=== PATIENT | male | born 1955 | race Caucasian/White ===

== ENCOUNTER 2024-01-16 05:50 | Day surgery (SDC) | payer MEDICARE ==
[2024-01-13 14:07] VITALS: BMI 25.0
[~2024-01-16 05:50] MED LIST: ALPRAZolam 0.25 MG TAB PO PRN; ALPRAZolam 0.5 MG TAB PO PRN; HEPARIN SODIUM,PORCINE (1 ML) 2,500 UNIT in SODIUM CHLORIDE 0.9% 250 ML IRRIGATION PRN; HEPARIN SODIUM,PORCINE 10,000 UNIT in SODIUM CHLORIDE 0.9% 1,000 ML IRRIGATION PRN; NITROGLYCERIN SL TABS 0.4 MG TAB SUBLINGUAL PRN
[2024-01-16] MEDS: SODIUM CHLORIDE 0.9% 1,000 ML in EMPTY BAG 1 BAG IV SCH (06:05)
[2024-01-16] MEDS: IV FLUID CONTINUATION 1,000 ML IV ONE (06:07)
[2024-01-16 06:21] VITALS: RESP 16; TEMP 97.2
[2024-01-16 06:39] LABS: Basophils # (A) 0.1 k/uL (0-0.2); Basophils % (A) 1 %; Eosinophils # (A) 0.2 k/uL (0-0.7); Eosinophils % (A) 2 %; HGB 13.7 gm/dL (13.0-17.5); Lymphocytes # (A) 3.5 k/uL (1.0-4.8); Lymphocytes % (A) 36 %; MCH 29.1 pg (25.0-35.0); MCHC 32.7 g/dL (31.0-37.0); Mean Platelet Volume 9.2; Monocytes # (A) 0.6 k/uL (0-1.0); Monocytes % (A) 6 %; Neutrophils # (A) 5.1 k/uL (1.3-7.7); Neutrophils % (A) 53 %; Platelet Count 190 k/uL (150-450); RBC 4.72 m/uL (4.30-5.90); WBC 9.5 k/uL (3.8-10.6)
[2024-01-16 06:54] LABS: African American GFR (CKD) >90 (>60 ml/min/1.73 sqM); Anion Gap 11 mmol/L; Blood Urea Nitrogen 20 mg/dL (9-20); Calcium 9.2 mg/dL (8.4-10.2); Carbon Dioxide 21 mmol/L (22-30); Chloride 106 mmol/L (98-107); Glucose 93 mg/dL (74-99); Non-African American GFR(CKD) >90 (>60 ml/min/1.73 sqM); Potassium 4.2 mmol/L (3.5-5.1); Sodium 138 mmol/L (137-145)
[2024-01-16] MEDS ORDERED: ASPIRIN 325 MG TAB PO ONE (07:00)
[2024-01-16] MEDS: fentaNYL (PF) 50 MCG/ML 2 ML AMP IVP ONE (07:22)
[2024-01-16] MEDS: LIDOCAINE 1% INJ 10MG/ML (20 ML MDV) SQ ONE (07:24)
[2024-01-16] MEDS: VERAPAMIL SYRINGE (5 MG/10 ML) INTRAARTER ONE (07:27)
[2024-01-16] MEDS: HEPARIN SODIUM 1,000 UN/ML (10ML VL) IVP ONE (07:33)
[2024-01-16] MEDS: IOPAMIDOL-370 100ML BTL INJ ONE (07:41)
[2024-01-16] MEDS ORDERED: RX INFO: IV CONTRAST WAS GIVEN 1 EACH MISC MISCELLANE PRN (07:55)
[2024-01-16] MEDS ORDERED: SODIUM CHLORIDE 0.9% 1,000 ML IV SCH (08:00)
--- NOTE | 2024-01-16 08:01 | P.CARDCATH ---
Date of Procedure: 01/16/24 Description of Procedure: Cardiac Catheterization: The patient is a 68-year-old male with no prior cardiac history who was noted to be in atrial fibrillation with controlled ventricular response. Anticoagulation was initiated and subsequently he had an abnormal MPI. Recommendations were made regarding cardiac catheterization, the risks and the complications were discussed with the patient who is in full understanding and agreement. Procedure Description: Patient was brought to laborer pole crew in fasting semi-sedated state after receiving Fentanyl and Benadryl achieiving moderate conscious sedated state. Using Xylocaine Anesthesia and modified Seldinger technique, a 6-Bulgarian sheath was introduced in the right radial artery . Subsequently, selective coronary angiography was performed using a 5-Bulgarian 5 bend right Ivan and 3.5 left Ivan catheter. Multiple views of the coronary artery including hemiaxial views were obtained. The right Ivan catheter was used to cross the aortic valve and LVEDP was calculated. Following that, catheter and sheath were removed. Hemostasis was obtained with deployment of vascular band . There was no immediate complication. Patient was returned to room in stable condition. Of note, the patient received a total of 5000 units of intravenous heparin as well as intra-arterial verapamil. Findings: Fluoroscopy: Calcifications of the LAD was noted Left main: This is a short size vessel, bifurcating into LAD and left circumflex, left main has no significant obstructive disease. LAD: This is a large size vessel, reaching to the apex, giving rise to 2 diagonal branch, the first 1 is large in caliber. The LAD after the takeoff of the first septal collateral specialist has a 20 to 30% plaque, the rest of the vessel has no high-grade stenosis. Left circumflex: This is a large nondominant vessel, giving rise to 2 obtuse marginal branch. The left circumflex has mild intimal disease in the obtuse marginal branch with no high-grade stenosis RCA: This is a dominant vessel, moderate in caliber, bifurcating distally to PDA and PLV, the RCA distally has mild intimal disease with no high-grade stenosis Left Ventriculogram: Not performed Hemodynamics: There was no gradient across the aortic valve, LVEDP was 8-12 mmHg Conclusion: 1. Calcified LAD 2. Mild triple-vessel disease 3. Right dominance 4. Normal LVEDP Recommendations: The patient will continue on present medical therapy with aggressive coronary risks modifications. He will be evaluated for rhythm control and amish of sinus mechanism. The findings and the recommendations were discussed with the patient and the family and they were in full understanding and agreement. Duration of sedation is 22 minutes.
[2024-01-16 09:33] VITALS: PULSE 70
[2024-01-16 10:52] VITALS: BP 168/70
[2024-01-16] MEDS ORDERED: PANTOPRAZOLE 40 MG TABLET PO SCH (21:00)
[2024-01-17] MEDS ORDERED: ALBUTEROL NEBULIZED 2.5 MG/3 ML INHALATION PRN (07:00)
[2024-01-17] MEDS ORDERED: FLUTICASONE 44 MCG INHALER INHALATION PRN (07:00)
== END 2024-01-16 10:54 | disposition home or self-care (01) ==
LOC: CATHCVL 05:50
PROVIDERS: ATTEND Internal Medicine Interventional Cardiology
DX: I25.10 Atherosclerotic heart disease of native coronary artery without angina pectoris (principal); I48.91 Unspecified atrial fibrillation
CPT/HCPCS: 93458; 80048; 85025; C1769; C1894; J2001; J3010; J1644; Q9967

== ENCOUNTER 2024-01-31 05:49 | Day surgery (SDC) | payer MEDICARE ==
[2024-01-30 08:44] VITALS: BMI 24.8
[~2024-01-31 05:49] MED LIST changes: -ALPRAZolam 0.25 MG TAB PO PRN; -ALPRAZolam 0.5 MG TAB PO PRN; -HEPARIN SODIUM,PORCINE (1 ML) 2,500 UNIT in SODIUM CHLORIDE 0.9% 250 ML IRRIGATION PRN; -HEPARIN SODIUM,PORCINE 10,000 UNIT in SODIUM CHLORIDE 0.9% 1,000 ML IRRIGATION PRN; -NITROGLYCERIN SL TABS 0.4 MG TAB SUBLINGUAL PRN; +SODIUM CHLORIDE 0.9% 500 ML 500 ML IV SCH
[2024-01-31] MEDS ORDERED: LIDOCAINE 1% (10MG/ML) FOR IV START INTRADERMA PRN (05:59)
[2024-01-31 06:39] VITALS: TEMP 97.7
[2024-01-31] MEDS: IV FLUID CONTINUATION 500 ML IV ONE (07:00)
[2024-01-31] MEDS: BENZOCAINE SPRAY 1 CAN TOPICAL ONE (07:17)
[2024-01-31] MEDS: LACTATED RINGERS 1,000 ML IV ONE (07:22)
[2024-01-31] MEDS ORDERED: LIDOCAINE 1% INJ 10MG/ML (20 ML MDV) ONE (07:23)
[2024-01-31] MEDS ORDERED: PROPOFOL 10 MG/ML 20 ML VIAL IV ONE (07:23)
--- NOTE | 2024-01-31 07:44 | P.PCN ---
Date of Procedure: 01/31/24 Description of Procedure: Indication: Atrial fibrillation Procedure Description: After explaining the procedure to the patient, it's risk and complications, blood pressure, heart rate and O2 saturation were monitored. The throat was sprayed with Cetacaine. Patient received sedation per anesthesia department. The probe was introduced into the esophagus without difficulty. Images were obtained. Following that, the probe was removed. There was no immediate complication. Findings: Severe biatrial enlargement was noted, left atrial appendage was normal. The left ventricle systolic function was globally impaired with an ejection fraction of 30 to 35%. The aortic valve revealed mild fibrocalcific changes of the aortic cusps. Mild thickening of the mitral valve leaflets was noted. The tricuspid valve is normal. No pericardial fusion was noted. Contrast bubble study revealed no shunting across the interatrial septum. Descending thoracic aorta appears to be normal. Doppler: Pulse wave and color Doppler were obtained, and revealed severe mitral regurgitation with moderate tricuspid and mild aortic regurgitation. There was no shunting across the interatrial septum. Conclusion: 1. Severe biatrial enlargement with normal appearance of the left atrial appendage 2. Severe global hypokinesis of the left ventricle 3. Severe mitral regurgitation 4. Moderate tricuspid regurgitation with mild aortic regurgitation 5. No shunting across the interatrial septum Cardioversion: After obtaining GABRIELA and obtaining sedated state per anesthesia department a synchronized biphasic cardioversion using 150, 200, 200 J were performed with the inability to restore sinus mechanism.
[2024-01-31 08:25] VITALS: RESP 18
[2024-01-31 08:49] VITALS: BP 151/79; PULSE 61
[2024-01-31] MEDS ORDERED: PANTOPRAZOLE 40 MG TABLET PO SCH (21:00)
[2024-01-31] MEDS ORDERED: ATORVASTATIN 20 MG TAB PO SCH (21:00)
[2024-01-31] MEDS ORDERED: RIVAROXABAN 20 MG TAB PO SCH (21:00)
== END 2024-01-31 09:12 | disposition home or self-care (01) ==
LOC: OR 05:49
PROVIDERS: ATTEND Internal Medicine Interventional Cardiology
DX: I08.3 Combined rheumatic disorders of mitral, aortic and tricuspid valves (principal); I48.11 Longstanding persistent atrial fibrillation; I25.10 Atherosclerotic heart disease of native coronary artery without angina pectoris; Z79.01 Long term (current) use of anticoagulants; Z79.899 Other long term (current) drug therapy
CPT/HCPCS: 93312; 93320; 93325; 92960; J2001; J2704

== ENCOUNTER → 2024-04-06 | Outpatient (CLI) | payer MEDICARE, BC ==
[2024-04-06 11:10] LABS: INR 1.3 (<1.2); Partial Thromboplastin Time 32.4 sec (22.0-30.0); Prothrombin Time 13.5 sec (10.0-12.5)
--- NOTE | 2024-04-06 11:17 | XR ---
EXAMINATION TYPE: XR chest 2V DATE OF EXAM: 04/06/2024 COMPARISON: 04/01/2024 TECHNIQUE: PA and lateral views submitted. HISTORY: Preop FINDINGS: No slight granuloma right upper lobe. Heart size mildly enlarged. No focal pneumonia or sizable pleur al effusion. No interstitial edema. Degenerative changes of the spine. IMPRESSION: 1. Cardiomegaly. [facility], , 04/06/2024 11:15 AM
[2024-04-06 15:28] LABS: HCT 43.9 % (39.6-50.0); HGB 14.3 g/dL (13.0-17.0); MCH 28.1 pg (27.0-32.0); MCHC 32.6 g/dL (32.0-37.0); MCV 86.2 FL (80.0-97.0); Mean Platelet Volume 10.1 FL (9.5-12.2); NRBC Per 100 WBC 0 X 10*3/uL (0.00-0.01); Platelet Count 235 X 10*3/uL (140-440); RBC 5.09 X 10*6/uL (4.40-5.60); RDW 15.9 % (11.5-14.5); WBC 8.82 X 10*3/uL (4.50-10.00)
[2024-04-06 15:56] LABS: Hepatitis A Antibody IgM Nonreactive (Nonreactive); Hepatitis B Core IgM Nonreactive (Nonreactive); Hepatitis B Surface Antigen Nonreactive (Nonreactive); Hepatitis C IgG Antibody Nonreactive (Nonreactive)
[2024-04-06 16:14] LABS: Chol/HDL Ratio 2.93 Ratio
[2024-04-06 16:15] LABS: ALT 12 U/L (10-49); AST 22 U/L (14-35); Albumin 4.5 g/dL (3.8-4.9); Albumin/Globulin Ratio 1.22 Ratio (1.60-3.17); Alkaline Phosphatase 99 U/L (41-126); BUN/Creat Ratio 22.22 Ratio (12.00-20.00); Calcium 9.4 mg/dL (8.7-10.3); Carbon Dioxide 24.2 mmol/L (21.6-31.8); Chloride 104 mmol/L (96-109); Globulin 3.7 g/dL (1.6-3.3); Glucose 116 mg/dL (70-110); LDL Cholesterol,Calculated 60.3 mg/dL (0.0-131.0); Potassium 4.3 mmol/L (3.5-5.5); Sodium 140 mmol/L (135-145); Total Bilirubin 0.8 mg/dL (0.3-1.2); Total Protein 8.2 g/dL (6.2-8.2); VLDL Calculation 18.74 mg/dL (5.00-40.00)
--- NOTE | 2024-04-08 11:38 | US ---
EXAMINATION TYPE: US arterial LE single level DATE OF EXAM: 04/06/2024 10:57 AM CLINICAL INDICATION: Male, 68 years old with history of I36.1 MITRAL VALVE TRISCUSPID INSUFFICIENCY; pre mitral milind replacement Doppler Waveforms: Right: Multiphasic Left: Multiphasic Right Brachial Pressure: 152 Left Brachial Pressure: 175 Ankle-Brachial Indices: Right: 1.1 Left: 1.1 (Vessel hardening > 1.4; Normal 0.9 - 1.4, Moderate 0.7 - 0.9, Severe 0.5-0.7) IMPRESSION: Values are within normal limits [facility], , 04/08/2024 11:36 AM
== END | disposition home or self-care (01) ==
LOC: LABWHC1 08:45
PROVIDERS: ATTEND Surgery
DX: I51.7 Cardiomegaly (principal); I45.81 Long QT syndrome; I48.91 Unspecified atrial fibrillation
CPT/HCPCS: 36415; 71046; 80053; 80061; 80074; 83036; 83735; 84443; 85027; 85610; 85730; 86850; 86900; 86901; 86920; 87070; 87086; 93922

== ENCOUNTER 2024-04-11 05:33 | Inpatient (IN) | payer MEDICARE, BC ==
[~2024-04-11 05:33] MED LIST changes: +ALBUMIN HUMAN 25% 50 ML IV ONE; +ALBUMIN HUMAN 5% 500 ML IVPB ONE; +ASPIRIN 325 MG TAB PO ONE; +CALCIUM CHLORIDE 100 MG/ML 10 ML SYRINGE IV ONE; +CHLORHEXIDINE GLUCONATE 15 ML CUP MUCOUS MEM ONE; +CLEVIDIPINE BUTYRATE 25 MG in EMPTY BAG 1 BAG IV ONE; +ELECTROLYTE-A SOLUTION 1,000 ML with POTASSIUM CHLORIDE 100 MEQ, MAGNESIUM SULFATE 16 M... IV ONE; +ELECTROLYTE-A SOLUTION 1,000 ML with POTASSIUM CHLORIDE 40 MEQ, MAGNESIUM SULFATE 16 ME... IV ONE; +HEPARIN SODIUM 1,000 UN/ML (10ML VL) IV ONE; +HEPARIN SODIUM,PORCINE (1 ML) 5,000 UNIT in SODIUM CHLORIDE 0.9% 500 ML 500 ML IV ONE; +MAGNESIUM SULFATE 16.24 MEQ in EMPTY SYRINGE 1 SYR IV ONE; +MANNITOL 25% 12.5 GM/50 ML VIAL IV ONE; +NITROGLYCERIN SL TABS 0.4 MG TAB SUBLINGUAL ONE; +NITROGLYCERIN-D5W PMX 25 MG/250 ML BTL IV ONE; +NITROGLYCERIN-D5W PMX 50 MG in DEXTROSE/WATER 1 250ML.BAG IV ONE; +NOREPINEPHRINE 4 MG in SODIUM CHLORIDE 0.9% 250 ML IV ONE; +PAPAVERINE 360 MG in SODIUM CHLORIDE 0.9% 90 ML IV ONE; +PHENYLEPHRINE 10 MG/ML VIAL IV ONE; +PHENYLEPHRINE 40 MG in SODIUM CHLORIDE 0.9% 250 ML IV ONE; +PROTAMINE SULFATE 10 MG/ML 25 ML VIAL IV ONE; +PROTAMINE SULFATE 250 MG in EMPTY BAG 1 BAG IV ONE; +SODIUM BICARB 8.4% 50 ML SYR (1 MEQ/ML) IV ONE; +SODIUM CHLORIDE 0.9% 1,000 ML IV ONE; -SODIUM CHLORIDE 0.9% 500 ML 500 ML IV SCH; +TRANEXAMIC ACID 2,000 MG in SODIUM CHLORIDE 0.9% 80 ML IV ONE; +ceFAZolin 1,000 MG in SODIUM CHLORIDE 0.9% IRRIGATIO 1,000 ML IRRIGATION ONE; +propofoL 1,000 MG/100 ML VIAL IV ONE
[2024-04-11] MEDS: ATORVASTATIN 10 MG TAB PO ONE (06:16)
[2024-04-11] MEDS: METOPROLOL TARTRATE 12.5 MG TAB PO ONE (06:16)
[2024-04-11] MEDS: MUPIROCIN 2% OINT 22 GM TUBE NASAL ONE (06:16)
[2024-04-11] MEDS: LACTATED RINGERS 1,000 ML IV ONE (06:25)
[2024-04-11] MEDS: IV FLUID CONTINUATION 1,000 ML IV ONE (06:33)
[2024-04-11] MEDS ORDERED: PROPOFOL 10 MG/ML 20 ML VIAL IV ONE (07:39)
[2024-04-11] MEDS ORDERED: TRANEXAMIC 1,000 MG/100ML-NACL PREMIX BAG ONE (07:39)
[2024-04-11] MEDS ORDERED: ePHEDrine 50 MG/ML 1 ML VIAL ONE (07:39)
[2024-04-11] MEDS ORDERED: VECURONIUM 10 MG VIAL IV ONE (07:39)
[2024-04-11] MEDS ORDERED: INSULIN REGULAR 100 UNIT/ML VIAL (IV) ONE (07:39)
[2024-04-11] MEDS ORDERED: fentaNYL (PF) 50 MCG/ML 50 ML VIAL ONE (07:39)
[2024-04-11] MEDS ORDERED: MIDAZOLAM HCL 10 MG/10 ML VIAL ONE (07:39)
[2024-04-11] MEDS ORDERED: GLYCOPYRROLATE 0.2 MG/ML 2 ML VIAL ONE (07:39)
[2024-04-11] MEDS ORDERED: CALCIUM CHLORIDE 100 MG/ML 10 ML SYRINGE ONE (07:39)
[2024-04-11] MEDS ORDERED: PHENYLEPHRINE 10 MG/ML VIAL ONE (07:39)
[2024-04-11] MEDS ORDERED: PROTAMINE SULFATE 10 MG/ML 25 ML VIAL IV ONE (07:39)
[2024-04-11] MEDS ORDERED: LIDOCAINE 2% SYG (PF) 100 MG/5 ML ONE (07:39)
[2024-04-11] MEDS ORDERED: METHYLENE BLUE IV ONE (08:15)
[2024-04-11] MEDS ORDERED: VASOPRESSIN 20 UNIT in SODIUM CHLORIDE 0.9% 50 ML IV SCH (08:15)
[2024-04-11] MEDS ORDERED: WATER IV ONE (08:15)
[2024-04-11] MEDS ORDERED: DEXTROSE 5% IV ONE (08:15)
[2024-04-11 08:19] LABS: ABG Base Excess -2.1 mmol/L; ABG Glucose Whole Blood 116 mg/dL (75-99); ABG HCO3 23 mmol/L (21-25); ABG Hematocrit 36 % (34.0-46.0); ABG Ionized Calcium 4.8 mg/dL (4.5-5.3); ABG Lactic Acid Whole Blood 1.3 mmol/L (0.5-1.6); ABG Oxygen Saturation >99.4 % (94-97); ABG PCO2 42 mmHg (35-45); ABG PH 7.36 (7.35-7.45); ABG PO2 385 mmHg (83-108); ABG Potassium Whole Blood 4.1 mmol/L (3.4-4.5); ABG Sodium Whole Blood 137 mmol/L (135-146); Allen Test Performed? Yes
[2024-04-11 09:06] LABS: ABG Base Excess -1.8 mmol/L; ABG Glucose Whole Blood 127 mg/dL (75-99); ABG HCO3 23 mmol/L (21-25); ABG Hematocrit 34 % (34.0-46.0); ABG Ionized Calcium 4.6 mg/dL (4.5-5.3); ABG Lactic Acid Whole Blood 1.2 mmol/L (0.5-1.6); ABG Oxygen Saturation 99.2 % (94-97); ABG PCO2 37 mmHg (35-45); ABG PO2 183 mmHg (83-108); ABG Potassium Whole Blood 4.2 mmol/L (3.4-4.5); ABG Sodium Whole Blood 137 mmol/L (135-146); ABG TCO2 21 mmol/L (19-24); Allen Test Performed? Yes
[2024-04-11] MEDS: SODIUM CHLORIDE 0.9% 500 ML 500 ML with HEPARIN SODIUM,PORCINE (1 ML) 5,000 UNIT IV ONE (09:37)
[2024-04-11] MEDS: ceFAZolin 1,000 MG in SODIUM CHLORIDE 0.9% 1,000 ML IRRIGATION ONE (09:38)
[2024-04-11 10:09] LABS: ABG Base Excess -0.3 mmol/L; ABG Glucose Whole Blood 120 mg/dL (75-99); ABG HCO3 25 mmol/L (21-25); ABG Hematocrit 28 % (34.0-46.0); ABG Ionized Calcium 4.1 mg/dL (4.5-5.3); ABG Lactic Acid Whole Blood 1.5 mmol/L (0.5-1.6); ABG Oxygen Saturation >99.4 % (94-97); ABG PCO2 42 mmHg (35-45); ABG PH 7.38 (7.35-7.45); ABG Sodium Whole Blood 139 mmol/L (135-146); Allen Test Performed? Yes
[2024-04-11 11:00] LABS: ABG Base Excess -0.3 mmol/L; ABG Glucose Whole Blood 153 mg/dL (75-99); ABG HCO3 25 mmol/L (21-25); ABG Hematocrit 28 % (34.0-46.0); ABG Ionized Calcium 4.3 mg/dL (4.5-5.3); ABG Lactic Acid Whole Blood 1.7 mmol/L (0.5-1.6); ABG Oxygen Saturation >99.4 % (94-97); ABG PCO2 41 mmHg (35-45); ABG PH 7.39 (7.35-7.45); ABG Potassium Whole Blood 4.7 mmol/L (3.4-4.5); ABG Sodium Whole Blood 137 mmol/L (135-146); Allen Test Performed? Yes
[2024-04-11 11:53] LABS: ABG Base Excess -1.1 mmol/L; ABG Glucose Whole Blood 155 mg/dL (75-99); ABG HCO3 25 mmol/L (21-25); ABG Hematocrit 27 % (34.0-46.0); ABG Ionized Calcium 4.4 mg/dL (4.5-5.3); ABG Lactic Acid Whole Blood 1.8 mmol/L (0.5-1.6); ABG Oxygen Saturation >99.4 % (94-97); ABG PCO2 45 mmHg (35-45); ABG PH 7.35 (7.35-7.45); ABG Potassium Whole Blood 4.5 mmol/L (3.4-4.5); ABG Sodium Whole Blood 137 mmol/L (135-146); Allen Test Performed? Yes
[2024-04-11 12:27] LABS: ABG Base Excess -2.5 mmol/L; ABG Glucose Whole Blood 141 mg/dL (75-99); ABG HCO3 24 mmol/L (21-25); ABG Hematocrit 26 % (34.0-46.0); ABG Ionized Calcium 4.4 mg/dL (4.5-5.3); ABG Oxygen Saturation 99.1 % (94-97); ABG PCO2 49 mmHg (35-45); ABG PO2 388 mmHg (83-108); ABG Potassium Whole Blood 4.5 mmol/L (3.4-4.5); ABG Sodium Whole Blood 138 mmol/L (135-146); ABG TCO2 23 mmol/L (19-24); Allen Test Performed? Yes
[2024-04-11 13:09] LABS: ABG Base Excess -1.5 mmol/L; ABG Glucose Whole Blood 129 mg/dL (75-99); ABG HCO3 24 mmol/L (21-25); ABG Ionized Calcium 4.3 mg/dL (4.5-5.3); ABG Oxygen Saturation >99.4 % (94-97); ABG PCO2 46 mmHg (35-45); ABG PH 7.33 (7.35-7.45); ABG Potassium Whole Blood 4.3 mmol/L (3.4-4.5); ABG Sodium Whole Blood 138 mmol/L (135-146); Allen Test Performed? Yes
[2024-04-11 13:40] LABS: ABG Base Excess -3.4 mmol/L; ABG Glucose Whole Blood 121 mg/dL (75-99); ABG HCO3 23 mmol/L (21-25); ABG Hematocrit 28 % (34.0-46.0); ABG Ionized Calcium 4.3 mg/dL (4.5-5.3); ABG Oxygen Saturation >99.4 % (94-97); ABG PCO2 46 mmHg (35-45); ABG Potassium Whole Blood 4.6 mmol/L (3.4-4.5); ABG Sodium Whole Blood 138 mmol/L (135-146); Allen Test Performed? Yes
[2024-04-11 14:16] LABS: ABG Base Excess 2.6 mmol/L; ABG Glucose Whole Blood 118 mg/dL (75-99); ABG HCO3 27 mmol/L (21-25); ABG Hematocrit 25 % (34.0-46.0); ABG Ionized Calcium 4.4 mg/dL (4.5-5.3); ABG Oxygen Saturation >99.4 % (94-97); ABG PCO2 37 mmHg (35-45); ABG PH 7.47 (7.35-7.45); ABG Potassium Whole Blood 4.3 mmol/L (3.4-4.5); ABG Sodium Whole Blood 142 mmol/L (135-146); Allen Test Performed? Yes
[2024-04-11 14:40] LABS: ABG PCO2 51 mmHg (35-45); ABG PH 7.33 (7.35-7.45); ABG PO2 89 mmHg (83-108); Allen Test Performed? Yes
[2024-04-11 14:41] LABS: ABG Base Excess 0.1 mmol/L; ABG Glucose Whole Blood 133 mg/dL (75-99); ABG HCO3 26 mmol/L (21-25); ABG Hematocrit 25 % (34.0-46.0); ABG Ionized Calcium 4.3 mg/dL (4.5-5.3); ABG Oxygen Saturation 97.3 % (94-97); ABG Sodium Whole Blood 141 mmol/L (135-146); ABG TCO2 26 mmol/L (19-24)
[2024-04-11 15:09] LABS: ABG PO2 >420 mmHg (83-108)
[2024-04-11 15:10] LABS: ABG PO2 >420 mmHg (83-108)
[2024-04-11 15:10] LABS: ABG PO2 >420 mmHg (83-108)
[2024-04-11 15:11] LABS: ABG Lactic Acid Whole Blood 2.2 mmol/L (0.5-1.6)
[2024-04-11 15:12] LABS: ABG Hematocrit 24 % (34.0-46.0); ABG Lactic Acid Whole Blood 2.2 mmol/L (0.5-1.6); ABG PO2 >420 mmHg (83-108)
[2024-04-11 15:13] LABS: ABG PO2 >420 mmHg (83-108)
[2024-04-11 15:13] LABS: ABG Lactic Acid Whole Blood 2.6 mmol/L (0.5-1.6); ABG PO2 >420 mmHg (83-108)
[2024-04-11 15:14] LABS: ABG Lactic Acid Whole Blood 2.6 mmol/L (0.5-1.6)
[2024-04-11 15:14] LABS: ABG Lactic Acid Whole Blood 2.7 mmol/L (0.5-1.6)
[2024-04-11 15:26] LABS: ABG Base Excess -0.5 mmol/L; ABG Glucose Whole Blood 109 mg/dL (75-99); ABG HCO3 24 mmol/L (21-25); ABG Hematocrit 32 % (34.0-46.0); ABG Ionized Calcium 4.5 mg/dL (4.5-5.3); ABG Oxygen Saturation 99.3 % (94-97); ABG PCO2 38 mmHg (35-45); ABG PH 7.41 (7.35-7.45); ABG PO2 327 mmHg (83-108); ABG Sodium Whole Blood 141 mmol/L (135-146); ABG TCO2 22 mmol/L (19-24); Allen Test Performed? Yes
[2024-04-11 15:29] LABS: ABG Lactic Acid Whole Blood 2.3 mmol/L (0.5-1.6)
[2024-04-11] MEDS ORDERED: hydrALAZINE HCL 20 MG/ML 1 ML VIAL IVP PRN (15:53)
[2024-04-11] MEDS ORDERED: AMIODARONE 360 MG in DEXTROSE 5% IN WATER 200 ML IV PRN (15:53)
[2024-04-11] MEDS ORDERED: DEXTROSE 50% SYRINGE 50 ML IVP PRN ×2 (15:53)
[2024-04-11] MEDS ORDERED: DEXMEDETOMIDINE/0.9% NACL(PMX) 400 MCG in EMPTY BAG 1 BAG IV SCH (15:53)
[2024-04-11] MEDS ORDERED: DEXTROSE 5% IN WATER 100 ML with AMIODARONE 150 MG IV PRN (15:53)
[2024-04-11] MEDS ORDERED: IPRATROPIUM-ALBUTEROL 3 ML NEB INHALATION PRN (15:53)
[2024-04-11] MEDS ORDERED: METOCLOPRAMIDE 5 MG/ML 2 ML VIAL IVP PRN (15:53)
[2024-04-11] MEDS ORDERED: AMIODARONE 450 MG in DEXTROSE 5% IN WATER 250 ML IV PRN (15:53)
[2024-04-11] MEDS ORDERED: Magnesium Replacement Protocol 1 EACH MISC MISCELLANE PRN (15:53)
[2024-04-11] MEDS ORDERED: MORPHINE SULFATE 2 MG/ML SYRINGE IVP PRN (15:53)
[2024-04-11] MEDS ORDERED: Potassium Replacement Protocol 1 EACH MISC MISCELLANE PRN (15:53)
[2024-04-11] MEDS ORDERED: CALCIUM GLUCONATE IN NACL 2 GM in SALINE 1 100ML.BAG IVPB PRN (15:53)
--- NOTE | 2024-04-11 15:56 | P.ANPRN ---
Procedure Note - Anesthesia - Invasive Line Right Central Line Time Out Performed: Yes (0722) Date of Procedure: 04/11/24 Time of Procedure: 07:23 Location of Patient: PreOp Preparation: Sterile Prep, Sterile Dressing Central Line Location: Internal Jugular (right ij) Ultrasound Used: Yes Purpose - Visualization and Identification of Vasculature: Yes Needle Guage: [id number] Image Stored and Saved: Yes Narrative: Invasive line placement per sterile protocol utilized. Anesthesia note Procedure: Internal jugular central venous catheter insertion: 8.5-Maldivian Cordis Sterile protocol followed. Right neck prepped. Ultrasound used. Lidocaine 1% used. Using ultrasound local anesthetic was instilled site over right Internal Jugular vein. Angiocath was used to gain access via ultrasound. Once free flow non-pulsatile blood flow was confirmed, 12 inch extension tubing was then placed on Angiocath. Once central venous pressure was confirmed, J-wire was then placed through Angiocath. Angiocath was then withdrawn. Local was instilled at J-wire site. Small skin karla was then made with provided sterile scalpel. 8.5- Maldivian Cordis was then inserted over the wire while maintaining control of wire at all times. Uneventful insertion with dilation. Free flow nonpulsatile blood flow through Cordis. Hooked up to IV tubing. Secured with suture. Dressings applied. Drapes Removed. Attempts x1.
--- NOTE | 2024-04-11 15:57 | P.ANPRN ---
Procedure Note - Anesthesia - Invasive Line Right Goodspring Krystal Time Out Performed: Yes (0722) Date of Procedure: 04/11/24 Time of Procedure: 07:33 Location of Patient: Phase I Preparation: Sterile Prep, Sterile Dressing Goodspring Krystal Line Location: Internal Jugular (Right) Ultrasound Used: No Purpose - Visualization and Identification of Vasculature: No Image Stored and Saved: No Narrative: Invasive line placement per sterile protocol utilized. Anesthesia note Procedure right Goodspring-Krystal catheter placed through right internal jugular central venous catheter Sterile protocol maintained from previous procedure. Goodspring-Krystal catheter sterilely placed in sheath and flushed prior to insertion. After advancing 15 cm Goodspring-Krystal catheter was then slowly inserted with balloon up. Advanced through CVP, RV to PA waveform. Goodspring-Krystal catheter wedged around 51 cm. Balloon down. Catheter withdrawn 5 cm. . No wedge. Proximal and distal sites locked on sheath. Attempts x1. Sterile drapes removed and dressings applied.
--- NOTE | 2024-04-11 15:58 | P.ANPRN ---
Procedure Note - Anesthesia - GABRIELA Intraop Pre Bypass GABRIELA Intraop - Anesthesia Indication: Mitral valve replacement, tricuspid valve ring Date of Procedure: 04/11/24 Pre-operative Diagnosis: Mitral valve regurgitation tricuspid valve regurgitation Post-operative Diagnosis: Same Surgeon: Sophia Scott Left Ventricle: Within normal limits Ejection Fraction: Other (40 to 45%) Regional Wall Motion Abnormalities: None Left Ventricle Hypertrophy: No R. Ventricle Function: Normal Anatomy: Trileaflet Aortic Stenosis: None Aortic Regurgitation: None Mitral Stenosis: None Mitral Regurgitation: Moderate Tricuspid Stenosis: None Tricuspid Regurgitation: Moderate Pulmonic Stenosis: None Pulmonic Regurgitation: None R. Atrial Dilation: Yes R. Atrial PFO: No L. Atrial Dilation: Yes Aortic Dissection: No Aortic Calcification: None Plural Effusion: None
--- NOTE | 2024-04-11 15:59 | P.ANPRN ---
Procedure Note - Anesthesia - GABRIELA Intraop Post Bypass GABRIELA Intraop Post Bypass Procedure Performed: Mitral valve replacement, tricuspid valve ring Left Ventricle: Within normal limits Ejection Fraction: Other (Unchanged, 40 to 45%) Regional Wall Motion Abnormalities: None R. Ventricle Function: Normal Aortic Valve: Unchanged Mitral Valve: Mitral valve prosthesis in place. No perivalvular leak or regurgitation. Residual gradient mean of 4 Tricuspid: No residual regurgitation. Pulmonic: Unchanged Aortic Dissection: No
[2024-04-11] MEDS: NOREPINEPHRINE 4 MG in SODIUM CHLORIDE 0.9% 250 ML IV SCH (16:05)
[2024-04-11] MEDS: VASOPRESSIN 20 UNIT in SODIUM CHLORIDE 0.9% 50 ML IV SCH (16:05)
[2024-04-11 16:16] LABS: Glucose,Whole Blood 119 mg/dL (70-110)
[2024-04-11] MEDS: IPRATROPIUM-ALBUTEROL 3 ML NEB INHALATION SCH (16:26)
[2024-04-11 16:32] LABS: Basophils % (A) 0 %; Eosinophils % (A) 0 %; HCT 33.1 % (39.0-53.0); HGB 11.1 gm/dL (13.0-17.5); Lymphocytes % (A) 14 %; MCH 29.1 pg (25.0-35.0); MCHC 33.5 g/dL (31.0-37.0); MCV 87.1 fL (80.0-100.0); Mean Platelet Volume 8.8; Monocytes # (A) 1.3 k/uL (0-1.0); Monocytes % (A) 9 %; Neutrophils % (A) 76 %; Platelet Count 125 k/uL (150-450); RDW 15.7 % (11.5-15.5); WBC 14.5 k/uL (3.8-10.6)
--- NOTE | 2024-04-11 16:40 | XR ---
EXAMINATION TYPE: XR chest 1V portable DATE OF EXAM: 04/11/2024 4:32 PM CLINICAL INDICATION: Male, 68 years old with history of Post Operative Cardiac Surgery; [facility] COMPARISON: Chest radiographs from 04/06/2024. TECHNIQUE: XR chest 1V portable Frontal view of the chest. FINDINGS: Lungs/Pleura: There is no evidence of pleural effusion, focal consolidation, or pneumothorax. Pulmonary vascularity: Unremarkable. Heart/mediastinum: Cardiomediastinal silhouette is enlarged. Aortic valve repair changes. Left at rial appendage occlusion device is present. Musculoskeletal: No acute osseous pathology. Midline sternotomy wires are noted. Other findings: None Lines/Tubes: Endotracheal tube with distal tip 4.4 cm above the juliano. Nasogastric tube with its distal tip and side-port projecting under the diaphragm. There is a [place]-Krystal catheter with tip projecting over the heart. Right internal jugular central venous catheter with distal tip at the cavoatrial junction. IMPRESSION: 1. [place]-Krystal catheter tip projects over the heart on the left heart correlate for malpositioning. 2. Endotracheal tube nasogastric tube in appropriate position. [facility], , 04/11/2024 4:37 PM
[2024-04-11 16:48] LABS: ABG Base Excess -1.6 mmol/L; ABG HCO3 24 mmol/L (21-25); ABG Oxygen Saturation 100.4 % (94-97); ABG PCO2 45 mmHg (35-45); ABG PH 7.34 (7.35-7.45); ABG PO2 322 mmHg (83-108); ABG TCO2 26 mmol/L (19-24)
[2024-04-11 16:49] LABS: INR 1.4 (<1.2); Partial Thromboplastin Time 63.1 sec (22.0-30.0); Prothrombin Time 14.7 sec (10.0-12.5)
[2024-04-11] MEDS: ALBUMIN HUMAN 5% 250 ML in EMPTY BAG 1 BAG IVPB PRN (16:59)
--- NOTE | 2024-04-11 17:17 | P.OP ---
Date of Procedure: 04/11/24 Preoperative Diagnosis: Moderate to severe mitral valve disorder, moderate to severe mitral annular calcification, moderate tricuspid valve regurgitation, moderate to severe pulmonary hypertension, moderate to severe left ventricular dysfunction, permanent atrial fibrillation ,hyperlipidemia, rheumatoid arthritis. Postoperative Diagnosis: Same Procedure(s) Performed: 1 Mitral valve replacement using a 31 mm Mosaic porcine bioprosthesis 2decalcification of the mitral annulus using the sono PET machine 3tricuspid valve repair using a 30 mm MC3 band 4full biatrial maze procedure using radiofrequency and cryoablation 5exclusion of the left atrial appendage using a 35mm AtriClip 6intraoperative transesophageal echocardiogram and epiaortic scanning Implants: 31 mm Mosaic porcine bioprosthesis in mitral position 30 mm MC3 band in tricuspid position 35mm AtriClip Anesthesia: SUYAPA Surgeon: Sophia Scott Teller Head #1: Kory Decker Teller Head #2: Reynaldo Johnston Pathology: other (Mitral valve leaflets) Condition: stable Disposition: ICU Indications for Procedure: Moderate to severe mitral valve regurgitation with moderate stenosis, moderate tricuspid valve regurgitation and moderate to severe left ventricular dysfunct ion, permanent atrial fibrillation Operative Findings: 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 PA pressure was 55/25 cardiac index of 2.3. Patient was brought to the operating room subsequently where general endotracheal anesthesia was induced uneventfully. León catheter was inserted. The chest abdomen and both lower extremities were prepped and draped using ChloraPrep. Ioban was used to cover the skin. Patient received 2 g of cefazolin intravenously. Transesophageal echocardiogram confirmed the preoperative finding of at least moderate left ventricular dysfunction, mild right ventricular dysfunction, moderate to severe mitral valve regurgitation with mild to moderate stenosis. No clots in the left atrial appendage. Midline sternotomy was performed and no bone wax was used. The left pleura remained intact. I made a small breach in the right pleura at the end of the case which was not drained. Mediastinal fat were transected between 2 ties and epiaortic scanning revealed no protruding atheroma in the ascending aorta. Pericardium was opened in an inverted T fashion and a pericardial cradle was created. Findings within normal soft aorta and enlarged heart. After systemic heparinization and after placement of prospective pledgeted pursestring, aortic cannulation in the distal ascending aorta with a 21 Ugandan slow flow cannula, direct SVC cannulation with a right angled 28 Ugandan cannula, IVC cannulation at the junction with the right atrium with a 32 Ugandan straight cannula was performed. Antegrade as well as retrograde cardioplegia catheter were placed. Coronary bypass was initiated and with a heart warm and beating we proceeded at performing the right side the pulmonary vein isolation by applying for radiofrequency bipolar ablation At the antrum of the veins. Subsequently the aorta was clamped and Myocard protection was achieved with an initial dose of 1 L of antegrade cold blood cardioplegia followed by 300 cc of retrograde cold blood cardioplegia. All subsequent doses were given retrograde at 15 minutes interval. At this point we completed the left-sided pulmonary vein isolation by applying a bipolar clamp 4 times after incising the ligament of Godwin with the Bovie. Subsequently an ablation line from the left atrial appendage into the left superior pulmonary vein was performed. Following that we excluded the left atrial appendage at its base with a 35mm AtriClip. The opening in the atrial appendage at the tip was closed with a separate 3-0 Prolene pledgeted. After developing the interatrial groove a standard transverse left atriotomy was performed. We used the Evaristo retractor to help exposing that very deep mitral valve. Expiration of the valve revealed commissural fusion and calcific posterior leaflet as well as moderate calcification of the posterior annulus. I started by excising the anterior leaflet which was pliable and passed several 2/0 pledgeted Tycron suture with the pledgets on the atrial side. When I got to the posterior leaflet I used the decalcifying machine by SONOPET to be able to achieve a pliable posterior annulus and some areas. I preserved a good part of the actual posterior leaflet which was fibrotic as I had plenty of room for the prosthesis without having to excise in totality the posterior leaflet. I preserved the button of the anterior leaflet which was hooked to the annular sutures and again part of the posterior leaflet and its subvalvular apparatus were preserved. A total of 20 3 sutures were placed. The opening was sized to a 31 mm Mosaic porcine bioprosthesis which was brought in into the field after it was prepped and all the suture passed in its very cushioning cuff and it seated nicely after cinching it into the ventricle. All the needles cut and the suture tied using the core knot device. Subsequent to that the center mechanism was released. We maDe sure that the strut of the prosthesis are not obstructing the LVOT. Thorough irrigation performed at this point. I completed the left atrial maze by applying a radiofrequency lesion in the roof and in the bottom of the left atrium to complete the box lesion. Subsequently in an avascular area I cryoablated the coronary sinus from outside and the ice ball was marked on the inside and another cryoablation from inside was performed. With that we completed the left atrial maze. Subsequently the left atrial team was closed in 1 layer using 4-0 Prolene pledgeted on each corner. CO2 was flowing over the field as long as the left atrium was open. At this point the snares around the vena cava were tightened. The right atrium was opened in a limited fashion an oblique orientation. I completed the right sided maze by applying radiofrequency ablation into the SVC and into the IVC and another line into the right atrial appendage. A cryoablation line at around 2 PM to the tricuspid annulus also was completed. Subsequently expiration revealed a dilated tricuspid annulus with pliable leaflet. I placed a's total of 9 sutures of Tycron 2 oh nonpledgeted from around 6 to around 10:00 sparing the area of the potential AV node. I downsized the annulus to a 30 mm MC3 band that seated nicely. All the needles were cut and the suture tied using the core knot device. Testing revealed excellent tricuspid seal. The Ettrick-Krystal was free. Rewarming was started as we closed the atriotomy using 4-0 Prolene pledgeted on each corner. Patient close the with Primacor. I had inserted the right femoral arterial line for potential use of intra-aortic balloon pump. De-airing maneuvers were p ursued. Subsequently with the patient and Trendelenburg position and after given lidocaine and magnesium we unclamped the aorta. Patient required around 4 defibrillation to regain junctional rhythm. To mention that his baseline rhythm was very bradycardic and in atrial fibrillation. It took a while to the air and I used a needle in the apex of the left ventricle to help. That wall was closed with a pledgeted 6-0 Prolene eventually. Again it took a while to achieve adequate de-airing. Subsequently we were able to wean off cardiac bypass on Primacor, Levophed and vasopressin. GABRIELA showed adequate de-airing, good functioning mitral prosthesis without paravalvular leak and no tricuspid regurgitation. The left ventricular and right ventricular function were mildly depressed. With that all pump suckers were stopped as we gave test dose followed by full dose protamine. Decannulation followed. 2 monopolar atrial pacing wires were affixed to the right atrial wall and 1 bipolar ventricular pacing wire was driven via the posterolateral aspect of the left ventricle. 219 Ugandan Eleno drain was left substernally. Pericardium was closed over the aorta and the heart. After ensuring adequate hemostasis hemodynamic and after correct sponge instrument and needle count the sternum was closed using 5 [id number] [place] cable after interposing fibrillar between the sternal edges. Thorough irrigation with cefazolin followed. The rest of the closure proceeded in layers. Patient did not receive any blood bank product but received 600 cc of Cell Saver blood. She transferred to the ICU in relatively stable condition AV paced at 80, PA pressure 40/20 cardiac index of 2.3 and mean arterial pressure of 74 on low-dose Primacor Levophed and vasopressin.
[2024-04-11 17:25] LABS: Ionized Calcium 4.6 mg/dL (4.5-5.3)
[2024-04-11 17:26] LABS: Glucose,Whole Blood 138 mg/dL (70-110)
[2024-04-11 17:45] LABS: ALT 12 U/L (4-49); AST 83 U/L (17-59); African American GFR (CKD) >90 (>60 ml/min/1.73 sqM); Albumin 2.9 g/dL (3.5-5.0); Alkaline Phosphatase 52 U/L (38-126); Anion Gap 5 mmol/L; Blood Urea Nitrogen 22 mg/dL (9-20); Calcium 8.4 mg/dL (8.4-10.2); Carbon Dioxide 23 mmol/L (22-30); Chloride 109 mmol/L (98-107); Glucose 117 mg/dL (74-99); Magnesium 2.2 mg/dL (1.6-2.3); Non-African American GFR(CKD) 90 (>60 ml/min/1.73 sqM); Potassium 3.9 mmol/L (3.5-5.1); Sodium 137 mmol/L (137-145); Total Bilirubin 2.3 mg/dL (0.2-1.3); Total Protein 5.1 g/dL (6.3-8.2)
[2024-04-11] MEDS: SODIUM CHLORIDE 0.9% 1,000 ML IV SCH (18:00)
[2024-04-11] MEDS: INSULIN REGULAR 100 UNIT in SODIUM CHLORIDE 0.9% 100 ML IV SCH (18:00)
[2024-04-11] MEDS: MILRINONE-D5W PMX 20 MG in DEXTROSE/WATER 1 100ML.BAG IV SCH (18:01)
[2024-04-11 18:28] LABS: Glucose,Whole Blood 141 mg/dL (70-110)
[2024-04-11 18:30] LABS: ABG Base Excess -1.3 mmol/L; ABG HCO3 24 mmol/L (21-25); ABG Oxygen Saturation 99.7 % (94-97); ABG PCO2 42 mmHg (35-45); ABG PH 7.37 (7.35-7.45); ABG PO2 139 mmHg (83-108); ABG TCO2 25 mmol/L (19-24)
[2024-04-11 18:51] LABS: Glucose,Whole Blood 145 mg/dL (70-110)
[2024-04-11] MEDS: HEPARIN SODIUM,PORCINE 5,000 UNIT/ML 1 ML VIAL SQ SCH (18:57)
[2024-04-11] MEDS: ACETAMINOPHEN IV (For NPO) 1,000 MG in EMPTY BAG 1 BAG IVPB SCH (19:06)
[2024-04-11] MEDS: INSULIN REGULAR 100 UNIT in SODIUM CHLORIDE 0.9% 100 ML IV ONE (19:30)
[2024-04-11 19:54] LABS: Glucose,Whole Blood 148 mg/dL (70-110)
[2024-04-11 20:10] LABS: Basophils % (A) 0 %; Eosinophils % (A) 0 %; HCT 29.9 % (39.0-53.0); HGB 9.9 gm/dL (13.0-17.5); Lymphocytes # (A) 1.8 k/uL (1.0-4.8); Lymphocytes % (A) 14 %; MCH 28.8 pg (25.0-35.0); MCHC 33.1 g/dL (31.0-37.0); MCV 86.9 fL (80.0-100.0); Mean Platelet Volume 8.4; Monocytes # (A) 1.1 k/uL (0-1.0); Monocytes % (A) 8 %; Neutrophils # (A) 10.2 k/uL (1.3-7.7); Neutrophils % (A) 76 %; Platelet Count 116 k/uL (150-450); RBC 3.44 m/uL (4.30-5.90); WBC 13.4 k/uL (3.8-10.6)
--- NOTE | 2024-04-11 20:12 | P.CONS ---
History of Present Illness - Reason for Consult Consult date: 04/11/24 Medical management Requesting physician: Sophia Scott - Chief Complaint Cardiothoracic surgery - History of Present Illness 68-year-old patient, follows with Dr. Paulina Fuller. Medical history includes atrial fibrillation, decreased hearing, rheumatoid arthritis, history of bleeding ulcers in the past. Diagnosed with atrial fibrillation in November 2023. Has been had back surgery x 2. Currently in the ICU. Extubated. Patient had known moderate to severe mitral valve disorder, moderate to severe mitral annular calcification, tricuspid valve regurgitation moderate, moderate to severe secondary pulmonary hypertension, and LV dysfunction. Permanent atrial fibrillation. Patient is undergone mitral valve replacement with Mosaic porcine bioprosthesis, decalcification of mitral valve Combs, tricuspid valve repair with a band, biatrial maze procedure, exclusion left atrial appendage. Postprocedure. Extubated. Reclining in bed. Drips include IV vasopressin, IV norepinephrine, IV milrinone, insulin. Telemetry shows dual-chamber paced rhythm. Patient has to mediastinal chest tubes. León catheter. Review of systems: Patient rather lethargic Social history: Patient smoked from the age of 22 to 32 packs a day. Alcohol rarely. . Physical examination: VITAL SIGNS: 98.8, 78, 12, 111 x 52, 95% on 3 L GENERAL: BMI 26, reclining bed awake a bit lethargic. EYES: Pupils equal. Conjunctiva carlos l. HEENT: External appearance of nose and ears normal, oral cavity grossly normal. NECK: JVD unable to assess; masses not palpable. HEART: First and second heart sounds are normal; no edema. LUNGS: Respiratory rate normal; decreased breath sounds. ABDOMEN: Soft, nontender, liver spleen not palpable, no masses palpable. León catheter PSYCH: Patient lethargic l. MUSCULOSKELETAL:No Clubbing/cyanosis;muscles-grossly intact. Mj wrap to lower extremity with Venodyne boots NEUROLOGICAL: Cranial nerves grossly intact; no facial asymmetry, power and sensation grossly intact. LYMPHATICS: No lymph nodes palpable in the axilla and neck INVESTIGATIONS, reviewed in the clinical context: April 11, 2024: White count 14.5 hemoglobin 11.1 platelets 125 sodium 137 potassium 3.9 BUN 22 creatinine 0.87 April 06: White count 8.2 hemoglobin 14.3 potassium 4.3 BUN 20 creatinine 0.9 LDL 60.3 Chest x-ray film personally reviewed by me-reports [place] catheter projects over the heart on the left heart. Endotracheal tube NG tube in appropriate position. 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 Permanent atrial fibrillation. Patient is undergone mitral valve replacement with Mosaic porcine bioprosthesis, decalcification of mitral valve Combs, tricuspid valve repair with a band, biatrial maze procedure, exclusion left atrial appendage. -Acute postprocedure blood loss anemia expected from surgery Follow H&H -Acute hypoxic respiratory failure, status post ventilator support, for cardiothoracic procedure Currently on nasal cannula -COPD no prior smoker Bronchodilators -Hyperglycemia, not a diabetic Currently on insulin drip -Permanent atrial fibrillation Outpatient was on Xarelto -Few pulmonary micronodules measuring less than 4 mm. This could be followed up with pulmonary outpatient. -Hard of hearing -Chronic rheumatoid arthritis -Full code Will follow along. Thank you Dr. Jane Past Medical History Past Medical History: Atrial Fibrillation, GI Bleed, Hearing Disorder / Deafness, Pneumonia, Rheumatoid Arthritis (RA) Additional Past Medical History / Comment(s): Recently dx with Afib in the last month Nov, 2023. 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 Hx bleeding ulcer in the past. Tinnitis. History of Any Multi-Drug Resistant Organisms: None Reported Past Surgical History: Heart Catheterization, Orthopedic Surgery, Tonsillectomy Additional Past Surgical History / Comment(s): back operation x2. Cardiac cath January 2024. Past Anesthesia/Blood Transfusion Reactions: No Reported Reaction, Postoperative Nausea & Vomiting (PONV) Additional Past Anesthesia/Blood Transfusion Reaction / Comm: No hx of blood transfusion. Smoking Status: Former smoker - Past Family History Father Family Medical History: Coronary Artery Disease (CAD) Additional Family Medical History / Comment(s): quad bypass Mother Additional Family Medical History / Comment(s): had a valve replacement Medications and Allergies Home Medications Medication Instructions Recorded Confirmed Type Acetaminophen [Tylenol Extra 500 mg PO Q6H PRN 01/13/24 04/11/24 History Strength] Albuterol Sulfate/Budesonide 2 puff INHALATION QAM PRN 01/13/24 04/11/24 History [Airsupra 90-80 Mcg Inhaler] Pantoprazole [Protonix] 40 mg PO HS 01/13/24 04/11/24 History Rivaroxaban [Xarelto] 20 mg PO HS 01/13/24 04/11/24 History Atorvastatin [Lipitor] 20 mg PO HS 01/30/24 04/11/24 History Empagliflozin [Jardiance] 10 mg PO DAILY 04/06/24 04/11/24 History Sacubitril/Valsartan [Entresto 49 1 each PO BID 04/06/24 04/11/24 History mg-51 mg Tablet] Allergies Allergy/AdvReac Type Severity Reaction Status Date / Time No Known Allergies Allergy Verified 04/11/24 06:03 Physical Exam Vitals: Vital Signs Temp Pulse Pulse Resp BP BP Pulse Ox 04/11/24 19:40 80 13 95 04/11/24 19:30 79 13 94 L 04/11/24 19:20 80 13 94 L 04/11/24 19:10 80 17 94 L 04/11/24 19:00 80 17 94 L 04/11/24 18:50 80 25 H 95 04/11/24 18:42 94 L 04/11/24 18:40 79 19 99 04/11/24 18:30 79 19 99 04/11/24 18:20 80 21 98 04/11/24 18:10 80 25 H 100 04/11/24 18:00 80 20 100 04/11/24 17:50 80 13 100 04/11/24 17:40 80 17 99 04/11/24 17:30 80 16 99 04/11/24 17:20 80 28 H 96 04/11/24 17:10 80 15 99 04/11/24 17:00 79 15 99 04/11/24 16:52 04/11/24 16:50 80 12 04/11/24 16:40 80 12 04/11/24 16:35 80 04/11/24 16:30 80 12 04/11/24 16:26 80 12 04/11/24 16:20 98.8 F 80 21 100 04/11/24 16:11 80 17 04/11/24 16:00 95 04/11/24 06:30 98.0 F 58 L 16 207/93 192/86 100 FiO2 04/11/24 19:40 04/11/24 19:30 04/11/24 19:20 04/11/24 19:10 04/11/24 19:00 50 04/11/24 18:50 04/11/24 18:42 04/11/24 18:40 04/11/24 18:30 04/11/24 18:20 04/11/24 18:10 04/11/24 18:00 04/11/24 17:50 04/11/24 17:40 04/11/24 17:30 04/11/24 17:20 04/11/24 17:10 04/11/24 17:00 04/11/24 16:52 50 04/11/24 16:50 04/11/24 16:40 04/11/24 16:35 04/11/24 16:30 04/11/24 16:26 04/11/24 16:20 50 04/11/24 16:11 04/11/24 16:00 50 04/11/24 06:30 Intake and Output 04/11/24 04/11/24 04/11/24 06:59 14:59 22:59 Intake Total 2 1276 Output Total 1085 655 Balance -1083 621 Intake: IV 2 1276 Albumin 750 Injectate 90 Kefzol 100 Pressure Bags 36 Sodium Chloride 0.9% 1, 200 000 ml @ 50 mls/hr IV . Q20H [facility] Rx#:[id number] Tylenol 100 Output: Chest Tube Drainage 300 Mediastinal x2 300 Urine 435 355 Estimated Blood Loss 650 Other: Weight 102.1 kg ABP, PAP, CO, CI - Last 8 Hours Arterial Blood Pressure 117/53 Arterial Blood Pressure 112/53 Arterial Blood Pressure 114/51 Arterial Blood Pressure 108/49 Arterial Blood Pressure 100/48 Arterial Blood Pressure 98/45 Arterial Blood Pressure 102/49 Arterial Blood Pressure 96/45 Arterial Blood Pressure 99/47 Arterial Blood Pressure 108/49 Arterial Blood Pressure 83/40 Arterial Blood Pressure 110/50 Arterial Blood Pressure 114/52 Arterial Blood Pressure 110/51 Arterial Blood Pressure 112/52 Arterial Blood Pressure 113/54 Arterial Blood Pressure 86/42 Arterial Blood Pressure 103/51 Arterial Blood Pressure 144/67 Arterial Blood Pressure 155/77 Pulmonary Artery Pressure 50/16 Pulmonary Artery Pressure 49/17 Pulmonary Artery Pressure 49/15 Pulmonary Artery Pressure 46/16 Pulmonary Artery Pressure 43/16 Pulmonary Artery Pressure 36/12 Pulmonary Artery Pressure 37/15 Pulmonary Artery Pressure 37/15 Pulmonary Artery Pressure 41/17 Pulmonary Artery Pressure 38/13 Pulmonary Artery Pressure 34/13 Pulmonary Artery Pressure 37/16 Pulmonary Artery Pressure 41/18 Pulmonary Artery Pressure 41/19 Pulmonary Artery Pressure 44/18 Pulmonary Artery Pressure 40/17 Pulmonary Artery Pressure 40/18 Pulmonary Artery Pressure 39/16 Pulmonary Artery Pressure 40/19 Pulmonary Artery Pressure 49/21 Pulmonary Artery Pressure 60/29 Cardiac Output 5.6 Cardiac Output 5.6 Cardiac Output 5.6 Cardiac Output 5.6 Cardiac Output 5.6 Cardiac Output 5.8 Cardiac Output 5.8 Cardiac Output 5.8 Cardiac Output 5.8 Cardiac Output 5.8 Cardiac Output 5.8 Cardiac Output 5.8 Cardiac Output 5.8 Cardiac Output 5.8 Cardiac Output 5.8 Cardiac Output 5.2 Cardiac Output 5.2 Cardiac Output 5.2 Cardiac Output 5.2 Cardiac Output 5.2 Cardiac Output 5.2 Cardiac Index 2.4 Cardiac Index 2.4 Cardiac Index 2.4 Cardiac Index 2.4 Cardiac Index 2.4 Cardiac Index 2.4 Cardiac Index 2.4 Cardiac Index 2.4 Cardiac Index 2.4 Cardiac Index 2.4 Cardiac Index 2.4 Cardiac Index 2.4 Cardiac Index 2.4 Cardiac Index 2.4 Cardiac Index 2.4 Cardiac Index 2.2 Cardiac Index 2.2 Cardiac Index 2.2 Cardiac Index 2.2 Cardiac Index 2.2 Cardiac Index 2.2 Results CBC & Chem 7: 04/11/24 16:16 04/11/24 16:16 Labs: Abnormal Lab Results - Last 24 Hours (Table) 04/06/24 04/11/24 04/11/24 Range/Units 10:16 08:24 09:11 WBC (3.8-10.6) k/uL RBC (4.30-5.90) m/uL Hgb (13.0-17.5) gm/dL Hct (39.0-53.0) % RDW (11.5-15.5) % Plt Count (150-450) k/uL Neutrophils # (1.3-7.7) k/uL Monocytes # (0-1.0) k/uL PT (10.0-12.5) sec INR (<1.2) APTT (22.0-30.0) sec ABG pH (7.35-7.45) ABG pCO2 (35-45) mmHg ABG pO2 385 H 183 H (83-108) mmHg ABG HCO3 (21-25) mmol/L ABG Total CO2 (19-24) mmol/L ABG O2 Saturation >99.4 H 99.2 H (94-97) % ABG Hematocrit (34.0-46.0) % ABG Potassium (3.4-4.5) mmol/L ABG Ionized Calcium (4.5-5.3) mg/dL ABG Glucose 116 H 127 H (75-99) mg/dL ABG Lactic Acid (0.5-1.6) mmol/L Hemoglobin 11.8 L 11.1 L (13.0-17.5) gm/dL Chloride (98-107) mmol/L BUN (9-20) mg/dL Glucose (74-99) mg/dL POC Glucose (mg/dL) (70-110) mg/dL Total Bilirubin (0.2-1.3) mg/dL AST (17-59) U/L Total Protein (6.3-8.2) g/dL Albumin (3.5-5.0) g/dL Arterial Blood Potassium (3.4-4.5) mmol/L Arterial Blood Glucose 116 H 127 H (75-99) mg/dL Crossmatch See Detail 04/11/24 04/11/24 04/11/24 Range/Units 10:14 11:05 11:58 WBC (3.8-10.6) k/uL RBC (4.30-5.90) m/uL Hgb (13.0-17.5) gm/dL Hct (39.0-53.0) % RDW (11.5-15.5) % Plt Count (150-450) k/uL Neutrophils # (1.3-7.7) k/uL Monocytes # (0-1.0) k/uL PT (10.0-12.5) sec INR (<1.2) APTT (22.0-30.0) sec ABG pH (7.35-7.45) ABG pCO2 (35-45) mmHg ABG pO2 >420 H >420 H >420 H (83-108) mmHg ABG HCO3 (21-25) mmol/L ABG Total CO2 (19-24) mmol/L ABG O2 Saturation >99.4 H >99.4 H >99.4 H (94-97) % ABG Hematocrit 28 L 28 L 27 L (34.0-46.0) % ABG Potassium 4.7 H (3.4-4.5) mmol/L ABG Ionized Calcium 4.1 L 4.3 L 4.4 L (4.5-5.3) mg/dL ABG Glucose 120 H 153 H 155 H (75-99) mg/dL ABG Lactic Acid 1.7 H 1.8 H (0.5-1.6) mmol/L Hemoglobin 9.2 L 9.0 L 8.9 L (13.0-17.5) gm/dL Chloride (98-107) mmol/L BUN (9-20) mg/dL Glucose (74-99) mg/dL POC Glucose (mg/dL) (70-110) mg/dL Total Bilirubin (0.2-1.3) mg/dL AST (17-59) U/L Total Protein (6.3-8.2) g/dL Albumin (3.5-5.0) g/dL Arterial Blood Potassium 4.7 H (3.4-4.5) mmol/L Arterial Blood Glucose 120 H 153 H 155 H (75-99) mg/dL Crossmatch 04/11/24 04/11/24 04/11/24 Range/Units 12:32 13:14 14:21 WBC (3.8-10.6) k/uL RBC (4.30-5.90) m/uL Hgb (13.0-17.5) gm/dL Hct (39.0-53.0) % RDW (11.5-15.5) % Plt Count (150-450) k/uL Neutrophils # (1.3-7.7) k/uL Monocytes # (0-1.0) k/uL PT (10.0-12.5) sec INR (<1.2) APTT (22.0-30.0) sec ABG pH 7.30 L 7.33 L 7.30 L (7.35-7.45) ABG pCO2 49 H 46 H 46 H (35-45) mmHg ABG pO2 388 H >420 H >420 H (83-108) mmHg ABG HCO3 (21-25) mmol/L ABG Total CO2 (19-24) mmol/L ABG O2 Saturation 99.1 H >99.4 H >99.4 H (94-97) % ABG Hematocrit 26 L 24 L 28 L (34.0-46.0) % ABG Potassium 4.6 H (3.4-4.5) mmol/L ABG Ionized Calcium 4.4 L 4.3 L 4.3 L (4.5-5.3) mg/dL ABG Glucose 141 H 129 H 121 H (75-99) mg/dL ABG Lactic Acid 2.2 H* 2.2 H* 2.6 H* (0.5-1.6) mmol/L Hemoglobin 8.4 L 7.9 L 9.0 L (13.0-17.5) gm/dL Chloride (98-107) mmol/L BUN (9-20) mg/dL Glucose (74-99) mg/dL POC Glucose (mg/dL) (70-110) mg/dL Total Bilirubin (0.2-1.3) mg/dL AST (17-59) U/L Total Protein (6.3-8.2) g/dL Albumin (3.5-5.0) g/dL Arterial Blood Potassium 4.6 H (3.4-4.5) mmol/L Arterial Blood Glucose 141 H 129 H 121 H (75-99) mg/dL Crossmatch 04/11/24 04/11/24 04/11/24 Range/Units 14:45 15:00 15:20 WBC (3.8-10.6) k/uL RBC (4.30-5.90) m/uL Hgb (13.0-17.5) gm/dL Hct (39.0-53.0) % RDW (11.5-15.5) % Plt Count (150-450) k/uL Neutrophils # (1.3-7.7) k/uL Monocytes # (0-1.0) k/uL PT (10.0-12.5) sec INR (<1.2) APTT (22.0-30.0) sec ABG pH 7.47 H 7.33 L (7.35-7.45) ABG pCO2 51 H (35-45) mmHg ABG pO2 >420 H 327 H (83-108) mmHg ABG HCO3 27 H 26 H (21-25) mmol/L ABG Total CO2 26 H (19-24) mmol/L ABG O2 Saturation >99.4 H 97.3 H 99.3 H (94-97) % ABG Hematocrit 25 L 25 L 32 L (34.0-46.0) % ABG Potassium (3.4-4.5) mmol/L ABG Ionized Calcium 4.4 L 4.3 L (4.5-5.3) mg/dL ABG Glucose 118 H 133 H 109 H (75-99) mg/dL ABG Lactic Acid 2.6 H* 2.7 H* 2.3 H* (0.5-1.6) mmol/L Hemoglobin 8.0 L 8.2 L 10.4 L (13.0-17.5) gm/dL Chloride (98-107) mmol/L BUN (9-20) mg/dL Glucose (74-99) mg/dL POC Glucose (mg/dL) (70-110) mg/dL Total Bilirubin (0.2-1.3) mg/dL AST (17-59) U/L Total Protein (6.3-8.2) g/dL Albumin (3.5-5.0) g/dL Arterial Blood Potassium (3.4-4.5) mmol/L Arterial Blood Glucose 118 H 133 H 109 H (75-99) mg/dL Crossmatch 04/11/24 04/11/24 04/11/24 Range/Units 16:15 16:16 16:16 WBC 14.5 H (3.8-10.6) k/uL RBC 3.80 L (4.30-5.90) m/uL Hgb 11.1 L (13.0-17.5) gm/dL Hct 33.1 L (39.0-53.0) % RDW 15.7 H (11.5-15.5) % Plt Count 125 L (150-450) k/uL Neutrophils # 11.0 H (1.3-7.7) k/uL Monocytes # 1.3 H (0-1.0) k/uL PT 14.7 H (10.0-12.5) sec INR 1.4 H (<1.2) APTT 63.1 H (22.0-30.0) sec ABG pH (7.35-7.45) ABG pCO2 (35-45) mmHg ABG pO2 (83-108) mmHg ABG HCO3 (21-25) mmol/L ABG Total CO2 (19-24) mmol/L ABG O2 Saturation (94-97) % ABG Hematocrit (34.0-46.0) % ABG Potassium (3.4-4.5) mmol/L ABG Ionized Calcium (4.5-5.3) mg/dL ABG Glucose (75-99) mg/dL ABG Lactic Acid (0.5-1.6) mmol/L Hemoglobin (13.0-17.5) gm/dL Chloride (98-107) mmol/L BUN (9-20) mg/dL Glucose (74-99) mg/dL POC Glucose (mg/dL) 119 H (70-110) mg/dL Total Bilirubin (0.2-1.3) mg/dL AST (17-59) U/L Total Protein (6.3-8.2) g/dL Albumin (3.5-5.0) g/dL Arterial Blood Potassium (3.4-4.5) mmol/L Arterial Blood Glucose (75-99) mg/dL Crossmatch 04/11/24 04/11/24 04/11/24 Range/Units 16:16 16:40 17:25 WBC (3.8-10.6) k/uL RBC (4.30-5.90) m/uL Hgb (13.0-17.5) gm/dL Hct (39.0-53.0) % RDW (11.5-15.5) % Plt Count (150-450) k/uL Neutrophils # (1.3-7.7) k/uL Monocytes # (0-1.0) k/uL PT (10.0-12.5) sec INR (<1.2) APTT (22.0-30.0) sec ABG pH 7.34 L (7.35-7.45) ABG pCO2 (35-45) mmHg ABG pO2 322 H (83-108) mmHg ABG HCO3 (21-25) mmol/L ABG Total CO2 26 H (19-24) mmol/L ABG O2 Saturation 100.4 H (94-97) % ABG Hematocrit (34.0-46.0) % ABG Potassium (3.4-4.5) mmol/L ABG Ionized Calcium (4.5-5.3) mg/dL ABG Glucose (75-99) mg/dL ABG Lactic Acid (0.5-1.6) mmol/L Hemoglobin (13.0-17.5) gm/dL Chloride 109 H (98-107) mmol/L BUN 22 H (9-20) mg/dL Glucose 117 H (74-99) mg/dL POC Glucose (mg/dL) 138 H (70-110) mg/dL Total Bilirubin 2.3 H (0.2-1.3) mg/dL AST 83 H (17-59) U/L Total Protein 5.1 L (6.3-8.2) g/dL Albumin 2.9 L (3.5-5.0) g/dL Arterial Blood Potassium (3.4-4.5) mmol/L Arterial Blood Glucose (75-99) mg/dL Crossmatch 04/11/24 04/11/24 04/11/24 Range/Units 18:25 18:26 18:49 WBC (3.8-10.6) k/uL RBC (4.30-5.90) m/uL Hgb (13.0-17.5) gm/dL Hct (39.0-53.0) % RDW (11.5-15.5) % Plt Count (150-450) k/uL Neutrophils # (1.3-7.7) k/uL Monocytes # (0-1.0) k/uL PT (10.0-12.5) sec INR (<1.2) APTT (22.0-30.0) sec ABG pH (7.35-7.45) ABG pCO2 (35-45) mmHg ABG pO2 139 H (83-108) mmHg ABG HCO3 (21-25) mmol/L ABG Total CO2 25 H (19-24) mmol/L ABG O2 Saturation 99.7 H (94-97) % ABG Hematocrit (34.0-46.0) % ABG Potassium (3.4-4.5) mmol/L ABG Ionized Calcium (4.5-5.3) mg/dL ABG Glucose (75-99) mg/dL ABG Lactic Acid (0.5-1.6) mmol/L Hemoglobin (13.0-17.5) gm/dL Chloride (98-107) mmol/L BUN (9-20) mg/dL Glucose (74-99) mg/dL POC Glucose (mg/dL) 141 H 145 H (70-110) mg/dL Total Bilirubin (0.2-1.3) mg/dL AST (17-59) U/L Total Protein (6.3-8.2) g/dL Albumin (3.5-5.0) g/dL Arterial Blood Potassium (3.4-4.5) mmol/L Arterial Blood Glucose (75-99) mg/dL Crossmatch 04/11/24 Range/Units 19:51 WBC (3.8-10.6) k/uL RBC (4.30-5.90) m/uL Hgb (13.0-17.5) gm/dL Hct (39.0-53.0) % RDW (11.5-15.5) % Plt Count (150-450) k/uL Neutrophils # (1.3-7.7) k/uL Monocytes # (0-1.0) k/uL PT (10.0-12.5) sec INR (<1.2) APTT (22.0-30.0) sec ABG pH (7.35-7.45) ABG pCO2 (35-45) mmHg ABG pO2 (83-108) mmHg ABG HCO3 (21-25) mmol/L ABG Total CO2 (19-24) mmol/L ABG O2 Saturation (94-97) % ABG Hematocrit (34.0-46.0) % ABG Potassium (3.4-4.5) mmol/L ABG Ionized Calcium (4.5-5.3) mg/dL ABG Glucose (75-99) mg/dL ABG Lactic Acid (0.5-1.6) mmol/L Hemoglobin (13.0-17.5) gm/dL Chloride (98-107) mmol/L BUN (9-20) mg/dL Glucose (74-99) mg/dL POC Glucose (mg/dL) 148 H (70-110) mg/dL Total Bilirubin (0.2-1.3) mg/dL AST (17-59) U/L Total Protein (6.3-8.2) g/dL Albumin (3.5-5.0) g/dL Arterial Blood Potassium (3.4-4.5) mmol/L Arterial Blood Glucose (75-99) mg/dL Crossmatch
[2024-04-11] MEDS: ONDANSETRON 4 MG/2 ML VIAL IVP PRN (20:39)
[2024-04-11] MEDS: SENNOSIDES-DOCUSATE SODIUM 1 EACH TAB PO SCH (21:35)
[2024-04-11] MEDS: ATORVASTATIN 20 MG TAB PO SCH (21:35)
[2024-04-11 22:27] LABS: Glucose,Whole Blood 156 mg/dL (70-110)
[2024-04-11 23:25] LABS: Glucose,Whole Blood 156 mg/dL (70-110)
[2024-04-11 23:43] LABS: Basophils % (A) 0 %; Eosinophils % (A) 0 %; HCT 28.4 % (39.0-53.0); HGB 9.5 gm/dL (13.0-17.5); Lymphocytes # (A) 1.6 k/uL (1.0-4.8); Lymphocytes % (A) 14 %; MCH 29.2 pg (25.0-35.0); MCHC 33.5 g/dL (31.0-37.0); Mean Platelet Volume 8.9; Monocytes # (A) 0.9 k/uL (0-1.0); Monocytes % (A) 8 %; Neutrophils # (A) 8.5 k/uL (1.3-7.7); Neutrophils % (A) 76 %; Platelet Count 113 k/uL (150-450); RBC 3.27 m/uL (4.30-5.90); RDW 15.9 % (11.5-15.5); WBC 11.2 k/uL (3.8-10.6)
[2024-04-12 00:25] LABS: Glucose,Whole Blood 146 mg/dL (70-110)
[2024-04-12 01:21] LABS: Glucose,Whole Blood 137 mg/dL (70-110)
[2024-04-12 03:04] LABS: Glucose,Whole Blood 118 mg/dL (70-110)
[2024-04-12 04:03] LABS: Glucose,Whole Blood 114 mg/dL (70-110)
[2024-04-12 04:56] LABS: Glucose,Whole Blood 137 mg/dL (70-110)
[2024-04-12 05:15] LABS: Anisocytosis Slight; Basophils % (A) 0 %; Eosinophils % (A) 0 %; HCT 27.2 % (39.0-53.0); HGB 9.1 gm/dL (13.0-17.5); Lymphocytes # (A) 2.6 k/uL (1.0-4.8); Lymphocytes % (A) 22 %; MCHC 33.4 g/dL (31.0-37.0); MCV 86.9 fL (80.0-100.0); Mean Platelet Volume 9.6; Monocytes # (A) 0.8 k/uL (0-1.0); Monocytes % (A) 7 %; Neutrophils % (A) 68 %; Platelet Count 108 k/uL (150-450); RBC 3.13 m/uL (4.30-5.90); RDW 16.1 % (11.5-15.5); WBC 11.7 k/uL (3.8-10.6)
[2024-04-12 05:33] LABS: Ionized Calcium 4.4 mg/dL (4.5-5.3)
[2024-04-12 05:46] LABS: ALT 11 U/L (4-49); AST 89 U/L (17-59); African American GFR (CKD) >90 (>60 ml/min/1.73 sqM); Albumin 3.3 g/dL (3.5-5.0); Alkaline Phosphatase 47 U/L (38-126); Anion Gap 4 mmol/L; Blood Urea Nitrogen 22 mg/dL (9-20); Calcium 8.1 mg/dL (8.4-10.2); Carbon Dioxide 24 mmol/L (22-30); Chloride 107 mmol/L (98-107); Glucose 127 mg/dL (74-99); Non-African American GFR(CKD) >90 (>60 ml/min/1.73 sqM); Potassium 4.6 mmol/L (3.5-5.1); Sodium 135 mmol/L (137-145); Total Bilirubin 1.8 mg/dL (0.2-1.3); Total Protein 5.3 g/dL (6.3-8.2)
[2024-04-12 07:00] LABS: Glucose,Whole Blood 132 mg/dL (70-110)
--- NOTE | 2024-04-12 07:13 | P.CNPUL ---
History of Present Illness Consult date: 04/12/24 Requesting physician: Karina Schofield Reason for consult: other (ICU management; post open heart surgery) Chief complaint: Elective mitral valve replacement and tricuspid valve repair History of present illness: Patient is a 68-year-old white male with past medical history significant for atrial fibrillation and valvular heart disease. Outpatient, patient was noted to have atrial fibrillation. In January, a cardioversion was attempted, but ultimately failed. Patient was found to have severe mitral valve regurgitation, as well as, moderate tricuspid regurgitation. Patient was brought in yesterday for mitral valve replacement with bioprosthetic valve, tricuspid valve repair, full biatrial maze procedure, exclusion of left atrial appendage. Intraoperatively, patient was hypotensive, started on multiple vasopressors including norepinephrine, vasopressin, and also Primacor. Patient did receive 1.5 L 5% albumin, 3.9 L crystalloid fluid since surgery. Patient's OR exit time was to 1532. Postoperatively, he was sent to the intensive care unit for recovery. Initially, on the mechanical ventilator. Initial ABG: PaO2 of 139, pCO2 of 42, pH of 7.37. Postoperative, chest x-ray showing postsurgical changes. Endotracheal tube 4.4 cm from the juliano. Cardiomegaly and mild PVC. No pneumothoraces or effusions. Patient was extubated successfully using the rapid extubation protocol at 1842. Patient is currently being evaluated in the intensive care unit. He is on 3 L/min nasal cannula. He is in no acute respiratory distress. He is awake and alert. Blood pressure remains h ypotensive. He is currently on norepinephrine which is infusing at 0.04 mcg/kg/min. Vasopressin also infusing at 0.03 units/min. Primacor at 0.3 mcg/kg/h. Normal saline infusing at 50 mL/h. Insulin also infusing at 4 units/h. Heart rhythm is dual paced at 80 bpm. Current blood pressure 105/47 mmHg. PA pressures 41/18 mmHg. Most recent CO/CI are 5.7/2.4 respectively. SVR 827. Urine output is in the order of 50 to 70 mL/h. He does have 2 mediastinal chest tubes that are wide together with a total of 500 of sanguinous output. Atrium is to suction at -20 cm H2O. No airleak. Most recent CBC: WBC count 11.2, hemoglobin 9.5, hematocrit 28.4, platelets 113. Most recent postoperative CMP: Sodium 137, potassium 3.9, chloride 109, serum bicarb 23, BUN 22, creatinine 0.87, glucose 127. LFTs unremarkable. Patient continues to be monitored in the intensive care unit. Review of Systems Constitutional: Reports fatigue, Denies chills, Denies fever, Denies weight gain, Denies weight loss Ears, nose, mouth and throat: Reports sore throat, Denies nasal congestion, Denies nasal discharge, Denies post-nasal drip Cardiovascular: Denies orthopnea, Denies palpitations, Denies paroxysmal nocturnal dyspnea Respiratory: Reports pain on inspiration, Denies cough, Denies dyspnea Gastrointestinal: Denies abdominal pain, Denies constipation, Denies diarrhea, Denies nausea, Denies vomiting Genitourinary: Denies dysuria Musculoskeletal: Denies arm numbness/tingling, Denies leg numbness/tingling, Denies limitation of motion Integumentary: Denies rash Neurological: Denies change in mentation, Denies confusion, Denies numbness, Denies paralysis, Denies seizures, Denies syncope, Denies visual changes Psychiatric: Denies anxiety, Denies depression Past Medical History Past Medical History: Atrial Fibrillation, GI Bleed, Hearing Disorder / Deafness, Pneumonia, Rheumatoid Arthritis (RA) Additional Past Medical History / Comment(s): Recently dx with Afib in the last month Nov, 2023. Recent shortness of breath and started seeing spinning frame tender in July 2023 and was put on inhalker, as needed. Hx bleeding ulcer in the past. Tinnitis. History of Any Multi-Drug Resistant Organisms: None Reported Past Surgical History: Heart Catheterization, Orthopedic Surgery, Tonsillectomy Additional Past Surgical History / Comment(s): back operation x2. Cardiac cath January 2024. Past Anesthesia/Blood Transfusion Reactions: No Reported Reaction, Postoperative Nausea & Vomiting (PONV) Additional Past Anesthesia/Blood Transfusion Reaction / Comment(s): No hx of blood transfusion. Smoking Status: Former smoker - Past Family History Father Family Medical History: Coronary Artery Disease (CAD) Additional Family Medical History / Comment(s): quad bypass Mother Additional Family Medical History / Comment(s): had a valve replacement Medications and Allergies Home Medications Medication Instructions Recorded Confirmed Type Acetaminophen [Tylenol Extra 500 mg PO Q6H PRN 01/13/24 04/11/24 History Strength] Albuterol Sulfate/Budesonide 2 puff INHALATION QAM PRN 01/13/24 04/11/24 History [Airsupra 90-80 Mcg Inhaler] Pantoprazole [Protonix] 40 mg PO HS 01/13/24 04/11/24 History Rivaroxaban [Xarelto] 20 mg PO HS 01/13/24 04/11/24 History Atorvastatin [Lipitor] 20 mg PO HS 01/30/24 04/11/24 History Empagliflozin [Jardiance] 10 mg PO DAILY 04/06/24 04/11/24 History Sacubitril/Valsartan [Entresto 49 1 each PO BID 04/06/24 04/11/24 History mg-51 mg Tablet] Allergies Allergy/AdvReac Type Severity Reaction Status Date / Time No Known Allergies Allergy Verified 04/11/24 06:03 Physical Exam Vitals: Vital Signs Temp Pulse Pulse Resp BP BP BP 04/11/24 22:15 82 21 123/70 04/11/24 22:00 81 11 L 132/69 04/11/24 21:45 79 15 04/11/24 21:30 83 12 04/11/24 21:15 81 20 04/11/24 21:05 80 04/11/24 21:00 80 13 04/11/24 20:54 80 04/11/24 20:45 79 16 04/11/24 20:30 80 8 L 04/11/24 20:15 80 16 04/11/24 20:00 98.8 F 78 7 L 04/11/24 19:50 80 04/11/24 19:40 80 13 04/11/24 19:30 79 13 04/11/24 19:20 80 13 04/11/24 19:10 80 17 04/11/24 19:00 80 17 04/11/24 18:50 80 25 H 04/11/24 18:42 04/11/24 18:40 79 19 04/11/24 18:30 79 19 04/11/24 18:20 80 21 04/11/24 18:10 80 25 H 04/11/24 18:00 80 20 04/11/24 17:50 80 13 04/11/24 17:40 80 17 04/11/24 17:30 80 16 04/11/24 17:20 80 28 H 04/11/24 17:10 80 15 04/11/24 17:00 79 15 04/11/24 16:52 04/11/24 16:50 80 12 04/11/24 16:40 80 12 04/11/24 16:35 80 04/11/24 16:30 80 12 04/11/24 16:26 80 12 04/11/24 16:20 98.8 F 80 21 04/11/24 16:11 80 17 04/11/24 16:00 80 04/11/24 06:30 98.0 F 58 L 16 207/93 192/86 Pulse Ox FiO2 04/11/24 22:15 97 04/11/24 22:00 95 04/11/24 21:45 97 04/11/24 21:30 95 04/11/24 21:15 95 04/11/24 21:05 04/11/24 21:00 98 04/11/24 20:54 04/11/24 20:45 94 L 04/11/24 20:30 94 L 04/11/24 20:15 95 04/11/24 20:00 95 04/11/24 19:50 95 04/11/24 19:40 95 04/11/24 19:30 94 L 04/11/24 19:20 94 L 04/11/24 19:10 94 L 04/11/24 19:00 94 L 50 04/11/24 18:50 95 04/11/24 18:42 94 L 04/11/24 18:40 99 04/11/24 18:30 99 04/11/24 18:20 98 04/11/24 18:10 100 04/11/24 18:00 100 04/11/24 17:50 100 04/11/24 17:40 99 04/11/24 17:30 99 04/11/24 17:20 96 04/11/24 17:10 99 04/11/24 17:00 99 04/11/24 16:52 50 04/11/24 16:50 04/11/24 16:40 04/11/24 16:35 04/11/24 16:30 04/11/24 16:26 04/11/24 16:20 100 50 04/11/24 16:11 04/11/24 16:00 95 50 04/11/24 06:30 100 Intake and Output 04/11/24 04/11/24 04/12/24 14:59 22:59 06:59 Intake Total 2 1958.595 30.519 Output Total 1085 930 Balance -1083 1028.595 30.519 Intake: IV 2 1753 Albumin 1000 Injectate 140 Kefzol 100 Pressure Bags 63 Sodium Chloride 0.9% 1, 350 000 ml @ 50 mls/hr IV . Q20H RAUL Rx#:[id number] Tylenol 100 Intake, IV Titration 205.595 30.519 Amount Insulin Regular 100 unit 8.232 3.03 In Sodium Chloride 0.9% 100 ml @ Per Protocol IV .Q0M RAUL Rx#:[id number] Norepinephrine 4 mg In 165.131 27.489 Sodium Chloride 0.9% 250 ml @ 0.02 MCG/KG/MIN 7.78 mls/hr IV .Q24H RAUL Rx#: [id number] Vasopressin 20 unit In 32.232 Sodium Chloride 0.9% 50 ml @ 0.04 UNITS/MIN 6.12 mls/hr IV .Q8H20M RAUL Rx# :[id number] Output: Chest Tube Drainage 430 Mediastinal x2 430 Urine 435 500 Estimated Blood Loss 650 Other: Voiding Method Indwelling Catheter ABP, PAP, CO, CI - Last 8 Hours Arterial Blood Pressure 121/53 Arterial Blood Pressure 123/53 Arterial Blood Pressure 112/51 Arterial Blood Pressure 126/54 Arterial Blood Pressure 129/57 Arterial Blood Pressure 121/54 Arterial Blood Pressure 119/55 Arterial Blood Pressure 111/52 Arterial Blood Pressure 111/52 Arterial Blood Pressure 105/50 Arterial Blood Pressure 117/53 Arterial Blood Pressure 112/53 Arterial Blood Pressure 114/51 Arterial Blood Pressure 108/49 Arterial Blood Pressure 100/48 Arterial Blood Pressure 98/45 Arterial Blood Pressure 102/49 Arterial Blood Pressure 96/45 Arterial Blood Pressure 99/47 Arterial Blood Pressure 108/49 Arterial Blood Pressure 83/40 Arterial Blood Pressure 110/50 Arterial Blood Pressure 114/52 Arterial Blood Pressure 110/51 Arterial Blood Pressure 112/52 Arterial Blood Pressure 113/54 Arterial Blood Pressure 86/42 Arterial Blood Pressure 103/51 Arterial Blood Pressure 144/67 Arterial Blood Pressure 155/77 Pulmonary Artery Pressure 47/20 Pulmonary Artery Pressure 52/20 Pulmonary Artery Pressure 50/18 Pulmonary Artery Pressure 46/18 Pulmonary Artery Pressure 45/15 Pulmonary Artery Pressure 52/21 Pulmonary Artery Pressure 48/16 Pulmonary Artery Pressure 46/16 Pulmonary Artery Pressure 47/16 Pulmonary Artery Pressure 43/12 Pulmonary Artery Pressure 50/16 Pulmonary Artery Pressure 49/17 Pulmonary Artery Pressure 49/15 Pulmonary Artery Pressure 46/16 Pulmonary Artery Pressure 43/16 Pulmonary Artery Pressure 36/12 Pulmonary Artery Pressure 37/15 Pulmonary Artery Pressure 37/15 Pulmonary Artery Pressure 41/17 Pulmonary Artery Pressure 38/13 Pulmonary Artery Pressure 34/13 Pulmonary Artery Pressure 37/16 Pulmonary Artery Pressure 41/18 Pulmonary Artery Pressure 41/19 Pulmonary Artery Pressure 44/18 Pulmonary Artery Pressure 40/17 Pulmonary Artery Pressure 40/18 Pulmonary Artery Pressure 39/16 Pulmonary Artery Pressure 40/19 Pulmonary Artery Pressure 49/21 Pulmonary Artery Pressure 60/29 Cardiac Output 5.5 Cardiac Output 5.7 Cardiac Output 5.6 Cardiac Output 5.6 Cardiac Output 5.6 Cardiac Output 5.6 Cardiac Output 5.6 Cardiac Output 5.8 Cardiac Output 5.8 Cardiac Output 5.8 Cardiac Output 5.8 Cardiac Output 5.8 Cardiac Output 5.8 Cardiac Output 5.8 Cardiac Output 5.8 Cardiac Output 5.8 Cardiac Output 5.8 Cardiac Output 5.2 Cardiac Output 5.2 Cardiac Output 5.2 Cardiac Output 5.2 Cardiac Output 5.2 Cardiac Output 5.2 Cardiac Index 2.3 Cardiac Index 2.4 Cardiac Index 2.4 Cardiac Index 2.4 Cardiac Index 2.4 Cardiac Index 2.4 Cardiac Index 2.4 Cardiac Index 2.4 Cardiac Index 2.4 Cardiac Index 2.4 Cardiac Index 2.4 Cardiac Index 2.4 Cardiac Index 2.4 Cardiac Index 2.4 Cardiac Index 2.4 Cardiac Index 2.4 Cardiac Index 2.4 Cardiac Index 2.2 Cardiac Index 2.2 Cardiac Index 2.2 Cardiac Index 2.2 Cardiac Index 2.2 Cardiac Index 2.2 GENERAL EXAM: Alert, 68-year-old white male, resting comfortably in bed in no apparent distress HEAD: Normocephalic and atraumatic EYES: Normal reaction of pupils, equal size. NOSE: Clear with pink turbinates. THROAT: No erythema or exudates. NECK: No masses, no JVD. Right IJ introducer sheath with Hankinson-Krystal catheter locked. CHEST: Midsternal postoperative incision approximated with surgical glue. Postsurgical dressing is clean, dry, intact. Two mediastinal chest tubes y-d together, to atrium at -20 cm H2O. No air leak. LUNGS: Equal air entry with no crackles, wheeze, rhonchi or dullness. On 3 L/mi n nasal cannula. No conversational dyspnea or accessory muscle use.. CVS: S1 and S2 normal with no audible murmur, regular rhythm. Cardiac rub noted. Epicardial pacemaker set to DDD setting at 80 bpm. Underlying rhythm accelerated junctional at 70 bpm. ABDOMEN: No hepatosplenomegaly, active bowel sounds, no guarding or rigidity. SPINE: No scoliosis or deformity SKIN: No rashes CENTRAL NERVOUS SYSTEM: No focal deficits, tone is normal in all 4 extremities. EXTREMITIES: There is no peripheral edema, clubbing, or cyanosis. Peripheral pulses are intact. Legs are wrapped with Mj bandages bilaterally. SCDS on. Results - Laboratory Findings CBC and BMP: 04/12/24 04:52 04/12/24 04:52 ABG ABG pH 7.37 (7.35-7.45) 04/11/24 18:25 ABG pCO2 42 mmHg (35-45) 04/11/24 18:25 ABG pO2 139 mmHg (83-108) H 04/11/24 18:25 ABG O2 Saturation 99.7 % (94-97) H 04/11/24 18:25 PT/INR, D-dimer PT 14.7 sec (10.0-12.5) H 04/11/24 16:16 INR 1.4 (<1.2) H 04/11/24 16:16 Abnormal lab findings: Abnormal Labs 04/06/24 04/11/24 04/11/24 10:16 08:24 09:11 WBC RBC Hgb Hct RDW Plt Count Neutrophils # Monocytes # PT INR APTT ABG pH ABG pCO2 ABG pO2 385 H 183 H ABG HCO3 ABG Total CO2 ABG O2 Saturation >99.4 H 99.2 H ABG Hematocrit ABG Potassium ABG Ionized Calcium ABG Glucose 116 H 127 H ABG Lactic Acid Hemoglobin 11.8 L 11.1 L Chloride BUN Glucose POC Glucose (mg/dL) Total Bilirubin AST Total Protein Albumin Arterial Blood Potassium Arterial Blood Glucose 116 H 127 H Crossmatch See Detail 04/11/24 04/11/24 04/11/24 10:14 11:05 11:58 WBC RBC Hgb Hct RDW Plt Count Neutrophils # Monocytes # PT INR APTT ABG pH ABG pCO2 ABG pO2 >420 H >420 H >420 H ABG HCO3 ABG Total CO2 ABG O2 Saturation >99.4 H >99.4 H >99.4 H ABG Hematocrit 28 L 28 L 27 L ABG Potassium 4.7 H ABG Ionized Calcium 4.1 L 4.3 L 4.4 L ABG Glucose 120 H 153 H 155 H ABG Lactic Acid 1.7 H 1.8 H Hemoglobin 9.2 L 9.0 L 8.9 L Chloride BUN Glucose POC Glucose (mg/dL) Total Bilirubin AST Total Protein Albumin Arterial Blood Potassium 4.7 H Arterial Blood Glucose 120 H 153 H 155 H Crossmatch 04/11/24 04/11/24 04/11/24 12:32 13:14 14:21 WBC RBC Hgb Hct RDW Plt Count Neutrophils # Monocytes # PT INR APTT ABG pH 7.30 L 7.33 L 7.30 L ABG pCO2 49 H 46 H 46 H ABG pO2 388 H >420 H >420 H ABG HCO3 ABG Total CO2 ABG O2 Saturation 99.1 H >99.4 H >99.4 H ABG Hematocrit 26 L 24 L 28 L ABG Potassium 4.6 H ABG Ionized Calcium 4.4 L 4.3 L 4.3 L ABG Glucose 141 H 129 H 121 H ABG Lactic Acid 2.2 H* 2.2 H* 2.6 H* Hemoglobin 8.4 L 7.9 L 9.0 L Chloride BUN Glucose POC Glucose (mg/dL) Total Bilirubin AST Total Protein Albumin Arterial Blood Potassium 4.6 H Arterial Blood Glucose 141 H 129 H 121 H Crossmatch 04/11/24 04/11/24 04/11/24 14:45 15:00 15:20 WBC RBC Hgb Hct RDW Plt Count Neutrophils # Monocytes # PT INR APTT ABG pH 7.47 H 7.33 L ABG pCO2 51 H ABG pO2 >420 H 327 H ABG HCO3 27 H 26 H ABG Total CO2 26 H ABG O2 Saturation >99.4 H 97.3 H 99.3 H ABG Hematocrit 25 L 25 L 32 L ABG Potassium ABG Ionized Calcium 4.4 L 4.3 L ABG Glucose 118 H 133 H 109 H ABG Lactic Acid 2.6 H* 2.7 H* 2.3 H* Hemoglobin 8.0 L 8.2 L 10.4 L Chloride BUN Glucose POC Glucose (mg/dL) Total Bilirubin AST Total Protein Albumin Arterial Blood Potassium Arterial Blood Glucose 118 H 133 H 109 H Crossmatch 04/11/24 04/11/24 04/11/24 16:15 16:16 16:16 WBC 14.5 H RBC 3.80 L Hgb 11.1 L Hct 33.1 L RDW 15.7 H Plt Count 125 L Neutrophils # 11.0 H Monocytes # 1.3 H PT 14.7 H INR 1.4 H APTT 63.1 H ABG pH ABG pCO2 ABG pO2 ABG HCO3 ABG Total CO2 ABG O2 Saturation ABG Hematocrit ABG Potassium ABG Ionized Calcium ABG Glucose ABG Lactic Acid Hemoglobin Chloride BUN Glucose POC Glucose (mg/dL) 119 H Total Bilirubin AST Total Protein Albumin Arterial Blood Potassium Arterial Blood Glucose Crossmatch 04/11/24 04/11/24 04/11/24 16:16 16:40 17:25 WBC RBC Hgb Hct RDW Plt Count Neutrophils # Monocytes # PT INR APTT ABG pH 7.34 L ABG pCO2 ABG pO2 322 H ABG HCO3 ABG Total CO2 26 H ABG O2 Saturation 100.4 H ABG Hematocrit ABG Potassium ABG Ionized Calcium ABG Glucose ABG Lactic Acid Hemoglobin Chloride 109 H BUN 22 H Glucose 117 H POC Glucose (mg/dL) 138 H Total Bilirubin 2.3 H AST 83 H Total Protein 5.1 L Albumin 2.9 L Arterial Blood Potassium Arterial Blood Glucose Crossmatch 04/11/24 04/11/24 04/11/24 18:25 18:26 18:49 WBC RBC Hgb Hct RDW Plt Count Neutrophils # Monocytes # PT INR APTT ABG pH ABG pCO2 ABG pO2 139 H ABG HCO3 ABG Total CO2 25 H ABG O2 Saturation 99.7 H ABG Hematocrit ABG Potassium ABG Ionized Calcium ABG Glucose ABG Lactic Acid Hemoglobin Chloride BUN Glucose POC Glucose (mg/dL) 141 H 145 H Total Bilirubin AST Total Protein Albumin Arterial Blood Potassium Arterial Blood Glucose Crossmatch 04/11/24 04/11/24 04/11/24 19:51 19:53 22:25 WBC 13.4 H RBC 3.44 L Hgb 9.9 L Hct 29.9 L RDW 16.0 H Plt Count 116 L Neutrophils # 10.2 H Monocytes # 1.1 H PT INR APTT ABG pH ABG pCO2 ABG pO2 ABG HCO3 ABG Total CO2 ABG O2 Saturation ABG Hematocrit ABG Potassium ABG Ionized Calcium ABG Glucose ABG Lactic Acid Hemoglobin Chloride BUN Glucose POC Glucose (mg/dL) 148 H 156 H Total Bilirubin AST Total Protein Albumin Arterial Blood Potassium Arterial Blood Glucose Crossmatch 04/11/24 04/11/24 23:23 23:23 WBC 11.2 H RBC 3.27 L Hgb 9.5 L Hct 28.4 L RDW 15.9 H Plt Count 113 L Neutrophils # 8.5 H Monocytes # PT INR APTT ABG pH ABG pCO2 ABG pO2 ABG HCO3 ABG Total CO2 ABG O2 Saturation ABG Hematocrit ABG Potassium ABG Ionized Calcium ABG Glucose ABG Lactic Acid Hemoglobin Chloride BUN Glucose POC Glucose (mg/dL) 156 H Total Bilirubin AST Total Protein Albumin Arterial Blood Potassium Arterial Blood Glucose Crossmatch - Diagnostic Findings Chest x-ray: image reviewed Assessment and Plan Assessment: Status postoperative day #1 following mitral valve replacement with bioprosthetic valve, tricuspid valve repair, complete biatrial maze procedure, and left atrial appendage ligation. Postoperative hypotension and shock, currently on multiple vasopressors including norepinephrine, vasopressin, and also on Primacor Routine mechanical ventilator management, patient was extubated successfully using the rapid extubation protocol at 1842. Acute hypoxemic respiratory failure, currently on 3 L/min nasal cannula Acute blood loss anemia, expected outcome of surgery History of atrial fibrillation, failed cardioversion, status/post Maze procedure History of valvular heart disease including severe mitral valve regurgitation and moderate tricuspid regurgitation with moderate to severe LV dysfunction History of nonocclusive coronary artery disease Remote history of tobacco use, over 30 years ago Plan: Following surgery, patient was transferred to the intensive care unit for r ecovery Liberated from mechanical ventilator at 1842 without a complication Currently on 3 L/min nasal cannula Encourage incentive spirometer 10 times an hour while awake Continues on multiple vasopressors including norepinephrine, vasopressin, Primacor Monitor chest tube output DVT prophylaxis: Subcu heparin; SCDs in place GI prophylaxis: Protonix We will continue to follow, additional recommendations forthcoming. I have personally seen and examined the patient, performed the documentation a nd the assessment and plan as written. Number of minutes spent on the visit:20 Time with Patient: Greater than 30
--- NOTE | 2024-04-12 07:46 | P.PN ---
Subjective Progress Note Date: 04/12/24 Principal diagnosis: Moderate to severe mitral valve regurgitation, moderate to severe mitral annular calcification, moderate tricuspid valve regurgitation, moderate to severe pulm onary hypertension, moderate to severe left ventricular dysfunction. History of permanent atrial fibrillation status post unsuccessful cardioversion in January 2024, hyperlipidemia, previous tobacco dependence, mild COPD, remote history of pneumonia, rheumatoid arthritis previously on methotrexate, hyperglycemia not previously diagnosed as a diabetic, family history of premature coronary artery disease in both parents POD #1 mitral valve replacement using a 31 mm Mosaic porcine bioprosthesis, deca lcification of the mitral annulus using the [employer] PET machine, tricuspid valve repair using a 30 mm MC3 band, full biatrial maze procedure using radiofrequency and cryoablation, exclusion of the left atrial appendage using a 35mm AtriClip, intraoperative transesophageal echocardiogram and epiaortic scanning Postoperative acute blood loss anemia and thrombocytopenia, expected given hemodilution and cardiopulmonary bypass pump Hypotension requiring vasopressors, expected The patient was seen and examined this morning sitting up in recliner in the intensive care unit in no acute distress. He was successfully extubated last night at 18:42. Remains AV paced on telemetry with underlying rhythm junctional in the low 60s. Hemodynamically stable on Primacor, levo, vaso. Patient complains of expected postoperative pain along with arthritic pain in his shoulders, states mostly controlled on current medication regimen, denies shortness of breath. Currently on 3 L nasal cannula with oxygen saturation in the mid 90s, able to achieve 1500 mL on his incentive spirometry. Chest x-ray, labs reviewed. Right internal jugular [place]/Cordis, right radial arterial line, mediastinal chest tubes all remain. No other new concerns. Objective - Vital Signs Vital signs: Vital Signs Temp 98.6 F 04/12/24 04:00 Pulse 80 04/12/24 06:15 Resp 18 04/12/24 06:15 BP 103/62 04/12/24 04:15 Pulse Ox 94 L 04/12/24 06:15 FiO2 50 04/11/24 19:00 Intake & Output 04/11/24 04/12/24 04/12/24 18:59 06:59 18:59 Intake Total 849 3057.832 Output Total 1645 1215 Balance -796 1842.832 Weight 106.5 kg Intake: IV 849 2388 Albumin 500 1250 Injectate 70 180 Kefzol 100 50 Pressure Bags 27 108 Sodium Chloride 0.9% 1, 150 600 000 ml @ 50 mls/hr IV . Q20H RAUL Rx#:[id number] Tylenol 200 Intake, IV Titration 429.832 Amount Insulin Regular 100 unit 28.887 In Sodium Chloride 0.9% 100 ml @ Per Protocol IV .Q0M RAUL Rx#:[id number] Milrinone-D5w Pmx 20 mg 100 In Dextrose/Water 1 100ml .bag @ 0.3 MCG/KG/MIN 9. 189 mls/hr IV .[id number] RAUL Rx#:[id number] Norepinephrine 4 mg In 254.000 Sodium Chloride 0.9% 250 ml @ 0.02 MCG/KG/MIN 7.78 mls/hr IV .Q24H RAUL Rx#: [id number] Vasopressin 20 unit In 46.945 Sodium Chloride 0.9% 50 ml @ 0.04 UNITS/MIN 6.12 mls/hr IV .Q8H20M RAUL Rx# :[id number] Oral 240 Output: Chest Tube Drainage 300 450 Mediastinal x2 300 450 Urine 695 760 Emesis 5 Estimated Blood Loss 650 Other: Voiding Method Indwelling Catheter Indwelling Catheter ABP, PAP, CO, CI - Last Documented Arterial Blood Pressure 116/43 Pulmonary Artery Pressure 53/14 Cardiac Output 6.1 Cardiac Index 2.6 - Exam CONSTITUTIONAL: Appears comfortable, cooperative, no acute distress RESPIRATORY: Lungs sounds diminished bilaterally. Respirations even, nonlabored. Currently on 3 L nasal cannula with oxygen saturation 95%. Able to achieve 1500 mL on incentive spirometry. Strong nonproductive cough. CARDIOVASCULAR: S1, S2 present. Regular rate and rhythm, AV paced on telemetry with underlying rhythm junctional in the low 60s. Sternum stable. Palpable peripheral pulses bilaterally. No edema present. No calf pain or tenderness noted. Heart hugger in place with patient demonstrating appropriate use. Antiembolism stockings, SCDs present. GASTROINTESTINAL: Abdomen soft, nontender, nondistended. Hypoactive bowel sounds present 4 quadrants. Tolerating clear liquids. Denies flatus GENITOURINARY: Le[place] present draining clear, yellow urine. Output overnight 50-75 mL per hour INTEGUMENTARY: Skin is warm and dry with evidence of good perfusion. Anterior chest incision well approximated and covered with dry intact dressing NEUROLOGIC: Cranial nerves II through XII intact MUSKULOSKELETAL: Able to move all extremities, strength equal bilaterally PSYCHIATRIC: Alert and oriented to person place and time, appropriate affect, intact judgment and insight INVASIVE LINES AND TUBES: Mediastinal chest tube present and connected to wall suction, no air leaks present, 330 mL serosanguineous drainage overnight, 750 mL since surgery. A/V epicardial pacemaker wires present, connected to generator, DDD mode with rate 80 bpm. Right internal jugular [place]/Cordis, right radial arterial line present. Last CO/CI 6.1/2.6, PA 41/12, CVP 7. - Allied health notes Allied health notes reviewed: nursing - Labs CBC & Chem 7: 04/12/24 04:52 04/12/24 04:52 Labs: Abnormal Lab Results - Last 24 Hours (Table) 04/06/24 04/11/24 04/11/24 Range/Units 10:16 08:24 09:11 WBC (3.8-10.6) k/uL RBC (4.30-5.90) m/uL Hgb (13.0-17.5) gm/dL Hct (39.0-53.0) % RDW (11.5-15.5) % Plt Count (150-450) k/uL Neutrophils # (1.3-7.7) k/uL Monocytes # (0-1.0) k/uL PT (10.0-12.5) sec INR (<1.2) APTT (22.0-30.0) sec ABG pH (7.35-7.45) ABG pCO2 (35-45) mmHg ABG pO2 385 H 183 H (83-108) mmHg ABG HCO3 (21-25) mmol/L ABG Total CO2 (19-24) mmol/L ABG O2 Saturation >99.4 H 99.2 H (94-97) % ABG Hematocrit (34.0-46.0) % ABG Potassium (3.4-4.5) mmol/L ABG Ionized Calcium (4.5-5.3) mg/dL ABG Glucose 116 H 127 H (75-99) mg/dL ABG Lactic Acid (0.5-1.6) mmol/L Hemoglobin 11.8 L 11.1 L (13.0-17.5) gm/dL Sodium (137-145) mmol/L Chloride (98-107) mmol/L BUN (9-20) mg/dL Glucose (74-99) mg/dL POC Glucose (mg/dL) (70-110) mg/dL Calcium (8.4-10.2) mg/dL Ionized Calcium Pamela (4.5-5.3) mg/dL Total Bilirubin (0.2-1.3) mg/dL AST (17-59) U/L Total Protein (6.3-8.2) g/dL Albumin (3.5-5.0) g/dL Arterial Blood Potassium (3.4-4.5) mmol/L Arterial Blood Glucose 116 H 127 H (75-99) mg/dL Crossmatch See Detail 04/11/24 04/11/24 04/11/24 Range/Units 10:14 11:05 11:58 WBC (3.8-10.6) k/uL RBC (4.30-5.90) m/uL Hgb (13.0-17.5) gm/dL Hct (39.0-53.0) % RDW (11.5-15.5) % Plt Count (150-450) k/uL Neutrophils # (1.3-7.7) k/uL Monocytes # (0-1.0) k/uL PT (10.0-12.5) sec INR (<1.2) APTT (22.0-30.0) sec ABG pH (7.35-7.45) ABG pCO2 (35-45) mmHg ABG pO2 >420 H >420 H >420 H (83-108) mmHg ABG HCO3 (21-25) mmol/L ABG Total CO2 (19-24) mmol/L ABG O2 Saturation >99.4 H >99.4 H >99.4 H (94-97) % ABG Hematocrit 28 L 28 L 27 L (34.0-46.0) % ABG Potassium 4.7 H (3.4-4.5) mmol/L ABG Ionized Calcium 4.1 L 4.3 L 4.4 L (4.5-5.3) mg/dL ABG Glucose 120 H 153 H 155 H (75-99) mg/dL ABG Lactic Acid 1.7 H 1.8 H (0.5-1.6) mmol/L Hemoglobin 9.2 L 9.0 L 8.9 L (13.0-17.5) gm/dL Sodium (137-145) mmol/L Chloride (98-107) mmol/L BUN (9-20) mg/dL Glucose (74-99) mg/dL POC Glucose (mg/dL) (70-110) mg/dL Calcium (8.4-10.2) mg/dL Ionized Calcium Pamela (4.5-5.3) mg/dL Total Bilirubin (0.2-1.3) mg/dL AST (17-59) U/L Total Protein (6.3-8.2) g/dL Albumin (3.5-5.0) g/dL Arterial Blood Potassium 4.7 H (3.4-4.5) mmol/L Arterial Blood Glucose 120 H 153 H 155 H (75-99) mg/dL Crossmatch 04/11/24 04/11/24 04/11/24 Range/Units 12:32 13:14 14:21 WBC (3.8-10.6) k/uL RBC (4.30-5.90) m/uL Hgb (13.0-17.5) gm/dL Hct (39.0-53.0) % RDW (11.5-15.5) % Plt Count (150-450) k/uL Neutrophils # (1.3-7.7) k/uL Monocytes # (0-1.0) k/uL PT (10.0-12.5) sec INR (<1.2) APTT (22.0-30.0) sec ABG pH 7.30 L 7.33 L 7.30 L (7.35-7.45) ABG pCO2 49 H 46 H 46 H (35-45) mmHg ABG pO2 388 H >420 H >420 H (83-108) mmHg ABG HCO3 (21-25) mmol/L ABG Total CO2 (19-24) mmol/L ABG O2 Saturation 99.1 H >99.4 H >99.4 H (94-97) % ABG Hematocrit 26 L 24 L 28 L (34.0-46.0) % ABG Potassium 4.6 H (3.4-4.5) mmol/L ABG Ionized Calcium 4.4 L 4.3 L 4.3 L (4.5-5.3) mg/dL ABG Glucose 141 H 129 H 121 H (75-99) mg/dL ABG Lactic Acid 2.2 H* 2.2 H* 2.6 H* (0.5-1.6) mmol/L Hemoglobin 8.4 L 7.9 L 9.0 L (13.0-17.5) gm/dL Sodium (137-145) mmol/L Chloride (98-107) mmol/L BUN (9-20) mg/dL Glucose (74-99) mg/dL POC Glucose (mg/dL) (70-110) mg/dL Calcium (8.4-10.2) mg/dL Ionized Calcium Pamela (4.5-5.3) mg/dL Total Bilirubin (0.2-1.3) mg/dL AST (17-59) U/L Total Protein (6.3-8.2) g/dL Albumin (3.5-5.0) g/dL Arterial Blood Potassium 4.6 H (3.4-4.5) mmol/L Arterial Blood Glucose 141 H 129 H 121 H (75-99) mg/dL Crossmatch 04/11/24 04/11/24 04/11/24 Range/Units 14:45 15:00 15:20 WBC (3.8-10.6) k/uL RBC (4.30-5.90) m/uL Hgb (13.0-17.5) gm/dL Hct (39.0-53.0) % RDW (11.5-15.5) % Plt Count (150-450) k/uL Neutrophils # (1.3-7.7) k/uL Monocytes # (0-1.0) k/uL PT (10.0-12.5) sec INR (<1.2) APTT (22.0-30.0) sec ABG pH 7.47 H 7.33 L (7.35-7.45) ABG pCO2 51 H (35-45) mmHg ABG pO2 >420 H 327 H (83-108) mmHg ABG HCO3 27 H 26 H (21-25) mmol/L ABG Total CO2 26 H (19-24) mmol/L ABG O2 Saturation >99.4 H 97.3 H 99.3 H (94-97) % ABG Hematocrit 25 L 25 L 32 L (34.0-46.0) % ABG Potassium (3.4-4.5) mmol/L ABG Ionized Calcium 4.4 L 4.3 L (4.5-5.3) mg/dL ABG Glucose 118 H 133 H 109 H (75-99) mg/dL ABG Lactic Acid 2.6 H* 2.7 H* 2.3 H* (0.5-1.6) mmol/L Hemoglobin 8.0 L 8.2 L 10.4 L (13.0-17.5) gm/dL Sodium (137-145) mmol/L Chloride (98-107) mmol/L BUN (9-20) mg/dL Glucose (74-99) mg/dL POC Glucose (mg/dL) (70-110) mg/dL Calcium (8.4-10.2) mg/dL Ionized Calcium Pamela (4.5-5.3) mg/dL Total Bilirubin (0.2-1.3) mg/dL AST (17-59) U/L Total Protein (6.3-8.2) g/dL Albumin (3.5-5.0) g/dL Arterial Blood Potassium (3.4-4.5) mmol/L Arterial Blood Glucose 118 H 133 H 109 H (75-99) mg/dL Crossmatch 04/11/24 04/11/24 04/11/24 Range/Units 16:15 16:16 16:16 WBC 14.5 H (3.8-10.6) k/uL RBC 3.80 L (4.30-5.90) m/uL Hgb 11.1 L (13.0-17.5) gm/dL Hct 33.1 L (39.0-53.0) % RDW 15.7 H (11.5-15.5) % Plt Count 125 L (150-450) k/uL Neutrophils # 11.0 H (1.3-7.7) k/uL Monocytes # 1.3 H (0-1.0) k/uL PT 14.7 H (10.0-12.5) sec INR 1.4 H (<1.2) APTT 63.1 H (22.0-30.0) sec ABG pH (7.35-7.45) ABG pCO2 (35-45) mmHg ABG pO2 (83-108) mmHg ABG HCO3 (21-25) mmol/L ABG Total CO2 (19-24) mmol/L ABG O2 Saturation (94-97) % ABG Hematocrit (34.0-46.0) % ABG Potassium (3.4-4.5) mmol/L ABG Ionized Calcium (4.5-5.3) mg/dL ABG Glucose (75-99) mg/dL ABG Lactic Acid (0.5-1.6) mmol/L Hemoglobin (13.0-17.5) gm/dL Sodium (137-145) mmol/L Chloride (98-107) mmol/L BUN (9-20) mg/dL Glucose (74-99) mg/dL POC Glucose (mg/dL) 119 H (70-110) mg/dL Calcium (8.4-10.2) mg/dL Ionized Calcium Pamela (4.5-5.3) mg/dL Total Bilirubin (0.2-1.3) mg/dL AST (17-59) U/L Total Protein (6.3-8.2) g/dL Albumin (3.5-5.0) g/dL Arterial Blood Potassium (3.4-4.5) mmol/L Arterial Blood Glucose (75-99) mg/dL Crossmatch 04/11/24 04/11/24 04/11/24 Range/Units 16:16 16:40 17:25 WBC (3.8-10.6) k/uL RBC (4.30-5.90) m/uL Hgb (13.0-17.5) gm/dL Hct (39.0-53.0) % RDW (11.5-15.5) % Plt Count (150-450) k/uL Neutrophils # (1.3-7.7) k/uL Monocytes # (0-1.0) k/uL PT (10.0-12.5) sec INR (<1.2) APTT (22.0-30.0) sec ABG pH 7.34 L (7.35-7.45) ABG pCO2 (35-45) mmHg ABG pO2 322 H (83-108) mmHg ABG HCO3 (21-25) mmol/L ABG Total CO2 26 H (19-24) mmol/L ABG O2 Saturation 100.4 H (94-97) % ABG Hematocrit (34.0-46.0) % ABG Potassium (3.4-4.5) mmol/L ABG Ionized Calcium (4.5-5.3) mg/dL ABG Glucose (75-99) mg/dL ABG Lactic Acid (0.5-1.6) mmol/L Hemoglobin (13.0-17.5) gm/dL Sodium (137-145) mmol/L Chloride 109 H (98-107) mmol/L BUN 22 H (9-20) mg/dL Glucose 117 H (74-99) mg/dL POC Glucose (mg/dL) 138 H (70-110) mg/dL Calcium (8.4-10.2) mg/dL Ionized Calcium Pamela (4.5-5.3) mg/dL Total Bilirubin 2.3 H (0.2-1.3) mg/dL AST 83 H (17-59) U/L Total Protein 5.1 L (6.3-8.2) g/dL Albumin 2.9 L (3.5-5.0) g/dL Arterial Blood Potassium (3.4-4.5) mmol/L Arterial Blood Glucose (75-99) mg/dL Crossmatch 04/11/24 04/11/24 04/11/24 Range/Units 18:25 18:26 18:49 WBC (3.8-10.6) k/uL RBC (4.30-5.90) m/uL Hgb (13.0-17.5) gm/dL Hct (39.0-53.0) % RDW (11.5-15.5) % Plt Count (150-450) k/uL Neutrophils # (1.3-7.7) k/uL Monocytes # (0-1.0) k/uL PT (10.0-12.5) sec INR (<1.2) APTT (22.0-30.0) sec ABG pH (7.35-7.45) ABG pCO2 (35-45) mmHg ABG pO2 139 H (83-108) mmHg ABG HCO3 (21-25) mmol/L ABG Total CO2 25 H (19-24) mmol/L ABG O2 Saturation 99.7 H (94-97) % ABG Hematocrit (34.0-46.0) % ABG Potassium (3.4-4.5) mmol/L ABG Ionized Calcium (4.5-5.3) mg/dL ABG Glucose (75-99) mg/dL ABG Lactic Acid (0.5-1.6) mmol/L Hemoglobin (13.0-17.5) gm/dL Sodium (137-145) mmol/L Chloride (98-107) mmol/L BUN (9-20) mg/dL Glucose (74-99) mg/dL POC Glucose (mg/dL) 141 H 145 H (70-110) mg/dL Calcium (8.4-10.2) mg/dL Ionized Calcium Pamela (4.5-5.3) mg/dL Total Bilirubin (0.2-1.3) mg/dL AST (17-59) U/L Total Protein (6.3-8.2) g/dL Albumin (3.5-5.0) g/dL Arterial Blood Potassium (3.4-4.5) mmol/L Arterial Blood Glucose (75-99) mg/dL Crossmatch 04/11/24 04/11/24 04/11/24 Range/Units 19:51 19:53 22:25 WBC 13.4 H (3.8-10.6) k/uL RBC 3.44 L (4.30-5.90) m/uL Hgb 9.9 L (13.0-17.5) gm/dL Hct 29.9 L (39.0-53.0) % RDW 16.0 H (11.5-15.5) % Plt Count 116 L (150-450) k/uL Neutrophils # 10.2 H (1.3-7.7) k/uL Monocytes # 1.1 H (0-1.0) k/uL PT (10.0-12.5) sec INR (<1.2) APTT (22.0-30.0) sec ABG pH (7.35-7.45) ABG pCO2 (35-45) mmHg ABG pO2 (83-108) mmHg ABG HCO3 (21-25) mmol/L ABG Total CO2 (19-24) mmol/L ABG O2 Saturation (94-97) % ABG Hematocrit (34.0-46.0) % ABG Potassium (3.4-4.5) mmol/L ABG Ionized Calcium (4.5-5.3) mg/dL ABG Glucose (75-99) mg/dL ABG Lactic Acid (0.5-1.6) mmol/L Hemoglobin (13.0-17.5) gm/dL Sodium (137-145) mmol/L Chloride (98-107) mmol/L BUN (9-20) mg/dL Glucose (74-99) mg/dL POC Glucose (mg/dL) 148 H 156 H (70-110) mg/dL Calcium (8.4-10.2) mg/dL Ionized Calcium Pamela (4.5-5.3) mg/dL Total Bilirubin (0.2-1.3) mg/dL AST (17-59) U/L Total Protein (6.3-8.2) g/dL Albumin (3.5-5.0) g/dL Arterial Blood Potassium (3.4-4.5) mmol/L Arterial Blood Glucose (75-99) mg/dL Crossmatch 04/11/24 04/11/24 04/12/24 Range/Units 23:23 23:23 00:23 WBC 11.2 H (3.8-10.6) k/uL RBC 3.27 L (4.30-5.90) m/uL Hgb 9.5 L (13.0-17.5) gm/dL Hct 28.4 L (39.0-53.0) % RDW 15.9 H (11.5-15.5) % Plt Count 113 L (150-450) k/uL Neutrophils # 8.5 H (1.3-7.7) k/uL Monocytes # (0-1.0) k/uL PT (10.0-12.5) sec INR (<1.2) APTT (22.0-30.0) sec ABG pH (7.35-7.45) ABG pCO2 (35-45) mmHg ABG pO2 (83-108) mmHg ABG HCO3 (21-25) mmol/L ABG Total CO2 (19-24) mmol/L ABG O2 Saturation (94-97) % ABG Hematocrit (34.0-46.0) % ABG Potassium (3.4-4.5) mmol/L ABG Ionized Calcium (4.5-5.3) mg/dL ABG Glucose (75-99) mg/dL ABG Lactic Acid (0.5-1.6) mmol/L Hemoglobin (13.0-17.5) gm/dL Sodium (137-145) mmol/L Chloride (98-107) mmol/L BUN (9-20) mg/dL Glucose (74-99) mg/dL POC Glucose (mg/dL) 156 H 146 H (70-110) mg/dL Calcium (8.4-10.2) mg/dL Ionized Calcium Pamela (4.5-5.3) mg/dL Total Bilirubin (0.2-1.3) mg/dL AST (17-59) U/L Total Protein (6.3-8.2) g/dL Albumin (3.5-5.0) g/dL Arterial Blood Potassium (3.4-4.5) mmol/L Arterial Blood Glucose (75-99) mg/dL Crossmatch 04/12/24 04/12/24 04/12/24 Range/Units 01:19 03:02 04:01 WBC (3.8-10.6) k/uL RBC (4.30-5.90) m/uL Hgb (13.0-17.5) gm/dL Hct (39.0-53.0) % RDW (11.5-15.5) % Plt Count (150-450) k/uL Neutrophils # (1.3-7.7) k/uL Monocytes # (0-1.0) k/uL PT (10.0-12.5) sec INR (<1.2) APTT (22.0-30.0) sec ABG pH (7.35-7.45) ABG pCO2 (35-45) mmHg ABG pO2 (83-108) mmHg ABG HCO3 (21-25) mmol/L ABG Total CO2 (19-24) mmol/L ABG O2 Saturation (94-97) % ABG Hematocrit (34.0-46.0) % ABG Potassium (3.4-4.5) mmol/L ABG Ionized Calcium (4.5-5.3) mg/dL ABG Glucose (75-99) mg/dL ABG Lactic Acid (0.5-1.6) mmol/L Hemoglobin (13.0-17.5) gm/dL Sodium (137-145) mmol/L Chloride (98-107) mmol/L BUN (9-20) mg/dL Glucose (74-99) mg/dL POC Glucose (mg/dL) 137 H 118 H 114 H (70-110) mg/dL Calcium (8.4-10.2) mg/dL Ionized Calcium Pamela (4.5-5.3) mg/dL Total Bilirubin (0.2-1.3) mg/dL AST (17-59) U/L Total Protein (6.3-8.2) g/dL Albumin (3.5-5.0) g/dL Arterial Blood Potassium (3.4-4.5) mmol/L Arterial Blood Glucose (75-99) mg/dL Crossmatch 04/12/24 04/12/24 04/12/24 Range/Units 04:52 04:52 04:54 WBC 11.7 H (3.8-10.6) k/uL RBC 3.13 L (4.30-5.90) m/uL Hgb 9.1 L (13.0-17.5) gm/dL Hct 27.2 L (39.0-53.0) % RDW 16.1 H (11.5-15.5) % Plt Count 108 L (150-450) k/uL Neutrophils # 8.0 H (1.3-7.7) k/uL Monocytes # (0-1.0) k/uL PT (10.0-12.5) sec INR (<1.2) APTT (22.0-30.0) sec ABG pH (7.35-7.45) ABG pCO2 (35-45) mmHg ABG pO2 (83-108) mmHg ABG HCO3 (21-25) mmol/L ABG Total CO2 (19-24) mmol/L ABG O2 Saturation (94-97) % ABG Hematocrit (34.0-46.0) % ABG Potassium (3.4-4.5) mmol/L ABG Ionized Calcium (4.5-5.3) mg/dL ABG Glucose (75-99) mg/dL ABG Lactic Acid (0.5-1.6) mmol/L Hemoglobin (13.0-17.5) gm/dL Sodium 135 L (137-145) mmol/L Chloride (98-107) mmol/L BUN 22 H (9-20) mg/dL Glucose 127 H (74-99) mg/dL POC Glucose (mg/dL) 137 H (70-110) mg/dL Calcium 8.1 L (8.4-10.2) mg/dL Ionized Calcium Pamela 4.4 L (4.5-5.3) mg/dL Total Bilirubin 1.8 H (0.2-1.3) mg/dL AST 89 H (17-59) U/L Total Protein 5.3 L (6.3-8.2) g/dL Albumin 3.3 L (3.5-5.0) g/dL Arterial Blood Potassium (3.4-4.5) mmol/L Arterial Blood Glucose (75-99) mg/dL Crossmatch 04/12/24 Range/Units 06:59 WBC (3.8-10.6) k/uL RBC (4.30-5.90) m/uL Hgb (13.0-17.5) gm/dL Hct (39.0-53.0) % RDW (11.5-15.5) % Plt Count (150-450) k/uL Neutrophils # (1.3-7.7) k/uL Monocytes # (0-1.0) k/uL PT (10.0-12.5) sec INR (<1.2) APTT (22.0-30.0) sec ABG pH (7.35-7.45) ABG pCO2 (35-45) mmHg ABG pO2 (83-108) mmHg ABG HCO3 (21-25) mmol/L ABG Total CO2 (19-24) mmol/L ABG O2 Saturation (94-97) % ABG Hematocrit (34.0-46.0) % ABG Potassium (3.4-4.5) mmol/L ABG Ionized Calcium (4.5-5.3) mg/dL ABG Glucose (75-99) mg/dL ABG Lactic Acid (0.5-1.6) mmol/L Hemoglobin (13.0-17.5) gm/dL Sodium (137-145) mmol/L Chloride (98-107) mmol/L BUN (9-20) mg/dL Glucose (74-99) mg/dL POC Glucose (mg/dL) 132 H (70-110) mg/dL Calcium (8.4-10.2) mg/dL Ionized Calcium Pamela (4.5-5.3) mg/dL Total Bilirubin (0.2-1.3) mg/dL AST (17-59) U/L Total Protein (6.3-8.2) g/dL Albumin (3.5-5.0) g/dL Arterial Blood Potassium (3.4-4.5) mmol/L Arterial Blood Glucose (75-99) mg/dL Crossmatch - Imaging and Cardiology Chest x-ray: image reviewed Assessment and Plan Assessment: Moderate to severe mitral valve regurgitation, status post mitral valve replacement using a 31 mm Mosaic porcine bioprosthesis 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, status post decalcification of the mitral annulus using the sono PET machine Moderate tricuspid valve regurgitation, status post tricuspid valve repair using a 30 mm MC3 band Moderate to severe pulmonary hypertension Moderate to severe left ventricular dysfunction, EF 30-35% Postoperative acute blood loss anemia and thrombocytopenia, expected given hemodilution and cardiopulmonary bypass pump Hypotension requiring vasopressors, expected History of permanent atrial fibrillation status post unsuccessful cardioversion in January 2024, on Xarelto outpatient for anticoagulation, status post full biatrial maze procedure using radiofrequency and cryoablation, exclusion of the left atrial appendage using a 35mm AtriClip Hyperlipidemia, treated, cholesterol 120, LDL 60, triglycerides 94 Previous tobacco dependence, quit smoking 30 years ago Mild COPD, preoperative FEV1 70% of predicted Remote history of pneumonia Rheumatoid arthritis previously on methotrexate, last dose in July 2023 Hyperglycemia not previously diagnosed as a diabetic, preoperative hemoglobin A1c 6.6% Family history of premature coronary artery disease in both parents Plan: Continue aspirin, statin, Plavix. Will hold off on beta-edelmira due to underlying bradycardia. Continue to AV pace at 80 bpm Decreased Primacor to 0.2 mcg/kg/min. Wean pressors as tolerated Wean oxygen as tolerated. Encourage incentive spirometry use 10 times every hour while awake. Bronchodilators per pulmonology Increase activity as tolerated, PT/OT/cardiac rehab consulted Will monitor daily labs and x-rays. Electrolyte replacement per protocol. Will give 20 mg IV push Lasix today GI/DVT prophylaxis Pain control per current medication regimen. Will add Toradol Insulin management per internal medicine. Patient is not previously diagnosed as diabetic, however his preoperative hemoglobin A1c was 6.6%, needs tight blood sugar control. Should remain on continuous IV insulin for 48 hours, then may transition to subcutaneous per protocol Continue [place]/Cordis for another 24 hours Continue chest tubes for another 24 hours, monitor output Continue León catheter for another 24 hours, continue to monitor and record strict accurate intake and output More recommendations to follow
[2024-04-12] MEDS: IPRATROPIUM-ALBUTEROL 3 ML NEB INHALATION SCH (07:47)
[2024-04-12] MEDS: BUDESONIDE 1 MG/2 ML NEBU INHALATION SCH (07:47)
[2024-04-12 07:57] LABS: Glucose,Whole Blood 137 mg/dL (70-110)
--- NOTE | 2024-04-12 08:29 | XR ---
EXAMINATION TYPE: XR chest 1V portable DATE OF EXAM: 04/12/2024 5:36 AM CLINICAL INDICATION: Male, 68 years old with history of Post Operative Cardiac Surgery; [facility] COMPARISON: Chest radiographs from 04/11/2024 TECHNIQUE: XR chest 1V portable Frontal view of the chest. FINDINGS: Lungs/Pleura: Trace bilateral pleural effusions There is no evidence of focal consolidation, or pneum othorax. Pulmonary vascularity: Unremarkable. Heart/mediastinum: Cardiomediastinal silhouette is enlarged. Left atrial appendage occlusion device i s present. Musculoskeletal: No acute osseous pathology. Midline sternotomy wires are noted. Other findings: None Lines/Tubes: There is a [place] catheter with tip projecting over the spine. IMPRESSION: Postsurgical changes with mild pulmonary edema. There may be trace pleural effusions. [facility], , 04/12/2024 8:27 AM
[2024-04-12] MEDS: ASPIRIN 325 MG TAB PO SCH (08:38)
[2024-04-12] MEDS: FUROSEMIDE 10 MG/ML 2 ML VIAL IV ONE (08:38)
[2024-04-12] MEDS: CLOPIDOGREL 75 MG TAB PO SCH (08:38)
[2024-04-12] MEDS: PANTOPRAZOLE 40 MG/10 ML VIAL IVP SCH (08:38)
[2024-04-12] MEDS: KETOROLAC 15 MG/ML 1 ML VIAL IVP SCH (08:43)
[2024-04-12] MEDS ORDERED: bisacodyL 10 MG SUPP RECTAL PRN (09:00)
[2024-04-12] MEDS ORDERED: MAGNESIUM HYDROXIDE 2,400 MG/30 ML CUP PO PRN (09:00)
[2024-04-12 09:16] LABS: Glucose,Whole Blood 166 mg/dL (70-110)
[2024-04-12 10:24] LABS: Glucose,Whole Blood 155 mg/dL (70-110)
[2024-04-12 11:19] LABS: Glucose,Whole Blood 132 mg/dL (70-110)
[2024-04-12 11:23] VITALS: BMI 27.1
[2024-04-12 12:24] LABS: Glucose,Whole Blood 115 mg/dL (70-110)
[2024-04-12] MEDS ORDERED: ACETAMINOPHEN TAB 325 MG TAB PO PRN (13:00)
--- NOTE | 2024-04-12 16:25 | P.CRDCN ---
History of Present Illness History of present illness: HISTORY OF PRESENTING ILLNESS This is a pleasant 68-year-old with past medical history significant for rheumatoid arthritis, atrial fibrillation, mitral regurgitation, hyperlipidemia, mild coronary artery calcifications, coronary artery disease, ex-smoker and nonischemic cardiomyopathy. He follows in the office with Dr. Pinto. He was noted to have atrial fibrillation and does have bradycardia with A. fib with bradycardic response in the past and PE, cardioversion had been attempted ho wever showed left ventricular dysfunction and severe mitral regurgitation with mitral calcification. Patient therefore was recommended to undergo mitral valve replacement. Patient underwent successful mitral valve replacement with 31 mm Mosaic porcine bioprosthetic valve, tricuspid repair with a 30mm MC 3 band, maze procedure and IMMANUEL atriclip. He has been doing well since surgery. He was place d on low-dose norepinephrine however this has continue to wean. He is AV paced. Still does have chest tubes in place with approximately 900 mL output over last 24 hours. He denies any chest pain or pressure. No significant shortness breath however does feel like he cannot quite catch his breath. He does have some diaphragmatic pacing from his atrial and ventricular pacer and we turned this down and he is in normal sinus rhythm with heart rate 85 bpm. REVIEW OF SYSTEMS At the time of my exam: CONSTITUTIONAL: Denies fever or chills. CARDIOVASCULAR: Denies chest pain, shortness of breath, orthopnea, PND or palpitations. RESPIRATORY: Denies cough. GASTROINTESTINAL: Denies abdominal pain, diarrhea, constipation, nausea or vomiting. MUSCULOSKELETAL: Denies myalgias. NEUROLOGIC: Denies numbness, tingling or weakness. ENDOCRINE: Denies fatigue, weight change, polydipsia or polyurina. GENITOURINARY: Denies burning, hematuria or urgency with micturation. HEMATOLOGIC: Denies history of anemia or bleeding. PHYSICAL EXAMINATION Vital signs reviewed. CONSTITUTIONAL: No apparent distress. HEENT: Head is normocephalic. Pupils are equal, round. Sclerae anicteric. Mucous membranes of the mouth are moist. No JVD. No carotid bruit. CHEST EXAMINATION: Lungs are clear to auscultation. No chest wall tenderness is noted on palpation or with deep breathing. HEART EXAMINATION: Regular rate and rhythm. S1, S2 heard. No murmurs, gallops or rub. ABDOMEN: Soft, nontender. Positive bowel sounds. EXTREMITIES: 2+ peripheral pulses, no lower extremity edema and no calf tenderness. NEUROLOGIC EXAMINATION: Patient is awake, alert and oriented x3. ASSESSMENT Severe mitral regurgitation status post 31 mm Mosaic porcine bioprosthetic valve replacement, tricuspid valve repair, maze procedure and left atrial appendage clip in Mild coronary artery disease Nonischemic cardiomyopathy Chronic systolic heart failure Hypotension improving Persistent atrial fibrillation status post maze procedure currently sinus rhythm Anemia Rheumatoid arthritis PLAN Patient is recovering well. He does appear to have some diaphragmatic pacing and this improved with stopping his pacemaker with his heart rates in the operating disease in normal sinus rhythm. Continue to monitor off of the pacemaker. Continue with remainder of current regimen. Past Medical History Past Medical History: Atrial Fibrillation, GI Bleed, Hearing Disorder / Deafness, Pneumonia, Rheumatoid Arthritis (RA) Additional Past Medical History / Comment(s): Recently dx with Afib in the last month Nov, 2023. Recent shortness of breath and started seeing assistant unit forester in July 2023 and was put on inhalker, as needed. Hx bleeding ulcer in the past. Tinnitis. History of Any Multi-Drug Resistant Organisms: None Reported Past Surgical History: Heart Catheterization, Orthopedic Surgery, Tonsillectomy Additional Past Surgical History / Comment(s): back operation x2. Cardiac cath January 2024. Past Anesthesia/Blood Transfusion Reactions: No Reported Reaction, Postoperative Nausea & Vomiting (PONV) Additional Past Anesthesia/Blood Transfusion Reaction / Comment(s): No hx of blood transfusion. Smoking Status: Former smoker - Past Family History Father Family Medical History: Coronary Artery Disease (CAD) Additional Family Medical History / Comment(s): quad bypass Mother Additional Family Medical History / Comment(s): had a valve replacement Medications and Allergies Home Medications Medication Instructions Recorded Confirmed Type Acetaminophen [Tylenol Extra 500 mg PO Q6H PRN 01/13/24 04/11/24 History Strength] Albuterol Sulfate/Budesonide 2 puff INHALATION QAM PRN 01/13/24 04/11/24 History [Airsupra 90-80 Mcg Inhaler] Pantoprazole [Protonix] 40 mg PO HS 01/13/24 04/11/24 History Rivaroxaban [Xarelto] 20 mg PO HS 01/13/24 04/11/24 History Atorvastatin [Lipitor] 20 mg PO HS 01/30/24 04/11/24 History Empagliflozin [Jardiance] 10 mg PO DAILY 04/06/24 04/11/24 History Sacubitril/Valsartan [Entresto 49 1 each PO BID 04/06/24 04/11/24 History mg-51 mg Tablet] Allergies Allergy/AdvReac Type Severity Reaction Status Date / Time No Known Allergies Allergy Verified 04/11/24 06:03 Physical Exam Vitals: Vital Signs Temp Pulse Resp BP Pulse Ox FiO2 04/12/24 15:22 87 04/12/24 15:11 78 04/12/24 15:00 84 16 118/60 95 04/12/24 14:00 80 14 118/60 92 L 04/12/24 13:00 85 14 118/60 93 L 04/12/24 12:00 98.1 F 80 23 118/60 91 L 04/12/24 11:36 80 04/12/24 11:22 78 04/12/24 11:05 80 30 H 118/60 04/12/24 10:30 78 21 97/67 04/12/24 10:00 80 15 95 04/12/24 09:30 79 20 118/60 95 04/12/24 09:00 80 11 L 94 L 04/12/24 08:30 79 11 L 118/60 95 04/12/24 08:00 98.1 F 80 21 118/60 98 04/12/24 07:59 80 04/12/24 07:47 80 91 L 04/12/24 07:30 80 36 H 118/60 96 04/12/24 07:15 80 33 H 118/60 91 L 04/12/24 07:00 80 17 119/67 94 L 04/12/24 06:45 80 14 121/59 97 04/12/24 06:30 80 16 124/83 94 L 04/12/24 06:15 80 18 94 L 04/12/24 06:00 79 24 95 04/12/24 05:45 80 6 L 98 04/12/24 05:30 80 8 L 99 04/12/24 05:15 80 35 H 95 04/12/24 05:00 80 15 96 04/12/24 04:45 77 16 95 04/12/24 04:30 80 18 96 04/12/24 04:15 80 19 103/62 96 04/12/24 04:00 98.6 F 80 12 97 04/12/24 03:45 80 9 L 114/67 95 04/12/24 03:30 80 20 98 04/12/24 03:16 77 22 100 04/12/24 03:00 80 15 114/67 98 04/12/24 02:45 77 17 97 04/12/24 02:30 80 16 99 04/12/24 02:15 80 17 97 04/12/24 02:00 80 18 97 04/12/24 01:45 80 18 97 04/12/24 01:30 80 19 118/64 97 04/12/24 01:15 80 13 91 L 04/12/24 01:00 79 20 113/72 94 L 04/12/24 00:45 80 17 94 L 04/12/24 00:30 80 20 95 04/12/24 00:16 79 16 94 L 04/12/24 00:15 79 19 106/64 94 L 04/12/24 00:00 98.8 F 79 12 106/64 94 L 04/11/24 23:45 79 12 106/64 95 04/11/24 23:30 79 21 116/65 96 04/11/24 23:15 79 15 125/69 96 04/11/24 23:00 80 28 H 125/69 97 04/11/24 22:45 81 18 123/70 97 04/11/24 22:30 83 15 123/70 96 04/11/24 22:15 82 21 123/70 97 04/11/24 22:00 81 11 L 132/69 95 04/11/24 21:45 79 15 97 04/11/24 21:30 83 12 95 04/11/24 21:15 81 20 95 04/11/24 21:05 80 04/11/24 21:00 80 13 98 04/11/24 20:54 80 04/11/24 20:45 79 16 94 L 04/11/24 20:30 80 8 L 94 L 04/11/24 20:15 80 16 95 04/11/24 20:00 98.8 F 78 7 L 95 04/11/24 19:50 80 95 04/11/24 19:40 80 13 95 04/11/24 19:30 79 13 94 L 04/11/24 19:20 80 13 94 L 04/11/24 19:10 80 17 94 L 04/11/24 19:00 80 17 94 L 50 04/11/24 18:50 80 25 H 95 04/11/24 18:42 94 L 04/11/24 18:40 79 19 99 04/11/24 18:30 79 19 99 04/11/24 18:20 80 21 98 04/11/24 18:10 80 25 H 100 04/11/24 18:00 80 20 100 04/11/24 17:50 80 13 100 04/11/24 17:40 80 17 99 04/11/24 17:30 80 16 99 04/11/24 17:20 80 28 H 96 04/11/24 17:10 80 15 99 04/11/24 17:00 79 15 99 04/11/24 16:52 50 04/11/24 16:50 80 12 04/11/24 16:40 80 12 04/11/24 16:35 80 04/11/24 16:30 80 12 04/11/24 16:26 80 12 Intake and Output 04/12/24 04/12/24 04/12/24 06:59 14:59 22:59 Intake Total 1696.237 770.304 89 Output Total 845 490 Balance 851.237 280.304 89 Intake: IV 1232 722 89 Albumin 500 Injectate 110 150 30 Kefzol 50 Pressure Bags 72 72 9 Sodium Chloride 0.9% 1, 400 400 50 000 ml @ 30 mls/hr IV . Q24H RAUL Rx#:[id number] Tylenol 100 100 Intake, IV Titration 224.237 48.304 Amount Insulin Regular 100 unit 20.655 21.631 In Sodium Chloride 0.9% 100 ml @ Per Protocol IV .Q0M [facility]UL Rx#:[id number] Milrinone-D5w Pmx 20 mg 100 In Dextrose/Water 1 100ml .bag @ 0.2 MCG/KG/MIN 6. 126 mls/hr IV .[id number] RAUL Rx#:[id number] Norepinephrine 4 mg In 88.869 Sodium Chloride 0.9% 250 ml @ 0.02 MCG/KG/MIN 7.78 mls/hr IV .Q24H [facility] Rx#: [id number] Vasopressin 20 unit In 14.713 26.673 Sodium Chloride 0.9% 50 ml @ 0.04 UNITS/MIN 6.12 mls/hr IV .Q8H20M [facility] Rx# :[id number] Oral 240 Output: Chest Tube Drainage 320 110 Mediastinal x2 320 110 Urine 520 380 Emesis 5 Other: Voiding Method Indwelling Catheter Indwelling Catheter Weight 106.5 kg 106.5 kg ABP, PAP, CO, CI - Last 8 Hours Arterial Blood Pressure 112/46 Arterial Blood Pressure 108/43 Arterial Blood Pressure 109/37 Arterial Blood Pressure 90/33 Arterial Blood Pressure 115/28 Arterial Blood Pressure 107/42 Arterial Blood Pressure 109/42 Arterial Blood Pressure 93/40 Arterial Blood Pressure 111/50 Arterial Blood Pressure 132/52 Pulmonary Artery Pressure 56/22 Pulmonary Artery Pressure 49/19 Pulmonary Artery Pressure 57/16 Pulmonary Artery Pressure 41/11 Pulmonary Artery Pressure 43/18 Pulmonary Artery Pressure 46/14 Pulmonary Artery Pressure 39/10 Pulmonary Artery Pressure 39/11 Pulmonary Artery Pressure 40/13 Pulmonary Artery Pressure 44/15 Cardiac Output 6.1 Cardiac Output 6.1 Cardiac Output 6.1 Cardiac Output 6.1 Cardiac Output 6.1 Cardiac Output 6.4 Cardiac Output 5.8 Cardiac Output 5.8 Cardiac Output 6.1 Cardiac Index 2.6 Cardiac Index 2.6 Cardiac Index 2.6 Cardiac Index 2.6 Cardiac Index 2.6 Cardiac Index 2.7 Cardiac Index 2.4 Cardiac Index 2.4 Cardiac Index 2.6 Results 04/12/24 04:52 04/12/24 04:52 Cardiac Enzymes 04/11/24 04/12/24 Range/Units 16:16 04:52 AST 83 H 89 H (17-59) U/L Coagulation 04/11/24 Range/Units 16:16 PT 14.7 H (10.0-12.5) sec APTT 63.1 H (22.0-30.0) sec CBC 04/11/24 04/11/24 04/11/24 Range/Units 16:16 19:53 23:23 WBC 14.5 H 13.4 H 11.2 H (3.8-10.6) k/uL RBC 3.80 L 3.44 L 3.27 L (4.30-5.90) m/uL Hgb 11.1 L 9.9 L 9.5 L (13.0-17.5) gm/dL Hct 33.1 L 29.9 L 28.4 L (39.0-53.0) % Plt Count 125 L 116 L 113 L (150-450) k/uL 04/12/24 Range/Units 04:52 WBC 11.7 H (3.8-10.6) k/uL RBC 3.13 L (4.30-5.90) m/uL Hgb 9.1 L (13.0-17.5) gm/dL Hct 27.2 L (39.0-53.0) % Plt Count 108 L (150-450) k/uL Comprehensive Metabolic Panel 04/11/24 04/12/24 Range/Units 16:16 04:52 Sodium 137 135 L (137-145) mmol/L Potassium 3.9 4.6 (3.5-5.1) mmol/L Chloride 109 H 107 (98-107) mmol/L Carbon Dioxide 23 24 (22-30) mmol/L BUN 22 H 22 H (9-20) mg/dL Creatinine 0.87 0.84 (0.66-1.25) mg/dL Glucose 117 H 127 H (74-99) mg/dL Calcium 8.4 8.1 L (8.4-10.2) mg/dL AST 83 H 89 H (17-59) U/L ALT 12 11 (4-49) U/L Alkaline Phosphatase 52 47 (38-126) U/L Total Protein 5.1 L 5.3 L (6.3-8.2) g/dL Albumin 2.9 L 3.3 L (3.5-5.0) g/dL Current Medications Generic Name Dose Route Start Last Admin Trade Name Freq PRN Reason Stop Dose Admin Acetaminophen 650 mg 04/12/24 13:00 Acetaminophen Tab 325 Mg Tab PO Q4HR PRN Fever And/ Or Mild Pain (1-3) Albuterol/Ipratropium 3 ml 04/11/24 15:53 Ipratropium-Albuterol 3 Ml Neb INHALATION RT-Q2H PRN Shortness Of Breath Or Wheezing Albuterol/Ipratropium 3 ml 04/12/24 08:00 04/12/24 15:11 Ipratropium-Albuterol 3 Ml Neb INHALATION 3 ml RT-QID RAUL Administration Alprazolam 0.25 mg 04/12/24 10:32 Alprazolam 0.25 Mg Tab PO QID PRN Anxiety Aspirin 325 mg 04/12/24 09:00 04/12/24 08:38 Aspirin 325 Mg Tab PO 325 mg DAILY RAUL Administration Atorvastatin Calcium 20 mg 04/11/24 21:00 04/11/24 21:35 Atorvastatin 20 Mg Tab PO 20 mg HS RAUL Administration Benzocaine/Menthol 1 each 04/11/24 15:53 Benzocaine/Menthol Lozeng 1 Each Lozenge MUCOUS MEM Q2H PRN Sore Throat Bisacodyl 10 mg 04/12/24 09:00 Bisacodyl 10 Mg Supp RECTAL DAILY PRN Constipation Budesonide 1 mg 04/12/24 08:00 04/12/24 07:47 Budesonide 1 Mg/2 Ml Nebu INHALATION 1 mg RT-BID RAUL Administration Clopidogrel Bisulfate 75 mg 04/12/24 09:00 04/12/24 08:38 Clopidogrel 75 Mg Tab PO 75 mg DAILY RAUL Administration Dextrose/Water 25 ml 04/11/24 15:53 Dextrose 50% Syringe 50 Ml IVP PER PROTOCOL PRN Hypoglycemia Protocol Dextrose/Water 50 ml 04/11/24 15:53 Dextrose 50% Syringe 50 Ml IVP PER PROTOCOL PRN Hypoglycemia Protocol Heparin Sodium (Porcine) 5,000 unit 04/11/24 16:00 04/12/24 08:38 Heparin Sodium,Porcine 5,000 Unit/Ml 1 Ml Vial SQ 5,000 unit Q8HR RAUL Administration Hydralazine HCl 10 mg 04/11/24 15:53 Hydralazine Hcl 20 Mg/Ml 1 Ml Vial IVP Q1H PRN Blood Pressure - High Norepinephrine Bitartrate 4 mg 254 mls @ 7.78 mls/hr 04/11/24 15:53 04/12/24 06:35 / Sodium Chloride IV Infused .Q24H RAUL Titration Protocol 0.02 MCG/KG/MIN Amiodarone HCl 150 mg/ 103 mls @ 618 mls/hr 04/11/24 15:53 Dextrose/Water IV .Q10M PRN A.FIB/FLUTTER Protocol Amiodarone HCl 360 mg/ 207.2 mls @ 34.533 mls/hr 04/11/24 15:53 Dextrose/Water IV .Q6H PRN A.FIB/FLUTTER Protocol 1 MG/MIN Amiodarone HCl 450 mg/ 250 mls @ 16.667 mls/hr 04/11/24 15:53 Dextrose/Water IV .Q15H PRN A.FIB/FLUTTER Protocol 0.5 MG/MIN Calcium Gluconate/Sodium 100 mls @ 100 mls/hr 04/11/24 15:53 Chloride 2 gm/ IV Solution IVPB 04/18/24 15:52 ONCE PRN Ionized Calcium less than 4.4 Insulin Human Regular 100 unit 101 mls @ 0 mls/hr 04/11/24 15:53 04/12/24 11:19 / Sodium Chloride IV 3.5 unit/hr .Q0M RAUL 3.535 mls/hr Titration Protocol Per Protocol Milrinone Lactate/Dextrose 20 100 mls @ 6.126 mls/hr 04/11/24 16:00 04/12/24 06:26 mg/ IV Solution IV 0.3 mcg/kg/min .[id number] RAUL 9.189 mls/hr Administration 0.2 MCG/KG/MIN Sodium Chloride 1,000 mls @ 30 mls/hr 04/11/24 15:53 04/11/24 18:00 Saline 0.9% IV 50 mls/hr .Q24H RAUL Administration Vasopressin 20 unit/ Sodium 51 mls @ 6.12 mls/hr 04/11/24 16:00 04/12/24 09:17 Chloride IV 0 units/min .Q8H20M RAUL 0 mls/hr Titration Protocol 0.04 UNITS/MIN Ketorolac Tromethamine 15 mg 04/12/24 07:30 04/12/24 14:36 Ketorolac 15 Mg/Ml 1 Ml Vial IVP 04/17/24 07:24 15 mg Q6HR RAUL Administration Magnesium Hydroxide 2,400 mg 04/12/24 09:00 Magnesium Hydroxide 2,400 Mg/30 Ml Cup PO BID PRN Constipation Metoclopramide HCl 10 mg 04/11/24 15:53 Metoclopramide 5 Mg/Ml 2 Ml Vial IVP Q4H PRN Nausea And Vomiting Miscellaneous Information 1 each 04/11/24 15:53 Magnesium Replacement Protocol 1 Each Misc MISCELLANE DAILY PRN Per Protocol Protocol Miscellaneous Information 1 each 04/11/24 15:53 Potassium Replacement Protocol 1 Each Misc MISCELLANE DAILY PRN Per Protocol Protocol Ondansetron HCl 4 mg 04/11/24 15:53 04/12/24 06:10 Ondansetron 4 Mg/2 Ml Vial IVP 4 mg Q6HR PRN Administration Nausea And Vomiting Oxycodone HCl 5 mg 04/11/24 15:53 04/12/24 03:12 Oxycodone Hcl 5 Mg Tab PO 5 mg Q4HR PRN Administration Moderate Pain (Scale 4 to 6) Oxycodone HCl 10 mg 04/11/24 15:53 Oxycodone Hcl 5 Mg Tab PO Q4HR PRN Severe Pain (Scale 7 to 10) Pantoprazole Sodium 40 mg 04/13/24 07:30 Pantoprazole 40 Mg Tablet PO [id number] RAUL Senna/Docusate Sodium 2 each 04/11/24 21:00 04/11/24 21:35 Sennosides-Docusate Sodium 1 Each Tab PO 2 each HS RAUL Administration Sodium Chloride 10 ml 04/11/24 21:00 04/12/24 08:39 Sodium Chloride 0.9% Flush 10 Ml Syringe IV 10 ml BID RAUL Administration Intake and Output 04/12/24 04/12/24 04/12/24 06:59 14:59 22:59 Intake Total 1696.237 770.304 89 Output Total 845 490 Balance 851.237 280.304 89 Intake: IV 1232 722 89 Albumin 500 Injectate 110 150 30 Kefzol 50 Pressure Bags 72 72 9 Sodium Chloride 0.9% 1, 400 400 50 000 ml @ 30 mls/hr IV . Q24H [facility] Rx#:[id number] Tylenol 100 100 Intake, IV Titration 224.237 48.304 Amount Insulin Regular 100 unit 20.655 21.631 In Sodium Chloride 0.9% 100 ml @ Per Protocol IV .Q0M [facility] Rx#:[id number] Milrinone-D5w Pmx 20 mg 100 In Dextrose/Water 1 100ml .bag @ 0.2 MCG/KG/MIN 6. 126 mls/hr IV .[id number] [facility] Rx#:[id number] Norepinephrine 4 mg In 88.869 Sodium Chloride 0.9% 250 ml @ 0.02 MCG/KG/MIN 7.78 mls/hr IV .Q24H [facility] Rx#: [id number] Vasopressin 20 unit In 14.713 26.673 Sodium Chloride 0.9% 50 ml @ 0.04 UNITS/MIN 6.12 mls/hr IV .Q8H20M [facility] Rx# :[id number] Oral 240 Output: Chest Tube Drainage 320 110 Mediastinal x2 320 110 Urine 520 380 Emesis 5 Other: Voiding Method Indwelling Catheter Indwelling Catheter Weight 106.5 kg 106.5 kg Patient Weight 04/13/24 06:59 Weight 106.5 kg 04/12/24 04:52 04/12/24 04:52
--- NOTE | 2024-04-12 16:43 | P.PN ---
Progress Note - Text Progress Note Date: 04/12/24 - Chief Complaint Cardiothoracic surgery - History of Present Illness 68-year-old patient, follows with Dr. Paulina Fuller. Medical history includes atrial fibrillation, decreased hearing, rheumatoid arthritis, history of bleeding ulcers in the past. Diagnosed with atrial fibrillation in November 2023. Has been had back surgery x 2. Currently in the ICU. Extubated. Patient had known moderate to severe mitral valve disorder, moderate to severe mitral annular calcification, tricuspid valve regurgitation moderate, moderate to severe secondary pulmonary hypertension, and LV dysfunction. Permanent atrial fibrillation. Patient is undergone mitral valve replacement with Mosaic porcine bioprosthesis, decalcification of mitral valve Combs, tricuspid valve repair with a band, biatrial maze procedure, exclusion left atrial appendage. Postprocedure. Extubated. Reclining in bed. Drips include IV vasopressin, IV norepinephrine, IV milrinone, insulin. Telemetry shows dual-chamber paced rhythm. Patient has to mediastinal chest tubes. León catheter. April 12: Patient up in a chair. Clear liquids. Chest tubes in place. Did walk in the hallway. Patient is on IV milrinone, IV norepinephrine, IV insulin. at the bedside. The Active Medications Acetaminophen (Acetaminophen Tab 325 Mg Tab) 650 mg PO Q4HR PRN PRN Reason: Fever And/ Or Mild Pain (1-3) Albuterol/Ipratropium (Ipratropium-Albuterol 3 Ml Neb) 3 ml INHALATION RT-Q2H PRN PRN Reason: Shortness Of Breath Or Wheezing Albuterol/Ipratropium (Ipratropium-Albuterol 3 Ml Neb) 3 ml INHALATION RT-QID [facility] Last Admin: 04/12/24 15:11 Dose: 3 ml Alprazolam (Alprazolam 0.25 Mg Tab) 0.25 mg PO QID PRN PRN Reason: Anxiety Aspirin (Aspirin 325 Mg Tab) 325 mg PO DAILY [facility] Last Admin: 04/12/24 08:38 Dose: 325 mg Atorvastatin Calcium (Atorvastatin 20 Mg Tab) 20 mg PO HS [facility] Last Admin: 04/11/24 21:35 Dose: 20 mg Benzocaine/Menthol (Benzocaine/Menthol Lozeng 1 Each Lozenge) 1 each MUCOUS MEM Q2H PRN PRN Reason: Sore Throat Bisacodyl (Bisacodyl 10 Mg Supp) 10 mg RECTAL DAILY PRN PRN Reason: Constipation Budesonide (Budesonide 1 Mg/2 Ml Nebu) 1 mg INHALATION RT-BID [facility] Last Admin: 04/12/24 07:47 Dose: 1 mg Clopidogrel Bisulfate (Clopidogrel 75 Mg Tab) 75 mg PO DAILY [facility] Last Admin: 04/12/24 08:38 Dose: 75 mg Dextrose/Water (Dextrose 50% Syringe 50 Ml) 25 ml IVP PER PROTOCOL PRN; Protocol PRN Reason: Hypoglycemia Dextrose/Water (Dextrose 50% Syringe 50 Ml) 50 ml IVP PER PROTOCOL PRN; Protocol PRN Reason: Hypoglycemia Heparin Sodium (Porcine) (Heparin Sodium,Porcine 5,000 Unit/Ml 1 Ml Vial) 5,000 unit SQ Q8HR [facility] Last Admin: 04/12/24 08:38 Dose: 5,000 unit Hydralazine HCl (Hydralazine Hcl 20 Mg/Ml 1 Ml Vial) 10 mg IVP Q1H PRN PRN Reason: Blood Pressure - High Norepinephrine Bitartrate 4 mg (/ Sodium Chloride) 254 mls @ 7.78 mls/hr IV .Q24H [facility]; Protocol Last Titration: 04/12/24 06:35 Dose: Infused Amiodarone HCl 150 mg/ (Dextrose/Water) 103 mls @ 618 mls/hr IV .Q10M PRN; Pr otocol PRN Reason: A.FIB/FLUTTER Amiodarone HCl 360 mg/ (Dextrose/Water) 207.2 mls @ 34.533 mls/hr IV .Q6H PRN; Protocol PRN Reason: A.FIB/FLUTTER Amiodarone HCl 450 mg/ (Dextrose/Water) 250 mls @ 16.667 mls/hr IV .Q15H PRN; Protocol PRN Reason: A.FIB/FLUTTER Calcium Gluconate/Sodium (Chloride 2 gm/ IV Solution) 100 mls @ 100 mls/hr IVPB ONCE PRN PRN Reason: Ionized Calcium less than 4.4 Stop: 04/18/24 15:52 Insulin Human Regular 100 unit (/ Sodium Chloride) 101 mls @ 0 mls/hr IV .Q0M [facility]; Protocol Last Titration: 04/12/24 11:19 Dose: 3.5 unit/hr, 3.535 mls/hr Milrinone Lactate/Dextrose 20 (mg/ IV Solution) 100 mls @ 6.126 mls/hr IV .[id number] [facility] Last Admin: 04/12/24 06:26 Dose: 0.3 mcg/kg/min, 9.189 mls/hr Sodium Chloride (Saline 0.9%) 1,000 mls @ 30 mls/hr IV .Q24H [facility] Last Admin: 04/11/24 18:00 Dose: 50 mls/hr Vasopressin 20 unit/ Sodium (Chloride) 51 mls @ 6.12 mls/hr IV .Q8H20M [facility]; Protocol Last Titration: 04/12/24 09:17 Dose: 0 units/min, 0 mls/hr Ketorolac Tromethamine (Ketorolac 15 Mg/Ml 1 Ml Vial) 15 mg IVP Q6HR [facility] Stop: 04/17/24 07:24 Last Admin: 04/12/24 14:36 Dose: 15 mg Magnesium Hydroxide (Magnesium Hydroxide 2,400 Mg/30 Ml Cup) 2,400 mg PO BID PRN PRN Reason: Constipation Metoclopramide HCl (Metoclopramide 5 Mg/Ml 2 Ml Vial) 10 mg IVP Q4H PRN PRN Reason: Nausea And Vomiting Miscellaneous Information (Magnesium Replacement Protocol 1 Each Misc) 1 each MISCELLANE DAILY PRN; Protocol PRN Reason: Per Protocol Miscellaneous Information (Potassium Replacement Protocol 1 Each Misc) 1 each MISCELLANE DAILY PRN; Protocol PRN Reason: Per Protocol Ondansetron HCl (Ondansetron 4 Mg/2 Ml Vial) 4 mg IVP Q6HR PRN PRN Reason: Nausea And Vomiting Last Admin: 04/12/24 06:10 Dose: 4 mg Oxycodone HCl (Oxycodone Hcl 5 Mg Tab) 5 mg PO Q4HR PRN PRN Reason: Moderate Pain (Scale 4 to 6) Last Admin: 04/12/24 03:12 Dose: 5 mg Oxycodone HCl (Oxycodone Hcl 5 Mg Tab) 10 mg PO Q4HR PRN PRN Reason: Severe Pain (Scale 7 to 10) Pantoprazole Sodium (Pantoprazole 40 Mg Tablet) 40 mg PO -BRKFST [facility] Senna/Docusate Sodium (Sennosides-Docusate Sodium 1 Each Tab) 2 each PO HS [facility] Last Admin: 04/11/24 21:35 Dose: 2 each Sodium Chloride (Sodium Chloride 0.9% Flush 10 Ml Syringe) 10 ml IV BID [facility] Last Admin: 04/12/24 08:39 Dose: 10 ml Social history: Patient smoked from the age of 22 to 32 packs a day. Alcohol rarely. . Physical examination: VITAL SIGNS: 98.4, 93, 27, 119 x 50, 95% room air GENERAL: Up in a chair.. Chest tubes in place EYES: Pupils equal. Conjunctiva carlos l. HEENT: External appearance of nose and ears normal, oral cavity grossly normal. NECK: JVD unable to assess; masses not palpable. HEART: First and second heart sounds are normal; no edema. LUNGS: Respiratory rate increased; decreased breath sounds. ABDOMEN: Soft, nontender, liver spleen not palpable, no masses palpable. León catheter PSYCH: AOx3, mood affect normal. MUSCULOSKELETAL:No Clubbing/cyanosis;muscles-grossly intact. Mj wrap to lower extremity with Venodyne boots INVESTIGATIONS, reviewed in the clinical context: April 12: White count 11.7 hemoglobin 9.1 platelets 108 potassium 4.6 cr eatinine 0.84 April 11, 2024: White count 14.5 hemoglobin 11.1 platelets 125 sodium 137 potassium 3.9 BUN 22 creatinine 0.87 April 06: White count 8.2 hemoglobin 14.3 potassium 4.3 BUN 20 creatinine 0.9 LDL 60.3 Chest x-ray film personally reviewed by me-reports [place]-Krystal catheter projects over the heart on the left heart. Endotracheal tube NG tube in appropriate position. 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 Permanent atrial fibrillation. Patient is undergone mitral valve replacement with Mosaic porcine bioprosthesis, decalcification of mitral valve Combs, tricuspid valve repair with a band, biatrial maze procedure, exclusion left atrial appendage. -Acute postprocedure blood loss anemia expected from surgery Follow H&H -Acute hypoxic respiratory failure, status post ventilator support, for cardiothoracic procedure: Improved Currently on nasal cannula -Dilutional thrombocytopenia -COPD no prior smoker Bronchodilators -Hyperglycemia, not a diabetic Currently on insulin drip -Permanent atrial fibrillation Outpatient was on Xarelto -Few pulmonary micronodules measuring less than 4 mm. This could be followed up with pulmonary outpatient. -Hard of hearing -Chronic rheumatoid arthritis -Full code Discussed with patient and . Thank you Dr. Scott Past Medical History Past Medical History: Atrial Fibrillation, GI Bleed, Hearing Disorder / Deafness, Pneumonia, Rheumatoid Arthritis (RA) Additional Past Medical History / Comment(s): Recently dx with Afib in the last month Nov, 2023. Recent shortness of breath and started seeing [facility] in July 2023 and was put on inhalker, as needed. Hx bleeding ulcer in the past. Tinnitis. History of Any Multi-Drug Resistant Organisms: None Reported Past Surgical History: Heart Catheterization, Orthopedic Surgery, Tonsillectomy Additional Past Surgical History / Comment(s): back operation x2. Cardiac cath January 2024. Past Anesthesia/Blood Transfusion Reactions: No Reported Reaction, Postoperative Nausea & Vomiting (PONV) Additional Past Anesthesia/Blood Transfusion Reaction / Comm: No hx of blood transfusion. Smoking Status: Former smoker
[2024-04-12 17:58] LABS: Glucose,Whole Blood 158 mg/dL (70-110)
[2024-04-12 19:19] LABS: Glucose,Whole Blood 129 mg/dL (70-110)
[2024-04-12 20:15] LABS: Glucose,Whole Blood 119 mg/dL (70-110)
[2024-04-12 22:01] LABS: Glucose,Whole Blood 107 mg/dL (70-110)
[2024-04-12] MEDS: ALPRAZolam 0.25 MG TAB PO PRN (22:09)
[2024-04-12 23:03] LABS: Glucose,Whole Blood 120 mg/dL (70-110)
[2024-04-12 23:48] LABS: Glucose,Whole Blood 124 mg/dL (70-110)
[2024-04-13 00:56] LABS: Glucose,Whole Blood 122 mg/dL (70-110)
[2024-04-13 03:01] LABS: Glucose,Whole Blood 104 mg/dL (70-110)
[2024-04-13 03:55] LABS: Glucose,Whole Blood 123 mg/dL (70-110)
[2024-04-13 04:07] LABS: Basophils % (A) 0 %; Eosinophils # (A) 0.1 k/uL (0-0.7); Eosinophils % (A) 1 %; HCT 24.7 % (39.0-53.0); HGB 8.2 gm/dL (13.0-17.5); Lymphocytes # (A) 2.2 k/uL (1.0-4.8); Lymphocytes % (A) 22 %; MCH 28.5 pg (25.0-35.0); MCV 86.2 fL (80.0-100.0); Mean Platelet Volume 10.1; Monocytes # (A) 0.7 k/uL (0-1.0); Monocytes % (A) 7 %; Neutrophils # (A) 6.8 k/uL (1.3-7.7); Neutrophils % (A) 68 %; RBC 2.87 m/uL (4.30-5.90); RDW 15.9 % (11.5-15.5)
[2024-04-13 04:12] LABS: Ionized Calcium 4.6 mg/dL (4.5-5.3)
[2024-04-13 04:16] LABS: Platelet Count 78 k/uL (150-450)
[2024-04-13 04:26] LABS: ALT 11 U/L (4-49); AST 71 U/L (17-59); African American GFR (CKD) 80 (>60 ml/min/1.73 sqM); Albumin 3.4 g/dL (3.5-5.0); Alkaline Phosphatase 52 U/L (38-126); Anion Gap 6 mmol/L; Blood Urea Nitrogen 26 mg/dL (9-20); Calcium 8.5 mg/dL (8.4-10.2); Carbon Dioxide 21 mmol/L (22-30); Chloride 102 mmol/L (98-107); Glucose 111 mg/dL (74-99); Non-African American GFR(CKD) 69 (>60 ml/min/1.73 sqM); Potassium 3.9 mmol/L (3.5-5.1); Sodium 129 mmol/L (137-145); Total Protein 5.7 g/dL (6.3-8.2)
[2024-04-13] MEDS: PANTOPRAZOLE 40 MG TABLET PO SCH (05:03)
[2024-04-13] MEDS: POTASSIUM CHLORIDE ER 20 MEQ TAB.ER PO SCH (05:03)
--- NOTE | 2024-04-13 05:55 | P.PN ---
Subjective HISTORY OF PRESENTING ILLNESS This is a pleasant 68-year-old with past medical history significant for rheumatoid arthritis, atrial fibrillation, mitral regurgitation, hyperlipidemia, mild coronary artery calcifications, coronary artery disease, ex-smoker and nonischemic cardiomyopathy. He follows in the office with Dr. Pinto. He was noted to have atrial fibrillation and does have bradycardia with A. fib with bradycardic response in the past and PE, cardioversion had been attempted however showed left ventricular dysfunction and severe mitral regurgitation with mitral calcification. Patient therefore was recommended to undergo mitral valve replacement. Patient underwent successful mitral valve replacement with 31 mm Mosaic porcine bioprosthetic valve, tricuspid repair with a 30mm MC 3 band, maze procedure and IMMANUEL atriclip. He has been doing well since surgery. He was placed on low-dose norepinephrine however this has continue to wean. He is AV paced. Still does have chest tubes in place with approximately 900 mL output over last 24 hours. He denies any chest pain or pressure. No significant shortness breath however does feel like he cannot quite catch his breath. He does have some diaphragmatic pacing from his atrial and ventricular pacer and we turned this down and he is in normal sinus rhythm with heart rate 85 bpm. 04/13 Patient seen and examined. Patient denies any chest pain or pressure. He is however having significant pain all over mainly in his joints in his ankles, knees, hands which feels very similar to his prior rheumatoid arthritis flares and he cannot get to sleep. He has been tried on Toradol, OxyContin, Xanax and has only been able sleep approximately 30 minutes. Denies any significant sh ortness breath. Remains on milrinone 0.2 with cardiac output cardiac index in the 7/3 range respectively. PA pressures relatively stable 30s over 15-20 and CVP 7-10. Creatinine stable however sodium decreasing down to 129. His pacemaker was turned off with no further diaphragmatic pacing and remains sinus rhythm with heart rates in the 70s to 80s. PHYSICAL EXAMINATION Vital signs reviewed. CONSTITUTIONAL: No apparent distress. HEENT: Head is normocephalic. Pupils are equal, round. Sclerae anicteric. Mucous membranes of the mouth are moist. No JVD. No carotid bruit. CHEST EXAMINATION: Lungs are clear to auscultation. No chest wall tenderness is noted on palpation or with deep breathing. HEART EXAMINATION: Regular rate and rhythm. S1, S2 heard. No murmurs, gallops or rub. ABDOMEN: Soft, nontender. Positive bowel sounds. EXTREMITIES: 2+ peripheral pulses, no lower extremity edema and no calf tenderness. NEUROLOGIC EXAMINATION: Patient is awake, alert and oriented x3. ASSESSMENT Severe mitral regurgitation status post 31 mm Mosaic porcine bioprosthetic valve replacement, tricuspid valve repair, maze procedure and left atrial appendage clip in Mild coronary artery disease Nonischemic cardiomyopathy Chronic systolic heart failure EF 40-45% intraop Hypotension improving Persistent atrial fibrillation status post maze procedure currently sinus rhythm Anemia Rheumatoid arthritis Insomnia Joint pain likely RA flare PLAN Cardiac output and cardiac index appear excellent and recommend discontinue milrinone. Patient appears to be recovering well however does have significant insomnia and joint pain. Continue with NSAIDs, pain meds. Check TSH for completeness sake with some possibility of alterations from the amiodarone however was previously normal 1 week ago. Likely restart some degree of heart failure regimen in the near future pending patient's progress. Continue with metoprolol at this time. Objective - Vital Signs Vital signs: Vital Signs Temp 98.4 F 04/12/24 16:00 Pulse 73 04/13/24 04:00 Resp 15 04/13/24 04:00 BP 101/52 04/13/24 04:00 Pulse Ox 95 04/13/24 04:00 FiO2 50 04/11/24 19:00 Intake & Output 04/12/24 04/12/24 04/13/24 06:59 18:59 06:59 Intake Total 2807.832 1106.304 694.435 Output Total 1215 895 535 Balance 1592.832 211.304 159.435 Weight 106.5 kg 106.5 kg Intake: IV 2138 958 650 Albumin 1000 Injectate 180 150 60 Kefzol 50 Pressure Bags 108 108 90 Sodium Chloride 0.9% 1, 600 600 500 000 ml @ 30 mls/hr IV . Q24H [facility] Rx#:[id number] Tylenol 200 100 Intake, IV Titration 429.832 148.304 44.435 Amount Insulin Regular 100 unit 28.887 21.631 44.129 In Sodium Chloride 0.9% 100 ml @ Per Protocol IV .Q0M [facility] Rx#:[id number] Milrinone-D5w Pmx 20 mg 100 100 0.306 In Dextrose/Water 1 100ml .bag @ 0.2 MCG/KG/MIN 6. 126 mls/hr IV .[id number] [facility] Rx#:[id number] Norepinephrine 4 mg In 254.000 Sodium Chloride 0.9% 250 ml @ 0.02 MCG/KG/MIN 7.78 mls/hr IV .Q24H [facility] Rx#: [id number] Vasopressin 20 unit In 46.945 26.673 Sodium Chloride 0.9% 50 ml @ 0.04 UNITS/MIN 6.12 mls/hr IV .Q8H20M [facility] Rx# :[id number] Oral 240 Output: Chest Tube Drainage 450 110 240 Mediastinal x2 450 110 240 Urine [phone] Emesis 5 Other: Voiding Method Indwelling Catheter Indwelling Catheter Indwelling Catheter ABP, PAP, CO, CI - Last Documented Arterial Blood Pressure 123/49 Pulmonary Artery Pressure 46/32 Cardiac Output 6.8 Cardiac Index 2.9 - Labs CBC & Chem 7: 04/13/24 03:55 04/13/24 03:55 Labs: Abnormal Lab Results - Last 24 Hours (Table) 04/12/24 04/12/24 04/12/24 Range/Units 06:59 07:56 09:14 RBC (4.30-5.90) m/uL Hgb (13.0-17.5) gm/dL Hct (39.0-53.0) % RDW (11.5-15.5) % Plt Count (150-450) k/uL Sodium (137-145) mmol/L Carbon Dioxide (22-30) mmol/L BUN (9-20) mg/dL Glucose (74-99) mg/dL POC Glucose (mg/dL) 132 H 137 H 166 H (70-110) mg/dL Total Bilirubin (0.2-1.3) mg/dL AST (17-59) U/L Total Protein (6.3-8.2) g/dL Albumin (3.5-5.0) g/dL 04/12/24 04/12/24 04/12/24 Range/Units 10:23 11:18 12:24 RBC (4.30-5.90) m/uL Hgb (13.0-17.5) gm/dL Hct (39.0-53.0) % RDW (11.5-15.5) % Plt Count (150-450) k/uL Sodium (137-145) mmol/L Carbon Dioxide (22-30) mmol/L BUN (9-20) mg/dL Glucose (74-99) mg/dL POC Glucose (mg/dL) 155 H 132 H 115 H (70-110) mg/dL Total Bilirubin (0.2-1.3) mg/dL AST (17-59) U/L Total Protein (6.3-8.2) g/dL Albumin (3.5-5.0) g/dL 04/12/24 04/12/24 04/12/24 Range/Units 17:56 19:18 20:13 RBC (4.30-5.90) m/uL Hgb (13.0-17.5) gm/dL Hct (39.0-53.0) % RDW (11.5-15.5) % Plt Count (150-450) k/uL Sodium (137-145) mmol/L Carbon Dioxide (22-30) mmol/L BUN (9-20) mg/dL Glucose (74-99) mg/dL POC Glucose (mg/dL) 158 H 129 H 119 H (70-110) mg/dL Total Bilirubin (0.2-1.3) mg/dL AST (17-59) U/L Total Protein (6.3-8.2) g/dL Albumin (3.5-5.0) g/dL 04/12/24 04/12/24 04/13/24 Range/Units 23:00 23:47 00:55 RBC (4.30-5.90) m/uL Hgb (13.0-17.5) gm/dL Hct (39.0-53.0) % RDW (11.5-15.5) % Plt Count (150-450) k/uL Sodium (137-145) mmol/L Carbon Dioxide (22-30) mmol/L BUN (9-20) mg/dL Glucose (74-99) mg/dL POC Glucose (mg/dL) 120 H 124 H 122 H (70-110) mg/dL Total Bilirubin (0.2-1.3) mg/dL AST (17-59) U/L Total Protein (6.3-8.2) g/dL Albumin (3.5-5.0) g/dL 04/13/24 04/13/24 04/13/24 Range/Units 03:54 03:55 03:55 RBC 2.87 L (4.30-5.90) m/uL Hgb 8.2 L (13.0-17.5) gm/dL Hct 24.7 L (39.0-53.0) % RDW 15.9 H (11.5-15.5) % Plt Count 78 L (150-450) k/uL Sodium 129 L (137-145) mmol/L Carbon Dioxide 21 L (22-30) mmol/L BUN 26 H (9-20) mg/dL Glucose 111 H (74-99) mg/dL POC Glucose (mg/dL) 123 H (70-110) mg/dL Total Bilirubin 2.0 H (0.2-1.3) mg/dL AST 71 H (17-59) U/L Total Protein 5.7 L (6.3-8.2) g/dL Albumin 3.4 L (3.5-5.0) g/dL
[2024-04-13 06:04] LABS: Glucose,Whole Blood 100 mg/dL (70-110)
[2024-04-13] MEDS ORDERED: ZINC OXIDE PASTE (Z-GUARD) 1 APPLIC TOPICAL PRN (06:52)
[2024-04-13 06:57] LABS: Glucose,Whole Blood 85 mg/dL (70-110)
[2024-04-13 07:00] LABS: Glucose,Whole Blood 145 mg/dL (70-110)
--- NOTE | 2024-04-13 07:46 | P.PN ---
Subjective Progress Note Date: 04/13/24 Principal diagnosis: Moderate to severe mitral valve regurgitation, moderate to severe mitral annular calcification, moderate tricuspid valve regurgitation, moderate to severe pulm onary hypertension, moderate to severe left ventricular dysfunction. History of permanent atrial fibrillation status post unsuccessful cardioversion in January 2024, hyperlipidemia, previous tobacco dependence, mild COPD, remote history of pneumonia, rheumatoid arthritis previously on methotrexate, hyperglycemia not previously diagnosed as a diabetic, family history of premature coronary artery disease in both parents POD #2 mitral valve replacement using a 31 mm Mosaic porcine bioprosthesis, deca lcification of the mitral annulus using the [place] PET machine, tricuspid valve repair using a 30 mm MC3 band, full biatrial maze procedure using radiofrequency and cryoablation, exclusion of the left atrial appendage using a 35mm AtriClip, intraoperative transesophageal echocardiogram and epiaortic scanning Postoperative acute blood loss anemia and thrombocytopenia, expected given hemodilution and cardiopulmonary bypass pump Hypotension requiring vasopressors, expected, currently stable off all pressors The patient was seen and examined this morning sitting up in recliner in the intensive care unit in no acute distress. Currently sinus on telemetry, pacer discontinued yesterday evening due to diaphragmatic pacing. Hemodynamically stable on low-dose Primacor, off levo/vaso since yesterday. Patient complains of arthritic pain in his shoulders and almost no sleep for the last 48 hours, denies significant postsurgical pain. Denies shortness of breath. Currently on room air with oxygen saturation in the high 90s, able to achieve 2000 mL on his incentive spirometry. Chest x-ray, labs reviewed. Patient did ambulate in the hallway yesterday without difficulty. This morning with movement he got tangled in his lines and his [place] became dislodged. Right internal jugular [place]/Cordis, right radial arterial line, mediastinal chest tubes all remain. No other new concerns. Objective - Vital Signs Vital signs: Vital Signs Temp 98.4 F 04/12/24 16:00 Pulse 70 04/13/24 07:00 Resp 14 04/13/24 07:00 BP 109/60 04/13/24 06:00 Pulse Ox 93 L 04/13/24 07:00 FiO2 50 04/11/24 19:00 Intake & Output 04/12/24 04/13/24 04/13/24 18:59 06:59 18:59 Intake Total 8424.623 7040.591 61.77 Output Total 895 650 Balance 113.212 5693.591 61.77 Weight 106.5 kg 111.5 kg Intake: IV 958 827 Injectate 150 60 Pressure Bags 108 117 Sodium Chloride 0.9% 1, 600 650 000 ml @ 30 mls/hr IV . Q24H RAUL Rx#:[id number] Tylenol 100 Intake, IV Titration 148.304 47.591 61.77 Amount Insulin Regular 100 unit 21.631 47.285 In Sodium Chloride 0.9% 100 ml @ Per Protocol IV .Q0M RAUL Rx#:[id number] Milrinone-D5w Pmx 20 mg 100 0.306 61.77 In Dextrose/Water 1 100ml .bag @ 0.2 MCG/KG/MIN 6. 126 mls/hr IV .[id number] RAUL Rx#:[id number] Vasopressin 20 unit In 26.673 Sodium Chloride 0.9% 50 ml @ 0.04 UNITS/MIN 6.12 mls/hr IV .Q8H20M RAUL Rx# :[id number] Oral 800 Output: Chest Tube Drainage 110 260 Mediastinal x2 110 260 Urine 785 390 Other: Voiding Method Indwelling Catheter Indwelling Catheter ABP, PAP, CO, CI - Last Documented Arterial Blood Pressure 112/44 Pulmonary Artery Pressure 17/11 Cardiac Output 6.8 Cardiac Index 2.9 - Exam CONSTITUTIONAL: Appears comfortable, cooperative, no acute distress although very sleepy RESPIRATORY: Lungs sounds diminished bilaterally. Respirations even, nonlabored. Currently on room air with oxygen saturation 97%. Able to achieve 2000 mL on incentive spirometry. Strong nonproductive cough. CARDIOVASCULAR: S1, S2 present. Regular rate and rhythm, sinus rhythm on telemetry. Sternum stable. Palpable peripheral pulses bilaterally. No edema present. No calf pain or tenderness noted. Heart hugger in place with patient demonstrating appropriate use. Antiembolism stockings, SCDs present. GASTROINTESTINAL: Abdomen soft, nontender, nondistended. Active bowel sounds present 4 quadrants. Tolerating diet. Positive flatus GENITOURINARY: León present draining clear, yellow urine. Output overnight 20-40 mL per hour, 1155 mL in the last 24 hours INTEGUMENTARY: Skin is warm and dry with evidence of good perfusion. Anterior chest incision well approximated and covered with dry intact dressing NEUROLOGIC: Cranial nerves II through XII intact MUSKULOSKELETAL: Able to move all extremities, strength equal bilaterally PSYCHIATRIC: Alert and oriented to person place and time, appropriate affect, intact judgment and insight INVASIVE LINES AND TUBES: Mediastinal chest tube present and connected to wall suction, no air leaks present, 80 mL serosanguineous drainage overnight, 400 mL since surgery. A/V epicardial pacemaker wires present, connected to generator, generator turned off. Right internal jugular [place]/Cordis, right radial arterial line present. Last CO/CI 6.8/2.9, PA 33/22, CVP 8 (before [place] pulled). - Allied health notes Allied health notes reviewed: nursing - Labs CBC & Chem 7: 04/13/24 03:55 04/13/24 03:55 Labs: Abnormal Lab Results - Last 24 Hours (Table) 04/11/24 04/12/24 04/12/24 Range/Units 21:15 07:56 09:14 RBC (4.30-5.90) m/uL Hgb (13.0-17.5) gm/dL Hct (39.0-53.0) % RDW (11.5-15.5) % Plt Count (150-450) k/uL Sodium (137-145) mmol/L Carbon Dioxide (22-30) mmol/L BUN (9-20) mg/dL Glucose (74-99) mg/dL POC Glucose (mg/dL) 145 H 137 H 166 H (70-110) mg/dL Total Bilirubin (0.2-1.3) mg/dL AST (17-59) U/L Total Protein (6.3-8.2) g/dL Albumin (3.5-5.0) g/dL 04/12/24 04/12/24 04/12/24 Range/Units 10:23 11:18 12:24 RBC (4.30-5.90) m/uL Hgb (13.0-17.5) gm/dL Hct (39.0-53.0) % RDW (11.5-15.5) % Plt Count (150-450) k/uL Sodium (137-145) mmol/L Carbon Dioxide (22-30) mmol/L BUN (9-20) mg/dL Glucose (74-99) mg/dL POC Glucose (mg/dL) 155 H 132 H 115 H (70-110) mg/dL Total Bilirubin (0.2-1.3) mg/dL AST (17-59) U/L Total Protein (6.3-8.2) g/dL Albumin (3.5-5.0) g/dL 04/12/24 04/12/24 04/12/24 Range/Units 17:56 19:18 20:13 RBC (4.30-5.90) m/uL Hgb (13.0-17.5) gm/dL Hct (39.0-53.0) % RDW (11.5-15.5) % Plt Count (150-450) k/uL Sodium (137-145) mmol/L Carbon Dioxide (22-30) mmol/L BUN (9-20) mg/dL Glucose (74-99) mg/dL POC Glucose (mg/dL) 158 H 129 H 119 H (70-110) mg/dL Total Bilirubin (0.2-1.3) mg/dL AST (17-59) U/L Total Protein (6.3-8.2) g/dL Albumin (3.5-5.0) g/dL 04/12/24 04/12/24 04/13/24 Range/Units 23:00 23:47 00:55 RBC (4.30-5.90) m/uL Hgb (13.0-17.5) gm/dL Hct (39.0-53.0) % RDW (11.5-15.5) % Plt Count (150-450) k/uL Sodium (137-145) mmol/L Carbon Dioxide (22-30) mmol/L BUN (9-20) mg/dL Glucose (74-99) mg/dL POC Glucose (mg/dL) 120 H 124 H 122 H (70-110) mg/dL Total Bilirubin (0.2-1.3) mg/dL AST (17-59) U/L Total Protein (6.3-8.2) g/dL Albumin (3.5-5.0) g/dL 04/13/24 04/13/24 04/13/24 Range/Units 03:54 03:55 03:55 RBC 2.87 L (4.30-5.90) m/uL Hgb 8.2 L (13.0-17.5) gm/dL Hct 24.7 L (39.0-53.0) % RDW 15.9 H (11.5-15.5) % Plt Count 78 L (150-450) k/uL Sodium 129 L (137-145) mmol/L Carbon Dioxide 21 L (22-30) mmol/L BUN 26 H (9-20) mg/dL Glucose 111 H (74-99) mg/dL POC Glucose (mg/dL) 123 H (70-110) mg/dL Total Bilirubin 2.0 H (0.2-1.3) mg/dL AST 71 H (17-59) U/L Total Protein 5.7 L (6.3-8.2) g/dL Albumin 3.4 L (3.5-5.0) g/dL - Imaging and Cardiology Chest x-ray: image reviewed Assessment and Plan Assessment: Moderate to severe mitral valve regurgitation, status post mitral valve repla cement using a 31 mm Mosaic porcine bioprosthesis 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, status post decalcification of the mitral annulus using the sono PET machine Moderate tricuspid valve regurgitation, status post tricuspid valve repair using a 30 mm MC3 band Moderate to severe pulmonary hypertension Moderate to severe left ventricular dysfunction, EF 30-35% Postoperative acute blood loss anemia and thrombocytopenia, expected given hemodilution and cardiopulmonary bypass pump Hypotension requiring vasopressors, expected History of permanent atrial fibrillation status post unsuccessful cardioversion in January 2024, on Xarelto outpatient for anticoagulation, status post full biat rial maze procedure using radiofrequency and cryoablation, exclusion of the left atrial appendage using a 35mm AtriClip Hyperlipidemia, treated, cholesterol 120, LDL 60, triglycerides 94 Previous tobacco dependence, quit smoking 30 years ago Mild COPD, preoperative FEV1 70% of predicted Remote history of pneumonia Rheumatoid arthritis previously on methotrexate, last dose in July 2023 Hyperglycemia not previously diagnosed as a diabetic, preoperative hemoglobin A1c 6.6% Family history of premature coronary artery disease in both parents Plan: Continue aspirin, statin, Plavix. Will hold off on beta-edelmira for now. Will start low-dose oral amiodarone for A-fib prophylaxis Decreased Primacor to 0.1 mcg/kg/min Encourage incentive spirometry use 10 times every hour while awake. Bronchodilators per pulmonology Increase activity as tolerated, PT/OT/cardiac rehab consulted Will monitor daily labs and x-rays. Electrolyte replacement per protocol. Will give 40 mg IV push Lasix today GI/DVT prophylaxis Pain control per current medication regimen. Toradol discontinued due to rising creatinine and decreasing platelet count, will add Robaxin Insulin management per internal medicine. Patient is not previously diagnosed as diabetic, however his preoperative hemoglobin A1c was 6.6%, needs tight blood sugar control. Should remain on continuous IV insulin for 48 hours, then may transition to subcutaneous per protocol Discontinue [place], connect Cordis to continuous CVP monitoring Continue chest tubes for another 24 hours, monitor output Continue León catheter for another 24 hours, continue to monitor and record strict accurate intake and output Will lead melatonin for sleep More recommendations to follow
[2024-04-13] MEDS: FUROSEMIDE 10 MG/ML 4 ML VIAL IV STA (08:13)
[2024-04-13] MEDS: POTASSIUM BICARBONATE/CIT AC 20 MEQ TABLET.EFF PO ONE (08:13)
--- NOTE | 2024-04-13 08:37 | XR ---
EXAMINATION TYPE: XR chest 1V portable DATE OF EXAM: 04/13/2024 5:31 AM CLINICAL INDICATION: Male, 68 years old with history of Post Operative Cardiac Surgery; H COMPARISON: Chest radiograph from one day prior. TECHNIQUE: XR chest 1V portable Frontal view of the chest. FINDINGS: Lungs/Pleura: There is no evidence of pleural effusion, focal consolidation, or pneumothorax. Pulmonary vascularity: Pulmonary vascular congestion worsening diffuse airspace opacities.. Heart/mediastinum: Cardiomediastinal silhouette is enlarged. Left atrial appendage occlusion device i s present. Musculoskeletal: No acute osseous pathology. Midline sternotomy wires are noted. Other findings: None Lines/Tubes: Right internal jugular central venous catheter with distal tip at the cavoatrial junction. There is a [place] catheter with tip projecting over the spine. IMPRESSION: Low lung volumes with worsening pulmonary edema. [facility], , 04/13/2024 8:35 AM
[2024-04-13] MEDS: methocarbamoL 500 MG TAB PO PRN (09:23)
[2024-04-13 09:37] LABS: Glucose,Whole Blood 130 mg/dL (70-110)
[2024-04-13 10:07] LABS: Glucose,Whole Blood 149 mg/dL (70-110)
[2024-04-13 11:58] LABS: Glucose,Whole Blood 102 mg/dL (70-110)
[2024-04-13] MEDS: INSULIN ASPART (NovoLOG) 100 UNIT/ML VIAL SQ SCH (12:40)
--- NOTE | 2024-04-13 13:53 | P.PN ---
Subjective Progress Note Date: 04/13/24 Principal diagnosis: POD #2 mitral valve replacement using a 31 mm Mosaic porcine bioprosthesis, decalcification of the mitral annulus using the sono PET machine, tricuspid valve repair using a 30 mm MC3 band, full biatrial maze procedure Patient is a 68-year-old white male with past medical history significant for atrial fibrillation and valvular heart disease. Outpatient, patient was noted to have atrial fibrillation. In January, a cardioversion was attempted, but u ltimately failed. Patient was found to have severe mitral valve regurgitation, as well as, moderate tricuspid regurgitation. Patient was brought in yesterday for mitral valve replacement with bioprosthetic valve, tricuspid valve repair, full biatrial maze procedure, exclusion of left atrial appendage. Intraoperatively, patient was hypotensive, started on multiple vasopressors including norepinephrine, vasopressin, and also Primacor. Patient did receive 1.5 L 5% albumin, 3.9 L crystalloid fluid since surgery. Patient's OR exit time was to 1532. Postoperatively, he was sent to the intensive care unit for recovery. Initially, on the mechanical ventilator. Initial ABG: PaO2 of 139, pCO2 of 42, pH of 7.37. Postoperative, chest x-ray showing postsurgical changes. Endotracheal tube 4.4 cm from the juliano. Cardiomegaly and mild PVC. No pneumothoraces or effusions. Patient was extubated successfully using the rapid extubation protocol at 1842. Patient is currently being evaluated in the intensive care unit. He is on 3 L/min nasal cannula. He is in no acute respiratory distress. He is awake and alert. Blood pressure remains hypotensive. He is currently on norepinephrine which is infusing at 0.04 mcg/kg/min. Vasopressin also infusing at 0.03 units/min. Primacor at 0.3 mcg /kg/h. Normal saline infusing at 50 mL/h. Insulin also infusing at 4 units/h. Heart rhythm is dual paced at 80 bpm. Current blood pressure 105/47 mmHg. PA pressures 41/18 mmHg. Most recent CO/CI are 5.7/2.4 respectively. SVR 827. Urine output is in the order of 50 to 70 mL/h. He does have 2 mediastinal chest tubes that are wide together with a total of 500 of sanguinous output. Atrium is to suction at -20 cm H2O. No airleak. Most recent CBC: WBC count 11.2, hemoglobin 9.5, hematocrit 28.4, platelets 113. Most recent postoperative CMP: Sodium 137, potassium 3.9, chloride 109, serum bicarb 23, BUN 22, creatinine 0.87, glucose 127. LFTs unremarkable. Patient continues to be monitored in the intensive care unit. Patient was evaluated today on 04/13/2024, patient is now postoperative day #2, mitral valve replacement and the calcification of mitral annulus as well as tricuspid valve repair. Patient is doing fairly well, does not seem to be in any distress, he is on room air, no cough no wheezing no shortness of breath, he is in sinus rhythm, chest x-ray is showing some evidence of interstitial edema, received Lasix earlier today, and he is responding well to Lasix. Remains on low-dose Primacor, off vasopressin off norepinephrine. Patient is achieving over 2000 cc on incentive spirometry. Patient did ambulate in the hallway yesterday without difficulty. And he would likely ambulate today again. WBC count is 10 hemoglobin 8.2, basic metabolic profile is unremarkable except for low sodium of 129. This is likely hypervolemic hyponatremia Objective - Vital Signs Vital signs: Vital Signs Temp 98.2 F 04/13/24 08:00 Pulse 88 04/13/24 11:46 Resp 22 04/13/24 11:00 BP 109/60 04/13/24 08:00 Pulse Ox 100 04/13/24 11:00 FiO2 50 04/11/24 19:00 Intake & Output 04/12/24 04/13/24 04/13/24 18:59 06:59 18:59 Intake Total 9246.832 0907.591 402.324 Output Total 895 650 820 Balance 051.496 7326.591 -417.676 Weight 106.5 kg 111.5 kg Intake: IV 958 827 240 Injectate 150 60 0 Pressure Bags 108 117 30 Sodium Chloride 0.9% 1, 600 650 210 000 ml @ 30 mls/hr IV . Q24H RAUL Rx#:[id number] Tylenol 100 Intake, IV Titration 148.304 47.591 162.324 Amount Insulin Regular 100 unit 21.631 47.285 3.197 In Sodium Chloride 0.9% 100 ml @ Per Protocol IV .Q0M RAUL Rx#:[id number] Milrinone-D5w Pmx 20 mg 100 0.306 79.127 In Dextrose/Water 1 100ml .bag @ 0.1 MCG/KG/MIN 3. 063 mls/hr IV .Q24H RAUL Rx#:[id number] Sodium Chloride 0.9% 1, 80 000 ml @ 30 mls/hr IV . Q24H RAUL Rx#:[id number] Vasopressin 20 unit In 26.673 Sodium Chloride 0.9% 50 ml @ 0.04 UNITS/MIN 6.12 mls/hr IV .Q8H20M RAUL Rx# :[id number] Oral 800 Output: Chest Tube Drainage 110 260 40 Mediastinal x2 110 260 40 Urine 785 390 780 Other: Voiding Method Indwelling Catheter Indwelling Catheter Indwelling Catheter ABP, PAP, CO, CI - Last Documented Arterial Blood Pressure 107/45 Pulmonary Artery Pressure 13/8 Cardiac Output 6.8 Cardiac Index 2.9 - Exam General: Reveals 68-year-old white male in no distress, on room air. RESPIRATORY: Symmetrical chest expansion, minimal crackles at the bases no rhonchi no wheezes roductive cough. CARDIOVASCULAR: Normal S1-S2, no S3 gallop, 2/6 systolic murmur throughout the precordium GASTROINTESTINAL: Soft nontender no megaly no rebound no guarding ve flatus INTEGUMENTARY: No rashes, anterior chest incision is well-approximated and dry NEUROLOGIC: Alert oriented x 3 no gross focal deficit MUSKULOSKELETAL: No deformities and no limitation range of motion PSYCHIATRIC: Normal mood affect and no mental status examination INVASIVE LINES AND TUBES: Mediastinal chest tube present and connected to wall suction, no air leaks present, 80 mL serosanguineous drainage overnight, 400 mL since surgery. A/V epicardial pacemaker wires present, connected to generator, generator turned off. Right internal jugular [place]/Cordis, right radial arterial line present. Last CO/CI 6.8/2.9, PA 33/22, CVP 8 (before [place] pulled). - Labs CBC & Chem 7: 04/13/24 03:55 04/13/24 03:55 Labs: Abnormal Lab Results - Last 24 Hours (Table) 04/11/24 04/12/24 04/12/24 Range/Units 21:15 17:56 19:18 RBC (4.30-5.90) m/uL Hgb (13.0-17.5) gm/dL Hct (39.0-53.0) % RDW (11.5-15.5) % Plt Count (150-450) k/uL Sodium (137-145) mmol/L Carbon Dioxide (22-30) mmol/L BUN (9-20) mg/dL Glucose (74-99) mg/dL POC Glucose (mg/dL) 145 H 158 H 129 H (70-110) mg/dL Total Bilirubin (0.2-1.3) mg/dL AST (17-59) U/L Total Protein (6.3-8.2) g/dL Albumin (3.5-5.0) g/dL 04/12/24 04/12/24 04/12/24 Range/Units 20:13 23:00 23:47 RBC (4.30-5.90) m/uL Hgb (13.0-17.5) gm/dL Hct (39.0-53.0) % RDW (11.5-15.5) % Plt Count (150-450) k/uL Sodium (137-145) mmol/L Carbon Dioxide (22-30) mmol/L BUN (9-20) mg/dL Glucose (74-99) mg/dL POC Glucose (mg/dL) 119 H 120 H 124 H (70-110) mg/dL Total Bilirubin (0.2-1.3) mg/dL AST (17-59) U/L Total Protein (6.3-8.2) g/dL Albumin (3.5-5.0) g/dL 04/13/24 04/13/24 04/13/24 Range/Units 00:55 03:54 03:55 RBC 2.87 L (4.30-5.90) m/uL Hgb 8.2 L (13.0-17.5) gm/dL Hct 24.7 L (39.0-53.0) % RDW 15.9 H (11.5-15.5) % Plt Count 78 L (150-450) k/uL Sodium (137-145) mmol/L Carbon Dioxide (22-30) mmol/L BUN (9-20) mg/dL Glucose (74-99) mg/dL POC Glucose (mg/dL) 122 H 123 H (70-110) mg/dL Total Bilirubin (0.2-1.3) mg/dL AST (17-59) U/L Total Protein (6.3-8.2) g/dL Albumin (3.5-5.0) g/dL 04/13/24 04/13/24 04/13/24 Range/Units 03:55 09:35 10:02 RBC (4.30-5.90) m/uL Hgb (13.0-17.5) gm/dL Hct (39.0-53.0) % RDW (11.5-15.5) % Plt Count (150-450) k/uL Sodium 129 L (137-145) mmol/L Carbon Dioxide 21 L (22-30) mmol/L BUN 26 H (9-20) mg/dL Glucose 111 H (74-99) mg/dL POC Glucose (mg/dL) 130 H 149 H (70-110) mg/dL Total Bilirubin 2.0 H (0.2-1.3) mg/dL AST 71 H (17-59) U/L Total Protein 5.7 L (6.3-8.2) g/dL Albumin 3.4 L (3.5-5.0) g/dL Assessment and Plan Assessment: Impression: Moderate to severe mitral valve regurgitation, status post mitral valve replacement using a 31 mm Mosaic porcine bioprosthesis 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, status post decalcification of the mitral annulus Moderate tricuspid valve regurgitation, status post tricuspid valve repair using a 30 mm MC3 band Severe LV dysfunction with ejection fraction of 30 to 35% Moderate severe pulmonary hypertension Postoperative acute blood loss anemia, expected Recommendation: Continue medical therapy including Plavix statin and aspirin Continue low-dose amiodarone Continue incentive spirometry Titrate Primacor Continue ambulation Continue to monitor chest tube output and daily labs and daily x-rays of the chest Agree with gentle diuresis today as the chest x-ray is showing evidence of interstitial edema Will continue to follow Time with Patient: Less than 30
--- NOTE | 2024-04-13 17:04 | P.PN ---
Progress Note - Text Progress Note Date: 04/13/24 - Chief Complaint Cardiothoracic surgery - History of Present Illness 68-year-old patient, follows with Dr. Paulina Fuller. Medical history includes atrial fibrillation, decreased hearing, rheumatoid arthritis, history of bleeding ulcers in the past. Diagnosed with atrial fibrillation in November 2023. Has been had back surgery x 2. Currently in the ICU. Extubated. Patient had known moderate to severe mitral valve disorder, moderate to severe mitral annular calcification, tricuspid valve regurgitation moderate, moderate to severe secondary pulmonary hypertension, and LV dysfunction. Permanent atrial fibrillation. Patient is undergone mitral valve replacement with Mosaic porcine bioprosthesis, decalcification of mitral valve Combs, tricuspid valve repair with a band, biatrial maze procedure, exclusion left atrial appendage. Postprocedure. Extubated. Reclining in bed. Drips include IV vasopressin, IV norepinephrine, IV milrinone, insulin. Telemetry shows dual-chamber paced rhythm. Patient has to mediastinal chest tubes. León catheter. April 12: Patient up in a chair. Clear liquids. Chest tubes in place. Did walk in the hallway. Patient is on IV milrinone, IV norepinephrine, IV insulin. at the bedside. April 13: Up in the chair. Family at the bedside. Chest tubes in place. Was given Lasix. Pleural effusion. Some shortness of breath. Remains on IV insulin. Did pass some flatus. Eating fair. Pacemaker disconnected. Insulin drip will be stopped. Put on Accu-Cheks to ACHS with sliding scale. Patient did ambulate in the hallway. Active Medications Acetaminophen (Acetaminophen Tab 325 Mg Tab) 650 mg PO Q4HR PRN PRN Reason: Fever And/ Or Mild Pain (1-3) Albuterol/Ipratropium (Ipratropium-Albuterol 3 Ml Neb) 3 ml INHALATION RT-Q2H PRN PRN Reason: Shortness Of Breath Or Wheezing Albuterol/Ipratropium (Ipratropium-Albuterol 3 Ml Neb) 3 ml INHALATION RT-QID RAUL Last Admin: 04/13/24 16:11 Dose: Not Given Alprazolam (Alprazolam 0.25 Mg Tab) 0.25 mg PO QID PRN PRN Reason: Anxiety Last Admin: 04/12/24 22:09 Dose: 0.25 mg Amiodarone HCl (Amiodarone 200 Mg Tab) 200 mg PO BID [facility] Aspirin (Aspirin 325 Mg Tab) 325 mg PO DAILY [facility] Last Admin: 04/13/24 08:12 Dose: 325 mg Atorvastatin Calcium (Atorvastatin 20 Mg Tab) 20 mg PO HS [facility] Last Admin: 04/12/24 20:17 Dose: 20 mg Benzocaine/Menthol (Benzocaine/Menthol Lozeng 1 Each Lozenge) 1 each MUCOUS MEM Q2H PRN PRN Reason: Sore Throat Bisacodyl (Bisacodyl 10 Mg Supp) 10 mg RECTAL DAILY PRN PRN Reason: Constipation Budesonide (Budesonide 1 Mg/2 Ml Nebu) 1 mg INHALATION RT-BID [facility] Last Admin: 04/13/24 08:16 Dose: 1 mg Clopidogrel Bisulfate (Clopidogrel 75 Mg Tab) 75 mg PO DAILY [facility] Last Admin: 04/13/24 08:13 Dose: 75 mg Dextrose/Water (Dextrose 50% Syringe 50 Ml) 25 ml IVP PER PROTOCOL PRN; Protocol PRN Reason: Hypoglycemia Dextrose/Water (Dextrose 50% Syringe 50 Ml) 50 ml IVP PER PROTOCOL PRN; Protocol PRN Reason: Hypoglycemia Heparin Sodium (Porcine) (Heparin Sodium,Porcine 5,000 Unit/Ml 1 Ml Vial) 5,000 unit SQ Q8HR [facility] Last Admin: 04/13/24 16:38 Dose: Not Given Hydralazine HCl (Hydralazine Hcl 20 Mg/Ml 1 Ml Vial) 10 mg IVP Q1H PRN PRN Reason: Blood Pressure - High Amiodarone HCl 150 mg/ (Dextrose/Water) 103 mls @ 618 mls/hr IV .Q10M PRN; Protocol PRN Reason: A.FIB/FLUTTER Amiodarone HCl 360 mg/ (Dextrose/Water) 207.2 mls @ 34.533 mls/hr IV .Q6H PRN; Protocol PRN Reason: A.FIB/FLUTTER Amiodarone HCl 450 mg/ (Dextrose/Water) 250 mls @ 16.667 mls/hr IV .Q15H PRN; Protocol PRN Reason: A.FIB/FLUTTER Calcium Gluconate/Sodium (Chloride 2 gm/ IV Solution) 100 mls @ 100 mls/hr IVPB ONCE PRN PRN Reason: Ionized Calcium less than 4.4 Stop: 04/18/24 15:52 Milrinone Lactate/Dextrose 20 (mg/ IV Solution) 100 mls @ 3.063 mls/hr IV .Q24H [facility] Last Admin: 04/13/24 12:45 Dose: 0.1 mcg/kg/min, 3.063 mls/hr Sodium Chloride (Saline 0.9%) 1,000 mls @ 30 mls/hr IV .Q24H [facility] Last Admin: 04/13/24 16:37 Dose: Not Given Insulin Aspart (Insulin Aspart (Novolog) 100 Unit/Ml Vial) 0 unit SQ [facility]; Protocol Last Admin: 04/13/24 12:40 Dose: Not Given Magnesium Hydroxide (Magnesium Hydroxide 2,400 Mg/30 Ml Cup) 2,400 mg PO BID PRN PRN Reason: Constipation Melatonin (Melatonin 3 Mg Tablet) 6 mg PO [facility] Methocarbamol (Methocarbamol 500 Mg Tab) 1,000 mg PO QID PRN PRN Reason: Muscle Spasm Last Admin: 04/13/24 09:23 Dose: 1,000 mg Metoclopramide HCl (Metoclopramide 5 Mg/Ml 2 Ml Vial) 10 mg IVP Q4H PRN PRN Reason: Nausea And Vomiting Miscellaneous Information (Magnesium Replacement Protocol 1 Each Misc) 1 each MISCELLANE DAILY PRN; Protocol PRN Reason: Per Protocol Miscellaneous Information (Potassium Replacement Protocol 1 Each Misc) 1 each MISCELLANE DAILY PRN; Protocol PRN Reason: Per Protocol Ondansetron HCl (Ondansetron 4 Mg/2 Ml Vial) 4 mg IVP Q6HR PRN PRN Reason: Nausea And Vomiting Last Admin: 04/12/24 06:10 Dose: 4 mg Oxycodone HCl (Oxycodone Hcl 5 Mg Tab) 5 mg PO Q4HR PRN PRN Reason: Moderate Pain (Scale 4 to 6) Last Admin: 04/12/24 20:57 Dose: 5 mg Oxycodone HCl (Oxycodone Hcl 5 Mg Tab) 10 mg PO Q4HR PRN PRN Reason: Severe Pain (Scale 7 to 10) Last Admin: 04/13/24 00:50 Dose: 10 mg Pantoprazole Sodium (Pantoprazole 40 Mg Tablet) 40 mg PO -BRKFST [facility] Last Admin: 04/13/24 05:03 Dose: 40 mg Petrolatum (Zinc Oxide Paste (Z-Guard) 1 Applic) 1 applic TOPICAL BID PRN; Protocol PRN Reason: Wound Healing Senna/Docusate Sodium (Sennosides-Docusate Sodium 1 Each Tab) 2 each PO HS [facility] Last Admin: 04/12/24 20:17 Dose: 2 each Sodium Chloride (Sodium Chloride 0.9% Flush 10 Ml Syringe) 10 ml IV BID [facility] Last Admin: 04/13/24 08:13 Dose: 10 ml Social history: Patient smoked from the age of 22 to 32 packs a day. Alcohol rarely. . Physical examination: VITAL SIGNS: 98.2, 84, 16, 102/64, 100% room air GENERAL: Up in a chair.. Chest tubes in place EYES: Pupils equal. Conjunctiva carlos l. HEENT: External appearance of nose and ears normal, oral cavity grossly normal. NECK: JVD unable to assess; masses not palpable. HEART: First and second heart sounds are normal; no edema. LUNGS: Respiratory rate increased; decreased breath sounds. ABDOMEN: Soft, nontender, liver spleen not palpable, no masses palpable. León catheter PSYCH: AOx3, mood affect normal. MUSCULOSKELETAL:No Clubbing/cyanosis;muscles-grossly intact. Mj wrap to lower extremity with Venodyne boots INVESTIGATIONS, reviewed in the clinical context: April 13: White count 10 hemoglobin 8.2 platelets 78 sodium 129 potassium 3.9 BUN 26 creatinine 1.1 TSH 2.7 April 12: White count 11.7 hemoglobin 9.1 platelets 108 potassium 4.6 creatinine 0.84 April 11, 2024: White count 14.5 hemoglobin 11.1 platelets 125 sodium 137 potassium 3.9 BUN 22 creatinine 0.87 April 06: White count 8.2 hemoglobin 14.3 potassium 4.3 BUN 20 creatinine 0.9 LDL 60.3 Chest x-ray film personally reviewed by me-reports [place]-Krystal catheter projects over the heart on the left heart. Endotracheal tube NG tube in appropriate position. 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 Permanent atrial fibrillation. Patient is undergone mitral valve replacement with Mosaic porcine bioprosthesis, decalcification of mitral valve Combs, tricuspid valve repair with a band, biatrial maze procedure, exclusion left atrial appendage. -Acute postprocedure blood loss anemia expected from surgery Follow H&H -Acute hypoxic respiratory failure, status post ventilator support, for cardiothoracic procedure: Improved Currently on nasal cannula -Dilutional thrombocytopenia -Mild hyponatremia with hypervolemia Patient received Lasix. Encourage oral intake. -COPD no prior smoker Bronchodilators -Hyperglycemia, not a diabetic DC insulin drip. Accu-Cheks with sliding scale insulin. -Permanent atrial fibrillation Outpatient was on Xarelto -Few pulmonary micronodules measuring less than 4 mm. This could be followed up with pulmonary outpatient. -Hard of hearing -Chronic rheumatoid arthritis -Full code DC insulin drip. Accu-Cheks with sliding scale insulin. Thank you Dr. Scott Past Medical History Past Medical History: Atrial Fibrillation, GI Bleed, Hearing Disorder / Deafness, Pneumonia, Rheumatoid Arthritis (RA) Additional Past Medical History / Comment(s): Recently dx with Afib in the last month Nov, 2023. Recent shortness of breath and started seeing x ray technician in July 2023 and was put on inhalker, as needed. Hx bleeding ulcer in the past. Tinnitis. History of Any Multi-Drug Resistant Organisms: None Reported Past Surgical History: Heart Catheterization, Orthopedic Surgery, Tonsillectomy Additional Past Surgical History / Comment(s): back operation x2. Cardiac cath January 2024. Past Anesthesia/Blood Transfusion Reactions: No Reported Reaction, Postoperative Nausea & Vomiting (PONV) Additional Past Anesthesia/Blood Transfusion Reaction / Comm: No hx of blood transfusion. Smoking Status: Former smoker
[2024-04-13 19:00] LABS: Glucose,Whole Blood 121 mg/dL (70-110)
[2024-04-13 20:07] LABS: Glucose,Whole Blood 110 mg/dL (70-110)
[2024-04-13] MEDS: MELATONIN 3 MG TABLET PO SCH (21:14)
[2024-04-13] MEDS: AMIODARONE 200 MG TAB PO SCH (21:15)
[2024-04-14 06:19] LABS: Anisocytosis Slight; Basophils % (A) 0 %; Eosinophils % (A) 0 %; HCT 24.9 % (39.0-53.0); HGB 8.4 gm/dL (13.0-17.5); Lymphocytes # (A) 1.8 k/uL (1.0-4.8); Lymphocytes % (A) 19 %; MCH 29.6 pg (25.0-35.0); MCHC 33.8 g/dL (31.0-37.0); MCV 87.4 fL (80.0-100.0); Mean Platelet Volume 8.8; Monocytes # (A) 0.5 k/uL (0-1.0); Monocytes % (A) 5 %; Neutrophils # (A) 7.2 k/uL (1.3-7.7); Neutrophils % (A) 74 %; Platelet Count 103 k/uL (150-450); RBC 2.85 m/uL (4.30-5.90); RDW 16.1 % (11.5-15.5); WBC 9.8 k/uL (3.8-10.6)
[2024-04-14 06:26] LABS: ALT 11 U/L (4-49); AST 48 U/L (17-59); African American GFR (CKD) 79 (>60 ml/min/1.73 sqM); Albumin 3.4 g/dL (3.5-5.0); Alkaline Phosphatase 68 U/L (38-126); Anion Gap 5 mmol/L; Blood Urea Nitrogen 35 mg/dL (9-20); Calcium 8.4 mg/dL (8.4-10.2); Carbon Dioxide 23 mmol/L (22-30); Chloride 100 mmol/L (98-107); Glucose 122 mg/dL (74-99); Magnesium 2.3 mg/dL (1.6-2.3); Non-African American GFR(CKD) 69 (>60 ml/min/1.73 sqM); Potassium 4.5 mmol/L (3.5-5.1); Sodium 128 mmol/L (137-145); Total Bilirubin 2.3 mg/dL (0.2-1.3); Total Protein 5.9 g/dL (6.3-8.2)
[2024-04-14 06:27] LABS: Glucose,Whole Blood 114 mg/dL (70-110)
--- NOTE | 2024-04-14 07:55 | XR ---
EXAMINATION TYPE: XR chest 1V portable DATE OF EXAM: 04/14/2024 COMPARISON: 04/13/2024 INDICATION: Post cardiac surgery TECHNIQUE: Single frontal view of the chest is obtained. FINDINGS: The heart size is enlarged. The pulmonary vasculature is prominent. Diffuse increased lung markings are present. Correlate for volume overload. [place]-Krystal catheter is been removed. IMPRESSION: 1. Correlate volume overload. Findings appear similar to comparison [facility], Workstation: [facility], 04/14/2024 7:53 AM
--- NOTE | 2024-04-14 08:26 | P.PN ---
Subjective Progress Note Date: 04/14/24 Principal diagnosis: Moderate to severe mitral valve regurgitation, moderate to severe mitral annular calcification, moderate tricuspid valve regurgitation, moderate to severe pulm onary hypertension, moderate to severe left ventricular dysfunction. History of permanent atrial fibrillation status post unsuccessful cardioversion in January 2024, hyperlipidemia, previous tobacco dependence, mild COPD, remote history of pneumonia, rheumatoid arthritis previously on methotrexate, hyperglycemia not previously diagnosed as a diabetic, family history of premature coronary artery disease in both parents POD #3 mitral valve replacement using a 31 mm Mosaic porcine bioprosthesis, deca lcification of the mitral annulus using the [employer] PET machine, tricuspid valve repair using a 30 mm MC3 band, full biatrial maze procedure using radiofrequency and cryoablation, exclusion of the left atrial appendage using a 35mm AtriClip, intraoperative transesophageal echocardiogram and epiaortic scanning Postoperative acute blood loss anemia and thrombocytopenia, expected given hemodilution and cardiopulmonary bypass pump Hypotension requiring vasopressors, expected, currently stable off all pressors Hypervolemic hyponatremia, unexpected The patient was seen and examined this morning sitting up in recliner in the intensive care unit in no acute distress. Currently junctional on telemetry, hemodynamically stable on low-dose Primacor. Patient states arthritic pain has gotten better with addition of Robaxin, has been able to get short naps but really has not been able to get good sleep since admission. Does complain of periodic episodes of shortness of breath. Currently on room air with oxygen saturation in the high 90s, able to achieve 2000 mL on his incentive spirometry. Chest x-ray, labs reviewed. Patient did ambulate in the hallway yesterday without difficulty. Right internal jugular cordis, mediastinal chest tube remains. No other new concerns. Objective - Vital Signs Vital signs: Vital Signs Temp 98.4 F 04/14/24 04:00 Pulse 55 L 04/14/24 07:00 Resp 25 H 04/14/24 07:00 BP 146/66 04/14/24 07:00 Pulse Ox 94 L 04/14/24 07:00 FiO2 50 04/11/24 19:00 Intake & Output 04/13/24 04/14/24 04/14/24 18:59 06:59 18:59 Intake Total 678.324 442 Output Total 1055 685 Balance -376.676 -243 Weight 111.5 kg 111.3 kg Intake: IV 516 442 Injectate 0 Pressure Bags 66 42 Sodium Chloride 0.9% 1, 450 400 000 ml @ 30 mls/hr IV . Q24H RAUL Rx#:[id number] Intake, IV Titration 162.324 Amount Insulin Regular 100 unit 3.197 In Sodium Chloride 0.9% 100 ml @ Per Protocol IV .Q0M RAUL Rx#:[id number] Milrinone-D5w Pmx 20 mg 79.127 In Dextrose/Water 1 100ml .bag @ 0.1 MCG/KG/MIN 3. 063 mls/hr IV .Q24H [facility]UL Rx#:[id number] Sodium Chloride 0.9% 1, 80 000 ml @ 30 mls/hr IV . Q24H RAUL Rx#:[id number] Output: Chest Tube Drainage 50 70 Mediastinal x2 50 70 Urine 1005 615 Other: Voiding Method Indwelling Catheter Indwelling Catheter ABP, PAP, CO, CI - Last Documented Arterial Blood Pressure 116/50 Pulmonary Artery Pressure 13/8 Cardiac Output 6.8 Cardiac Index 2.9 - Exam CONSTITUTIONAL: Appears comfortable, cooperative, no acute distress although very sleepy RESPIRATORY: Lungs sounds diminished bilaterally. Respirations even, n onlabored. Currently on room air with oxygen saturation 96%. Able to achieve 2000 mL on incentive spirometry. Strong nonproductive cough. CARDIOVASCULAR: S1, S2 present. Regular rate although irregular at times, junctional rhythm on telemetry. Sternum stable. Palpable peripheral pulses bilaterally. Trace bilateral lower extremity edema present. No calf pain or tenderness noted. Heart hugger in place with patient demonstrating appropriate use. Antiembolism stockings, SCDs present. GASTROINTESTINAL: Abdomen soft, nontender, nondistended. Active bowel sounds present 4 quadrants. Tolerating diet. Positive flatus GENITOURINARY: León present draining clear, yellow urine. Output overnight 40-60 mL per hour, 1620 mL in the last 24 hours INTEGUMENTARY: Skin is warm and dry with evidence of good perfusion. Anterior chest incision well approximated and covered with dry intact dressing NEUROLOGIC: Cranial nerves II through XII intact MUSKULOSKELETAL: Able to move all extremities, strength equal bilaterally PSYCHIATRIC: Alert and oriented to person place and time, appropriate affect, intact judgment and insight INVASIVE LINES AND TUBES: Mediastinal chest tube present and connected to wall suction, no air leaks present, 50 mL serosanguineous drainage in the last 24 hours. A/V epicardial pacemaker wires present, grounded. Right internal jugular cordis present. - Allied health notes Allied health notes reviewed: nursing - Labs CBC & Chem 7: 04/14/24 05:40 04/14/24 05:40 Labs: Abnormal Lab Results - Last 24 Hours (Table) 04/13/24 04/13/24 04/13/24 Range/Units 09:35 10:02 18:58 RBC (4.30-5.90) m/uL Hgb (13.0-17.5) gm/dL Hct (39.0-53.0) % RDW (11.5-15.5) % Plt Count (150-450) k/uL Sodium (137-145) mmol/L BUN (9-20) mg/dL Glucose (74-99) mg/dL POC Glucose (mg/dL) 130 H 149 H 121 H (70-110) mg/dL Total Bilirubin (0.2-1.3) mg/dL Total Protein (6.3-8.2) g/dL Albumin (3.5-5.0) g/dL 04/14/24 04/14/24 04/14/24 Range/Units 05:40 05:40 06:26 RBC 2.85 L (4.30-5.90) m/uL Hgb 8.4 L (13.0-17.5) gm/dL Hct 24.9 L (39.0-53.0) % RDW 16.1 H (11.5-15.5) % Plt Count 103 L (150-450) k/uL Sodium 128 L (137-145) mmol/L BUN 35 H (9-20) mg/dL Glucose 122 H (74-99) mg/dL POC Glucose (mg/dL) 114 H (70-110) mg/dL Total Bilirubin 2.3 H (0.2-1.3) mg/dL Total Protein 5.9 L (6.3-8.2) g/dL Albumin 3.4 L (3.5-5.0) g/dL - Imaging and Cardiology Chest x-ray: report reviewed, image reviewed Assessment and Plan Assessment: Moderate to severe mitral valve regurgitation, status post mitral valve replac ement using a 31 mm Mosaic porcine bioprosthesis 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, status post decalcification of the mitral annulus using the sono PET machine Moderate tricuspid valve regurgitation, status post tricuspid valve repair using a 30 mm MC3 band Moderate to severe pulmonary hypertension Moderate to severe left ventricular dysfunction, EF 30-35% Postoperative acute blood loss anemia and thrombocytopenia, expected given hemodilution and cardiopulmonary bypass pump Hypotension requiring vasopressors, expected Hypervolemic hyponatremia, unexpected History of permanent atrial fibrillation status post unsuccessful cardioversion in January 2024, on Xarelto outpatient for anticoagulation, status post full biatrial maze procedure using radiofrequency and cryoablation, exclusion of the left atrial appendage using a 35mm AtriClip Hyperlipidemia, treated, cholesterol 120, LDL 60, triglycerides 94 Previous tobacco dependence, quit smoking 30 years ago Mild COPD, preoperative FEV1 70% of predicted Remote history of pneumonia Rheumatoid arthritis previously on methotrexate, last dose in July 2023 Hyperglycemia not previously diagnosed as a diabetic, preoperative hemoglobin A1c 6.6% Family history of premature coronary artery disease in both parents Plan: Continue aspirin, statin, Plavix. Will hold off on beta-edelmira for now, amiodarone discontinued Will start oral hydralazine for afterload reduction, discontinue Primacor 1 hour after oral dose Encourage incentive spirometry use 10 times every hour while awake. Bronchodilators per pulmonology Increase activity as tolerated, PT/OT/cardiac rehab consulted Will monitor daily labs and x-rays. Electrolyte replacement per protocol. Will start Lasix 40 mg IV push twice daily today GI/DVT prophylaxis Pain control per current medication regimen Insulin management per internal medicine. Patient is not previously diagnosed as diabetic, however his preoperative hemoglobin A1c was 6.6%, needs tight blood sugar control Continue Cordis to continuous CVP monitoring Will discontinue mediastinal chest tube Continue León catheter for another 24 hours, continue to monitor and record strict accurate intake and output More recommendations to follow
[2024-04-14] MEDS: FUROSEMIDE 10 MG/ML 4 ML VIAL IV SCH (10:08)
[2024-04-14] MEDS: hydrALAZINE HCL 25 MG TAB PO SCH ×2 (10:08→17:11)
[2024-04-14 11:07] LABS: Glucose,Whole Blood 129 mg/dL (70-110)
--- NOTE | 2024-04-14 11:18 | P.PN ---
Subjective Progress Note Date: 04/14/24 HISTORY OF PRESENTING ILLNESS This is a pleasant 68-year-old with past medical history significant for rhe umatoid arthritis, atrial fibrillation, mitral regurgitation, hyperlipidemia, mild coronary artery calcifications, coronary artery disease, ex-smoker and nonischemic cardiomyopathy. He follows in the office with Dr. Pinto. He was noted to have atrial fibrillation and does have bradycardia with A. fib with bradycardic response in the past and PE, cardioversion had been attempted however showed left ventricular dysfunction and severe mitral regurgitation with mitral calcification. Patient therefore was recommended to undergo mitral valve replacement. Patient underwent successful mitral valve replacement with 31 mm Mosaic porcine bioprosthetic valve, tricuspid repair with a 30mm MC 3 band, maze procedure and IMMANUEL atriclip. He has been doing well since surgery. He was placed on low-dose norepinephrine however this has continue to wean. He is AV paced. Still does have chest tubes in place with approximately 900 mL output over last 24 hours. He denies any chest pain or pressure. No significant shortness breath however does feel like he cannot quite catch his breath. He does have some diaphragmatic pacing from his atrial and ventricular pacer and we turned this down and he is in normal sinus rhythm with heart rate 85 bpm. 04/13 Patient seen and examined. Patient denies any chest pain or pressure. He is however having significant pain all over mainly in his joints in his ankles, knees, hands which feels very similar to his prior rheumatoid arthritis flares and he cannot get to sleep. He has been tried on Toradol, OxyContin, Xanax and has only been able sleep approximately 30 minutes. Denies any significant shortness breath. Remains on milrinone 0.2 with cardiac output cardiac index in the 7/3 range respectively. PA pressures relatively stable 30s over 15-20 and CVP 7-10. Creatinine stable however sodium decreasing down to 129. His pacemaker was turned off with no further diaphragmatic pacing and remains sinus rhythm with heart rates in the 70s to 80s. 04/14 Patient seen and examined in the ICU. He states he has been up and walked this morning in the hallway. He is having difficulty breathing on and off. He denies having any chest pain or chest pressure. No fever and no cough. He continues to have fatigue and feel tired as he is not sleeping and only obtain half hour increments. Patient continues to have achiness all over and states the bed is not comfortable for him as he is too tall for the bed frame. Blood pressure 146/66, heart rate 55, pulse ox 94% on room air. Patient is currently on IV Lasix 40 mg every 12 hours. Milrinone and amiodarone were discontinued yesterday. TSH is 2.77. Sodium 128, potassium 4.5, BUN 35 creatinine 1.11 PHYSICAL EXAMINATION Vital signs reviewed. CONSTITUTIONAL: No apparent distress. HEENT: Head is normocephalic. Pupils are equal, round. Sclerae anicteric. Mucous membranes of the mouth are moist. No JVD. No carotid bruit. CHEST EXAMINATION: Lungs are clear to auscultation. No chest wall tenderness is noted on palpation or with deep breathing. HEART EXAMINATION: Regular rate and rhythm. S1, S2 heard. No murmurs, gallops or rub. ABDOMEN: Soft, nontender. Positive bowel sounds. EXTREMITIES: 2+ peripheral pulses, no lower extremity edema and no calf tenderness. NEUROLOGIC EXAMINATION: Patient is awake, alert and oriented x3. ASSESSMENT Severe mitral regurgitation status post 31 mm Mosaic porcine bioprosthetic valve replacement, tricuspid valve repair, maze procedure and left atrial appendage clip in Mild coronary artery disease Nonischemic cardiomyopathy Chronic systolic heart failure EF 40-45% intraop Hypotension improving Persistent atrial fibrillation status post maze procedure currently sinus rhythm Anemia Rheumatoid arthritis Insomnia Joint pain likely RA flare Hyponatremia PLAN Continue current cardiac medications Continue diuresing with IV Lasix Continue with NSAIDs, pain meds. Continue with metoprolol at this time. Further recommendations as patient progresses Nurse practitioner note has been reviewed, I agree with documented findings and plan of care. Patient was seen and examined. Objective - Vital Signs Vital signs: Vital Signs Temp 98.4 F 04/14/24 04:00 Pulse 55 L 04/14/24 07:00 Resp 25 H 04/14/24 07:00 BP 146/66 04/14/24 07:00 Pulse Ox 94 L 04/14/24 07:00 FiO2 50 04/11/24 19:00 Intake & Output 04/13/24 04/14/24 04/14/24 18:59 06:59 18:59 Intake Total 678.324 442 Output Total 1055 685 Balance -376.676 -243 Weight 111.5 kg 111.3 kg Intake: IV 516 442 Injectate 0 Pressure Bags 66 42 Sodium Chloride 0.9% 1, 450 400 000 ml @ 30 mls/hr IV . Q24H RAUL Rx#:[id number] Intake, IV Titration 162.324 Amount Insulin Regular 100 unit 3.197 In Sodium Chloride 0.9% 100 ml @ Per Protocol IV .Q0M RAUL Rx#:[id number] Milrinone-D5w Pmx 20 mg 79.127 In Dextrose/Water 1 100ml .bag @ 0.1 MCG/KG/MIN 3. 063 mls/hr IV .Q24H RAUL Rx#:[id number] Sodium Chloride 0.9% 1, 80 000 ml @ 30 mls/hr IV . Q24H RAUL Rx#:[id number] Output: Chest Tube Drainage 50 70 Mediastinal x2 50 70 Urine 1005 615 Other: Voiding Method Indwelling Catheter Indwelling Catheter ABP, PAP, CO, CI - Last Documented Arterial Blood Pressure 116/50 Pulmonary Artery Pressure 13/8 Cardiac Output 6.8 Cardiac Index 2.9 - Labs CBC & Chem 7: 04/14/24 05:40 04/14/24 05:40 Labs: Abnormal Lab Results - Last 24 Hours (Table) 04/13/24 04/13/24 04/13/24 Range/Units 09:35 10:02 18:58 RBC (4.30-5.90) m/uL Hgb (13.0-17.5) gm/dL Hct (39.0-53.0) % RDW (11.5-15.5) % Plt Count (150-450) k/uL Sodium (137-145) mmol/L BUN (9-20) mg/dL Glucose (74-99) mg/dL POC Glucose (mg/dL) 130 H 149 H 121 H (70-110) mg/dL Total Bilirubin (0.2-1.3) mg/dL Total Protein (6.3-8.2) g/dL Albumin (3.5-5.0) g/dL 04/14/24 04/14/24 04/14/24 Range/Units 05:40 05:40 06:26 RBC 2.85 L (4.30-5.90) m/uL Hgb 8.4 L (13.0-17.5) gm/dL Hct 24.9 L (39.0-53.0) % RDW 16.1 H (11.5-15.5) % Plt Count 103 L (150-450) k/uL Sodium 128 L (137-145) mmol/L BUN 35 H (9-20) mg/dL Glucose 122 H (74-99) mg/dL POC Glucose (mg/dL) 114 H (70-110) mg/dL Total Bilirubin 2.3 H (0.2-1.3) mg/dL Total Protein 5.9 L (6.3-8.2) g/dL Albumin 3.4 L (3.5-5.0) g/dL
--- NOTE | 2024-04-14 12:59 | P.PN ---
Subjective Progress Note Date: 04/14/24 Principal diagnosis: POD #3 mitral valve replacement using a 31 mm Mosaic porcine bioprosthesis, decalcification of the mitral annulus using the sono PET machine, tricuspid valve repair using a 30 mm MC3 band, full biatrial maze procedure Patient is a 68-year-old white male with past medical history significant for atrial fibrillation and valvular heart disease. Outpatient, patient was noted to have atrial fibrillation. In January, a cardioversion was attempted, but u ltimately failed. Patient was found to have severe mitral valve regurgitation, as well as, moderate tricuspid regurgitation. Patient was brought in yesterday for mitral valve replacement with bioprosthetic valve, tricuspid valve repair, full biatrial maze procedure, exclusion of left atrial appendage. Intraoperatively, patient was hypotensive, started on multiple vasopressors including norepinephrine, vasopressin, and also Primacor. Patient did receive 1.5 L 5% albumin, 3.9 L crystalloid fluid since surgery. Patient's OR exit time was to 1532. Postoperatively, he was sent to the intensive care unit for recovery. Initially, on the mechanical ventilator. Initial ABG: PaO2 of 139, pCO2 of 42, pH of 7.37. Postoperative, chest x-ray showing postsurgical changes. Endotracheal tube 4.4 cm from the juliano. Cardiomegaly and mild PVC. No pneumothoraces or effusions. Patient was extubated successfully using the rapid extubation protocol at 1842. Patient is currently being evaluated in the intensive care unit. He is on 3 L/min nasal cannula. He is in no acute respiratory distress. He is awake and alert. Blood pressure remains hypotensive. He is currently on norepinephrine which is infusing at 0.04 mcg/kg/min. Vasopressin also infusing at 0.03 units/min. Primacor at 0.3 mcg /kg/h. Normal saline infusing at 50 mL/h. Insulin also infusing at 4 units/h. Heart rhythm is dual paced at 80 bpm. Current blood pressure 105/47 mmHg. PA pressures 41/18 mmHg. Most recent CO/CI are 5.7/2.4 respectively. SVR 827. Urine output is in the order of 50 to 70 mL/h. He does have 2 mediastinal chest tubes that are wide together with a total of 500 of sanguinous output. Atrium is to suction at -20 cm H2O. No airleak. Most recent CBC: WBC count 11.2, hemoglobin 9.5, hematocrit 28.4, platelets 113. Most recent postoperative CMP: Sodium 137, potassium 3.9, chloride 109, serum bicarb 23, BUN 22, creatinine 0.87, glucose 127. LFTs unremarkable. Patient continues to be monitored in the intensive care unit. Patient was evaluated today on 04/13/2024, patient is now postoperative day #2, mitral valve replacement and the calcification of mitral annulus as well as tricuspid valve repair. Patient is doing fairly well, does not seem to be in any distress, he is on room air, no cough no wheezing no shortness of breath, he is in sinus rhythm, chest x-ray is showing some evidence of interstitial edema, received Lasix earlier today, and he is responding well to Lasix. Remains on low-dose Primacor, off vasopressin off norepinephrine. Patient is achieving over 2000 cc on incentive spirometry. Patient did ambulate in the hallway yesterday without difficulty. And he would likely ambulate today again. WBC count is 10 hemoglobin 8.2, basic metabolic profile is unremarkable except for low sodium of 129. This is likely hypervolemic hyponatremia Patient was evaluated today on 04/14/2024, patient is on room air, not in any distress, remains on milrinone, continues to do well with incentive spirometry, achieving over 2000 mL on his incentive spirometry. Patient has already been ambulating with assistance without difficulty. No hemodynamic or arrhythmia issues overnight. This x-ray continues to show evidence of interstitial edema that is being addressed by cardiothoracic surgery clinically does not seem to be in any distress, and the findings clinically do not match with her chest x-ray finding Objective - Vital Signs Vital signs: Vital Signs Temp 98.1 F 04/14/24 12:00 Pulse 60 04/14/24 12:00 Resp 18 04/14/24 12:00 BP 113/70 04/14/24 12:00 Pulse Ox 94 L 04/14/24 12:00 FiO2 50 04/11/24 19:00 Intake & Output 04/13/24 04/14/24 04/14/24 18:59 06:59 18:59 Intake Total 678.324 442 135 Output Total 4973 608 9875 Balance -376.676 -243 -1015 Weight 111.5 kg 111.3 kg Intake: IV 516 442 135 Injectate 0 Pressure Bags 66 42 15 Sodium Chloride 0.9% 1, 450 400 120 000 ml @ 30 mls/hr IV . Q24H RAUL Rx#:[id number] Intake, IV Titration 162.324 Amount Insulin Regular 100 unit 3.197 In Sodium Chloride 0.9% 100 ml @ Per Protocol IV .Q0M RAUL Rx#:[id number] Milrinone-D5w Pmx 20 mg 79.127 In Dextrose/Water 1 100ml .bag @ 0.1 MCG/KG/MIN 3. 063 mls/hr IV .Q24H RAUL Rx#:[id number] Sodium Chloride 0.9% 1, 80 000 ml @ 30 mls/hr IV . Q24H RAUL Rx#:[id number] Output: Chest Tube Drainage 50 70 Mediastinal x2 50 70 Urine 9087 906 4660 Other: Voiding Method Indwelling Catheter Indwelling Catheter Indwelling Catheter ABP, PAP, CO, CI - Last Documented Arterial Blood Pressure 116/50 Pulmonary Artery Pressure 13/8 Cardiac Output 6.8 Cardiac Index 2.9 - Exam General: Reveals 68-year-old white male in no distress, on room air. RESPIRATORY: Symmetrical chest expansion, minimal crackles at the bases no rhonchi no wheezes CARDIOVASCULAR: Normal S1-S2, no S3 gallop, 2/6 systolic murmur throughout the precordium GASTROINTESTINAL: Soft nontender no megaly no rebound no guarding ve flatus INTEGUMENTARY: No rashes, anterior chest incision is well-approximated and dry NEUROLOGIC: Alert oriented x 3 no gross focal deficit MUSKULOSKELETAL: No deformities and no limitation range of motion PSYCHIATRIC: Normal mood affect and no mental status examination - Labs CBC & Chem 7: 04/14/24 05:40 04/14/24 05:40 Labs: Abnormal Lab Results - Last 24 Hours (Table) 04/13/24 04/14/24 04/14/24 Range/Units 18:58 05:40 05:40 RBC 2.85 L (4.30-5.90) m/uL Hgb 8.4 L (13.0-17.5) gm/dL Hct 24.9 L (39.0-53.0) % RDW 16.1 H (11.5-15.5) % Plt Count 103 L (150-450) k/uL Sodium 128 L (137-145) mmol/L BUN 35 H (9-20) mg/dL Glucose 122 H (74-99) mg/dL POC Glucose (mg/dL) 121 H (70-110) mg/dL Total Bilirubin 2.3 H (0.2-1.3) mg/dL Total Protein 5.9 L (6.3-8.2) g/dL Albumin 3.4 L (3.5-5.0) g/dL 04/14/24 04/14/24 Range/Units 06:26 11:05 RBC (4.30-5.90) m/uL Hgb (13.0-17.5) gm/dL Hct (39.0-53.0) % RDW (11.5-15.5) % Plt Count (150-450) k/uL Sodium (137-145) mmol/L BUN (9-20) mg/dL Glucose (74-99) mg/dL POC Glucose (mg/dL) 114 H 129 H (70-110) mg/dL Total Bilirubin (0.2-1.3) mg/dL Total Protein (6.3-8.2) g/dL Albumin (3.5-5.0) g/dL Assessment and Plan Assessment: Impression: POD #3 mitral valve replacement using a 31 mm Mosaic porcine bioprosthesis, d ecalcification of the mitral annulus using the sono PET machine, tricuspid valve repair using a 30 mm MC3 band, full biatrial maze procedure using radiofrequency and cryoablation, exclusion of the left atrial appendage using a 35mm AtriClip, intraoperative transesophageal echocardiogram and epiaortic scanning Moderate to severe mitral valve regurgitation, status post mitral valve replacement using a 31 mm Mosaic porcine bioprosthesis 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, status post decalcification of the mitral annulus Moderate tricuspid valve regurgitation, status post tricuspid valve repair using a 30 mm MC3 band Severe LV dysfunction with ejection fraction of 30 to 35% Moderate severe pulmonary hypertension Postoperative acute blood loss anemia, expected Recommendation: Continue Lasix 40 mg IV push twice daily as chest x-ray continues to show evidence of interstitial edema Continue to monitor in ICU Continue medical therapy including Plavix statin and aspirin Intermittent gentle diuresis Continue incentive spirometry Titrate Primacor Continue ambulation Will continue to follow Time with Patient: Less than 30
--- NOTE | 2024-04-14 16:03 | P.PN ---
Progress Note - Text Progress Note Date: 04/14/24 - Chief Complaint Cardiothoracic surgery - History of Present Illness 68-year-old patient, follows with Dr. Paulina Fuller. Medical history includes atrial fibrillation, decreased hearing, rheumatoid arthritis, history of bleeding ulcers in the past. Diagnosed with atrial fibrillation in November 2023. Has been had back surgery x 2. Currently in the ICU. Extubated. Patient had known moderate to severe mitral valve disorder, moderate to severe mitral annular calcification, tricuspid valve regurgitation moderate, moderate to severe secondary pulmonary hypertension, and LV dysfunction. Permanent atrial fibrillation. Patient is undergone mitral valve replacement with Mosaic porcine bioprosthesis, decalcification of mitral valve Combs, tricuspid valve repair with a band, biatrial maze procedure, exclusion left atrial appendage. Postprocedure. Extubated. Reclining in bed. Drips include IV vasopressin, IV norepinephrine, IV milrinone, insulin. Telemetry shows dual-chamber paced rhythm. Patient has to mediastinal chest tubes. León catheter. April 12: Patient up in a chair. Clear liquids. Chest tubes in place. Did walk in the hallway. Patient is on IV milrinone, IV norepinephrine, IV insulin. at the bedside. April 13: Up in the chair. Family at the bedside. Chest tubes in place. Was given Lasix. Pleural effusion. Some shortness of breath. Remains on IV insulin. Did pass some flatus. Eating fair. Pacemaker disconnected. Insulin drip will be stopped. Put on Accu-Cheks to ACHS with sliding scale. Patient did ambulate in the hallway. April 14: Up in a chair. Did ambulate. Junctional rhythm. Some shortness of breath. IV Lasix 40 mg every 12. Chest tubes were removed earlier today. Has had flatus. Eating fair. Active Medications Acetaminophen (Acetaminophen Tab 325 Mg Tab) 650 mg PO Q4HR PRN PRN Reason: Fever And/ Or Mild Pain (1-3) Albuterol/Ipratropium (Ipratropium-Albuterol 3 Ml Neb) 3 ml INHALATION RT-Q2H PRN PRN Reason: Shortness Of Breath Or Wheezing Albuterol/Ipratropium (Ipratropium-Albuterol 3 Ml Neb) 3 ml INHALATION RT-QID RAUL Last Admin: 04/14/24 15:34 Dose: 3 ml Alprazolam (Alprazolam 0.25 Mg Tab) 0.25 mg PO QID PRN PRN Reason: Anxiety Last Admin: 04/13/24 21:14 Dose: 0.25 mg Aspirin (Aspirin 325 Mg Tab) 325 mg PO DAILY [facility] Last Admin: 04/14/24 10:08 Dose: 325 mg Atorvastatin Calcium (Atorvastatin 20 Mg Tab) 20 mg PO HS [facility] Last Admin: 04/13/24 21:15 Dose: 20 mg Benzocaine/Menthol (Benzocaine/Menthol Lozeng 1 Each Lozenge) 1 each MUCOUS MEM Q2H PRN PRN Reason: Sore Throat Bisacodyl (Bisacodyl 10 Mg Supp) 10 mg RECTAL DAILY PRN PRN Reason: Constipation Budesonide (Budesonide 1 Mg/2 Ml Nebu) 1 mg INHALATION RT-BID [facility] Last Admin: 04/14/24 08:22 Dose: Not Given Clopidogrel Bisulfate (Clopidogrel 75 Mg Tab) 75 mg PO DAILY [facility] Last Admin: 04/14/24 10:08 Dose: 75 mg Dextrose/Water (Dextrose 50% Syringe 50 Ml) 25 ml IVP PER PROTOCOL PRN; Protocol PRN Reason: Hypoglycemia Dextrose/Water (Dextrose 50% Syringe 50 Ml) 50 ml IVP PER PROTOCOL PRN; Protocol PRN Reason: Hypoglycemia Furosemide (Furosemide 10 Mg/Ml 4 Ml Vial) 40 mg IV Q12HR [facility] Last Admin: 04/14/24 10:08 Dose: 40 mg Heparin Sodium (Porcine) (Heparin Sodium,Porcine 5,000 Unit/Ml 1 Ml Vial) 5,000 unit SQ Q8HR [facility] Last Admin: 04/14/24 10:07 Dose: 5,000 unit Hydralazine HCl (Hydralazine Hcl 25 Mg Tab) 25 mg PO Q8HR [facility] Amiodarone HCl 150 mg/ (Dextrose/Water) 103 mls @ 618 mls/hr IV .Q10M PRN; Protocol PRN Reason: A.FIB/FLUTTER Amiodarone HCl 360 mg/ (Dextrose/Water) 207.2 mls @ 34.533 mls/hr IV .Q6H PRN; Protocol PRN Reason: A.FIB/FLUTTER Amiodarone HCl 450 mg/ (Dextrose/Water) 250 mls @ 16.667 mls/hr IV .Q15H PRN; Protocol PRN Reason: A.FIB/FLUTTER Calcium Gluconate/Sodium (Chloride 2 gm/ IV Solution) 100 mls @ 100 mls/hr IVPB ONCE PRN PRN Reason: Ionized Calcium less than 4.4 Stop: 04/18/24 15:52 Sodium Chloride (Saline 0.9%) 1,000 mls @ 30 mls/hr IV .Q24H [facility] Last Admin: 04/13/24 16:37 Dose: Not Given Insulin Aspart (Insulin Aspart (Novolog) 100 Unit/Ml Vial) 0 unit SQ ACHS [facility]; Protocol Last Admin: 04/14/24 11:41 Dose: Not Given Magnesium Hydroxide (Magnesium Hydroxide 2,400 Mg/30 Ml Cup) 2,400 mg PO BID PRN PRN Reason: Constipation Melatonin (Melatonin 3 Mg Tablet) 6 mg PO HS [facility] Last Admin: 04/13/24 21:14 Dose: 6 mg Methocarbamol (Methocarbamol 500 Mg Tab) 1,000 mg PO QID PRN PRN Reason: Muscle Spasm Last Admin: 04/14/24 12:46 Dose: 1,000 mg Metoclopramide HCl (Metoclopramide 5 Mg/Ml 2 Ml Vial) 10 mg IVP Q4H PRN PRN Reason: Nausea And Vomiting Miscellaneous Information (Magnesium Replacement Protocol 1 Each Misc) 1 each MISCELLANE DAILY PRN; Protocol PRN Reason: Per Protocol Miscellaneous Information (Potassium Replacement Protocol 1 Each Misc) 1 each MISCELLANE DAILY PRN; Protocol PRN Reason: Per Protocol Ondansetron HCl (Ondansetron 4 Mg/2 Ml Vial) 4 mg IVP Q6HR PRN PRN Reason: Nausea And Vomiting Last Admin: 04/12/24 06:10 Dose: 4 mg Oxycodone HCl (Oxycodone Hcl 5 Mg Tab) 5 mg PO Q4HR PRN PRN Reason: Breakthrough Pain Last Admin: 04/12/24 20:57 Dose: 5 mg Pantoprazole Sodium (Pantoprazole 40 Mg Tablet) 40 mg PO AC-[id number] [facility] Last Admin: 04/14/24 06:44 Dose: 40 mg Petrolatum (Zinc Oxide Paste (Z-Guard) 1 Applic) 1 applic TOPICAL BID PRN; Protocol PRN Reason: Wound Healing Senna/Docusate Sodium (Sennosides-Docusate Sodium 1 Each Tab) 2 each PO HS [facility] Last Admin: 04/13/24 21:14 Dose: 2 each Sodium Chloride (Sodium Chloride 0.9% Flush 10 Ml Syringe) 10 ml IV BID [facility] Last Admin: 04/14/24 11:41 Dose: Not Given Social history: Patient smoked from the age of 22 to 32 packs a day. Alcohol rarely. . Physical examination: VITAL SIGNS: 98.1, 60, 18, 113 x 70, 94% room air GENERAL: Up in a chair.. Tubes are off EYES: Pupils equal. Conjunctiva carlos l. HEENT: External appearance of nose and ears normal, oral cavity grossly normal. NECK: JVD unable to assess; masses not palpable. HEART: First and second heart sounds are normal; no edema. LUNGS: Respiratory rate increased; decreased breath sounds. ABDOMEN: Soft, nontender, liver spleen not palpable, no masses palpable. León catheter PSYCH: AOx3, mood affect a bit anxious MUSCULOSKELETAL:No Clubbing/cyanosis;muscles-grossly intact. INVESTIGATIONS, reviewed in the clinical context: April 14: White count 9.8 hemoglobin 8.4 platelets 103 potassium 4.5 sodium 128 creatinine 1.11 April 13: White count 10 hemoglobin 8.2 platelets 78 sodium 129 potassium 3.9 BUN 26 creatinine 1.1 TSH 2.7 April 12: White count 11.7 hemoglobin 9.1 platelets 108 potassium 4.6 creatinine 0.84 April 11, 2024: White count 14.5 hemoglobin 11.1 platelets 125 sodium 137 potassium 3.9 BUN 22 creatinine 0.87 April 06: White count 8.2 hemoglobin 14.3 potassium 4.3 BUN 20 creatinine 0.9 LDL 60.3 Chest x-ray film personally reviewed by id-reports Anderson-Krystal catheter projects over the heart on the left heart. Endotracheal tube NG tube in appropriate position. 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 Permanent atrial fibrillation. Patient is undergone mitral valve replacement with Mosaic porcine bioprosthesis, decalcification of mitral valve Combs, tricuspid valve repair with a band, biatrial maze procedure, exclusion left atrial appendage. -Acute postprocedure blood loss anemia expected from surgery Follow H&H -Acute hypoxic respiratory failure, status post ventilator support, for cardiothoracic procedure: Improved Currently on nasal cannula -Moderate to severe pulmonary hypertension -Fluid overload, with pulmonary edema IV Lasix 40 mg every 12 -Dilutional thrombocytopenia -Mild hyponatremia with hypervolemia Patient received Lasix. Encourage oral intake. Fluid restriction -COPD no prior smoker Bronchodilators -Hyperglycemia, not a diabetic DC insulin drip. Accu-Cheks with sliding scale insulin. -Permanent atrial fibrillation Outpatient was on Xarelto -Few pulmonary micronodules measuring less than 4 mm. This could be followed up with pulmonary outpatient. -Hard of hearing -Chronic rheumatoid arthritis -Full code IV Lasix. Fluid restriction. Other medications to continue. Thank you Dr. Scott Past Medical History Past Medical History: Atrial Fibrillation, GI Bleed, Hearing Disorder / Deafness, Pneumonia, Rheumatoid Arthritis (RA) Additional Past Medical History / Comment(s): Recently dx with Afib in the last month Nov, 2023. Recent shortness of breath and started seeing staff combat information center officer in July 2023 and was put on inhalker, as needed. Hx bleeding ulcer in the past. Tinnitis. History of Any Multi-Drug Resistant Organisms: None Reported Past Surgical History: Heart Catheterization, Orthopedic Surgery, Tonsillectomy Additional Past Surgical History / Comment(s): back operation x2. Cardiac cath January 2024. Past Anesthesia/Blood Transfusion Reactions: No Reported Reaction, Postoperative Nausea & Vomiting (PONV) Additional Past Anesthesia/Blood Transfusion Reaction / Comm: No hx of blood transfusion. Smoking Status: Former smoker
[2024-04-14 16:35] LABS: Glucose,Whole Blood 124 mg/dL (70-110)
[2024-04-14] MEDS: BENZOCAINE/MENTHOL LOZENG 1 EACH LOZENGE MUCOUS MEM PRN (17:16)
[2024-04-14 20:48] LABS: Glucose,Whole Blood 122 mg/dL (70-110)
[2024-04-15 05:55] LABS: Anisocytosis Slight; HCT 25.1 % (39.0-53.0); HGB 8.8 gm/dL (13.0-17.5); MCH 30.3 pg (25.0-35.0); MCV 86.4 fL (80.0-100.0); Mean Platelet Volume 9.4; Platelet Count 112 k/uL (150-450); RBC 2.91 m/uL (4.30-5.90); RDW 16.5 % (11.5-15.5); WBC 9.4 k/uL (3.8-10.6)
[2024-04-15 06:11] LABS: African American GFR (CKD) 89 (>60 ml/min/1.73 sqM); Anion Gap 8 mmol/L; Blood Urea Nitrogen 36 mg/dL (9-20); Calcium 8.3 mg/dL (8.4-10.2); Carbon Dioxide 25 mmol/L (22-30); Chloride 98 mmol/L (98-107); Glucose 106 mg/dL (74-99); Magnesium 2.3 mg/dL (1.6-2.3); Non-African American GFR(CKD) 77 (>60 ml/min/1.73 sqM); Potassium 4.4 mmol/L (3.5-5.1); Sodium 131 mmol/L (137-145)
[2024-04-15 06:36] LABS: Glucose,Whole Blood 112 mg/dL (70-110)
--- NOTE | 2024-04-15 07:29 | P.PN ---
Subjective Progress Note Date: 04/15/24 Principal diagnosis: Moderate to severe mitral valve regurgitation, moderate to severe mitral annular calcification, moderate tricuspid valve regurgitation, moderate to severe pulm onary hypertension, moderate to severe left ventricular dysfunction. History of permanent atrial fibrillation status post unsuccessful cardioversion in January 2024, hyperlipidemia, previous tobacco dependence, mild COPD, remote history of pneumonia, rheumatoid arthritis previously on methotrexate, hyperglycemia not previously diagnosed as a diabetic, family history of premature coronary artery disease in both parents POD #4 mitral valve replacement using a 31 mm Mosaic porcine bioprosthesis, deca lcification of the mitral annulus using the [employer] PET machine, tricuspid valve repair using a 30 mm MC3 band, full biatrial maze procedure using radiofrequency and cryoablation, exclusion of the left atrial appendage using a 35mm AtriClip, intraoperative transesophageal echocardiogram and epiaortic scanning Postoperative acute blood loss anemia and thrombocytopenia, expected given hemodilution and cardiopulmonary bypass pump Hypotension requiring vasopressors, expected, currently stable off all pressors Hypervolemic hyponatremia, unexpected The patient was seen and examined this morning sitting up in recliner in the intensive care unit in no acute distress. Currently junctional on telemetry, hemodynamically stable off all pressors and inotropes. Patient denies significant post operative pain, states arthritic pain better with addition of Robaxin, does still get intermittent periods of shortness of breath. Started on BID dosing IV lasix yesterday, has put out almost 4L in urine. Was able to get more sleep last night. Currently on room air with oxygen saturation in the high 90s, able to achieve 2000 mL on his incentive spirometry. Chest x-ray, labs reviewed. Patient did ambulate around the hallway this morning already without difficulty. Right internal jugular cordis remains. No other new concerns. Objective - Vital Signs Vital signs: Vital Signs Temp 98 F 04/15/24 04:00 Pulse 59 L 04/15/24 07:00 Resp 15 04/15/24 07:00 BP 131/71 04/15/24 07:00 Pulse Ox 96 04/15/24 07:00 FiO2 50 04/11/24 19:00 Intake & Output 04/14/24 04/15/24 04/15/24 18:59 06:59 18:59 Intake Total 773 699 Output Total 0349 2300 Balance -902 -1601 Weight 109.1 kg Intake: IV 273 299 Pressure Bags 33 39 Sodium Chloride 0.9% 1, 240 260 000 ml @ 30 mls/hr IV . Q24H [facility] Rx#:[id number] Oral 500 400 Output: Urine 1675 2300 Other: Voiding Method Indwelling Catheter Indwelling Catheter ABP, PAP, CO, CI - Last Documented Arterial Blood Pressure 116/50 Pulmonary Artery Pressure 13/8 Cardiac Output 6.8 Cardiac Index 2.9 - Exam CONSTITUTIONAL: Appears comfortable, cooperative, no acute distress RESPIRATORY: Lungs sounds diminished in the bases bilaterally. Respirations even, nonlabored. Currently on room air with oxygen saturation 98%. Able to achieve 2000 mL on incentive spirometry. Strong nonproductive cough. CARDIOVASCULAR: S1, S2 present. Regular rate although irregular at times, junctional rhythm on telemetry. Sternum stable. Palpable peripheral pulses bilaterally. No edema present. No calf pain or tenderness noted. Heart hugger in place with patient demonstrating appropriate use. Antiembolism stockings, SCDs present. GASTROINTESTINAL: Abdomen soft, nontender, nondistended. Active bowel sounds present 4 quadrants. Tolerating diet. Positive flatus GENITOURINARY: León present draining clear, yellow urine. Output overnight 30-300 mL per hour, 3975 mL in the last 24 hours INTEGUMENTARY: Skin is warm and dry with evidence of good perfusion. Anterior chest incision well approximated and covered with dry intact dressing NEUROLOGIC: Cranial nerves II through XII intact MUSKULOSKELETAL: Able to move all extremities, strength equal bilaterally, gait normal PSYCHIATRIC: Alert and oriented to person place and time, appropriate affect, intact judgment and insight INVASIVE LINES AND TUBES: A/V epicardial pacemaker wires present, grounded. Right internal jugular cordis present. - Allied health notes Allied health notes reviewed: nursing - Labs CBC & Chem 7: 04/15/24 05:25 04/15/24 05:25 Labs: Abnormal Lab Results - Last 24 Hours (Table) 04/14/24 04/14/24 04/14/24 Range/Units 11:05 16:33 20:46 RBC (4.30-5.90) m/uL Hgb (13.0-17.5) gm/dL Hct (39.0-53.0) % RDW (11.5-15.5) % Plt Count (150-450) k/uL Sodium (137-145) mmol/L BUN (9-20) mg/dL Glucose (74-99) mg/dL POC Glucose (mg/dL) 129 H 124 H 122 H (70-110) mg/dL Calcium (8.4-10.2) mg/dL 04/15/24 04/15/24 04/15/24 Range/Units 05:25 05:25 06:35 RBC 2.91 L (4.30-5.90) m/uL Hgb 8.8 L (13.0-17.5) gm/dL Hct 25.1 L (39.0-53.0) % RDW 16.5 H (11.5-15.5) % Plt Count 112 L (150-450) k/uL Sodium 131 L (137-145) mmol/L BUN 36 H (9-20) mg/dL Glucose 106 H (74-99) mg/dL POC Glucose (mg/dL) 112 H (70-110) mg/dL Calcium 8.3 L (8.4-10.2) mg/dL - Imaging and Cardiology Chest x-ray: image reviewed Assessment and Plan Assessment: Moderate to severe mitral valve regurgitation, status post mitral valve replacement using a 31 mm Mosaic porcine bioprosthesis 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, status post decalcification of the mitral annulus using the sono PET machine Moderate tricuspid valve regurgitation, status post tricuspid valve repair using a 30 mm MC3 band Moderate to severe pulmonary hypertension Moderate to severe left ventricular dysfunction, EF 30-35% Postoperative acute blood loss anemia and thrombocytopenia, expected given hemodilution and cardiopulmonary bypass pump Hypotension requiring vasopressors, expected Hypervolemic hyponatremia, unexpected History of permanent atrial fibrillation status post unsuccessful cardioversion in January 2024, on Xarelto outpatient for anticoagulation, status post full biatrial maze procedure using radiofrequency and cryoablation, exclusion of the left atrial appendage using a 35mm AtriClip Hyperlipidemia, treated, cholesterol 120, LDL 60, triglycerides 94 Previous tobacco dependence, quit smoking 30 years ago Mild COPD, preoperative FEV1 70% of predicted Remote history of pneumonia Rheumatoid arthritis previously on methotrexate, last dose in July 2023 Hyperglycemia not previously diagnosed as a diabetic, preoperative hemoglobin A 1c 6.6% Family history of premature coronary artery disease in both parents Plan: Continue aspirin, statin, Plavix. Will hold off on beta-edelmira for now Continue oral hydralazine for afterload reduction, increased to 50 mg BID Encourage incentive spirometry use 10 times every hour while awake. Bronchodilators per pulmonology Increase activity as tolerated, PT/OT/cardiac rehab consulted Will monitor daily labs and x-rays. Electrolyte replacement per protocol. Cont inue Lasix 40 mg IV push twice daily GI/DVT prophylaxis Pain control per current medication regimen Insulin management per internal medicine. Patient is not previously diagnosed as diabetic, however his preoperative hemoglobin A1c was 6.6%, needs tight blood sugar control Discontinue Cordis Discontinue León catheter, may bladder scan and straight cath for >300 ml residual Continue to monitor and record strict accurate intake and output Ground epicardial pacer wires Shower daily starting tomorrow Will repeat echo tomorrow to eval LV function Keep in ICU More recommendations to follow
[2024-04-15] MEDS: hydrALAZINE HCL 50 MG TAB PO SCH (09:08)
--- NOTE | 2024-04-15 09:45 | XR ---
EXAMINATION TYPE: XR chest 1V portable DATE OF EXAM: 04/15/2024 COMPARISON: 04/14/2024 INDICATION: Post cardiac surgery TECHNIQUE: Single frontal view of the chest is obtained. FINDINGS: The heart size is borderline prominent. The pulmonary vasculature is normal. Mild bibasilar infiltrates are present. Findings are improved from comparison. IMPRESSION: 1. Improving infiltrates with residual infiltrates at the lung bases. Continued follow-up is recommen ded. [facility], Workstation: [facility], 04/15/2024 9:43 AM
--- NOTE | 2024-04-15 11:21 | P.PN ---
Subjective Progress Note Date: 04/15/24 HISTORY OF PRESENTING ILLNESS This is a pleasant 68-year-old with past medical history significant for rhe umatoid arthritis, atrial fibrillation, mitral regurgitation, hyperlipidemia, mild coronary artery calcifications, coronary artery disease, ex-smoker and nonischemic cardiomyopathy. He follows in the office with Dr. Pinto. He was noted to have atrial fibrillation and does have bradycardia with A. fib with bradycardic response in the past and PE, cardioversion had been attempted however showed left ventricular dysfunction and severe mitral regurgitation with mitral calcification. Patient therefore was recommended to undergo mitral valve replacement. Patient underwent successful mitral valve replacement with 31 mm Mosaic porcine bioprosthetic valve, tricuspid repair with a 30mm MC 3 band, maze procedure and IMMANUEL atriclip. He has been doing well since surgery. He was placed on low-dose norepinephrine however this has continue to wean. He is AV paced. Still does have chest tubes in place with approximately 900 mL output over last 24 hours. He denies any chest pain or pressure. No significant shortness breath however does feel like he cannot quite catch his breath. He does have some diaphragmatic pacing from his atrial and ventricular pacer and we turned this down and he is in normal sinus rhythm with heart rate 85 bpm. 04/13 Patient seen and examined. Patient denies any chest pain or pressure. He is however having significant pain all over mainly in his joints in his ankles, knees, hands which feels very similar to his prior rheumatoid arthritis flares and he cannot get to sleep. He has been tried on Toradol, OxyContin, Xanax and has only been able sleep approximately 30 minutes. Denies any significant shortness breath. Remains on milrinone 0.2 with cardiac output cardiac index in the 7/3 range respectively. PA pressures relatively stable 30s over 15-20 and CVP 7-10. Creatinine stable however sodium decreasing down to 129. His pacemaker was turned off with no further diaphragmatic pacing and remains sinus rhythm with heart rates in the 70s to 80s. 04/14 Patient seen and examined in the ICU. He states he has been up and walked this morning in the hallway. He is having difficulty breathing on and off. He denies having any chest pain or chest pressure. No fever and no cough. He continues to have fatigue and feel tired as he is not sleeping and only obtain half hour increments. Patient continues to have achiness all over and states the bed is not comfortable for him as he is too tall for the bed frame. Blood pressure 146/66, heart rate 55, pulse ox 94% on room air. Patient is currently on IV Lasix 40 mg every 12 hours. Milrinone and amiodarone were discontinued yesterday. TSH is 2.77. Sodium 128, potassium 4.5, BUN 35 creatinine 1.11 04/15 Patient is seen and examined in the intensive care unit. He states that he has slept better with sleep sessions lasting 2 to 3 hours. He is complaining of intermittent shortness of breath. Blood pressure 137/71, heart rate 50s. He is on IV Lasix 40 mg every 12 hours. He in general appears to be more comfortable today but still having dyspnea. Repeat blood work reveals hemoglobin 8.8, creatinine 1.01, potassium 4.4. Repeat chest x-ray reveals improving infiltrates with residual infiltrates at the lung bases. PHYSICAL EXAMINATION Vital signs reviewed. CONSTITUTIONAL: No apparent distress. HEENT: Head is normocephalic. Pupils are equal, round. Sclerae anicteric. Mucous membranes of the mouth are moist. No JVD. No carotid bruit. CHEST EXAMINATION: Lungs are clear to auscultation. No chest wall tenderness is noted on palpation or with deep breathing. Mild accessory muscle usage. HEART EXAMINATION: Regular rate and rhythm. S1, S2 heard. No murmurs, gallops or rub. ABDOMEN: Soft, nontender. Positive bowel sounds. EXTREMITIES: 2+ peripheral pulses, no lower extremity edema and no calf tenderness. NEUROLOGIC EXAMINATION: Patient is awake, alert and oriented x3. ASSESSMENT Severe mitral regurgitation status post 31 mm Mosaic porcine bioprosthetic valve replacement, tricuspid valve repair, maze procedure and left atrial appendage clip in Mild coronary artery disease Nonischemic cardiomyopathy Chronic systolic heart failure EF 40-45% intraop Hypotension improving Persistent atrial fibrillation status post maze procedure currently sinus rhythm Anemia Rheumatoid arthritis Insomnia Joint pain likely RA flare Hyponatremia PLAN Continue current cardiac medications Continue diuresing with IV Lasix Continue with NSAIDs, pain meds. Continue with metoprolol at this time. Further recommendations as patient progresses Nurse practitioner note has been reviewed, I agree with documented findings and plan of care. Patient was seen and examined. Objective - Vital Signs Vital signs: Vital Signs Temp 98 F 04/15/24 04:00 Pulse 58 L 10/06/24 08:16 Resp 15 04/15/24 07:00 BP 131/71 04/15/24 07:00 Pulse Ox 96 04/15/24 07:00 FiO2 50 04/11/24 19:00 Intake & Output 04/14/24 04/15/24 04/15/24 18:59 06:59 18:59 Intake Total 773 699 Output Total 1675 2300 Balance -902 -1601 Weight 109.1 kg Intake: IV 273 299 Pressure Bags 33 39 Sodium Chloride 0.9% 1, 240 260 000 ml @ 30 mls/hr IV . Q24H [facility] Rx#:[id number] Oral 500 400 Output: Urine 1675 2300 Other: Voiding Method Indwelling Catheter Indwelling Catheter Indwelling Catheter ABP, PAP, CO, CI - Last Documented Arterial Blood Pressure 116/50 Pulmonary Artery Pressure 13/8 Cardiac Output 6.8 Cardiac Index 2.9 - Labs CBC & Chem 7: 04/15/24 05:25 04/15/24 05:25 Labs: Abnormal Lab Results - Last 24 Hours (Table) 04/14/24 04/14/24 04/14/24 Range/Units 11:05 16:33 20:46 RBC (4.30-5.90) m/uL Hgb (13.0-17.5) gm/dL Hct (39.0-53.0) % RDW (11.5-15.5) % Plt Count (150-450) k/uL Sodium (137-145) mmol/L BUN (9-20) mg/dL Glucose (74-99) mg/dL POC Glucose (mg/dL) 129 H 124 H 122 H (70-110) mg/dL Calcium (8.4-10.2) mg/dL 04/15/24 04/15/24 04/15/24 Range/Units 05:25 05:25 06:35 RBC 2.91 L (4.30-5.90) m/uL Hgb 8.8 L (13.0-17.5) gm/dL Hct 25.1 L (39.0-53.0) % RDW 16.5 H (11.5-15.5) % Plt Count 112 L (150-450) k/uL Sodium 131 L (137-145) mmol/L BUN 36 H (9-20) mg/dL Glucose 106 H (74-99) mg/dL POC Glucose (mg/dL) 112 H (70-110) mg/dL Calcium 8.3 L (8.4-10.2) mg/dL
[2024-04-15 11:27] LABS: Glucose,Whole Blood 113 mg/dL (70-110)
--- NOTE | 2024-04-15 14:01 | P.PN ---
Subjective Progress Note Date: 04/15/24 Principal diagnosis: POD #4 mitral valve replacement using a 31 mm Mosaic porcine bioprosthesis, decalcification of the mitral annulus using the sono PET machine, tricuspid valve repair using a 30 mm MC3 band, full biatrial maze procedure Patient is a 68-year-old white male with past medical history significant for atrial fibrillation and valvular heart disease. Outpatient, patient was noted to have atrial fibrillation. In January, a cardioversion was attempted, but u ltimately failed. Patient was found to have severe mitral valve regurgitation, as well as, moderate tricuspid regurgitation. Patient was brought in yesterday for mitral valve replacement with bioprosthetic valve, tricuspid valve repair, full biatrial maze procedure, exclusion of left atrial appendage. Intraoperatively, patient was hypotensive, started on multiple vasopressors including norepinephrine, vasopressin, and also Primacor. Patient did receive 1.5 L 5% albumin, 3.9 L crystalloid fluid since surgery. Patient's OR exit time was to 1532. Postoperatively, he was sent to the intensive care unit for recovery. Initially, on the mechanical ventilator. Initial ABG: PaO2 of 139, pCO2 of 42, pH of 7.37. Postoperative, chest x-ray showing postsurgical changes. Endotracheal tube 4.4 cm from the juliano. Cardiomegaly and mild PVC. No pneumothoraces or effusions. Patient was extubated successfully using the rapid extubation protocol at 1842. Patient is currently being evaluated in the intensive care unit. He is on 3 L/min nasal cannula. He is in no acute respiratory distress. He is awake and alert. Blood pressure remains hypotensive. He is currently on norepinephrine which is infusing at 0.04 mcg/kg/min. Vasopressin also infusing at 0.03 units/min. Primacor at 0.3 mcg /kg/h. Normal saline infusing at 50 mL/h. Insulin also infusing at 4 units/h. Heart rhythm is dual paced at 80 bpm. Current blood pressure 105/47 mmHg. PA pressures 41/18 mmHg. Most recent CO/CI are 5.7/2.4 respectively. SVR 827. Urine output is in the order of 50 to 70 mL/h. He does have 2 mediastinal chest tubes that are wide together with a total of 500 of sanguinous output. Atrium is to suction at -20 cm H2O. No airleak. Most recent CBC: WBC count 11.2, hemoglobin 9.5, hematocrit 28.4, platelets 113. Most recent postoperative CMP: Sodium 137, potassium 3.9, chloride 109, serum bicarb 23, BUN 22, creatinine 0.87, glucose 127. LFTs unremarkable. Patient continues to be monitored in the intensive care unit. Patient was evaluated today on 04/13/2024, patient is now postoperative day #2, mitral valve replacement and the calcification of mitral annulus as well as tricuspid valve repair. Patient is doing fairly well, does not seem to be in any distress, he is on room air, no cough no wheezing no shortness of breath, he is in sinus rhythm, chest x-ray is showing some evidence of interstitial edema, received Lasix earlier today, and he is responding well to Lasix. Remains on low-dose Primacor, off vasopressin off norepinephrine. Patient is achieving over 2000 cc on incentive spirometry. Patient did ambulate in the hallway yesterday without difficulty. And he would likely ambulate today again. WBC count is 10 hemoglobin 8.2, basic metabolic profile is unremarkable except for low sodium of 129. This is likely hypervolemic hyponatremia Patient was evaluated today on 04/14/2024, patient is on room air, not in any distress, remains on milrinone, continues to do well with incentive spirometry, achieving over 2000 mL on his incentive spirometry. Patient has already been ambulating with assistance without difficulty. No hemodynamic or arrhythmia issues overnight. This x-ray continues to show evidence of interstitial edema that is being addressed by cardiothoracic surgery clinically does not seem to be in any distress, and the findings clinically do not match with her chest x-ray finding Patient was seen today on 04/15/2024, patient is still in ICU, hemodynamically stable, off all pressors and inotropes, on room air, not in any distress, chest x-ray is showing significant improvement in his interstitial edema. Patient is achieving over 2000 cc on incentive spirometry, patient is ambulating with assistance in the hallway, his tubes and lines as well as right IJ Cordis been removed, Labs were reviewed relatively normal CBC and normal basic metabolic profile transfer tech Objective - Vital Signs Vital signs: Vital Signs Temp 98.0 F 04/15/24 12:00 Pulse 64 04/15/24 12:00 Resp 21 04/15/24 12:00 BP 131/69 04/15/24 13:00 Pulse Ox 97 04/15/24 12:00 FiO2 50 04/11/24 19:00 Intake & Output 04/14/24 04/15/24 04/15/24 18:59 06:59 18:59 Intake Total 773 699 500 Output Total 1675 2300 1600 Balance -902 -1601 -1100 Weight 109.1 kg Intake: IV 273 299 Pressure Bags 33 39 Sodium Chloride 0.9% 1, 240 260 000 ml @ 30 mls/hr IV . Q24H [facility] Rx#:[id number] Oral 500 400 500 Output: Urine 1675 2300 1600 Other: Voiding Method Indwelling Catheter Indwelling Catheter Indwelling Catheter ABP, PAP, CO, CI - Last Documented Arterial Blood Pressure 116/50 Pulmonary Artery Pressure 13/8 Cardiac Output 6.8 Cardiac Index 2.9 - Exam General: Reveals 68-year-old white male in no distress, on room air. RESPIRATORY: Symmetrical chest expansion, minimal crackles at the bases no rhonchi no wheezes CARDIOVASCULAR: Normal S1-S2, no S3 gallop, 2/6 systolic murmur throughout the precordium GASTROINTESTINAL: Soft nontender no megaly no rebound no guarding INTEGUMENTARY: No rashes, anterior chest incision is well-approximated and dry NEUROLOGIC: Alert oriented x 3 no gross focal deficit MUSKULOSKELETAL: No deformities and no limitation range of motion PSYCHIATRIC: Normal mood affect and no mental status examination - Labs CBC & Chem 7: 04/15/24 05:25 04/15/24 05:25 Labs: Abnormal Lab Results - Last 24 Hours (Table) 04/14/24 04/14/24 04/15/24 Range/Units 16:33 20:46 05:25 RBC 2.91 L (4.30-5.90) m/uL Hgb 8.8 L (13.0-17.5) gm/dL Hct 25.1 L (39.0-53.0) % RDW 16.5 H (11.5-15.5) % Plt Count 112 L (150-450) k/uL Sodium (137-145) mmol/L BUN (9-20) mg/dL Glucose (74-99) mg/dL POC Glucose (mg/dL) 124 H 122 H (70-110) mg/dL Calcium (8.4-10.2) mg/dL 04/15/24 04/15/24 04/15/24 Range/Units 05:25 06:35 11:25 RBC (4.30-5.90) m/uL Hgb (13.0-17.5) gm/dL Hct (39.0-53.0) % RDW (11.5-15.5) % Plt Count (150-450) k/uL Sodium 131 L (137-145) mmol/L BUN 36 H (9-20) mg/dL Glucose 106 H (74-99) mg/dL POC Glucose (mg/dL) 112 H 113 H (70-110) mg/dL Calcium 8.3 L (8.4-10.2) mg/dL Assessment and Plan Assessment: Impression: POD 4 mitral valve replacement using a 31 mm Mosaic porcine bioprosthesis, decalcification of the mitral annulus using the sono PET machine, tricuspid valve repair using a 30 mm MC3 band, full biatrial maze procedure using radiofrequency and cryoablation, exclusion of the left atrial appendage using a 35mm AtriClip, intraoperative transesophageal echocardiogram and epiaortic scanning Moderate to severe mitral valve regurgitation, status post mitral valve replacement using a 31 mm Mosaic porcine bioprosthesis 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, status post decalcification of the mitral annulus Moderate tricuspid valve regurgitation, status post tricuspid valve repair using a 30 mm MC3 band Severe LV dysfunction with ejection fraction of 30 to 35% Moderate severe pulmonary hypertension Postoperative acute blood loss anemia, expected Recommendation: Continue diuretics Continue to monitor in ICU Continue Plavix statin and aspirin Continue incentive spirometry Titrate Primacor Continue ambulation Will continue to follow Time with Patient: Less than 30
[2024-04-15 16:47] LABS: Magnesium 2.3 mg/dL (1.6-2.3); Potassium 4.3 mmol/L (3.5-5.1)
[2024-04-15 17:09] LABS: Glucose,Whole Blood 114 mg/dL (70-110)
--- NOTE | 2024-04-15 19:58 | P.PN ---
Progress Note - Text Progress Note Date: 04/15/24 - Chief Complaint Cardiothoracic surgery - History of Present Illness 68-year-old patient, follows with Dr. Paulina Fuller. Medical history includes atrial fibrillation, decreased hearing, rheumatoid arthritis, history of bleeding ulcers in the past. Diagnosed with atrial fibrillation in November 2023. Has been had back surgery x 2. Currently in the ICU. Extubated. Patient had known moderate to severe mitral valve disorder, moderate to severe mitral annular calcification, tricuspid valve regurgitation moderate, moderate to severe secondary pulmonary hypertension, and LV dysfunction. Permanent atrial fibrillation. Patient is undergone mitral valve replacement with Mosaic porcine bioprosthesis, decalcification of mitral valve Combs, tricuspid valve repair with a band, biatrial maze procedure, exclusion left atrial appendage. Postprocedure. Extubated. Reclining in bed. Drips include IV vasopressin, IV norepinephrine, IV milrinone, insulin. Telemetry shows dual-chamber paced rhythm. Patient has to mediastinal chest tubes. León catheter. April 12: Patient up in a chair. Clear liquids. Chest tubes in place. Did walk in the hallway. Patient is on IV milrinone, IV norepinephrine, IV insulin. at the bedside. April 13: Up in the chair. Family at the bedside. Chest tubes in place. Was given Lasix. Pleural effusion. Some shortness of breath. Remains on IV insulin. Did pass some flatus. Eating fair. Pacemaker disconnected. Insulin drip will be stopped. Put on Accu-Cheks to ACHS with sliding scale. Patient did ambulate in the hallway. April 14: Up in a chair. Did ambulate. Junctional rhythm. Some shortness of breath. IV Lasix 40 mg every 12. Chest tubes were removed earlier today. Has had flatus. Eating fair. April 15: Sitting in the chair. Did walk in the hallway. Eating fair. Had a bowel movement. Some shortness of breath. Remains on IV Lasix. Sinus rhythm. Checks x-ray today showing some pleural effusion Active Medications Acetaminophen (Acetaminophen Tab 325 Mg Tab) 650 mg PO Q4HR PRN PRN Reason: Fever And/ Or Mild Pain (1-3) Albuterol/Ipratropium (Ipratropium-Albuterol 3 Ml Neb) 3 ml INHALATION RT-Q2H PRN PRN Reason: Shortness Of Breath Or Wheezing Albuterol/Ipratropium (Ipratropium-Albuterol 3 Ml Neb) 3 ml INHALATION RT-QID [facility] Last Admin: 04/15/24 15:42 Dose: 3 ml Alprazolam (Alprazolam 0.25 Mg Tab) 0.25 mg PO QID PRN PRN Reason: Anxiety Last Admin: 04/14/24 20:51 Dose: 0.25 mg Aspirin (Aspirin 325 Mg Tab) 325 mg PO DAILY [facility] Last Admin: 04/15/24 09:08 Dose: 325 mg Atorvastatin Calcium (Atorvastatin 20 Mg Tab) 20 mg PO HS [facility] Last Admin: 04/14/24 20:51 Dose: 20 mg Benzocaine/Menthol (Benzocaine/Menthol Lozeng 1 Each Lozenge) 1 each MUCOUS MEM Q2H PRN PRN Reason: Sore Throat Last Admin: 04/14/24 17:16 Dose: 1 each Bisacodyl (Bisacodyl 10 Mg Supp) 10 mg RECTAL DAILY PRN PRN Reason: Constipation Budesonide (Budesonide 1 Mg/2 Ml Nebu) 1 mg INHALATION RT-BID [facility] Last Admin: 04/15/24 08:00 Dose: 1 mg Clopidogrel Bisulfate (Clopidogrel 75 Mg Tab) 75 mg PO DAILY [facility] Last Admin: 04/15/24 09:08 Dose: 75 mg Dextrose/Water (Dextrose 50% Syringe 50 Ml) 25 ml IVP PER PROTOCOL PRN; Protocol PRN Reason: Hypoglycemia Dextrose/Water (Dextrose 50% Syringe 50 Ml) 50 ml IVP PER PROTOCOL PRN; Protocol PRN Reason: Hypoglycemia Furosemide (Furosemide 10 Mg/Ml 4 Ml Vial) 40 mg IV Q12HR [facility] Last Admin: 04/15/24 09:08 Dose: 40 mg Heparin Sodium (Porcine) (Heparin Sodium,Porcine 5,000 Unit/Ml 1 Ml Vial) 5,000 unit SQ Q8HR [facility] Last Admin: 04/15/24 18:48 Dose: Not Given Hydralazine HCl (Hydralazine Hcl 50 Mg Tab) 50 mg PO BID [facility] Last Admin: 04/15/24 09:08 Dose: 50 mg Amiodarone HCl 150 mg/ (Dextrose/Water) 103 mls @ 618 mls/hr IV .Q10M PRN; Protocol PRN Reason: A.FIB/FLUTTER Amiodarone HCl 360 mg/ (Dextrose/Water) 207.2 mls @ 34.533 mls/hr IV .Q6H PRN; Protocol PRN Reason: A.FIB/FLUTTER Amiodarone HCl 450 mg/ (Dextrose/Water) 250 mls @ 16.667 mls/hr IV .Q15H PRN; Protocol PRN Reason: A.FIB/FLUTTER Calcium Gluconate/Sodium (Chloride 2 gm/ IV Solution) 100 mls @ 100 mls/hr IVPB ONCE PRN PRN Reason: Ionized Calcium less than 4.4 Stop: 04/18/24 15:52 Insulin Aspart (Insulin Aspart (Novolog) 100 Unit/Ml Vial) 0 unit SQ [facility]; Protocol Last Admin: 04/15/24 17:23 Dose: Not Given Magnesium Hydroxide (Magnesium Hydroxide 2,400 Mg/30 Ml Cup) 2,400 mg PO BID PRN PRN Reason: Constipation Melatonin (Melatonin 3 Mg Tablet) 6 mg PO [facility] Last Admin: 04/14/24 20:51 Dose: 6 mg Methocarbamol (Methocarbamol 500 Mg Tab) 1,000 mg PO QID PRN PRN Reason: Muscle Spasm Last Admin: 04/14/24 20:50 Dose: 1,000 mg Metoclopramide HCl (Metoclopramide 5 Mg/Ml 2 Ml Vial) 10 mg IVP Q4H PRN PRN Reason: Nausea And Vomiting Miscellaneous Information (Magnesium Replacement Protocol 1 Each Misc) 1 each MISCELLANE DAILY PRN; Protocol PRN Reason: Per Protocol Miscellaneous Information (Potassium Replacement Protocol 1 Each Misc) 1 each MISCELLANE DAILY PRN; Protocol PRN Reason: Per Protocol Ondansetron HCl (Ondansetron 4 Mg/2 Ml Vial) 4 mg IVP Q6HR PRN PRN Reason: Nausea And Vomiting Last Admin: 04/12/24 06:10 Dose: 4 mg Oxycodone HCl (Oxycodone Hcl 5 Mg Tab) 5 mg PO Q4HR PRN PRN Reason: Breakthrough Pain Last Admin: 04/12/24 20:57 Dose: 5 mg Pantoprazole Sodium (Pantoprazole 40 Mg Tablet) 40 mg PO -BRKFST [facility] Last Admin: 04/15/24 06:32 Dose: 40 mg Petrolatum (Zinc Oxide Paste (Z-Guard) 1 Applic) 1 applic TOPICAL BID PRN; Protocol PRN Reason: Wound Healing Senna/Docusate Sodium (Sennosides-Docusate Sodium 1 Each Tab) 2 each PO HS [facility] Last Admin: 04/14/24 20:51 Dose: 2 each Sodium Chloride (Sodium Chloride 0.9% Flush 10 Ml Syringe) 10 ml IV BID [facility] Last Admin: 04/15/24 09:08 Dose: 10 ml Social history: Patient smoked from the age of 22 to 32 packs a day. Alcohol rarely. . Physical examination: VITAL SIGNS: 98, 70, 13, 128/47, 98% room air GENERAL: Up in a chair.. EYES: Pupils equal. Conjunctiva carlos l. HEENT: External appearance of nose and ears normal, oral cavity grossly normal. NECK: JVD unable to assess; masses not palpable. HEART: First and second heart sounds are normal; no edema. LUNGS: Respiratory rate increased; decreased breath sounds. ABDOMEN: Soft, nontender, liver spleen not palpable, no masses palpable. León catheter PSYCH: AOx3, mood affect a bit anxious MUSCULOSKELETAL:No Clubbing/cyanosis;muscles-grossly intact. INVESTIGATIONS, reviewed in the clinical context: April 15: White count 9.4 hemoglobin 8.8 platelets 112 potassium 4.4 creatinine 1.01 April 14: White count 9.8 hemoglobin 8.4 platelets 103 potassium 4.5 sodium 128 creatinine 1.11 April 13: White count 10 hemoglobin 8.2 platelets 78 sodium 129 potassium 3.9 B UN 26 creatinine 1.1 TSH 2.7 April 12: White count 11.7 hemoglobin 9.1 platelets 108 potassium 4.6 creatinine 0.84 April 11, 2024: White count 14.5 hemoglobin 11.1 platelets 125 sodium 137 potassium 3.9 BUN 22 creatinine 0.87 April 06: White count 8.2 hemoglobin 14.3 potassium 4.3 BUN 20 creatinine 0.9 LDL 60.3 Chest x-ray film personally reviewed by me-reports [place] catheter projects over the heart on the left heart. Endotracheal tube NG tube in appropriate position. 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 Permanent atrial fibrillation. Patient is undergone mitral valve replacement with Mosaic porcine bioprosthesis, decalcification of mitral valve Combs, tricuspid valve repair with a band, biatrial maze procedure, exclusion left atrial appendage. -Acute postprocedure blood loss anemia expected from surgery Follow H&H -Acute hypoxic respiratory failure, status post ventilator support, for cardiothoracic procedure: Improved Currently on nasal cannula -Moderate to severe pulmonary hypertension -Fluid overload, with pulmonary edema IV Lasix 40 mg every 12 -Dilutional thrombocytopenia -Mild hyponatremia with hypervolemia Patient received Lasix. Encourage oral intake. Fluid restriction -COPD no prior smoker Bronchodilators -Hyperglycemia, not a diabetic DC insulin drip. Accu-Cheks with sliding scale insulin. -Permanent atrial fibrillation Outpatient was on Xarelto -Few pulmonary micronodules measuring less than 4 mm. This could be followed up with pulmonary outpatient. -Hard of hearing -Chronic rheumatoid arthritis -Full code IV Lasix. Fluid restriction. Discussed. Doing better. Thank you Dr. Scott Past Medical History Past Medical History: Atrial Fibrillation, GI Bleed, Hearing Disorder / Deafness, Pneumonia, Rheumatoid Arthritis (RA) Additional Past Medical History / Comment(s): Recently dx with Afib in the last month Nov, 2023. Recent shortness of breath and started seeing speeder tender in July 2023 and was put on inhalker, as needed. Hx bleeding ulcer in the past. Tinnitis. History of Any Multi-Drug Resistant Organisms: None Reported Past Surgical History: Heart Catheterization, Orthopedic Surgery, Tonsillectomy Additional Past Surgical History / Comment(s): back operation x2. Cardiac cath January 2024. Past Anesthesia/Blood Transfusion Reactions: No Reported Reaction, Postoperative Nausea & Vomiting (PONV) Additional Past Anesthesia/Blood Transfusion Reaction / Comm: No hx of blood transfusion. Smoking Status: Former smoker
[2024-04-15 21:41] LABS: Glucose,Whole Blood 105 mg/dL (70-110)
[2024-04-16 06:36] LABS: Anisocytosis Slight; HCT 27.1 % (39.0-53.0); HGB 8.9 gm/dL (13.0-17.5); MCH 29.4 pg (25.0-35.0); MCHC 32.7 g/dL (31.0-37.0); MCV 89.9 fL (80.0-100.0); Mean Platelet Volume 8.7; Platelet Count 140 k/uL (150-450); RBC 3.02 m/uL (4.30-5.90); RDW 16.6 % (11.5-15.5); WBC 8.6 k/uL (3.8-10.6)
[2024-04-16 06:38] LABS: Glucose,Whole Blood 99 mg/dL (70-110)
[2024-04-16 06:55] LABS: African American GFR (CKD) >90 (>60 ml/min/1.73 sqM); Anion Gap 8 mmol/L; Blood Urea Nitrogen 34 mg/dL (9-20); Calcium 8.4 mg/dL (8.4-10.2); Carbon Dioxide 27 mmol/L (22-30); Chloride 97 mmol/L (98-107); Glucose 100 mg/dL (74-99); Magnesium 2.3 mg/dL (1.6-2.3); Non-African American GFR(CKD) 80 (>60 ml/min/1.73 sqM); Potassium 4.1 mmol/L (3.5-5.1); Sodium 132 mmol/L (137-145)
[2024-04-16] MEDS ORDERED: SENNOSIDES-DOCUSATE SODIUM 1 EACH TAB PO PRN (06:55)
--- NOTE | 2024-04-16 07:20 | P.PN ---
Subjective Progress Note Date: 04/16/24 Principal diagnosis: Moderate to severe mitral valve regurgitation, moderate to severe mitral annular calcification, moderate tricuspid valve regurgitation, moderate to severe pulm onary hypertension, moderate to severe left ventricular dysfunction. History of permanent atrial fibrillation status post unsuccessful cardioversion in January 2024, hyperlipidemia, previous tobacco dependence, mild COPD, remote history of pneumonia, rheumatoid arthritis previously on methotrexate, hyperglycemia not previously diagnosed as a diabetic, family history of premature coronary artery disease in both parents POD #5 mitral valve replacement using a 31 mm Mosaic porcine bioprosthesis, deca lcification of the mitral annulus using the [employer] PET machine, tricuspid valve repair using a 30 mm MC3 band, full biatrial maze procedure using radiofrequency and cryoablation, exclusion of the left atrial appendage using a 35mm AtriClip, intraoperative transesophageal echocardiogram and epiaortic scanning Postoperative acute blood loss anemia and thrombocytopenia, expected given hemodilution and cardiopulmonary bypass pump Hypotension requiring vasopressors, expected, currently stable off all pressors Hypervolemic hyponatremia, unexpected The patient was seen and examined this morning sitting up in recliner in the intensive care unit eating breakfast in no acute distress. Currently junctional vs slow afib on telemetry, hemodynamically stable. Patient denies significant post operative pain, states arthritic pain better with addition of Robaxin, does still get intermittent periods of shortness of breath. Continues on BID dosing IV lasix yesterday, has put out over 4L in urine in the last 24 hours. Currently on room air with oxygen saturation in the high 90s, able to achieve 2000 mL on his incentive spirometry. Chest x-ray, labs reviewed. Patient continues to ambulate all the way around the ICU hallway several times daily without difficulty, had first postoperative shower yesterday. No other new concerns. Objective - Vital Signs Vital signs: Vital Signs Temp 97.5 F L 04/16/24 06:00 Pulse 59 L 04/16/24 06:37 Resp 22 04/16/24 06:37 BP 129/69 04/16/24 06:37 Pulse Ox 100 04/16/24 06:37 FiO2 50 04/11/24 19:00 Intake & Output 04/15/24 04/16/24 04/16/24 18:59 06:59 18:59 Intake Total 500 240 Output Total 1600 2850 Balance -1100 -2610 Weight 105.1 kg Intake: Oral 500 240 Output: Urine 1600 2600 Straight 450 Post Void Residual 250 Other: Voiding Method Indwelling Catheter Urinal # Voids 1 # Bowel Movements 2 ABP, PAP, CO, CI - Last Documented Arterial Blood Pressure 116/50 Pulmonary Artery Pressure 13/8 Cardiac Output 6.8 Cardiac Index 2.9 - Exam CONSTITUTIONAL: Appears comfortable, cooperative, no acute distress RESPIRATORY: Lungs sounds diminished in the bases bilaterally. Respirations even, nonlabored. Currently on room air with oxygen saturation 100%. Able to achieve 2000 mL on incentive spirometry. Strong nonproductive cough. CARDIOVASCULAR: S1, S2 present. Regular rate although irregular at times, junctional rhythm vs slow afib on telemetry. Sternum stable. Palpable peripheral pulses bilaterally. No edema present. No calf pain or tenderness noted. Heart hugger in place with patient demonstrating appropriate use. Antiembolism stockings, SCDs present. GASTROINTESTINAL: Abdomen soft, nontender, nondistended. Active bowel sounds present 4 quadrants. Tolerating diet. Positive bowel movement x 2 04/15 GENITOURINARY: León discontinued yesterday, did need straight cath x 1 last night but has been voiding ever since. Output 4200 mL in the last 24 hours INTEGUMENTARY: Skin is warm and dry with evidence of good perfusion. Anterior chest incision well approximated NEUROLOGIC: Cranial nerves II through XII intact MUSKULOSKELETAL: Able to move all extremities, strength equal bilaterally, gait normal PSYCHIATRIC: Alert and oriented to person place and time, appropriate affect, intact judgment and insight INVASIVE LINES AND TUBES: A/V epicardial pacemaker wires present, grounded - Allied health notes Allied health notes reviewed: nursing - Labs CBC & Chem 7: 04/16/24 06:12 04/16/24 06:12 Labs: Abnormal Lab Results - Last 24 Hours (Table) 04/15/24 04/15/24 04/16/24 Range/Units 11:25 17:07 06:12 RBC 3.02 L (4.30-5.90) m/uL Hgb 8.9 L (13.0-17.5) gm/dL Hct 27.1 L (39.0-53.0) % RDW 16.6 H (11.5-15.5) % Plt Count 140 L (150-450) k/uL Sodium (137-145) mmol/L Chloride (98-107) mmol/L BUN (9-20) mg/dL Glucose (74-99) mg/dL POC Glucose (mg/dL) 113 H 114 H (70-110) mg/dL 04/16/24 Range/Units 06:12 RBC (4.30-5.90) m/uL Hgb (13.0-17.5) gm/dL Hct (39.0-53.0) % RDW (11.5-15.5) % Plt Count (150-450) k/uL Sodium 132 L (137-145) mmol/L Chloride 97 L (98-107) mmol/L BUN 34 H (9-20) mg/dL Glucose 100 H (74-99) mg/dL POC Glucose (mg/dL) (70-110) mg/dL - Imaging and Cardiology Chest x-ray: image reviewed Assessment and Plan Assessment: Moderate to severe mitral valve regurgitation, status post mitral valve replacement using a 31 mm Mosaic porcine bioprosthesis 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, status post decalcification of the mitral annulus using the sono PET machine Moderate tricuspid valve regurgitation, status post tricuspid valve repair using a 30 mm MC3 band Moderate to severe pulmonary hypertension Moderate to severe left ventricular dysfunction, EF 30-35% Postoperative acute blood loss anemia and thrombocytopenia, expected given hemodilution and cardiopulmonary bypass pump Hypotension requiring vasopressors, expected, resolved Hypervolemic hyponatremia, unexpected, resolving History of permanent atrial fibrillation status post unsuccessful cardioversion in January 2024, on Xarelto outpatient for anticoagulation, status post full biatrial maze procedure using radiofrequency and cryoablation, exclusion of the left atrial appendage using a 35mm AtriClip Hyperlipidemia, treated, cholesterol 120, LDL 60, triglycerides 94 Previous tobacco dependence, quit smoking 30 years ago Mild COPD, preoperative FEV1 70% of predicted Remote history of pneumonia Rheumatoid arthritis previously on methotrexate, last dose in July 2023 Hyperglycemia not previously diagnosed as a diabetic, preoperative hemoglobin A1c 6.6% Family history of premature coronary artery disease in both parents Plan: Continue aspirin, statin, Plavix. Continue to hold beta-edelmira for now Continue oral hydralazine for afterload reduction, add cozaar Encourage incentive spirometry use 10 times every hour while awake. Bron chodilators per pulmonology Increase activity as tolerated, PT/OT/cardiac rehab consulted Will monitor daily labs and x-rays. Electrolyte replacement per protocol. Continue Lasix 40 mg IV push twice daily, change time of administration to 0900- 1600 GI/DVT prophylaxis Pain control per current medication regimen Insulin management per internal medicine. Patient is not previously diagnosed as diabetic, however his preoperative hemoglobin A1c was 6.6%, needs tight blood sugar control Continue to monitor and record strict accurate intake and output Ground epicardial pacer wires Shower daily Will repeat echo today to eval LV function Keep in ICU More recommendations to follow
[2024-04-16 07:42] LABS: Glucose,Whole Blood 107 mg/dL (70-110)
--- NOTE | 2024-04-16 08:38 | XR ---
EXAMINATION TYPE: XR chest 2V DATE OF EXAM: 04/16/2024 COMPARISON: 04/15/2024 HISTORY: 68 year-old male post cardiac surgery TECHNIQUE: PA and lateral views FINDINGS: Median sternotomy wires and post-CABG clips. Heart borderline enlarged. Diffuse interstitial density similar. Hyperinflation. Trace bilateral pleural effusions remain but are improving. Adjacent patchy basilar opacities. IMPRESSION: COPD with superimposed pulmonary vascular congestion relatively similar. Trace bilateral pleural effu sions with adjacent atelectasis and/or consolidation are improving. [facility], , 04/16/2024 8:35 AM
[2024-04-16] MEDS ORDERED: MD COMMUNICATION TO PHARMACY 1 EACH MISC PO PRN (09:18)
[2024-04-16] MEDS: BISMUTH SUBSALICYLATE 4,192 MG/240 ML BOTTLE PO ONE (09:23)
[2024-04-16 11:27] LABS: Glucose,Whole Blood 100 mg/dL (70-110)
[2024-04-16] MEDS: LOSARTAN 50 MG TAB PO SCH (12:02)
--- NOTE | 2024-04-16 12:02 | P.PN ---
Subjective Progress Note Date: 04/16/24 Patient is a 68-year-old white male with past medical history significant for atrial fibrillation and valvular heart disease. Outpatient, patient was noted to have atrial fibrillation. In January, a cardioversion was attempted, but ultimately failed. Patient was found to have severe mitral valve regurgitation, as well as, moderate tricuspid regurgitation. Patient was brought in yesterday for mitral valve replacement with bioprosthetic valve, tricuspid valve repair, full biatrial maze procedure, exclusion of left atrial appendage. Intraoperatively, patient was hypotensive, started on multiple vasopressors including norepinephrine, vasopressin, and also Primacor. Patient did receive 1.5 L 5% albumin, 3.9 L crystalloid fluid since surgery. Patient's OR exit time was to 1532. Postoperatively, he was sent to the intensive care unit for recovery. Initially, on the mechanical ventilator. Initial ABG: PaO2 of 139, pCO2 of 42, pH of 7.37. Postoperative, chest x-ray showing postsurgical adiel nges. Endotracheal tube 4.4 cm from the juliano. Cardiomegaly and mild PVC. No pneumothoraces or effusions. Patient was extubated successfully using the rapid extubation protocol at 1842. Patient is currently being evaluated in the intensive care unit. He is on 3 L/min nasal cannula. He is in no acute respiratory distress. He is awake and alert. Blood pressure remains hypotensive. He is currently on norepinephrine which is infusing at 0.04 mcg/kg/min. Vasopressin also infusing at 0.03 units/min. Primacor at 0.3 mcg/kg/h. Normal saline infusing at 50 mL/h. Insulin also infusing at 4 units/h. Heart rhythm is dual paced at 80 bpm. Current blood pressure 105/47 mmHg. PA pressures 41/18 mmHg. Most recent CO/CI are 5.7/2.4 respectively. SVR 827. Urine output is in the order of 50 to 70 mL/h. He does have 2 mediastinal chest tubes that are wide together with a total of 500 of sanguinous output. Atrium is to suction at -20 cm H2O. No airleak. Most recent CBC: WBC count 11.2, hemoglobin 9.5, hematocrit 28.4, platelets 113. Most recent postoperative CMP: Sodium 137, potassium 3.9, chloride 109, serum bicarb 23, BUN 22, creatinine 0.87, glucose 127. LFTs unremarkable. Patient continues to be monitored in the intensive care unit. Patient was evaluated today on 04/13/2024, patient is now postoperative day #2, mitral valve replacement and the calcification of mitral annulus as well as tricuspid valve repair. Patient is doing fairly well, does not seem to be in an y distress, he is on room air, no cough no wheezing no shortness of breath, he is in sinus rhythm, chest x-ray is showing some evidence of interstitial edema, received Lasix earlier today, and he is responding well to Lasix. Remains on low-dose Primacor, off vasopressin off norepinephrine. Patient is achieving over 2000 cc on incentive spirometry. Patient did ambulate in the hallway yesterday without difficulty. And he would likely ambulate today again. WBC count is 10 hemoglobin 8.2, basic metabolic profile is unremarkable except for low sodium of 129. This is likely hypervolemic hyponatremia Patient was evaluated today on 04/14/2024, patient is on room air, not in any distress, remains on milrinone, continues to do well with incentive spirometry, achieving over 2000 mL on his incentive spirometry. Patient has already been ambulating with assistance without difficulty. No hemodynamic or arrhythmia issues overnight. This x-ray continues to show evidence of interstitial edema t hat is being addressed by cardiothoracic surgery clinically does not seem to be in any distress, and the findings clinically do not match with her chest x-ray finding Patient was seen today on 04/15/2024, patient is still in ICU, hemodynamically stable, off all pressors and inotropes, on room air, not in any distress, chest x-ray is showing significant improvement in his interstitial edema. Patient is achieving over 2000 cc on incentive spirometry, patient is ambulating with assistance in the hallway, his tubes and lines as well as right IJ Cordis been removed, Labs were reviewed relatively normal CBC and normal basic metabolic profile transfer tech The patient is seen today April 16, 2024 in follow-up in the intensive care unit. He is currently sitting up in a chair at the bedside. Awake and alert in no acute distress. Maintaining O2 saturations in the 90s on room air. No IV fluids. Postoperative day #5 of his mitral valve replacement and tricuspid valve repair. White count 8.6. Hemoglobin 8.9. Platelets 140. Sodium 132. Potassium 4.1. Bicarb 27. BUN 34. Creatinine 0.98. Glucose 100. He is continued on bronchodilators. Heparin for DVT prophylaxis. Continued on IV diuretics. Currently in a -3.7 L balance. Chest x-ray reveals evidence of COPD with superimposed pulmonary vascular congestion. Trace effusions. Atelectasis improving. Continues to work well with the incentive spirometer. Objective - Vital Signs Vital signs: Vital Signs Temp 98 F 04/16/24 08:00 Pulse 61 04/16/24 11:23 Resp 17 04/16/24 11:00 BP 112/81 04/16/24 11:00 Pulse Ox 100 04/16/24 11:00 FiO2 50 04/11/24 19:00 Intake & Output 04/15/24 04/16/24 04/16/24 18:59 06:59 18:59 Intake Total 500 240 550 Output Total 1600 2850 500 Balance -1100 -2610 50 Weight 105.1 kg Intake: Oral 500 240 550 Output: Urine 1600 2600 500 Straight 450 Post Void Residual 250 Other: Voiding Method Indwelling Catheter Urinal Urinal # Voids 1 1 # Bowel Movements 2 1 ABP, PAP, CO, CI - Last Documented Arterial Blood Pressure 116/50 Pulmonary Artery Pressure 13/8 Cardiac Output 6.8 Cardiac Index 2.9 - Exam GENERAL EXAM: Alert, pleasant 68-year-old gentleman, on room air, up in a chair, comfortable in no apparent distress. HEAD: Normocephalic. EYES: Normal reaction of pupils, equal size. NOSE: Clear with pink turbinates. THROAT: No erythema or exudates. NECK: No masses, no JVD. CHEST: No chest wall deformity. Sternum stable. Heart hugger in place. LUNGS: Equal air entry with crackles in the bilateral posterior bases. CVS: S1 and S2 normal with no audible murmur, regular rhythm. ABDOMEN: No hepatosplenomegaly, normal bowel sounds, no guarding or rigidity. SPINE: No scoliosis or deformity SKIN: No rashes CENTRAL NERVOUS SYSTEM: No focal deficits, tone is normal in all 4 extremities. EXTREMITIES: There is no peripheral edema. No clubbing, no cyanosis. Peripheral pulses are intact. - Labs CBC & Chem 7: 04/16/24 06:12 04/16/24 06:12 Labs: Abnormal Lab Results - Last 24 Hours (Table) 04/15/24 04/16/24 04/16/24 Range/Units 17:07 06:12 06:12 RBC 3.02 L (4.30-5.90) m/uL Hgb 8.9 L (13.0-17.5) gm/dL Hct 27.1 L (39.0-53.0) % RDW 16.6 H (11.5-15.5) % Plt Count 140 L (150-450) k/uL Sodium 132 L (137-145) mmol/L Chloride 97 L (98-107) mmol/L BUN 34 H (9-20) mg/dL Glucose 100 H (74-99) mg/dL POC Glucose (mg/dL) 114 H (70-110) mg/dL Assessment and Plan Assessment: POD #5: mitral valve replacement using a 31 mm Mosaic porcine bioprosthesis, decalcification of the mitral annulus using the sono PET machine, tricuspid valve repair using a 30 mm MC3 band, full biatrial maze procedure using radiofrequency and cryoablation, exclusion of the left atrial appendage using a 35mm AtriClip, intraoperative transesophageal echocardiogram and epiaortic scanning Moderate to severe mitral valve regurgitation, status post mitral valve replacement using a 31 mm Mosaic porcine bioprosthesis 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, status post decalcification of the mitral annulus Moderate tricuspid valve regurgitation, status post tricuspid valve repair using a 30 mm MC3 band Severe LV dysfunction with ejection fraction of 30 to 35% Moderate severe pulmonary hypertension Postoperative acute blood loss anemia, expected Plan: The patient was seen and evaluated Chest x-ray, labs and medications reviewed Working well with the incentive spirometer Currently stable and on room air Continued on IV diuretics Increase his activity as tolerated We will continue to follow I have personally seen and examined the patient, performed the documentation and the assessment and plan as written. Number of minutes spent on the visit: 10.
--- NOTE | 2024-04-16 12:07 | CA ---
Transthoracic Echo Report Name: Jamir Zaman Age: 68 Gender: M : 1955 Exam Date: 04/16/2024 09:07 Exam Location: [facility] Ht (in): 78 Wt (lb): 240 Ordering Physician: Karina Schofield Attending/Referring Phys: [id number], Kanwal Real Estate Clerk Sugar Frias RDCS Procedure CPT: Indications: eval LV function, mitral and tricuspid valves Cardiac Hx: MV replaced, TV repair Technical Quality: Fair Contrast 1: Total Dose (mL): Contrast 2: Total Dose (mL): MEASUREMENTS (Male / Female) Normal Values 2D ECHO LV Diastolic Diameter PLAX 6.0 cm 4.2 - 5.9 / 3.9 - 5.3 cm LV Systolic Diameter PLAX 4.3 cm IVS Diastolic Thickness 1.3 cm 0.6 - 1.0 / 0.6 - 0.9 cm LVPW Diastolic Thickness 1.3 cm 0.6 - 1.0 / 0.6 - 0.9 cm LV Relative Wall Thickness 0.4 RV Internal Dim ED PLAX 3.8 cm LA Systolic Diameter LX 5.6 cm 3.0 - 4.0 / 2.7 - 3.8 cm LV Diastolic Volume MOD 4C 156.5 cm??? LV Systolic Volume MOD 4C 78.5 cm??? LV Ejection Fraction MOD 4C 49.9 % LV Cardiac Index MOD 4C 1839.8 cm???/min???m??? LV Diastolic Length 4C 8.1 cm LV Systolic Length 4C 6.7 cm LV Diastolic Volume MOD 2C 167.7 cm??? LV Systolic Volume MOD 2C 92.3 cm??? LV Ejection Fraction MOD 2C 44.9 % LV Cardiac Index MOD 2C 1777.0 cm???/min???m??? LV Diastolic Length 2C 8.6 cm LV Systolic Length 2C 7.6 cm LA Volume 203.4 cm??? 18 - 58 / 22 - 52 cm??? LA Volume Index 82.7 cm???/m??? 16 - 28 cm???/m??? M-MODE Aortic Root Diameter MM 4.1 cm AV Cusp Separation MM 1.9 cm DOPPLER AV Peak Velocity 280.8 cm/s AV Peak Gradient 31.5 mmHg AV Mean Velocity 193.5 cm/s AV Mean Gradient 17.0 mmHg AV Velocity Time Integral 50.9 cm AI Peak Velocity 327.8 cm/s AI Peak Gradient 43.0 mmHg AI Pressure Half Time 868.4 ms MV Peak Velocity 267.4 cm/s MV Peak Gradient 28.6 mmHg MV Mean Velocity 91.2 cm/s MV Mean Gradient 5.6 mmHg MV Velocity Time Integral 68.1 cm TV Peak Velocity 219.9 cm/s TR Peak Velocity 278.9 cm/s TR Peak Gradient 31.1 mmHg Right Ventricular Systolic Press 36.1 mmHg FINDINGS Left Ventricle Left ventricular ejection fraction is estimated at 50-55 %. Mildly increased septal wall thickness. Mildly increased left ventricular diastolic diameter. Mild concentric left ventricular hypertrophy. Right Ventricle Mild right ventricular dilatation. Mild pulmonary hypertension. Right Atrium Mild right atrial dilatation. No right atrial thrombus or mass seen. Left Atrium Severely increased left atrial diameter. Severely increased left atrial volume. Severely increased left atrial area. Mitral Valve Normal functioning bioprosthetic MV with mean gradient of 6 mmHg, Aortic Valve Trileaflet aortic valve. Mild aortic stenosis with a peak gradient of 32 mmHg and a mean gradient of 17 mmHg. Mild aortic regurgitation. Tricuspid Valve TV repair. Mild tricuspid regurgitation. Pulmonic Valve Structurally normal pulmonic valve. No pulmonic regurgitation. Pericardium No pericardial or pleural effusion. Aorta Moderate aortic dilatation at the level of the sinuses of valsalva 41 mmHg CONCLUSIONS 1. Left ventricle systolic function borderline normal 2. Bioprosthetic aortic valve with normal function 3. Tricuspid valve repair with mild tricuspid regurgitation and mild pulmonary hypertension 4. Mildly dilated right ventricle Previewed by: Dr. Jude Pinto MD (Electronically Signed) Final Date: 16 April 2024 12:06
--- NOTE | 2024-04-16 15:30 | P.PN ---
Progress Note - Text Progress Note Date: 04/16/24 - Chief Complaint Cardiothoracic surgery - History of Present Illness 68-year-old patient, follows with Dr. Paulina Fuller. Medical history includes atrial fibrillation, decreased hearing, rheumatoid arthritis, history of bleeding ulcers in the past. Diagnosed with atrial fibrillation in November 2023. Has been had back surgery x 2. Currently in the ICU. Extubated. Patient had known moderate to severe mitral valve disorder, moderate to severe mitral annular calcification, tricuspid valve regurgitation moderate, moderate to severe secondary pulmonary hypertension, and LV dysfunction. Permanent atrial fibrillation. Patient is undergone mitral valve replacement with Mosaic porcine bioprosthesis, decalcification of mitral valve Combs, tricuspid valve repair with a band, biatrial maze procedure, exclusion left atrial appendage. Postprocedure. Extubated. Reclining in bed. Drips include IV vasopressin, IV norepinephrine, IV milrinone, insulin. Telemetry shows dual-chamber paced rhythm. Patient has to mediastinal chest tubes. León catheter. April 12: Patient up in a chair. Clear liquids. Chest tubes in place. Did walk in the hallway. Patient is on IV milrinone, IV norepinephrine, IV insulin. at the bedside. April 13: Up in the chair. Family at the bedside. Chest tubes in place. Was given Lasix. Pleural effusion. Some shortness of breath. Remains on IV insulin. Did pass some flatus. Eating fair. Pacemaker disconnected. Insulin drip will be stopped. Put on Accu-Cheks to ACHS with sliding scale. Patient did ambulate in the hallway. April 14: Up in a chair. Did ambulate. Junctional rhythm. Some shortness of breath. IV Lasix 40 mg every 12. Chest tubes were removed earlier today. Has had flatus. Eating fair. April 15: Sitting in the chair. Did walk in the hallway. Eating fair. Had a bowel movement. Some shortness of breath. Remains on IV Lasix. Sinus rhythm. Checks x-ray today showing some pleural effusion April 16: Did walk in the hallway. Eating fair. Sinus rhythm. Has not slept well. Told the patient to take shorter duration naps as opposed to sleep at 1 time at night. Remains on IV Lasix. Spoke to the patient and at the bedside. Delete that Active Medications Acetaminophen (Acetaminophen Tab 325 Mg Tab) 650 mg PO Q4HR PRN PRN Reason: Fever And/ Or Mild Pain (1-3) Albuterol/Ipratropium (Ipratropium-Albuterol 3 Ml Neb) 3 ml INHALATION RT-Q2H PRN PRN Reason: Shortness Of Breath Or Wheezing Albuterol/Ipratropium (Ipratropium-Albuterol 3 Ml Neb) 3 ml INHALATION RT-QID [facility] Last Admin: 04/16/24 15:14 Dose: 3 ml Alprazolam (Alprazolam 0.25 Mg Tab) 0.25 mg PO QID PRN PRN Reason: Anxiety Last Admin: 04/15/24 21:38 Dose: 0.25 mg Aspirin (Aspirin 325 Mg Tab) 325 mg PO DAILY [facility] Last Admin: 04/16/24 08:52 Dose: 325 mg Atorvastatin Calcium (Atorvastatin 20 Mg Tab) 20 mg PO HS [facility] Last Admin: 04/15/24 21:38 Dose: 20 mg Benzocaine/Menthol (Benzocaine/Menthol Lozeng 1 Each Lozenge) 1 each MUCOUS MEM Q2H PRN PRN Reason: Sore Throat Last Admin: 04/14/24 17:16 Dose: 1 each Bisacodyl (Bisacodyl 10 Mg Supp) 10 mg RECTAL DAILY PRN PRN Reason: Constipation Budesonide (Budesonide 1 Mg/2 Ml Nebu) 1 mg INHALATION RT-BID [facility] Last Admin: 04/16/24 07:45 Dose: 1 mg Clopidogrel Bisulfate (Clopidogrel 75 Mg Tab) 75 mg PO DAILY [facility] Last Admin: 04/16/24 08:52 Dose: 75 mg Dextrose/Water (Dextrose 50% Syringe 50 Ml) 25 ml IVP PER PROTOCOL PRN; Protocol PRN Reason: Hypoglycemia Dextrose/Water (Dextrose 50% Syringe 50 Ml) 50 ml IVP PER PROTOCOL PRN; Protocol PRN Reason: Hypoglycemia Furosemide (Furosemide 10 Mg/Ml 4 Ml Vial) 40 mg IV BID@0900,1600 [facility] Heparin Sodium (Porcine) (Heparin Sodium,Porcine 5,000 Unit/Ml 1 Ml Vial) 5,000 unit SQ Q8HR [facility] Last Admin: 04/16/24 08:52 Dose: 5,000 unit Hydralazine HCl (Hydralazine Hcl 50 Mg Tab) 50 mg PO BID [facility] Last Admin: 04/16/24 08:52 Dose: 50 mg Amiodarone HCl 150 mg/ (Dextrose/Water) 103 mls @ 618 mls/hr IV .Q10M PRN; Protocol PRN Reason: A.FIB/FLUTTER Amiodarone HCl 360 mg/ (Dextrose/Water) 207.2 mls @ 34.533 mls/hr IV .Q6H PRN; Protocol PRN Reason: A.FIB/FLUTTER Amiodarone HCl 450 mg/ (Dextrose/Water) 250 mls @ 16.667 mls/hr IV .Q15H PRN; Protocol PRN Reason: A.FIB/FLUTTER Calcium Gluconate/Sodium (Chloride 2 gm/ IV Solution) 100 mls @ 100 mls/hr IVPB ONCE PRN PRN Reason: Ionized Calcium less than 4.4 Stop: 04/18/24 15:52 Insulin Aspart (Insulin Aspart (Novolog) 100 Unit/Ml Vial) 0 unit SQ ACHS RAUL; Protocol Last Admin: 04/16/24 11:58 Dose: Not Given Losartan Potassium (Losartan 50 Mg Tab) 50 mg PO DAILY@1200 [facility] Last Admin: 04/16/24 12:02 Dose: 50 mg Magnesium Hydroxide (Magnesium Hydroxide 2,400 Mg/30 Ml Cup) 2,400 mg PO BID PRN PRN Reason: Constipation Melatonin (Melatonin 3 Mg Tablet) 6 mg PO HS [facility] Last Admin: 04/15/24 21:38 Dose: 6 mg Methocarbamol (Methocarbamol 500 Mg Tab) 1,000 mg PO QID PRN PRN Reason: Muscle Spasm Last Admin: 04/16/24 08:52 Dose: 1,000 mg Metoclopramide HCl (Metoclopramide 5 Mg/Ml 2 Ml Vial) 10 mg IVP Q4H PRN PRN Reason: Nausea And Vomiting Miscellaneous Information (Magnesium Replacement Protocol 1 Each Misc) 1 each MISCELLANE DAILY PRN; Protocol PRN Reason: Per Protocol Miscellaneous Information (Potassium Replacement Protocol 1 Each Misc) 1 each MISCELLANE DAILY PRN; Protocol PRN Reason: Per Protocol Ondansetron HCl (Ondansetron 4 Mg/2 Ml Vial) 4 mg IVP Q6HR PRN PRN Reason: Nausea And Vomiting Last Admin: 04/12/24 06:10 Dose: 4 mg Pantoprazole Sodium (Pantoprazole 40 Mg Tablet) 40 mg PO AC-BRKFST [facility] Last Admin: 04/16/24 06:37 Dose: 40 mg Petrolatum (Zinc Oxide Paste (Z-Guard) 1 Applic) 1 applic TOPICAL BID PRN; Protocol PRN Reason: Wound Healing Senna/Docusate Sodium (Sennosides-Docusate Sodium 1 Each Tab) 2 each PO HS PRN PRN Reason: Constipation Sodium Chloride (Sodium Chloride 0.9% Flush 10 Ml Syringe) 10 ml IV BID [facility] Last Admin: 04/16/24 08:52 Dose: 10 ml Social history: Patient smoked from the age of 22 to 32 packs a day. Alcohol rarely. . Physical examination: VITAL SIGNS: Afebrile, 56, 22, 105 x 57, 99% GENERAL: Up in a chair.. A bit tired EYES: Pupils equal. Conjunctiva carlos l. HEENT: External appearance of nose and ears normal, oral cavity grossly normal. NECK: JVD unable to assess; masses not palpable. HEART: First and second heart sounds are normal; no edema. LUNGS: Respiratory rate increased; decreased breath sounds. ABDOMEN: Soft, nontender, liver spleen not palpable, no masses palpable. León catheter PSYCH: AOx3, mood affect a bit anxious MUSCULOSKELETAL:No Clubbing/cyanosis;muscles-grossly intact. INVESTIGATIONS, reviewed in the clinical context: April 16: White count 8 hemoglobin 8.9 platelets 140 potassium 4.1 creatinine 0.88 April 11, 2024: White count 14.5 hemoglobin 11.1 platelets 125 sodium 137 potassium 3.9 BUN 22 creatinine 0.87 April 06: White count 8.2 hemoglobin 14.3 potassium 4.3 BUN 20 creatinine 0.9 LDL 60.3 Chest x-ray film personally reviewed by me-reports [place]-Krystal catheter projects over the heart on the left heart. Endotracheal tube NG tube in appropriate position. Hyperinflation Assessment and plan: -moderate to severe mitral valve disorder, moderate to severe mitral annular calcification, tricuspid valve regurgitation moderate, moderate to severe secon richy pulmonary hypertension, and LV dysfunction. Permanent atrial fibrillation. Patient is undergone mitral valve replacement with Mosaic porcine bioprosthesis, decalcification of mitral valve Combs, tricuspid valve repair with a band, biatrial maze procedure, exclusion left atrial appendage. -Acute postprocedure blood loss anemia expected from surgery Follow H&H -Acute hypoxic respiratory failure, status post ventilator support, for cardiothoracic procedure: Improved Currently on nasal cannula -Moderate to severe pulmonary hypertension -Fluid overload, with pulmonary edema IV Lasix 40 mg every 12 -Dilutional thrombocytopenia -Mild hyponatremia with hypervolemia Patient received Lasix. Encourage oral intake. Fluid restriction -COPD no prior smoker Bronchodilators -Hyperglycemia, not a diabetic DC insulin drip. Accu-Cheks with sliding scale insulin. -Permanent atrial fibrillation Outpatient was on Xarelto -Few pulmonary micronodules measuring less than 4 mm. This could be followed up with pulmonary outpatient. -Hard of hearing -Chronic rheumatoid arthritis -Full code IV Lasix.. Doing better. Ambulating in hallway better. Thank you Dr. Scott Past Medical History Past Medical History: Atrial Fibrillation, GI Bleed, Hearing Disorder / Deafness, Pneumonia, Rheumatoid Arthritis (RA) Additional Past Medical History / Comment(s): Recently dx with Afib in the last month Nov, 2023. Recent shortness of breath and started seeing senior data mining analyst in July 2023 and was put on inhalker, as needed. Hx bleeding ulcer in the past. Tinnitis. History of Any Multi-Drug Resistant Organisms: None Reported Past Surgical History: Heart Catheterization, Orthopedic Surgery, Tonsillectomy Additional Past Surgical History / Comment(s): back operation x2. Cardiac cath January 2024. Past Anesthesia/Blood Transfusion Reactions: No Reported Reaction, Postoperative Nausea & Vomiting (PONV) Additional Past Anesthesia/Blood Transfusion Reaction / Comm: No hx of blood transfusion. Smoking Status: Former smoker
--- NOTE | 2024-04-16 16:07 | P.PN ---
Subjective Progress Note Date: 04/16/24 HISTORY OF PRESENTING ILLNESS This is a pleasant 68-year-old with past medical history significant for rhe umatoid arthritis, atrial fibrillation, mitral regurgitation, hyperlipidemia, mild coronary artery calcifications, coronary artery disease, ex-smoker and nonischemic cardiomyopathy. He follows in the office with Dr. Pinto. He was noted to have atrial fibrillation and does have bradycardia with A. fib with bradycardic response in the past and PE, cardioversion had been attempted however showed left ventricular dysfunction and severe mitral regurgitation with mitral calcification. Patient therefore was recommended to undergo mitral valve replacement. Patient underwent successful mitral valve replacement with 31 mm Mosaic porcine bioprosthetic valve, tricuspid repair with a 30mm MC 3 band, maze procedure and IMMANUEL atriclip. He has been doing well since surgery. He was placed on low-dose norepinephrine however this has continue to wean. He is AV paced. Still does have chest tubes in place with approximately 900 mL output over last 24 hours. He denies any chest pain or pressure. No significant shortness breath however does feel like he cannot quite catch his breath. He does have some diaphragmatic pacing from his atrial and ventricular pacer and we turned this down and he is in normal sinus rhythm with heart rate 85 bpm. 04/13 Patient seen and examined. Patient denies any chest pain or pressure. He is however having significant pain all over mainly in his joints in his ankles, knees, hands which feels very similar to his prior rheumatoid arthritis flares and he cannot get to sleep. He has been tried on Toradol, OxyContin, Xanax and has only been able sleep approximately 30 minutes. Denies any significant shortness breath. Remains on milrinone 0.2 with cardiac output cardiac index in the 7/3 range respectively. PA pressures relatively stable 30s over 15-20 and CVP 7-10. Creatinine stable however sodium decreasing down to 129. His pacemaker was turned off with no further diaphragmatic pacing and remains sinus rhythm with heart rates in the 70s to 80s. 04/14 Patient seen and examined in the ICU. He states he has been up and walked this morning in the hallway. He is having difficulty breathing on and off. He denies having any chest pain or chest pressure. No fever and no cough. He continues to have fatigue and feel tired as he is not sleeping and only obtain half hour increments. Patient continues to have achiness all over and states the bed is not comfortable for him as he is too tall for the bed frame. Blood pressure 146/66, heart rate 55, pulse ox 94% on room air. Patient is currently on IV Lasix 40 mg every 12 hours. Milrinone and amiodarone were discontinued yesterday. TSH is 2.77. Sodium 128, potassium 4.5, BUN 35 creatinine 1.11 04/15 Patient is seen and examined in the intensive care unit. He states that he has slept better with sleep sessions lasting 2 to 3 hours. He is complaining of intermittent shortness of breath. Blood pressure 137/71, heart rate 50s. He is on IV Lasix 40 mg every 12 hours. He in general appears to be more comfortable today but still having dyspnea. Repeat blood work reveals hemoglobin 8.8, creatinine 1.01, potassium 4.4. Repeat chest x-ray reveals improving infiltrates with residual infiltrates at the lung bases. April 16, 2024 Patient is hemodynamically stable. Telemetry shows sinus rhythm with no arrhythmias reported. BP 107/58, heart rate 56 bpm, Hemoglobin 8.9, creatinine 0.9 Mediastinal tube in left pleural chest tube in place. Still on IV insulin drip. PHYSICAL EXAMINATION Vital signs reviewed. CONSTITUTIONAL: No apparent distress. HEENT: Head is normocephalic. Pupils are equal, round. Sclerae anicteric. Mucous membranes of the mouth are moist. No JVD. No carotid bruit. CHEST EXAMINATION: Lungs are clear to auscultation. HEART EXAMINATION: Regular rate and rhythm. S1, S2 heard. ABDOMEN: Soft, nontender. Positive bowel sounds. EXTREMITIES: 2+ peripheral pulses, no lower extremity edema and no calf tenderness. NEUROLOGIC EXAMINATION: Patient is awake, alert and oriented x3. ASSESSMENT Severe mitral regurgitation status post 31 mm Mosaic porcine bioprosthetic valve replacement, tricuspid valve repair, maze procedure and left atrial appendage clip in Mild coronary artery disease Nonischemic cardiomyopathy Chronic systolic heart failure EF 40-45% intraop Hypotension improving Persistent atrial fibrillation status post maze procedure currently sinus rhythm Anemia Rheumatoid arthritis Insomnia Joint pain likely RA flare Hyponatremia PLAN Continue aspirin, atorvastatin Continue amiodarone protocol Continue Lasix 40 mg IV twice daily Losartan 50 mg daily, Currently on hydralazine 50 mg twice daily. Holding beta-edelmira due to low resting heart rate Objective - Vital Signs Vital signs: Vital Signs Temp 97.7 F 04/16/24 12:00 Pulse 56 L 04/16/24 15:26 Resp 29 H 04/16/24 15:00 BP 107/53 04/16/24 15:00 Pulse Ox 100 04/16/24 15:00 FiO2 50 04/11/24 19:00 Intake & Output 04/15/24 04/16/24 04/16/24 18:59 06:59 18:59 Intake Total 500 240 550 Output Total 1600 2850 900 Balance -1100 -2610 -350 Weight 105.1 kg Intake: Oral 500 240 550 Output: Urine 1600 2600 900 Straight 450 Post Void Residual 250 Other: Voiding Method Indwelling Catheter Urinal Urinal # Voids 1 0 # Bowel Movements 2 1 ABP, PAP, CO, CI - Last Documented Arterial Blood Pressure 116/50 Pulmonary Artery Pressure 13/8 Cardiac Output 6.8 Cardiac Index 2.9 - Labs CBC & Chem 7: 04/16/24 06:12 04/16/24 06:12 Labs: Abnormal Lab Results - Last 24 Hours (Table) 04/15/24 04/16/24 04/16/24 Range/Units 17:07 06:12 06:12 RBC 3.02 L (4.30-5.90) m/uL Hgb 8.9 L (13.0-17.5) gm/dL Hct 27.1 L (39.0-53.0) % RDW 16.6 H (11.5-15.5) % Plt Count 140 L (150-450) k/uL Sodium 132 L (137-145) mmol/L Chloride 97 L (98-107) mmol/L BUN 34 H (9-20) mg/dL Glucose 100 H (74-99) mg/dL POC Glucose (mg/dL) 114 H (70-110) mg/dL
[2024-04-16 17:05] LABS: Glucose,Whole Blood 117 mg/dL (70-110)
[2024-04-16] MEDS: FUROSEMIDE 10 MG/ML 4 ML VIAL IV SCH (17:08)
[2024-04-16 20:01] LABS: Glucose,Whole Blood 164 mg/dL (70-110)
[2024-04-17 06:27] LABS: Anisocytosis Slight; HCT 29.3 % (39.0-53.0); HGB 9.5 gm/dL (13.0-17.5); Hypochromasia Slight; MCH 29.5 pg (25.0-35.0); MCHC 32.6 g/dL (31.0-37.0); MCV 90.7 fL (80.0-100.0); Mean Platelet Volume 8.1; Platelet Count 175 k/uL (150-450); RBC 3.23 m/uL (4.30-5.90); RDW 16.6 % (11.5-15.5); WBC 9.7 k/uL (3.8-10.6)
[2024-04-17 06:29] LABS: Glucose,Whole Blood 101 mg/dL (70-110)
[2024-04-17 06:46] LABS: African American GFR (CKD) >90 (>60 ml/min/1.73 sqM); Anion Gap 9 mmol/L; Blood Urea Nitrogen 32 mg/dL (9-20); Calcium 8.7 mg/dL (8.4-10.2); Carbon Dioxide 27 mmol/L (22-30); Chloride 98 mmol/L (98-107); Glucose 102 mg/dL (74-99); Magnesium 2.4 mg/dL (1.6-2.3); Non-African American GFR(CKD) >90 (>60 ml/min/1.73 sqM); Potassium 4.1 mmol/L (3.5-5.1); Sodium 134 mmol/L (137-145)
[2024-04-17] MEDS ORDERED: POTASSIUM BICARBONATE/CIT AC 20 MEQ TABLET.EFF PO ONE (07:45)
[2024-04-17] MEDS: LOSARTAN 50 MG TAB PO SCH (08:46)
[2024-04-17] MEDS: POTASSIUM CHLORIDE ER 20 MEQ TAB.ER PO SCH (09:40)
--- NOTE | 2024-04-17 10:10 | P.PN ---
Subjective Progress Note Date: 04/17/24 Principal diagnosis: Moderate to severe mitral valve regurgitation, moderate to severe mitral annular calcification, moderate tricuspid valve regurgitation, moderate to severe pulm onary hypertension, moderate to severe left ventricular dysfunction. History of permanent atrial fibrillation status post unsuccessful cardioversion in January 2024, hyperlipidemia, previous tobacco dependence, mild COPD, remote history of pneumonia, rheumatoid arthritis previously on methotrexate, hyperglycemia not previously diagnosed as a diabetic, family history of premature coronary artery disease in both parents POD #6 mitral valve replacement using a 31 mm Mosaic porcine bioprosthesis, deca lcification of the mitral annulus using the STEGOSYSTEMS PET machine, tricuspid valve repair using a 30 mm MC3 band, full biatrial maze procedure using radiofrequency and cryoablation, exclusion of the left atrial appendage using a 35mm AtriClip, intraoperative transesophageal echocardiogram and epiaortic scanning Postoperative acute blood loss anemia and thrombocytopenia, expected given hemodilution and cardiopulmonary bypass pump Hypotension requiring vasopressors, expected, currently stable off all pressors Hypervolemic hyponatremia, unexpected The patient was seen and examined this morning sitting up in recliner in the intensive care unit eating breakfast in no acute distress. Currently junctional vs slow afib on telemetry, hemodynamically stable. Patient denies significant post operative pain, does still get intermittent periods of shortness of breath. States he slept well last night. Continues on BID dosing IV lasix yesterday, has put out 3.3 L in urine in the last 24 hours. Currently on room air with oxygen saturation in the high 90s, able to achieve 2000 mL on his incentive spirometry. Chest x-ray, labs reviewed. Patient continues to ambulate all the way around the ICU hallway several times daily without difficulty, showering daily. No other new concerns. Objective - Vital Signs Vital signs: Vital Signs Temp 97.8 F 04/17/24 08:00 Pulse 69 04/17/24 09:00 Resp 13 04/17/24 08:00 BP 98/51 04/17/24 08:00 Pulse Ox 99 04/17/24 08:32 FiO2 50 04/11/24 19:00 Intake & Output 04/16/24 04/17/24 04/17/24 18:59 06:59 18:59 Intake Total 550 670 Output Total 1500 1875 400 Balance -950 -1875 270 Weight 103.1 kg Intake: Oral 550 670 Output: Urine 1500 1875 400 Other: Voiding Method Urinal Urinal Urinal # Voids 0 1 # Bowel Movements 1 ABP, PAP, CO, CI - Last Documented Arterial Blood Pressure 116/50 Pulmonary Artery Pressure 13/8 Cardiac Output 6.8 Cardiac Index 2.9 - Exam CONSTITUTIONAL: Appears comfortable, cooperative, no acute distress RESPIRATORY: Lungs sounds diminished in the bases bilaterally. Respirations even, nonlabored. Currently on room air with oxygen saturation 98%. Able to achieve 2000 mL on incentive spirometry. Strong nonproductive cough. CARDIOVASCULAR: S1, S2 present. Regular rate although irregular at times, junctional rhythm vs slow afib on telemetry. Sternum stable. Palpable peripheral pulses bilaterally. No edema present. No calf pain or tenderness noted. Heart hugger in place with patient demonstrating appropriate use. Antiembolism stockings, SCDs present. GASTROINTESTINAL: Abdomen soft, nontender, nondistended. Active bowel sounds present 4 quadrants. Tolerating diet. Positive bowel movement x 2 04/16 GENITOURINARY: Continues to void. Output 3375 mL in the last 24 hours INTEGUMENTARY: Skin is warm and dry with evidence of good perfusion. Anterior chest incision well approximated NEUROLOGIC: Cranial nerves II through XII intact MUSKULOSKELETAL: Able to move all extremities, strength equal bilaterally, gait normal PSYCHIATRIC: Alert and oriented to person place and time, appropriate affect, intact judgment and insight INVASIVE LINES AND TUBES: A/V epicardial pacemaker wires present, grounded - Allied health notes Allied health notes reviewed: nursing - Labs CBC & Chem 7: 04/17/24 05:53 04/17/24 05:53 Labs: Abnormal Lab Results - Last 24 Hours (Table) 04/16/24 04/16/24 04/17/24 Range/Units 17:04 20:00 05:53 RBC 3.23 L (4.30-5.90) m/uL Hgb 9.5 L (13.0-17.5) gm/dL Hct 29.3 L (39.0-53.0) % RDW 16.6 H (11.5-15.5) % Sodium (137-145) mmol/L BUN (9-20) mg/dL Glucose (74-99) mg/dL POC Glucose (mg/dL) 117 H 164 H (70-110) mg/dL Magnesium (1.6-2.3) mg/dL 04/17/24 Range/Units 05:53 RBC (4.30-5.90) m/uL Hgb (13.0-17.5) gm/dL Hct (39.0-53.0) % RDW (11.5-15.5) % Sodium 134 L (137-145) mmol/L BUN 32 H (9-20) mg/dL Glucose 102 H (74-99) mg/dL POC Glucose (mg/dL) (70-110) mg/dL Magnesium 2.4 H (1.6-2.3) mg/dL - Imaging and Cardiology Chest x-ray: image reviewed Assessment and Plan Assessment: Moderate to severe mitral valve regurgitation, status post mitral valve r eplacement using a 31 mm Mosaic porcine bioprosthesis 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, status post decalcification of the mitral annulus using the sono PET machine Moderate tricuspid valve regurgitation, status post tricuspid valve repair using a 30 mm MC3 band Moderate to severe pulmonary hypertension Moderate to severe left ventricular dysfunction, EF 30-35% Postoperative acute blood loss anemia and thrombocytopenia, expected given hemodilution and cardiopulmonary bypass pump Hypotension requiring vasopressors, expected, resolved Hypervolemic hyponatremia, unexpected, resolving History of permanent atrial fibrillation status post unsuccessful cardioversion in January 2024, on Xarelto outpatient for anticoagulation, status post full biatrial maze procedure using radiofrequency and cryoablation, exclusion of the left atrial appendage using a 35mm AtriClip Hyperlipidemia, treated, cholesterol 120, LDL 60, triglycerides 94 Previous tobacco dependence, quit smoking 30 years ago Mild COPD, preoperative FEV1 70% of predicted Remote history of pneumonia Rheumatoid arthritis previously on methotrexate, last dose in July 2023 Hyperglycemia not previously diagnosed as a diabetic, preoperative hemoglobin A1c 6.6% Family history of premature coronary artery disease in both parents Plan: Continue aspirin, statin, Plavix. Continue to hold beta-edelmira Increase Cozaar to 100 mg daily, discontinue hydralazine Encourage incentive spirometry use 10 times every hour while awake. Bronchodilators per pulmonology Increase activity as tolerated, PT/OT/cardiac rehab consulted Will monitor daily labs and x-rays. Electrolyte replacement per protocol. Continue Lasix 40 mg IV push twice daily GI/DVT prophylaxis Pain control per current medication regimen Insulin management per internal medicine. Patient is not previously diagnosed as diabetic, however his preoperative hemoglobin A1c was 6.6%, needs tight blood sugar control Continue to monitor and record strict accurate intake and output Ground epicardial pacer wires Shower daily More recommendations to follow
--- NOTE | 2024-04-17 10:42 | XR ---
EXAMINATION TYPE: XR chest 2V DATE OF EXAM: 04/17/2024 COMPARISON: 04/16/2024 HISTORY: 68 year-old male post cardiac surgery follow-up TECHNIQUE: PA and lateral views FINDINGS: Median sternotomy wires are present with CABG clips. Heart borderline in size. Mild hypodensity is un changed. Hyperinflation. Trace pleural effusions remain. Cardiac annuloplasty ring. IMPRESSION: COPD with similar mild pulmonary vascular congestion and trace pleural effusions. [facility], , 04/17/2024 10:40 AM
--- NOTE | 2024-04-17 10:43 | P.PN ---
Subjective Progress Note Date: 04/17/24 HISTORY OF PRESENTING ILLNESS This is a pleasant 68-year-old with past medical history significant for rhe umatoid arthritis, atrial fibrillation, mitral regurgitation, hyperlipidemia, mild coronary artery calcifications, coronary artery disease, ex-smoker and nonischemic cardiomyopathy. He follows in the office with Dr. Pinto. He was noted to have atrial fibrillation and does have bradycardia with A. fib with bradycardic response in the past and PE, cardioversion had been attempted however showed left ventricular dysfunction and severe mitral regurgitation with mitral calcification. Patient therefore was recommended to undergo mitral valve replacement. Patient underwent successful mitral valve replacement with 31 mm Mosaic porcine bioprosthetic valve, tricuspid repair with a 30mm MC 3 band, maze procedure and IMMANUEL atriclip. He has been doing well since surgery. He was placed on low-dose norepinephrine however this has continue to wean. He is AV paced. Still does have chest tubes in place with approximately 900 mL output over last 24 hours. He denies any chest pain or pressure. No significant shortness breath however does feel like he cannot quite catch his breath. He does have some diaphragmatic pacing from his atrial and ventricular pacer and we turned this down and he is in normal sinus rhythm with heart rate 85 bpm. 04/13 Patient seen and examined. Patient denies any chest pain or pressure. He is however having significant pain all over mainly in his joints in his ankles, knees, hands which feels very similar to his prior rheumatoid arthritis flares and he cannot get to sleep. He has been tried on Toradol, OxyContin, Xanax and has only been able sleep approximately 30 minutes. Denies any significant shortness breath. Remains on milrinone 0.2 with cardiac output cardiac index in the 7/3 range respectively. PA pressures relatively stable 30s over 15-20 and CVP 7-10. Creatinine stable however sodium decreasing down to 129. His pacemaker was turned off with no further diaphragmatic pacing and remains sinus rhythm with heart rates in the 70s to 80s. 04/14 Patient seen and examined in the ICU. He states he has been up and walked this morning in the hallway. He is having difficulty breathing on and off. He denies having any chest pain or chest pressure. No fever and no cough. He continues to have fatigue and feel tired as he is not sleeping and only obtain half hour increments. Patient continues to have achiness all over and states the bed is not comfortable for him as he is too tall for the bed frame. Blood pressure 146/66, heart rate 55, pulse ox 94% on room air. Patient is currently on IV Lasix 40 mg every 12 hours. Milrinone and amiodarone were discontinued yesterday. TSH is 2.77. Sodium 128, potassium 4.5, BUN 35 creatinine 1.11 04/15 Patient is seen and examined in the intensive care unit. He states that he has slept better with sleep sessions lasting 2 to 3 hours. He is complaining of intermittent shortness of breath. Blood pressure 137/71, heart rate 50s. He is on IV Lasix 40 mg every 12 hours. He in general appears to be more comfortable today but still having dyspnea. Repeat blood work reveals hemoglobin 8.8, creatinine 1.01, potassium 4.4. Repeat chest x-ray reveals improving infiltrates with residual infiltrates at the lung bases. April 16, 2024 Patient is hemodynamically stable. Telemetry shows sinus rhythm with no arrhythmias reported. BP 107/58, heart rate 56 bpm, Hemoglobin 8.9, creatinine 0.9 April 17, 2024 Patient is hemodynamically stable. He is walking and ambulating in the unit wi thout any chest pain chest pressure or shortness of breath. He is recovering well from the surgery. Hemoglobin and renal function is stable, blood pressure and heart rate are stable, no arrhythmias on telemetry noticed. PHYSICAL EXAMINATION Vital signs reviewed. CONSTITUTIONAL: No apparent distress. HEENT: Head is normocephalic. Pupils are equal, round. Sclerae anicteric. Mucous membranes of the mouth are moist. No JVD. No carotid bruit. CHEST EXAMINATION: Lungs are clear to auscultation. HEART EXAMINATION: Regular rate and rhythm. S1, S2 heard. ABDOMEN: Soft, nontender. Positive bowel sounds. EXTREMITIES: 2+ peripheral pulses, no lower extremity edema and no calf tenderness. NEUROLOGIC EXAMINATION: Patient is awake, alert and oriented x3. ASSESSMENT Severe mitral regurgitation status post 31 mm Mosaic porcine bioprosthetic valve replacement, tricuspid valve repair, maze procedure and left atrial appendage clip in Mild coronary artery disease Nonischemic cardiomyopathy Chronic systolic heart failure EF 40-45% intraop Hypotension improving Persistent atrial fibrillation status post maze procedure currently sinus rhythm Anemia Rheumatoid arthritis Insomnia Joint pain likely RA flare Hyponatremia PLAN Continue aspirin, atorvastatin, Plavix Continue amiodarone protocol Discontinue IV Lasix. Start Bumex 1 mg p.o. daily Losartan 100 mg daily, Discontinue hydralazine Holding beta-edelmira due to low resting heart rate Okay to moved out of ICU Objective - Vital Signs Vital signs: Vital Signs Temp 97.8 F 04/17/24 08:00 Pulse 69 04/17/24 09:00 Resp 13 04/17/24 08:00 BP 98/51 04/17/24 08:00 Pulse Ox 99 04/17/24 08:32 FiO2 50 04/11/24 19:00 Intake & Output 04/16/24 04/17/24 04/17/24 18:59 06:59 18:59 Intake Total 550 670 Output Total 1500 1875 400 Balance -950 -1875 270 Weight 103.1 kg Intake: Oral 550 670 Output: Urine 1500 1875 400 Other: Voiding Method Urinal Urinal Urinal # Voids 0 1 # Bowel Movements 1 ABP, PAP, CO, CI - Last Documented Arterial Blood Pressure 116/50 Pulmonary Artery Pressure 13/8 Cardiac Output 6.8 Cardiac Index 2.9 - Labs CBC & Chem 7: 04/17/24 05:53 04/17/24 05:53 Labs: Abnormal Lab Results - Last 24 Hours (Table) 04/16/24 04/16/24 04/17/24 Range/Units 17:04 20:00 05:53 RBC 3.23 L (4.30-5.90) m/uL Hgb 9.5 L (13.0-17.5) gm/dL Hct 29.3 L (39.0-53.0) % RDW 16.6 H (11.5-15.5) % Sodium (137-145) mmol/L BUN (9-20) mg/dL Glucose (74-99) mg/dL POC Glucose (mg/dL) 117 H 164 H (70-110) mg/dL Magnesium (1.6-2.3) mg/dL 04/17/24 Range/Units 05:53 RBC (4.30-5.90) m/uL Hgb (13.0-17.5) gm/dL Hct (39.0-53.0) % RDW (11.5-15.5) % Sodium 134 L (137-145) mmol/L BUN 32 H (9-20) mg/dL Glucose 102 H (74-99) mg/dL POC Glucose (mg/dL) (70-110) mg/dL Magnesium 2.4 H (1.6-2.3) mg/dL
[2024-04-17] MEDS ORDERED: BUMETANIDE 1 MG TAB PO SCH (11:00)
[2024-04-17 11:35] LABS: Glucose,Whole Blood 114 mg/dL (70-110)
--- NOTE | 2024-04-17 12:29 | P.PN ---
Subjective Progress Note Date: 04/17/24 Patient is a 68-year-old white male with past medical history significant for atrial fibrillation and valvular heart disease. Outpatient, patient was noted to have atrial fibrillation. In January, a cardioversion was attempted, but ultimately failed. Patient was found to have severe mitral valve regurgitation, as well as, moderate tricuspid regurgitation. Patient was brought in yesterday for mitral valve replacement with bioprosthetic valve, tricuspid valve repair, full biatrial maze procedure, exclusion of left atrial appendage. Intraoperatively, patient was hypotensive, started on multiple vasopressors including norepinephrine, vasopressin, and also Primacor. Patient did receive 1.5 L 5% albumin, 3.9 L crystalloid fluid since surgery. Patient's OR exit time was to 1532. Postoperatively, he was sent to the intensive care unit for recovery. Initially, on the mechanical ventilator. Initial ABG: PaO2 of 139, pCO2 of 42, pH of 7.37. Postoperative, chest x-ray showing postsurgical adiel nges. Endotracheal tube 4.4 cm from the juliano. Cardiomegaly and mild PVC. No pneumothoraces or effusions. Patient was extubated successfully using the rapid extubation protocol at 1842. Patient is currently being evaluated in the intensive care unit. He is on 3 L/min nasal cannula. He is in no acute respiratory distress. He is awake and alert. Blood pressure remains hypotensive. He is currently on norepinephrine which is infusing at 0.04 mcg/kg/min. Vasopressin also infusing at 0.03 units/min. Primacor at 0.3 mcg/kg/h. Normal saline infusing at 50 mL/h. Insulin also infusing at 4 units/h. Heart rhythm is dual paced at 80 bpm. Current blood pressure 105/47 mmHg. PA pressures 41/18 mmHg. Most recent CO/CI are 5.7/2.4 respectively. SVR 827. Urine output is in the order of 50 to 70 mL/h. He does have 2 mediastinal chest tubes that are wide together with a total of 500 of sanguinous output. Atrium is to suction at -20 cm H2O. No airleak. Most recent CBC: WBC count 11.2, hemoglobin 9.5, hematocrit 28.4, platelets 113. Most recent postoperative CMP: Sodium 137, potassium 3.9, chloride 109, serum bicarb 23, BUN 22, creatinine 0.87, glucose 127. LFTs unremarkable. Patient continues to be monitored in the intensive care unit. Patient was evaluated today on 04/13/2024, patient is now postoperative day #2, mitral valve replacement and the calcification of mitral annulus as well as tricuspid valve repair. Patient is doing fairly well, does not seem to be in an y distress, he is on room air, no cough no wheezing no shortness of breath, he is in sinus rhythm, chest x-ray is showing some evidence of interstitial edema, received Lasix earlier today, and he is responding well to Lasix. Remains on low-dose Primacor, off vasopressin off norepinephrine. Patient is achieving over 2000 cc on incentive spirometry. Patient did ambulate in the hallway yesterday without difficulty. And he would likely ambulate today again. WBC count is 10 hemoglobin 8.2, basic metabolic profile is unremarkable except for low sodium of 129. This is likely hypervolemic hyponatremia Patient was evaluated today on 04/14/2024, patient is on room air, not in any distress, remains on milrinone, continues to do well with incentive spirometry, achieving over 2000 mL on his incentive spirometry. Patient has already been ambulating with assistance without difficulty. No hemodynamic or arrhythmia issues overnight. This x-ray continues to show evidence of interstitial edema t hat is being addressed by cardiothoracic surgery clinically does not seem to be in any distress, and the findings clinically do not match with her chest x-ray finding Patient was seen today on 04/15/2024, patient is still in ICU, hemodynamically stable, off all pressors and inotropes, on room air, not in any distress, chest x-ray is showing significant improvement in his interstitial edema. Patient is achieving over 2000 cc on incentive spirometry, patient is ambulating with assistance in the hallway, his tubes and lines as well as right IJ Cordis been removed, Labs were reviewed relatively normal CBC and normal basic metabolic profile transfer tech The patient is seen today April 16, 2024 in follow-up in the intensive care unit. He is currently sitting up in a chair at the bedside. Awake and alert in no acute distress. Maintaining O2 saturations in the 90s on room air. No IV fluids. Postoperative day #5 of his mitral valve replacement and tricuspid valve repair. White count 8.6. Hemoglobin 8.9. Platelets 140. Sodium 132. Potassium 4.1. Bicarb 27. BUN 34. Creatinine 0.98. Glucose 100. He is continued on bronchodilators. Heparin for DVT prophylaxis. Continued on IV diuretics. Currently in a -3.7 L balance. Chest x-ray reveals evidence of COPD with superimposed pulmonary vascular congestion. Trace effusions. Atelectasis improving. Continues to work well with the incentive spirometer. The patient is seen today April 17, 2024 in follow-up in the intensive care unit. He is awake and alert in no acute distress. Sitting up in a chair. Maintaining good O2 saturation in the 90s on room air. He is continued on dilators. He remains on IV diuretics. Heparin for DVT prophylaxis. He is currently in the -2.8 L balance. White count 9.7. Hemoglobin 9.5. Platelets 175. Sodium 134. Potassium 4.1. Bicarb 27. BUN 32. Creatinine 0.84. Glucose 102. X-ray continues to show evidence of COPD with mild pulmonary vascular congestion and trace pleural effusions. Objective - Vital Signs Vital signs: Vital Signs Temp 97.6 F 04/17/24 12:00 Pulse 66 04/17/24 12:00 Resp 16 04/17/24 12:00 BP 130/67 04/17/24 12:00 Pulse Ox 95 04/17/24 12:00 FiO2 50 04/11/24 19:00 Intake & Output 04/16/24 04/17/24 04/17/24 18:59 06:59 18:59 Intake Total 550 670 Output Total 1500 1875 400 Balance -950 -1875 270 Weight 103.1 kg Intake: Oral 550 670 Output: Urine 1500 1875 400 Other: Voiding Method Urinal Urinal Urinal # Voids 0 1 # Bowel Movements 1 ABP, PAP, CO, CI - Last Documented Arterial Blood Pressure 116/50 Pulmonary Artery Pressure 13/8 Cardiac Output 6.8 Cardiac Index 2.9 - Exam GENERAL EXAM: Alert, 68-year-old male, on room air, up in a chair, in no apparent distress. HEAD: Normocephalic. EYES: Normal reaction of pupils, equal size. NOSE: Clear with pink turbinates. THROAT: No erythema or exudates. NECK: No masses, no JVD. CHEST: No chest wall deformity. Sternum stable. Heart hugger in place. LUNGS: Equal air entry with crackles in the bilateral posterior bases. CVS: S1 and S2 normal with no audible murmur, regular rhythm. ABDOMEN: No hepatosplenomegaly, normal bowel sounds, no guarding or rigidity. SPINE: No scoliosis or deformity SKIN: No rashes CENTRAL NERVOUS SYSTEM: No focal deficits, tone is normal in all 4 extremities. EXTREMITIES: There is no peripheral edema. No clubbing, no cyanosis. Peripheral pulses are intact. - Labs CBC & Chem 7: 04/17/24 05:53 04/17/24 05:53 Labs: Abnormal Lab Results - Last 24 Hours (Table) 04/16/24 04/16/24 04/17/24 Range/Units 17:04 20:00 05:53 RBC 3.23 L (4.30-5.90) m/uL Hgb 9.5 L (13.0-17.5) gm/dL Hct 29.3 L (39.0-53.0) % RDW 16.6 H (11.5-15.5) % Sodium (137-145) mmol/L BUN (9-20) mg/dL Glucose (74-99) mg/dL POC Glucose (mg/dL) 117 H 164 H (70-110) mg/dL Magnesium (1.6-2.3) mg/dL 04/17/24 04/17/24 Range/Units 05:53 11:33 RBC (4.30-5.90) m/uL Hgb (13.0-17.5) gm/dL Hct (39.0-53.0) % RDW (11.5-15.5) % Sodium 134 L (137-145) mmol/L BUN 32 H (9-20) mg/dL Glucose 102 H (74-99) mg/dL POC Glucose (mg/dL) 114 H (70-110) mg/dL Magnesium 2.4 H (1.6-2.3) mg/dL Assessment and Plan Assessment: POD #6: mitral valve replacement using a 31 mm Mosaic porcine bioprosthesis, decalcification of the mitral annulus using the sono PET machine, tricuspid valve repair using a 30 mm MC3 band, full biatrial maze procedure using radiofrequency and cryoablation, exclusion of the left atrial appendage using a 35mm AtriClip, intraoperative transesophageal echocardiogram and epiaortic scanning Moderate to severe mitral valve regurgitation, status post mitral valve replacement using a 31 mm Mosaic porcine bioprosthesis 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 overflow I have personally seen and examined the patient, performed the documentation and the assessment and plan as written. Number of minutes spent on the visit: 10.
[2024-04-17] MEDS: FUROSEMIDE 10 MG/ML 4 ML VIAL IV SCH (16:28)
--- NOTE | 2024-04-17 17:02 | P.PN ---
Progress Note - Text Progress Note Date: 04/17/24 - Chief Complaint Cardiothoracic surgery - History of Present Illness 68-year-old patient, follows with Dr. Paulina Fuller. Medical history includes atrial fibrillation, decreased hearing, rheumatoid arthritis, history of bleeding ulcers in the past. Diagnosed with atrial fibrillation in November 2023. Has been had back surgery x 2. Currently in the ICU. Extubated. Patient had known moderate to severe mitral valve disorder, moderate to severe mitral annular calcification, tricuspid valve regurgitation moderate, moderate to severe secondary pulmonary hypertension, and LV dysfunction. Permanent atrial fibrillation. Patient is undergone mitral valve replacement with Mosaic porcine bioprosthesis, decalcification of mitral valve Combs, tricuspid valve repair with a band, biatrial maze procedure, exclusion left atrial appendage. Postprocedure. Extubated. Reclining in bed. Drips include IV vasopressin, IV norepinephrine, IV milrinone, insulin. Telemetry shows dual-chamber paced rhythm. Patient has to mediastinal chest tubes. León catheter. April 12: Patient up in a chair. Clear liquids. Chest tubes in place. Did walk in the hallway. Patient is on IV milrinone, IV norepinephrine, IV insulin. at the bedside. April 13: Up in the chair. Family at the bedside. Chest tubes in place. Was given Lasix. Pleural effusion. Some shortness of breath. Remains on IV insulin. Did pass some flatus. Eating fair. Pacemaker disconnected. Insulin drip will be stopped. Put on Accu-Cheks to ACHS with sliding scale. Patient did ambulate in the hallway. April 14: Up in a chair. Did ambulate. Junctional rhythm. Some shortness of breath. IV Lasix 40 mg every 12. Chest tubes were removed earlier today. Has had flatus. Eating fair. April 15: Sitting in the chair. Did walk in the hallway. Eating fair. Had a bowel movement. Some shortness of breath. Remains on IV Lasix. Sinus rhythm. Checks x-ray today showing some pleural effusion April 16: Did walk in the hallway. Eating fair. Sinus rhythm. Has not slept well. Told the patient to take shorter duration naps as opposed to sleep at 1 time at night. Remains on IV Lasix. Spoke to the patient and at the bedside. April 17: ICU. Oral intake good. Did ambulate. Still getting IV Lasix. 2D echo done yesterday shows EF of 50 to 55%.-Bioprosthetic arctic valve with normal function. Tricuspid valve repair with mild tricuspid regurgitation. No arrhythmias. Hydralazine discontinued. Beta-edelmira held because of low heart rate. Active Medications Acetaminophen (Acetaminophen Tab 325 Mg Tab) 650 mg PO Q4HR PRN PRN Reason: Fever And/ Or Mild Pain (1-3) Albuterol/Ipratropium (Ipratropium-Albuterol 3 Ml Neb) 3 ml INHALATION RT-Q2H PRN PRN Reason: Shortness Of Breath Or Wheezing Albuterol/Ipratropium (Ipratropium-Albuterol 3 Ml Neb) 3 ml INHALATION RT-QID [facility] Last Admin: 04/17/24 16:04 Dose: 3 ml Alprazolam (Alprazolam 0.25 Mg Tab) 0.25 mg PO QID PRN PRN Reason: Anxiety Last Admin: 04/16/24 23:27 Dose: 0.25 mg Aspirin (Aspirin 325 Mg Tab) 325 mg PO DAILY [facility] Last Admin: 04/17/24 08:45 Dose: 325 mg Atorvastatin Calcium (Atorvastatin 20 Mg Tab) 20 mg PO HS [facility] Last Admin: 04/16/24 21:17 Dose: 20 mg Benzocaine/Menthol (Benzocaine/Menthol Lozeng 1 Each Lozenge) 1 each MUCOUS MEM Q2H PRN PRN Reason: Sore Throat Last Admin: 04/14/24 17:16 Dose: 1 each Bisacodyl (Bisacodyl 10 Mg Supp) 10 mg RECTAL DAILY PRN PRN Reason: Constipation Budesonide (Budesonide 1 Mg/2 Ml Nebu) 1 mg INHALATION RT-BID [facility] Last Admin: 04/17/24 08:32 Dose: 1 mg Clopidogrel Bisulfate (Clopidogrel 75 Mg Tab) 75 mg PO DAILY [facility] Last Admin: 04/17/24 08:46 Dose: 75 mg Dextrose/Water (Dextrose 50% Syringe 50 Ml) 25 ml IVP PER PROTOCOL PRN; Protocol PRN Reason: Hypoglycemia Dextrose/Water (Dextrose 50% Syringe 50 Ml) 50 ml IVP PER PROTOCOL PRN; Protocol PRN Reason: Hypoglycemia Furosemide (Furosemide 10 Mg/Ml 4 Ml Vial) 40 mg IV BID@0900,1600 [facility] Last Admin: 04/17/24 16:28 Dose: 40 mg Heparin Sodium (Porcine) (Heparin Sodium,Porcine 5,000 Unit/Ml 1 Ml Vial) 5,000 unit SQ Q8HR [facility] Last Admin: 04/17/24 16:28 Dose: 5,000 unit Amiodarone HCl 150 mg/ (Dextrose/Water) 103 mls @ 618 mls/hr IV .Q10M PRN; Protocol PRN Reason: A.FIB/FLUTTER Amiodarone HCl 360 mg/ (Dextrose/Water) 207.2 mls @ 34.533 mls/hr IV .Q6H PRN; Protocol PRN Reason: A.FIB/FLUTTER Amiodarone HCl 450 mg/ (Dextrose/Water) 250 mls @ 16.667 mls/hr IV .Q15H PRN; Protocol PRN Reason: A.FIB/FLUTTER Calcium Gluconate/Sodium (Chloride 2 gm/ IV Solution) 100 mls @ 100 mls/hr IVPB ONCE PRN PRN Reason: Ionized Calcium less than 4.4 Stop: 04/18/24 15:52 Insulin Aspart (Insulin Aspart (Novolog) 100 Unit/Ml Vial) 0 unit SQ ACHS [facility]; Protocol Last Admin: 04/17/24 11:55 Dose: Not Given Losartan Potassium (Losartan 50 Mg Tab) 100 mg PO DAILY [facility] Last Admin: 04/17/24 08:46 Dose: 100 mg Magnesium Hydroxide (Magnesium Hydroxide 2,400 Mg/30 Ml Cup) 2,400 mg PO BID PRN PRN Reason: Constipation Melatonin (Melatonin 3 Mg Tablet) 6 mg PO HS [facility] Last Admin: 04/16/24 21:17 Dose: 6 mg Methocarbamol (Methocarbamol 500 Mg Tab) 1,000 mg PO QID PRN PRN Reason: Muscle Spasm Last Admin: 04/16/24 08:52 Dose: 1,000 mg Miscellaneous Information (Magnesium Replacement Protocol 1 Each Misc) 1 each MISCELLANE DAILY PRN; Protocol PRN Reason: Per Protocol Miscellaneous Information (Potassium Replacement Protocol 1 Each Misc) 1 each MISCELLANE DAILY PRN; Protocol PRN Reason: Per Protocol Ondansetron HCl (Ondansetron 4 Mg/2 Ml Vial) 4 mg IVP Q6HR PRN PRN Reason: Nausea And Vomiting Last Admin: 04/12/24 06:10 Dose: 4 mg Pantoprazole Sodium (Pantoprazole 40 Mg Tablet) 40 mg PO AC-BRKFST [facility] Last Admin: 04/17/24 06:31 Dose: 40 mg Petrolatum (Zinc Oxide Paste (Z-Guard) 1 Applic) 1 applic TOPICAL BID PRN; Protocol PRN Reason: Wound Healing Senna/Docusate Sodium (Sennosides-Docusate Sodium 1 Each Tab) 2 each PO HS PRN PRN Reason: Constipation Sodium Chloride (Sodium Chloride 0.9% Flush 10 Ml Syringe) 10 ml IV BID [facility] Last Admin: 04/17/24 08:46 Dose: 10 ml Social history: Patient smoked from the age of 22 to 32 packs a day. Alcohol rarely. . Physical examination: VITAL SIGNS: 98.7, 63, 17, 103 x 57, 95% room air GENERAL: Up in a chair.. EYES: Pupils equal. Conjunctiva carlos l. HEENT: External appearance of nose and ears normal, oral cavity grossly normal. NECK: JVD unable to assess; masses not palpable. HEART: First and second heart sounds are normal; no edema. LUNGS: Respiratory rate increased; decreased breath sounds. ABDOMEN: Soft, nontender, liver spleen not palpable, no masses palpable. León catheter PSYCH: AOx3, mood affect a bit anxious MUSCULOSKELETAL:No Clubbing/cyanosis;muscles-grossly intact. INVESTIGATIONS, reviewed in the clinical context: April 17: White count 9.7 hemoglobin 9.5 platelets 135 potassium 4.1 creatinine 0.84 April 16: White count 8 hemoglobin 8.9 platelets 140 potassium 4.1 creatinine 0.88 April 11, 2024: White count 14.5 hemoglobin 11.1 platelets 125 sodium 137 potassium 3.9 BUN 22 creatinine 0.87 April 06: White count 8.2 hemoglobin 14.3 potassium 4.3 BUN 20 creatinine 0.9 LDL 60.3 Chest x-ray film personally reviewed by me-reports [place] catheter projects over the heart on the left heart. Endotracheal tube NG tube in appropriate position. 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 Permanent atrial fibrillation. Patient is undergone mitral valve replacement with Mosaic porcine bioprosthesis, decalcification of mitral valve Combs, tricuspid valve repair with a band, biatrial maze procedure, exclusion left atrial appendage. -Acute postprocedure blood loss anemia expected from surgery Follow H&H -Acute hypoxic respiratory failure, status post ventilator support, for cardiothoracic procedure: Improved Off nasal cannula on room air -Moderate to severe pulmonary hypertension -Fluid overload, with pulmonary edema IV Lasix 40 mg every 12 -Dilutional thrombocytopenia -Mild hyponatremia with hypervolemia Patient received Lasix. Encourage oral intake. Fluid restriction -COPD no prior smoker Bronchodilators -Hyperglycemia, not a diabetic DC insulin drip. Accu-Cheks with sliding scale insulin. -Permanent atrial fibrillation Outpatient was on Xarelto -Few pulmonary micronodules measuring less than 4 mm. Pulmonary following. -Hard of hearing -Chronic rheumatoid arthritis -Full code Remains on IV Lasix. Other medications to continue. Thank you Dr. Scott Past Medical History Past Medical History: Atrial Fibrillation, GI Bleed, Hearing Disorder / Deafness, Pneumonia, Rheumatoid Arthritis (RA) Additional Past Medical History / Comment(s): Recently dx with Afib in the last month Nov, 2023. Recent shortness of breath and started seeing behavioral interventionist in July 2023 and was put on inhalker, as needed. Hx bleeding ulcer in the past. Tinnitis. History of Any Multi-Drug Resistant Organisms: None Reported Past Surgical History: Heart Catheterization, Orthopedic Surgery, Tonsillectomy Additional Past Surgical History / Comment(s): back operation x2. Cardiac cath January 2024. Past Anesthesia/Blood Transfusion Reactions: No Reported Reaction, Postoperative Nausea & Vomiting (PONV) Additional Past Anesthesia/Blood Transfusion Reaction / Comm: No hx of blood transfusion. Smoking Status: Former smoker
[2024-04-17 20:25] LABS: Glucose,Whole Blood 148 mg/dL (70-110)
[2024-04-18 04:56] VITALS: TEMP 98.6
[2024-04-18 06:13] LABS: Anisocytosis Slight; HCT 27.5 % (39.0-53.0); HGB 8.6 gm/dL (13.0-17.5); Hypochromasia Slight; MCH 28.3 pg (25.0-35.0); MCHC 31.4 g/dL (31.0-37.0); MCV 90.3 fL (80.0-100.0); Mean Platelet Volume 8.4; Platelet Count 204 k/uL (150-450); RBC 3.04 m/uL (4.30-5.90); RDW 16.3 % (11.5-15.5); WBC 8.4 k/uL (3.8-10.6)
[2024-04-18 06:27] LABS: African American GFR (CKD) >90 (>60 ml/min/1.73 sqM); Anion Gap 6 mmol/L; Blood Urea Nitrogen 29 mg/dL (9-20); Calcium 8.6 mg/dL (8.4-10.2); Carbon Dioxide 28 mmol/L (22-30); Chloride 99 mmol/L (98-107); Glucose 104 mg/dL (74-99); Magnesium 2.4 mg/dL (1.6-2.3); Non-African American GFR(CKD) 78 (>60 ml/min/1.73 sqM); Sodium 133 mmol/L (137-145)
[2024-04-18 06:28] LABS: Glucose,Whole Blood 92 mg/dL (70-110)
[2024-04-18 07:48] VITALS: BP 109/60; RESP 18
[2024-04-18] MEDS: ASPIRIN 325 MG TAB PO SCH (07:49)
--- NOTE | 2024-04-18 08:30 | P.PN ---
Subjective Progress Note Date: 04/18/24 Principal diagnosis: Moderate to severe mitral valve regurgitation, moderate to severe mitral annular calcification, moderate tricuspid valve regurgitation, moderate to severe pulm onary hypertension, moderate to severe left ventricular dysfunction. History of permanent atrial fibrillation status post unsuccessful cardioversion in January 2024, hyperlipidemia, previous tobacco dependence, mild COPD, remote history of pneumonia, rheumatoid arthritis previously on methotrexate, hyperglycemia not previously diagnosed as a diabetic, family history of premature coronary artery disease in both parents POD #7 mitral valve replacement using a 31 mm Mosaic porcine bioprosthesis, deca lcification of the mitral annulus using the [employer] PET machine, tricuspid valve repair using a 30 mm MC3 band, full biatrial maze procedure using radiofrequency and cryoablation, exclusion of the left atrial appendage using a 35mm AtriClip, intraoperative transesophageal echocardiogram and epiaortic scanning Postoperative acute blood loss anemia and thrombocytopenia, expected given hemodilution and cardiopulmonary bypass pump Hypotension requiring vasopressors, expected, currently stable off all pressors Hypervolemic hyponatremia, unexpected The patient was seen and examined this morning ambulating around the hallway in the intensive care unit in no acute distress. Remains slow afib on telemetry, hemodynamically stable. Patient denies significant post operative pain, shortness of breath. Continues on IV lasix. Currently on room air with oxygen saturation in the high 90s, able to achieve 2000 mL on his incentive spirometry. Chest x-ray, labs reviewed. Patient continues to ambulate all the way around the ICU hallway several times daily without difficulty, showering daily. Anti cipates DC to home today, feels ready. No other new concerns. Objective - Vital Signs Vital signs: Vital Signs Temp 98.6 F 04/18/24 07:47 Pulse 65 04/18/24 07:47 Resp 18 04/18/24 07:47 BP 109/60 04/18/24 07:47 Pulse Ox 97 04/18/24 07:47 FiO2 50 04/11/24 19:00 Intake & Output 04/17/24 04/18/24 04/18/24 18:59 06:59 18:59 Intake Total 670 740 Output Total 1400 850 Balance -730 -110 Intake: Oral 670 740 Output: Urine 1400 850 Other: Voiding Method Urinal Urinal Urinal # Voids 1 ABP, PAP, CO, CI - Last Documented Arterial Blood Pressure 116/50 Pulmonary Artery Pressure 13/8 Cardiac Output 6.8 Cardiac Index 2.9 - Exam CONSTITUTIONAL: Appears comfortable, cooperative, no acute distress RESPIRATORY: Lungs sounds diminished in the bases bilaterally. Respirations even, nonlabored. Currently on room air with oxygen saturation 97%. Able to achieve 2000 mL on incentive spirometry. Strong nonproductive cough. CARDIOVASCULAR: S1, S2 present. Irregular rate, rhythm, slow afib on tel emetry. Sternum stable. Palpable peripheral pulses bilaterally. No edema present. No calf pain or tenderness noted. Heart hugger in place with patient demonstrating appropriate use. Antiembolism stockings, SCDs present. GASTROINTESTINAL: Abdomen soft, nontender, nondistended. Active bowel sounds present 4 quadrants. Tolerating diet. Positive bowel movement x 2 04/16 GENITOURINARY: Continues to void. Output 1850 mL in the last 24 hours INTEGUMENTARY: Skin is warm and dry with evidence of good perfusion. Anterior chest incision well approximated NEUROLOGIC: Cranial nerves II through XII intact MUSKULOSKELETAL: Able to move all extremities, strength equal bilaterally, gait normal PSYCHIATRIC: Alert and oriented to person place and time, appropriate affect, intact judgment and insight INVASIVE LINES AND TUBES: A/V epicardial pacemaker wires present, grounded - Allied health notes Allied health notes reviewed: nursing - Labs CBC & Chem 7: 04/18/24 05:51 04/18/24 05:51 Labs: Abnormal Lab Results - Last 24 Hours (Table) 04/17/24 04/17/24 04/18/24 Range/Units 11:33 20:24 05:51 RBC 3.04 L (4.30-5.90) m/uL Hgb 8.6 L (13.0-17.5) gm/dL Hct 27.5 L (39.0-53.0) % RDW 16.3 H (11.5-15.5) % Sodium (137-145) mmol/L BUN (9-20) mg/dL Glucose (74-99) mg/dL POC Glucose (mg/dL) 114 H 148 H (70-110) mg/dL Magnesium (1.6-2.3) mg/dL 04/18/24 Range/Units 05:51 RBC (4.30-5.90) m/uL Hgb (13.0-17.5) gm/dL Hct (39.0-53.0) % RDW (11.5-15.5) % Sodium 133 L (137-145) mmol/L BUN 29 H (9-20) mg/dL Glucose 104 H (74-99) mg/dL POC Glucose (mg/dL) (70-110) mg/dL Magnesium 2.4 H (1.6-2.3) mg/dL - Imaging and Cardiology Chest x-ray: image reviewed Assessment and Plan Assessment: Moderate to severe mitral valve regurgitation, status post mitral valve replacement using a 31 mm Mosaic porcine bioprosthesis 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, status post decalcification of the mitral annulus using the [employer] PET machine Moderate tricuspid valve regurgitation, status post tricuspid valve repair using a 30 mm MC3 band Moderate to severe pulmonary hypertension Moderate to severe left ventricular dysfunction, EF 30-35% Postoperative acute blood loss anemia and thrombocytopenia, expected given hemodilution and cardiopulmonary bypass pump Hypotension requiring vasopressors, expected, resolved Hypervolemic hyponatremia, unexpected, resolving History of permanent atrial fibrillation status post unsuccessful cardioversion in January 2024, on Xarelto outpatient for anticoagulation, status post full biatrial maze procedure using radiofrequency and cryoablation, exclusion of the left atrial appendage using a 35mm AtriClip Hyperlipidemia, treated, cholesterol 120, LDL 60, triglycerides 94 Previous tobacco dependence, quit smoking 30 years ago Mild COPD, preoperative FEV1 70% of predicted Remote history of pneumonia Rheumatoid arthritis previously on methotrexate, last dose in July 2023 Hyperglycemia not previously diagnosed as a diabetic, preoperative hemoglobin A1c 6.6% Family history of premature coronary artery disease in both parents Plan: Continue low dose aspirin, statin. Continue to hold beta-edelmira. Will restart anticoagulation today Continue Cozaar Encourage incentive spirometry use 10 times every hour while awake. Bronchodilators per pulmonology Increase activity as tolerated, PT/OT/cardiac rehab consulted Will monitor daily labs and x-rays. Electrolyte replacement per protocol. Continue Lasix 40 mg IV push this morning, will discharge on oral lasix daily GI/DVT prophylaxis Pain control per current medication regimen Insulin management per internal medicine. Patient is not previously diagnosed a s diabetic, however his preoperative hemoglobin A1c was 6.6%, needs tight blood sugar control Continue to monitor and record strict accurate intake and output Will discontinue epicardial pacer wires this morning, patient to remain on bedrest for 1 hour post wire removal Shower daily Discharge planning in progress, anticipate discharge to home this afternoon More recommendations to follow
--- NOTE | 2024-04-18 09:26 | XR ---
EXAMINATION TYPE: XR chest 2V DATE OF EXAM: 04/18/2024 COMPARISON: 04/17/2024 HISTORY: 68 year-old male post cardiac surgery TECHNIQUE: PA and lateral views FINDINGS: Heart borderline in size. Median sternotomy wires with annuloplasty rings. Hyperinflation. Interstiti al opacities and trace pleural effusions persist. IMPRESSION: Overall unchanged findings which suggest COPD with superimposed CHF and mild pulmonary vascular conge stion. Trace pleural effusions. [facility], , 04/18/2024 9:24 AM
--- NOTE | 2024-04-18 11:17 | P.PN ---
Subjective Progress Note Date: 04/18/24 Patient is a 68-year-old white male with past medical history significant for atrial fibrillation and valvular heart disease. Outpatient, patient was noted to have atrial fibrillation. In January, a cardioversion was attempted, but ultimately failed. Patient was found to have severe mitral valve regurgitation, as well as, moderate tricuspid regurgitation. Patient was brought in yesterday for mitral valve replacement with bioprosthetic valve, tricuspid valve repair, full biatrial maze procedure, exclusion of left atrial appendage. Intraoperatively, patient was hypotensive, started on multiple vasopressors including norepinephrine, vasopressin, and also Primacor. Patient did receive 1.5 L 5% albumin, 3.9 L crystalloid fluid since surgery. Patient's OR exit time was to 1532. Postoperatively, he was sent to the intensive care unit for recovery. Initially, on the mechanical ventilator. Initial ABG: PaO2 of 139, pCO2 of 42, pH of 7.37. Postoperative, chest x-ray showing postsurgical adiel nges. Endotracheal tube 4.4 cm from the juliano. Cardiomegaly and mild PVC. No pneumothoraces or effusions. Patient was extubated successfully using the rapid extubation protocol at 1842. Patient is currently being evaluated in the intensive care unit. He is on 3 L/min nasal cannula. He is in no acute respiratory distress. He is awake and alert. Blood pressure remains hypotensive. He is currently on norepinephrine which is infusing at 0.04 mcg/kg/min. Vasopressin also infusing at 0.03 units/min. Primacor at 0.3 mcg/kg/h. Normal saline infusing at 50 mL/h. Insulin also infusing at 4 units/h. Heart rhythm is dual paced at 80 bpm. Current blood pressure 105/47 mmHg. PA pressures 41/18 mmHg. Most recent CO/CI are 5.7/2.4 respectively. SVR 827. Urine output is in the order of 50 to 70 mL/h. He does have 2 mediastinal chest tubes that are wide together with a total of 500 of sanguinous output. Atrium is to suction at -20 cm H2O. No airleak. Most recent CBC: WBC count 11.2, hemoglobin 9.5, hematocrit 28.4, platelets 113. Most recent postoperative CMP: Sodium 137, potassium 3.9, chloride 109, serum bicarb 23, BUN 22, creatinine 0.87, glucose 127. LFTs unremarkable. Patient continues to be monitored in the intensive care unit. Patient was evaluated today on 04/13/2024, patient is now postoperative day #2, mitral valve replacement and the calcification of mitral annulus as well as tricuspid valve repair. Patient is doing fairly well, does not seem to be in an y distress, he is on room air, no cough no wheezing no shortness of breath, he is in sinus rhythm, chest x-ray is showing some evidence of interstitial edema, received Lasix earlier today, and he is responding well to Lasix. Remains on low-dose Primacor, off vasopressin off norepinephrine. Patient is achieving over 2000 cc on incentive spirometry. Patient did ambulate in the hallway yesterday without difficulty. And he would likely ambulate today again. WBC count is 10 hemoglobin 8.2, basic metabolic profile is unremarkable except for low sodium of 129. This is likely hypervolemic hyponatremia Patient was evaluated today on 04/14/2024, patient is on room air, not in any distress, remains on milrinone, continues to do well with incentive spirometry, achieving over 2000 mL on his incentive spirometry. Patient has already been ambulating with assistance without difficulty. No hemodynamic or arrhythmia issues overnight. This x-ray continues to show evidence of interstitial edema t hat is being addressed by cardiothoracic surgery clinically does not seem to be in any distress, and the findings clinically do not match with her chest x-ray finding Patient was seen today on 04/15/2024, patient is still in ICU, hemodynamically stable, off all pressors and inotropes, on room air, not in any distress, chest x-ray is showing significant improvement in his interstitial edema. Patient is achieving over 2000 cc on incentive spirometry, patient is ambulating with assistance in the hallway, his tubes and lines as well as right IJ Cordis been removed, Labs were reviewed relatively normal CBC and normal basic metabolic profile transfer tech The patient is seen today April 16, 2024 in follow-up in the intensive care unit. He is currently sitting up in a chair at the bedside. Awake and alert in no acute distress. Maintaining O2 saturations in the 90s on room air. No IV fluids. Postoperative day #5 of his mitral valve replacement and tricuspid valve repair. White count 8.6. Hemoglobin 8.9. Platelets 140. Sodium 132. Potassium 4.1. Bicarb 27. BUN 34. Creatinine 0.98. Glucose 100. He is continued on bronchodilators. Heparin for DVT prophylaxis. Continued on IV diuretics. Currently in a -3.7 L balance. Chest x-ray reveals evidence of COPD with superimposed pulmonary vascular congestion. Trace effusions. Atelectasis improving. Continues to work well with the incentive spirometer. The patient is seen today April 17, 2024 in follow-up in the intensive care unit. He is awake and alert in no acute distress. Sitting up in a chair. Maintaining good O2 saturation in the 90s on room air. He is continued on dilators. He remains on IV diuretics. Heparin for DVT prophylaxis. He is currently in the -2.8 L balance. White count 9.7. Hemoglobin 9.5. Platelets 175. Sodium 134. Potassium 4.1. Bicarb 27. BUN 32. Creatinine 0.84. Glucose 102. X-ray continues to show evidence of COPD with mild pulmonary vascular congestion and trace pleural effusions. He remains awake and alert in no acute distress. Sitting up in a chair at the bedside. Maintaining good O2 saturations in the 90s on room air. No IV fluids. He is continued on bronchodilators. Heparin for DVT prophylaxis. Working well with the incentive spirometer. Currently in a negative balance. White count 8.4. Hemoglobin 8.6. Platelets 204. Sodium 133. Potassium 4.0. Bicarb 28. BUN 29. Creatinine 0.99. Glucose 104. Chest x-ray shows COPD with superimposed mild pulmonary vascular congestion. Trace effusions. Objective - Vital Signs Vital signs: Vital Signs Temp 98.6 F 04/18/24 07:47 Pulse 70 04/18/24 09:09 Resp 18 04/18/24 07:47 BP 109/60 04/18/24 07:47 Pulse Ox 97 04/18/24 07:47 FiO2 50 04/11/24 19:00 Intake & Output 04/17/24 04/18/24 04/18/24 18:59 06:59 18:59 Intake Total 670 740 Output Total 1400 850 Balance -730 -110 Intake: Oral 670 740 Output: Urine 1400 850 Other: Voiding Method Urinal Urinal Urinal # Voids 1 ABP, PAP, CO, CI - Last Documented Arterial Blood Pressure 116/50 Pulmonary Artery Pressure 13/8 Cardiac Output 6.8 Cardiac Index 2.9 - Exam GENERAL EXAM: Alert, very pleasant 68-year-old male, on room air, up in a chair, in no apparent distress. HEAD: Normocephalic. EYES: Normal reaction of pupils, equal size. NOSE: Clear with pink turbinates. THROAT: No erythema or exudates. NECK: No masses, no JVD. CHEST: No chest wall deformity. Sternum stable. Heart hugger in place. LUNGS: Equal air entry with crackles in the bilateral posterior bases. CVS: S1 and S2 normal with no audible murmur, regular rhythm. ABDOMEN: No hepatosplenomegaly, normal bowel sounds, no guarding or rigidity. SPINE: No scoliosis or deformity SKIN: No rashes CENTRAL NERVOUS SYSTEM: No focal deficits, tone is normal in all 4 extremities. EXTREMITIES: There is no peripheral edema. No clubbing, no cyanosis. Peripheral pulses are intact. - Labs CBC & Chem 7: 04/18/24 05:51 04/18/24 05:51 Labs: Abnormal Lab Results - Last 24 Hours (Table) 04/17/24 04/17/24 04/18/24 Range/Units 11:33 20:24 05:51 RBC 3.04 L (4.30-5.90) m/uL Hgb 8.6 L (13.0-17.5) gm/dL Hct 27.5 L (39.0-53.0) % RDW 16.3 H (11.5-15.5) % Sodium (137-145) mmol/L BUN (9-20) mg/dL Glucose (74-99) mg/dL POC Glucose (mg/dL) 114 H 148 H (70-110) mg/dL Magnesium (1.6-2.3) mg/dL 04/18/24 Range/Units 05:51 RBC (4.30-5.90) m/uL Hgb (13.0-17.5) gm/dL Hct (39.0-53.0) % RDW (11.5-15.5) % Sodium 133 L (137-145) mmol/L BUN 29 H (9-20) mg/dL Glucose 104 H (74-99) mg/dL POC Glucose (mg/dL) (70-110) mg/dL Magnesium 2.4 H (1.6-2.3) mg/dL Assessment and Plan Assessment: POD #7: Mitral valve replacement using a 31 mm Mosaic porcine bioprosthesis, de calcification of the mitral annulus using the sono PET machine, tricuspid valve repair using a 30 mm MC3 band, full biatrial maze procedure using radiofrequency and cryoablation, exclusion of the left atrial appendage using a 35mm AtriClip, intraoperative transesophageal echocardiogram and epiaortic scanning Moderate to severe mitral valve regurgitation, status post mitral valve replacement using a 31 mm Mosaic porcine bioprosthesis 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, status post decalcification of the mitral annulus Moderate tricuspid valve regurgitation, status post tricuspid valve repair using a 30 mm MC3 band Severe LV dysfunction with ejection fraction of 30 to 35% Moderate severe pulmonary hypertension Postoperative acute blood loss anemia, expected Plan: The patient was seen and evaluated Chest x-ray, labs and medications reviewed Currently stable and on room air Plan is for home today per CT service To follow-up with his stemmer machine post discharge I have personally seen and examined the patient, performed the documentation and the assessment and plan as written. Number of minutes spent on the visit: 10.
[2024-04-18 11:41] LABS: Glucose,Whole Blood 116 mg/dL (70-110)
[2024-04-18 12:56] VITALS: PULSE 57
--- NOTE | 2024-04-18 13:56 | P.PN ---
Progress Note - Text Progress Note Date: 04/18/24 - Chief Complaint Cardiothoracic surgery - History of Present Illness 68-year-old patient, follows with Dr. Paulina Fuller. Medical history includes atrial fibrillation, decreased hearing, rheumatoid arthritis, history of bleeding ulcers in the past. Diagnosed with atrial fibrillation in November 2023. Has been had back surgery x 2. Currently in the ICU. Extubated. Patient had known moderate to severe mitral valve disorder, moderate to severe mitral annular calcification, tricuspid valve regurgitation moderate, moderate to severe secondary pulmonary hypertension, and LV dysfunction. Permanent atrial fibrillation. Patient is undergone mitral valve replacement with Mosaic porcine bioprosthesis, decalcification of mitral valve Combs, tricuspid valve repair with a band, biatrial maze procedure, exclusion left atrial appendage. Postprocedure. Extubated. Reclining in bed. Drips include IV vasopressin, IV norepinephrine, IV milrinone, insulin. Telemetry shows dual-chamber paced rhythm. Patient has to mediastinal chest tubes. León catheter. April 12: Patient up in a chair. Clear liquids. Chest tubes in place. Did walk in the hallway. Patient is on IV milrinone, IV norepinephrine, IV insulin. at the bedside. April 13: Up in the chair. Family at the bedside. Chest tubes in place. Was given Lasix. Pleural effusion. Some shortness of breath. Remains on IV insulin. Did pass some flatus. Eating fair. Pacemaker disconnected. Insulin drip will be stopped. Put on Accu-Cheks to ACHS with sliding scale. Patient did ambulate in the hallway. April 14: Up in a chair. Did ambulate. Junctional rhythm. Some shortness of breath. IV Lasix 40 mg every 12. Chest tubes were removed earlier today. Has had flatus. Eating fair. April 15: Sitting in the chair. Did walk in the hallway. Eating fair. Had a bowel movement. Some shortness of breath. Remains on IV Lasix. Sinus rhythm. Checks x-ray today showing some pleural effusion April 16: Did walk in the hallway. Eating fair. Sinus rhythm. Has not slept well. Told the patient to take shorter duration naps as opposed to sleep at 1 time at night. Remains on IV Lasix. Spoke to the patient and at the bedside. April 17: ICU. Oral intake good. Did ambulate. Still getting IV Lasix. 2D echo done yesterday shows EF of 50 to 55%.-Bioprosthetic arctic valve with normal function. Tricuspid valve repair with mild tricuspid regurgitation. No arrhythmias. Hydralazine discontinued. Beta-edelmira held because of low heart rate. April 18: ICU. Had a good bowel movement. Breathing much improved. Had ambulated. Cardiothoracic's plan to discharge patient home. Discussed with the patient and . Active Medications Acetaminophen (Acetaminophen Tab 325 Mg Tab) 650 mg PO Q4HR PRN PRN Reason: Fever And/ Or Mild Pain (1-3) Albuterol/Ipratropium (Ipratropium-Albuterol 3 Ml Neb) 3 ml INHALATION RT-Q2H PRN PRN Reason: Shortness Of Breath Or Wheezing Albuterol/Ipratropium (Ipratropium-Albuterol 3 Ml Neb) 3 ml INHALATION RT-QID [facility] Last Admin: 04/18/24 11:57 Dose: 3 ml Alprazolam (Alprazolam 0.25 Mg Tab) 0.25 mg PO QID PRN PRN Reason: Anxiety Last Admin: 04/17/24 23:33 Dose: 0.25 mg Aspirin (Aspirin 325 Mg Tab) 325 mg PO DAILY [facility] Last Admin: 04/18/24 07:49 Dose: 325 mg Atorvastatin Calcium (Atorvastatin 20 Mg Tab) 20 mg PO HS [facility] Last Admin: 04/17/24 21:15 Dose: 20 mg Benzocaine/Menthol (Benzocaine/Menthol Lozeng 1 Each Lozenge) 1 each MUCOUS MEM Q2H PRN PRN Reason: Sore Throat Last Admin: 04/14/24 17:16 Dose: 1 each Bisacodyl (Bisacodyl 10 Mg Supp) 10 mg RECTAL DAILY PRN PRN Reason: Constipation Budesonide (Budesonide 1 Mg/2 Ml Nebu) 1 mg INHALATION RT-BID [facility] Last Admin: 04/18/24 08:54 Dose: 1 mg Dextrose/Water (Dextrose 50% Syringe 50 Ml) 25 ml IVP PER PROTOCOL PRN; Protocol PRN Reason: Hypoglycemia Dextrose/Water (Dextrose 50% Syringe 50 Ml) 50 ml IVP PER PROTOCOL PRN; Protocol PRN Reason: Hypoglycemia Furosemide (Furosemide 10 Mg/Ml 4 Ml Vial) 40 mg IV BID@0900,1600 [facility] Last Admin: 04/18/24 07:49 Dose: 40 mg Heparin Sodium (Porcine) (Heparin Sodium,Porcine 5,000 Unit/Ml 1 Ml Vial) 5,000 unit SQ Q8HR [facility] Stop: 04/18/24 17:00 Last Admin: 04/18/24 07:50 Dose: 5,000 unit Amiodarone HCl 150 mg/ (Dextrose/Water) 103 mls @ 618 mls/hr IV .Q10M PRN; Protocol PRN Reason: A.FIB/FLUTTER Amiodarone HCl 360 mg/ (Dextrose/Water) 207.2 mls @ 34.533 mls/hr IV .Q6H PRN; Protocol PRN Reason: A.FIB/FLUTTER Amiodarone HCl 450 mg/ (Dextrose/Water) 250 mls @ 16.667 mls/hr IV .Q15H PRN; Protocol PRN Reason: A.FIB/FLUTTER Calcium Gluconate/Sodium (Chloride 2 gm/ IV Solution) 100 mls @ 100 mls/hr IVPB ONCE PRN PRN Reason: Ionized Calcium less than 4.4 Stop: 04/18/24 15:52 Insulin Aspart (Insulin Aspart (Novolog) 100 Unit/Ml Vial) 0 unit SQ ACHS RAUL; Protocol Last Admin: 04/18/24 06:30 Dose: Not Given Losartan Potassium (Losartan 50 Mg Tab) 100 mg PO DAILY [facility] Last Admin: 04/18/24 07:49 Dose: 100 mg Magnesium Hydroxide (Magnesium Hydroxide 2,400 Mg/30 Ml Cup) 2,400 mg PO BID PRN PRN Reason: Constipation Melatonin (Melatonin 3 Mg Tablet) 6 mg PO HS [facility] Last Admin: 04/17/24 21:14 Dose: 6 mg Methocarbamol (Methocarbamol 500 Mg Tab) 1,000 mg PO QID PRN PRN Reason: Muscle Spasm Last Admin: 04/16/24 08:52 Dose: 1,000 mg Miscellaneous Information (Magnesium Replacement Protocol 1 Each Misc) 1 each MISCELLANE DAILY PRN; Protocol PRN Reason: Per Protocol Miscellaneous Information (Potassium Replacement Protocol 1 Each Misc) 1 each MISCELLANE DAILY PRN; Protocol PRN Reason: Per Protocol Ondansetron HCl (Ondansetron 4 Mg/2 Ml Vial) 4 mg IVP Q6HR PRN PRN Reason: Nausea And Vomiting Last Admin: 04/12/24 06:10 Dose: 4 mg Pantoprazole Sodium (Pantoprazole 40 Mg Tablet) 40 mg PO AC-BRKFST [facility] Last Admin: 04/18/24 06:40 Dose: 40 mg Petrolatum (Zinc Oxide Paste (Z-Guard) 1 Applic) 1 applic TOPICAL BID PRN; Protocol PRN Reason: Wound Healing Rivaroxaban (Rivaroxaban 20 Mg Tab) 20 mg PO W/SUPPER [facility]; Protocol Senna/Docusate Sodium (Sennosides-Docusate Sodium 1 Each Tab) 2 each PO HS PRN PRN Reason: Constipation Sodium Chloride (Sodium Chloride 0.9% Flush 10 Ml Syringe) 10 ml IV BID [facility] Last Admin: 04/18/24 07:45 Dose: Not Given Social history: Patient smoked from the age of 22 to 32 packs a day. Alcohol rarely. . Physical examination: VITAL SIGNS: Afebrile, 76, 16, 109/60, 97% room air GENERAL: Up in a chair. Breathing much improved. EYES: Pupils equal. Conjunctiva carlos l. HEENT: External appearance of nose and ears normal, oral cavity grossly normal. NECK: JVD unable to assess; masses not palpable. HEART: First and second heart sounds are normal; no edema. LUNGS: Respiratory rate normal; improved air entry ABDOMEN: Soft, nontender, liver spleen not palpable, no masses palpable. León catheter PSYCH: AOx3, mood affect normal MUSCULOSKELETAL:No Clubbing/cyanosis;muscles-grossly intact. INVESTIGATIONS, reviewed in the clinical context: April 18: White count 8.4 hemoglobin 8.6 platelets 204 potassium 4 creatinine 0.99 April 17: White count 9.7 hemoglobin 9.5 platelets 135 potassium 4.1 creatinine 0.84 April 16: White count 8 hemoglobin 8.9 platelets 140 potassium 4.1 creatinine 0.88 April 11, 2024: White count 14.5 hemoglobin 11.1 platelets 125 sodium 137 potassium 3.9 BUN 22 creatinine 0.87 April 06: White count 8.2 hemoglobin 14.3 potassium 4.3 BUN 20 creatinine 0.9 LDL 60.3 Chest x-ray film personally reviewed by me-reports [place]-Krystal catheter projects over the heart on the left heart. Endotracheal tube NG tube in appropriate position. 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 Permanent atrial fibrillation. Patient is undergone mitral valve replacement with Mosaic porcine bioprosthesis, decalcification of mitral valve Combs, tricuspid valve repair with a band, biatrial maze procedure, exclusion left atrial appendage. -Acute postprocedure blood loss anemia expected from surgery Ferrous sulfate -Acute hypoxic respiratory failure, status post ventilator support, for cardiothoracic procedure: Improved Off nasal cannula on room air -Moderate to severe pulmonary hypertension -Fluid overload, with pulmonary edema: Improved Received IV Lasix -Dilutional thrombocytopenia: Recovered -Mild hyponatremia with hypervolemia Patient received Lasix. Encourage oral intake. Fluid restriction -COPD no prior smoker Bronchodilators -Hyperglycemia, not a diabetic DC insulin drip. Accu-Cheks with sliding scale insulin. -Permanent atrial fibrillation Xarelto resumed -Few pulmonary micronodules measuring less than 4 mm. Pulmonary following. -Hard of hearing -Chronic rheumatoid arthritis -Full code Doing better. Cardiothoracic team is planning to discharge the patient today. To follow-up with his PCP. Thank you Dr. Scott Past Medical History Past Medical History: Atrial Fibrillation, GI Bleed, Hearing Disorder / Deafness, Pneumonia, Rheumatoid Arthritis (RA) Additional Past Medical History / Comment(s): Recently dx with Afib in the last month Nov, 2023. Recent shortness of breath and started seeing narrow fabric loom fixer in July 2023 and was put on inhalker, as needed. Hx bleeding ulcer in the past. Tinnitis. History of Any Multi-Drug Resistant Organisms: None Reported Past Surgical History: Heart Catheterization, Orthopedic Surgery, Tonsillectomy Additional Past Surgical History / Comment(s): back operation x2. Cardiac cath January 2024. Past Anesthesia/Blood Transfusion Reactions: No Reported Reaction, Postoperative Nausea & Vomiting (PONV) Additional Past Anesthesia/Blood Transfusion Reaction / Comm: No hx of blood transfusion. Smoking Status: Former smoker
--- NOTE | 2024-04-18 14:42 | P.DS ---
Providers Date of admission: 04/11/24 05:33 Expected date of discharge: 04/18/24 Attending physician: Sophia Scott Consults: 04/11/24 15:53 Consult Physician Routine Consulting Provider: Tato Glass Consult Reason/Comments: Circus Hand Consult: post cardiac surgery Do you want consulting provider notified?: Yes Consult Physician Routine Consulting Provider: Latrice Montero Consult Reason/Comments: Dental Scheduler Consult: post cardiac surgery Do you want consulting provider notified?: Yes Consult Physician Routine Consulting Provider: Bal Saravia Consult Reason/Comments: med mgmt; Alina patient Do you want consulting provider notified?: Yes Primary care physician: Paulina Fuller Hospital Course: FINAL DIAGNOSIS: Moderate to severe mitral valve regurgitation 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 Moderate tricuspid valve regurgitation Moderate to severe pulmonary hypertension Moderate to severe left ventricular dysfunction, EF 30-35% Postoperative acute blood loss anemia and thrombocytopenia, expected given hemodilution and cardiopulmonary bypass pump Hypotension requiring vasopressors, expected, resolved Hypervolemic hyponatremia, unexpected, resolving History of permanent atrial fibrillation status post unsuccessful cardioversion in January 2024, on Xarelto outpatient for anticoagulation Hyperlipidemia, treated, cholesterol 120, LDL 60, triglycerides 94 Previous tobacco dependence, quit smoking 30 years ago Mild COPD, preoperative FEV1 70% of predicted Remote history of pneumonia Rheumatoid arthritis previously on methotrexate, last dose in July 2023 Hyperglycemia not previously diagnosed as a diabetic, preoperative hemoglobin A1c 6.6% Family history of premature coronary artery disease in both parents PRINCIPAL PROCEDURE: Mitral valve replacement using a 31 mm Mosaic porcine bioprosthesis Decalcification of the mitral annulus using the sono PET machine Tricuspid valve repair using a 30 mm MC3 band Full biatrial maze procedure using radiofrequency and cryoablation Exclusion of the left atrial appendage using a 35mm AtriClip Intraoperative transesophageal echocardiogram and epiaortic scanning HISTORY OF PRESENT ILLNESS: This is a 68-year-old gentleman who follows outpatient with Dr. Fuller for primary care and Dr. Pinto for cardiology. The patient had been experiencing minimal symptoms of dyspnea on exertion and episodes of paroxysmal nocturnal dyspnea along with ankle swelling. He was noted to be in atrial fibrillation and was brought to the hospital for a GABRIELA guided cardioversion. This was unsuccessful in restoring sinus rhythm, additionally GABRIELA revealed severely decreased left regular function and severe mitral regurgitation as well as moderate tricuspid valve regurgitation. For completeness he underwent heart catheterization ruling out any significant coronary artery disease. The patient was referred to Dr. Scott from cardiothoracic surgery. He was recommended to undergo mitral valve replacement along with tricuspid valve repair plus maze procedure for his atrial fibrillation. The usual perioperative course was discussed in detail with the patient and his family, all risks and benefits were explained, all questions were answered, and consent was obtained to proceed with surgery. The patient was scheduled for surgery at the earliest possible date after obtaining dental clearance. HOSPITAL COURSE: The patient was brought to the hospital on 04/11/24, taken to the preoperative area, prepared in the usual fashion, and subsequently taken to the operating room where Dr. Scott performed mitral valve replacement and tricuspid valve repair. Upon completion of surgery the patient was transferred to the cardiovascular intensive care unit where he was recovered and monitored hemodynamically. He was extubated, all lines, tubes, and drips were discontinued when appropriate, and transfer orders were placed for 3 S. cardiac stepdown unit, however there was no bed availability and the patient remained on ICU as a stepdown patient until discharge. His oxygen was titrated down, he continued to work with physical and occupational therapy, he was tolerating oral diet, his pain was controlled, and he was ready to be discharged to home with [facility] on postoperative day #7. He received written and verbal instruction regarding his medications, activity restrictions, signs and symptoms requiring physician notification, and follow-up appointments. Beta-edelmira was contraindicated due to bradycardia. Patient Condition at Discharge: Stable Plan - Discharge Summary Discharge Rx Participant: Yes New Discharge Prescriptions: New Aspirin 81 mg PO DAILY #30 tab Losartan [Cozaar] 100 mg PO DAILY #30 tab Furosemide [Lasix] 40 mg PO DAILY #30 tablet Sennosides-Docusate Sodium [Senokot-S] 2 each PO HS PRN tab PRN Reason: Constipation Ferrous Sulfate [Feosol] 325 mg PO DAILY #30 tab Continue Acetaminophen [Tylenol Extra Strength] 500 mg PO Q6H PRN PRN Reason: Pain Empagliflozin [Jardiance] 10 mg PO DAILY Rivaroxaban [Xarelto] 20 mg PO HS Pantoprazole [Protonix] 40 mg PO HS Albuterol Sulfate/Budesonide [Airsupra 90-80 Mcg Inhaler] 2 puff INHALATION QAM PRN PRN Reason: Shortness Of Breath Atorvastatin [Lipitor] 20 mg PO HS Discontinued Sacubitril/Valsartan [Entresto 49 mg-51 mg Tablet] 1 each PO BID Discharge Medication List Acetaminophen [Tylenol Extra Strength] 500 mg PO Q6H PRN 01/13/24 [History] Albuterol Sulfate/Budesonide [Airsupra 90-80 Mcg Inhaler] 2 puff INHALATION QAM PRN 01/13/24 [History] Pantoprazole [Protonix] 40 mg PO HS 01/13/24 [History] Rivaroxaban [Xarelto] 20 mg PO HS 01/13/24 [History] Atorvastatin [Lipitor] 20 mg PO HS 01/30/24 [History] Empagliflozin [Jardiance] 10 mg PO DAILY 04/06/24 [History] Aspirin 81 mg PO DAILY #30 tab 04/18/24 [Rx] Ferrous Sulfate [Feosol] 325 mg PO DAILY #30 tab 04/18/24 [Rx] Furosemide [Lasix] 40 mg PO DAILY #30 tablet 04/18/24 [Rx] Losartan [Cozaar] 100 mg PO DAILY #30 tab 04/18/24 [Rx] Sennosides-Docusate Sodium [Senokot-S] 2 each PO HS PRN tab 04/18/24 [Rx] Follow up Appointment(s)/Referral(s): [facility], [NON-STAFF] - 1-2 Days (You should be seen by RN day after discharge, then 2-3 times per week until you start cardiac rehab. Physical and Occupational Therapy will also visit at least once, may continue if necessary) Jude Pinto MD [STAFF PHYSICIAN] - 04/23/24 3:30 pm (in the [facility] ) Rehab [facility] ,Cardiac [NON-STAFF] - 4 Weeks (You will receive a phone call in approximately 4-6 weeks for evaluation for cardiac rehab) Sophia Scott MD [STAFF PHYSICIAN] - 05/04/24 10:30 am Reynaldo Johnston NPC [Nurse Practitioner] - 04/24/24 12:30 pm (You will be seen in the surgeon's office behind the hospital in [facility], [address] Office phone number is ) Alina,Paulina B, DO [Primary Care Provider] - 05/01/24 4:15 pm Nadir Mcknight MD [STAFF PHYSICIAN] - 05/07/24 3:30 pm Ambulatory/Diagnostic Orders: Complete Blood Count w/diff [LAB.AMB] Time Frame: 3 Days, Location: None Selected Comprehensive Metabolic Panel [LAB.AMB] Time Frame: 3 Days, Location: None Selected Activity/Diet/Wound Care/Special Instructions: DISCHARGE INSTRUCTIONS: 1. No driving for 4 weeks, or until physician gives their ok. 2. The patient should sleep in their own bed, no medical bed needed. 3. Stairs are not an issue. If the bedroom is upstairs, it is advised that the patient go up at night and down in the morning for the first week. Go slowly, using handrail and take 1 step at a time. 4. JUSTYN hose are to be worn for 30 days post surgery or until physician discontinues. 5. Heart hugger is to be worn 100% of the time until physician d iscontinues.(except when showering) 6. No lifting, pushing, or pulling more than 10 pounds for 12 weeks. The physician will advise of any restriction changes. 7. The patient is expected to continue the prescribed walking program. 8. Continue pain control per as needed orders. 9. Continue with incentive spirometry and splinting/heart hugger until otherwise directed by the physician. 10. Must shower daily using liquid antibacterial soap 11. Routine sternal incision care. No powders, lotions, ointments on incisions. No dressings are necessary on incisions unless they are draining. Dermabond tape is to remain on sternal incision until surgeon follow-up. 12. Please call surgeon/MMD UNIT TEACHER for temp greater than 101 F or purulent drainage from incisions. 13. You should weigh yourself daily, record and bring log with you to follow up appointments. 14. All prescriptions given by surgeon for 30 days. Refills need to be filled through port crane operator/primary care physician. 15. A Red armband has been placed on the patient. It should be worn for 30 days post discharge from surgery and will be removed by the cardiac surgeons. If an ER visit is necessary, please make sure the number on the Red armband is called before going to ER. 16. You have been referred to and are expected to begin Cardiac Rehab in approximately 4-6 weeks. 17. Quitting smoking is the most important step you can take to improve your health. For additional information and assistance to quit smoking, please call the [place] tobacco quit line (0-296-XTCI-NOW/ ) or online: [email or web address] SERVICES TO PROVIDE: RN SKILLED HOME CARE SERVICES FOR POST-OP SURGICAL PATIENTS WITH THE FOLLOWING: Coronary Artery Bypass Surgery (CABG), Mitral Valve Replacement/Repair ( MVR), Aortic Valve Replacement/Repair (AVR) RN TO CONTINUE EDUCATION FROM ``ROAD TO A HEALTH HEART PATIENT EDUCATION MANUAL (GIVEN TO PATIENT IN THE HOSPITAL) MEDICATION RECONCILIATION WITH EDUCATION NEEDED ON FIRST HOME VISIT EMPHASIZE IMPORTANCE OF WEARING BREAST SUPPORT/HEART HUGGER ENCOURAGE USE OF INCENTIVE SPIROMETER 10 X EVERY HOUR WHILE AWAKE ENCOURAGE UTILIZATION OF LOWER EXTREMITY COMPRESSION STOCKINGS/JUSTYN HOSE and ELEVATE LEGS ABOVE LEVEL OF HEART WHILE AT REST. ENCOURAGE AMBULATION 3-5x/day INCREASING TOLERATES, WHILE AVOIDING EXTREMES IN TEMPERATURE FREQUENCY: RN TO OPEN THE PATIENT WITHIN 24 HOURS OF DISCHARGE FROM THE HOSPITAL WITH TELEHEALTH INSTALLED AT [facility] [place], RN TO VISIT 2-3 X A WEEK FOR 4 WEEKS ES TABLISHED BY PATIENT NEEDS. LABORATORY: CBC, CMP TO BE DRAWN ON THE THIRD DAY HOME, (RAN STAT) FAX RESULTS TO [phone]. TELEHEALTH PARAMETERS: WEIGHT: NOTIFY MD OF WEIGHT GAIN OF 2 LBS IN 24 HOURS OR 5 LBS IN ONE WEEK HR: NOTIFY MD OF HR <55 BPM OR HR>100 BPM BP: NOTIFY MD IF BP <90/55 OR BP>140/100 O2 SAT: NOTIFY MD IF PO2<93% ON ROOM AIR SEND TELEHEALTH REPORT TO PHYSICAL THERAPY SUPERVISOR AND CARDIOVASCULAR SURGEON THE FIRST WEEK OF CARE AND THEN BI-WEEKLY. PLEASE ADDITIONALLY COMMUNICATE ANY ABNORMALS AND NEW FINDINGS TO THE SURGEONS OFFICE. Discharge Disposition: HOME WITH HOME HEALTH SERVICES
[2024-04-18] MEDS ORDERED: RIVAROXABAN 20 MG TAB PO SCH (17:30)
== END 2024-04-18 14:25 | disposition home health service (06) | DRG 219 ==
LOC: 2ORMAIN 05:33 → EDSTATUS 08:00 → 2SICU 12:08
PROVIDERS: ADMIT Surgery; ATTEND Surgery
DX: I08.1 Rheumatic disorders of both mitral and tricuspid valves (principal); J96.01 Acute respiratory failure with hypoxia; E87.1 Hypo-osmolality and hyponatremia; I48.21 Permanent atrial fibrillation; I42.8 Other cardiomyopathies; I50.22 Chronic systolic (congestive) heart failure; D62 Acute posthemorrhagic anemia; I27.29 Other secondary pulmonary hypertension; J44.9 Chronic obstructive pulmonary disease, unspecified; M06.9 Rheumatoid arthritis, unspecified; D69.59 Other secondary thrombocytopenia; E78.5 Hyperlipidemia, unspecified; H91.90 Unspecified hearing loss, unspecified ear; I25.10 Atherosclerotic heart disease of native coronary artery without angina pectoris; G47.00 Insomnia, unspecified; I49.3 Ventricular premature depolarization; R00.1 Bradycardia, unspecified; R73.9 Hyperglycemia, unspecified; Z79.01 Long term (current) use of anticoagulants; Z87.891 Personal history of nicotine dependence; Z82.49 Family history of ischemic heart disease and other diseases of the circulatory system; Z79.84 Long term (current) use of oral hypoglycemic drugs; Z79.899 Other long term (current) drug therapy
CPT/HCPCS: 71045; 71046; 80048; 80053; 82330; 82805; 83735; 84132; 84443; 85025; 85027; 85610; 85730; 88305; 88311; 93306; 94640; 94760

== ENCOUNTER → 2024-06-04 | Outpatient (CLI) | payer MEDICARE, BC ==
[2024-06-04 16:24] LABS: ALT 14 U/L (10-49); AST 23 U/L (14-35); Albumin/Globulin Ratio 1.29 Ratio (1.60-3.17); Alkaline Phosphatase 105 U/L (41-126); BUN/Creat Ratio 17.88 Ratio (12.00-20.00); Blood Urea Nitrogen 14.3 mg/dL (9.0-27.0); Calcium 8.9 mg/dL (8.7-10.3); Carbon Dioxide 24.3 mmol/L (21.6-31.8); Chloride 102 mmol/L (96-109); Chol/HDL Ratio 2.55 Ratio; Globulin 3.1 g/dL (1.6-3.3); Glucose 94 mg/dL (70-110); LDL Cholesterol,Calculated 45.4 mg/dL (0.0-131.0); Potassium 3.9 mmol/L (3.5-5.5); Sodium 139 mmol/L (135-145); Total Bilirubin 0.9 mg/dL (0.3-1.2); Total Protein 7.1 g/dL (6.2-8.2)
== END | disposition home or self-care (01) ==
LOC: LABWHC1 10:00
PROVIDERS: ATTEND Internal Medicine Interventional Cardiology
DX: E78.2 Mixed hyperlipidemia (principal)
CPT/HCPCS: 36415; 80053; 80061

== ENCOUNTER 2024-07-31 05:32 | Day surgery (SDC) | payer MEDICARE, BC ==
[2024-07-31] MEDS ORDERED: LIDOCAINE 1% (10MG/ML) FOR IV START INTRADERMA PRN (06:29)
[2024-07-31] MEDS ORDERED: LACTATED RINGERS 1,000 ML IV SCH (06:29)
[2024-07-31 06:51] VITALS: TEMP 98.1
[2024-07-31] MEDS: SODIUM CHLORIDE 0.9% 500 ML IV ONE (07:08)
[2024-07-31] MEDS ORDERED: SODIUM CHLORIDE 0.9% 1,000 ML IV SCH (07:15)
[2024-07-31] MEDS: BENZOCAINE SPRAY 1 EACH MM ONE ×2 (07:24→12:30)
[2024-07-31 07:35] LABS: ALT 12 U/L (4-49); African American GFR (CKD) >90 (>60 ml/min/1.73 sqM); Albumin 4.5 g/dL (3.5-5.0); Anion Gap 11 mmol/L; Blood Urea Nitrogen 18 mg/dL (9-20); Calcium 9.2 mg/dL (8.4-10.2); Carbon Dioxide 27 mmol/L (22-30); Chloride 103 mmol/L (98-107); Glucose 108 mg/dL (74-99); Non-African American GFR(CKD) >90 (>60 ml/min/1.73 sqM); Sodium 141 mmol/L (137-145); Total Protein 8.3 g/dL (6.3-8.2)
[2024-07-31 07:51] LABS: AST 29 U/L (17-59); Alkaline Phosphatase 118 U/L (38-126)
[2024-07-31] MEDS ORDERED: LIDOCAINE 1% INJ 10MG/ML (20 ML MDV) ONE (12:30)
[2024-07-31] MEDS ORDERED: PROPOFOL 10 MG/ML 20 ML VIAL IV ONE (12:30)
--- NOTE | 2024-07-31 12:52 | P.PCN ---
Date of Procedure: 07/31/24 Description of Procedure: Indication: Atrial fibrillation Procedure Description: After explaining the procedure to the patient, it's risk and complications, blood pressure, heart rate and O2 saturation were monitored. The throat was sprayed with Cetacaine. Patient received sedation per anesthesia department . The probe was introduced into the esophagus without difficulty. Images were obtained. Following that, the probe was removed. There was no immediate complication. Findings: Left atrial size is dilated, severe spontaneous contrast was noted. The left atrial appendage is closed with no flow by Doppler study. The left ventricle systolic function is moderately impaired with ejection fraction of 40 to 45% with global hypokinesis. The aortic valve revealed fibrocalcific changes of the cusp with preserved opening. Bioprosthetic mitral valve was noted. The tricuspid valve was not well-visualized. The pulmonic valve appears to be normal. Descending thoracic aorta appears to be normal. No pericardial effusion was noted. Contrast bubble study revealed no shunting across the interatrial septum. Doppler: Pulse wave and color Doppler were obtained, and revealed no shunting across the interatrial septum. The mitral valve interrogation revealed no regurgitation. The tricuspid valve was not well-visualized. Conclusion: 1. Dilated left atrium with severe spontaneous contrast 2. Closure of the left atrial appendage with no flow by color Doppler study 3. Moderate global hypokinesis of the left ventricle 4. Bioprosthetic mitral valve with normal appearance 5. The tricuspid valve repair was not well-visualized Cardioversion: After obtaining GABRIELA and sedated state a synchronized biphasic cardioversion using 200 J for 3 attempts was done without success in restoring sinus mechanism.
[2024-07-31 13:04] VITALS: RESP 16
[2024-07-31 14:06] VITALS: BP 168/76; PULSE 72
[2024-07-31] MEDS ORDERED: RIVAROXABAN 20 MG TAB PO SCH (21:00)
[2024-07-31] MEDS ORDERED: ATORVASTATIN 20 MG TAB PO SCH (21:00)
== END 2024-07-31 14:29 | disposition home or self-care (01) ==
LOC: OR 05:32
PROVIDERS: ATTEND Internal Medicine Interventional Cardiology
DX: I25.10 Atherosclerotic heart disease of native coronary artery without angina pectoris (principal); I48.11 Longstanding persistent atrial fibrillation; I51.7 Cardiomegaly; E78.5 Hyperlipidemia, unspecified; K21.9 Gastro-esophageal reflux disease without esophagitis; I35.9 Nonrheumatic aortic valve disorder, unspecified; F17.210 Nicotine dependence, cigarettes, uncomplicated; Z95.2 Presence of prosthetic heart valve; Z79.02 Long term (current) use of antithrombotics/antiplatelets; Z79.82 Long term (current) use of aspirin; Z79.899 Other long term (current) drug therapy
CPT/HCPCS: 93312; 93320; 93325; 92960; 80053; J2003; J2704

== ENCOUNTER → 2024-10-16 | Outpatient (CLI) | payer MEDICARE, BC ==
[2024-10-16 15:51] LABS: NT-Pro-B-Type Natriuretic Pept 609 pg/mL (0-125)
[2024-10-16 17:29] LABS: Blood Urea Nitrogen 18.9 mg/dL (9.0-27.0); Calcium 9.1 mg/dL (8.7-10.3); Chloride 103 mmol/L (96-109); Glucose 110 mg/dL (70-110); Potassium 4.4 mmol/L (3.5-5.5); Sodium 139 mmol/L (135-145)
== END | disposition home or self-care (01) ==
LOC: LABWHC1 08:14
PROVIDERS: ATTEND Internal Medicine Interventional Cardiology
DX: I42.8 Other cardiomyopathies (principal); I50.22 Chronic systolic (congestive) heart failure
CPT/HCPCS: 36415; 80048; 83880

== ENCOUNTER 2025-01-25 13:14 | Day surgery (SDC) | payer MEDICARE, BC ==
[2025-01-25 14:40] VITALS: RESP 16; TEMP 98.4
[2025-01-25] MEDS: IV FLUID CONTINUATION 1,000 ML IV ONE (14:52)
[2025-01-25] MEDS ORDERED: LIDOCAINE 1% (10MG/ML) FOR IV START INTRADERMA PRN (14:56)
[2025-01-25] MEDS ORDERED: LACTATED RINGERS 1,000 ML IV SCH (14:56)
[2025-01-25] MEDS ORDERED: PROPOFOL 10 MG/ML 20 ML VIAL IV ONE (15:41)
--- NOTE | 2025-01-25 16:12 | P.PCN ---
Date of Procedure: 01/25/25 Procedure(s) Performed: BRIEF HISTORY: Patient is a 69-year-old pleasant white male scheduled for an elective colonoscopy as a part of screening for colon cancer. PROCEDURE PERFORMED: Colonoscopy with biopsy. PREOPERATIVE DIAGNOSIS: Screening for colon cancer. IV sedation per Anesthesia. PROCEDURE: After informed consent was obtained, the patient, was brought into the endoscopy unit. IV sedation was administered by Anesthesia under continuous monitoring. Digital rectal examination was normal. Initially the Olympus CF-160 flexible video colonoscope was then inserted in the rectum, gradually advanced into the; further advancement was not possible because of acute angulation in this area. The scope was removed and appeared after colonoscopy was then introduced into the rectum and gradually advanced into the cecum without any difficulty. Careful examination was performed as the scope was gradually being withdrawn. Ileocecal valve and the appendiceal orifice were visualized and appeared normal. Prep was excellent. Mucosa of the cecum, ascending colon, appeared normal up in the transverse colon there was a 3 mm sessile polyp removed by cold biopsy. Rest of the transverse colon, descending colon, sigmoid colon, and rectum appeared normal. Moderate left-sided diverticulosis. Retrofl exion was performed in the rectum and no lesions were seen. The patient tolerated the procedure well. IMPRESSION: 3 mm transverse colon polyp status post cold biopsy Moderate left-sided diverticulosis. RECOMMENDATIONS: Findings of this examination were discussed with the patient as well as his family.. He was advised to follow with the biopsy results. If the biopsy reveals adenoma he can have repeat colonoscopy in 7 years. Anesthesia: MAC
[2025-01-25 16:50] VITALS: BP 139/84; PULSE 79
== END 2025-01-25 16:55 | disposition home or self-care (01) ==
LOC: ORWHC2ENDO 13:14
PROVIDERS: ATTEND Internal Medicine Gastroenterology
DX: Z12.11 Encounter for screening for malignant neoplasm of colon (principal); K63.5 Polyp of colon; K57.30 Diverticulosis of large intestine without perforation or abscess without bleeding; K25.4 Chronic or unspecified gastric ulcer with hemorrhage; I48.91 Unspecified atrial fibrillation; E78.5 Hyperlipidemia, unspecified; F41.9 Anxiety disorder, unspecified; M06.9 Rheumatoid arthritis, unspecified; H91.90 Unspecified hearing loss, unspecified ear; Z79.02 Long term (current) use of antithrombotics/antiplatelets; Z79.82 Long term (current) use of aspirin; Z79.899 Other long term (current) drug therapy
CPT/HCPCS: 88305; 45380; J2704